=== PATIENT | female | born 1950 | race Caucasian/White ===

== ENCOUNTER 2017-06-10 14:23 | Inpatient (IN) | payer MEDICARE, BC ==
[~2017-06-10] VITALS: Ht 167.6 cm; Wt 70.3 kg
--- NOTE | 2017-06-10 14:35 | NUR ---
[facility] FOR MEDICAL CLEARANCE FOR GPS ADMISSION. 5150 HOLD MEDICAL RESEARCH SCIENTIST. PATIENT IS A/OX 2, LETHARGIC. BREATHING EVEN AND UNLABORED. NO SOB. VITALS STABLE. SAFETY AND COMFORT MEASURES IN PLACE. AWAITING MD ORDERS.
[2017-06-10 14:49] LABS: BASOPHILS # (AUTO) 0.1 /CMM (0.0-0.2); BASOPHILS % (AUTO) 0.7 % (0.0-2.0); EOSINOPHILS # (AUTO) 0.2 /CMM (0.0-0.7); EOSINOPHILS % (AUTO) 2.6 % (0.0-6.0); HEMATOCRIT 34 % (33-45); HEMOGLOBIN 11.8 g/dL (11.5-14.8); LYMPHOCYTES # (AUTO) 1.9 /CMM (0.8-4.8); LYMPHOCYTES % (AUTO) 26.4 % (20.0-44.0); MEAN CORPUSCULAR HEMOGLOBIN 30 PG (26.0-33.0); MEAN CORPUSCULAR HGB CONC 34 g/dl (31.0-36.0); MEAN CORPUSCULAR VOLUME 87 fL (82-100); MONOCYTES # (AUTO) 0.8 /CMM (0.1-1.30); MONOCYTES % (AUTO) 11.5 % (2.0-12.0); NEUTROPHILS # (AUTO) 4.4 /CMM (1.8-8.9); NEUTROPHILS % (AUTO) 58.8 % (43.0-81.0); PLATELET COUNT (AUTO) 308 /CMM (150-450); RDW COEFFICIENT OF VARIATION 14.1 (11.5-15.0); RED BLOOD CELL COUNT(AUTO) 3.95 MIL/uL (4.0-5.2); WHITE BLOOD COUNT (AUTO) 7.4 K/uL (4.3-11.0)
--- NOTE | 2017-06-10 15:01 | NUR ---
CALLED NURSING SUP. FOR GPS BED
[2017-06-10 15:05] LABS: ALANINE AMINOTRANSFERASE 24 U/L (12-78); ALBUMIN 3.3 g/dL (3.4-5.0); ALCOHOL, BLOOD < 3 mg/dL (0-0); ALKALINE PHOSPHATASE 90 U/L (46-116); ASPARTATE AMINOTRANSFERASE 18 U/L (15-37); BILIRUBIN,TOTAL 0.2 mg/dL (0.2-1.0); CALCIUM, SERUM 9.9 mg/dL (8.5-10.1); CARBON DIOXIDE 25 mmol/L (21-32); CHLORIDE 106 mmol/L (98-107); CREATININE 0.7 mg/dL (0.6-1.3); POTASSIUM 3.6 mmol/L (3.5-5.1); SODIUM SERUM 140 mmol/L (136-145); TOTAL PROTEIN, SERUM 7.5 g/dL (6.4-8.2); UREA NITROGEN, BLOOD 25 mg/dL (7-18)
[2017-06-10 15:06] LABS: GLUCOSE 38 mg/dL (74-106)
--- NOTE | 2017-06-10 15:06 | NUR ---
URINE OBTAINED VIA STRAIGHT CATH AND SENT TO LAB PER MD ORDERS.
[2017-06-10] MEDS ORDERED: DEXTROSE 50%-WATER 50 ML DISP.SYRIN ONE (15:07)
--- NOTE | 2017-06-10 15:15 | NUR ---
CRITICAL LAB, BS 38. NOTIFIED, ORDERED D50. D50 ADMINISTERED VIA NEW IV ON LAC, 20 G. WILL REASSESS
[2017-06-10] MEDS ORDERED: CLOP75TA15 PO (15:20)
[2017-06-10] MEDS ORDERED: LAMO150T PO (15:20)
[2017-06-10] MEDS ORDERED: FOLI1TAB16 PO (15:20)
[2017-06-10] MEDS ORDERED: QUET25TA PO (15:20)
[2017-06-10] MEDS ORDERED: LAMO25TA PO (15:20)
[2017-06-10] MEDS ORDERED: PREG75CA PO (15:20)
[2017-06-10] MEDS ORDERED: LORA1TAB PO (15:20)
[2017-06-10] MEDS ORDERED: BACL10TA PO (15:20)
[2017-06-10] MEDS ORDERED: FAMO20TA8 PO (15:20)
[2017-06-10] MEDS ORDERED: INSU100V7 SQ (15:20)
[2017-06-10] MEDS ORDERED: AMLO5TAB2 PO (15:20)
[2017-06-10] MEDS ORDERED: PENT400T2 PO (15:20)
[2017-06-10] MEDS ORDERED: LOSA50TA21 PO (15:20)
[2017-06-10] MEDS ORDERED: ATOR40TA PO (15:20)
[2017-06-10] MEDS ORDERED: INSU100V11 SQ (15:20)
[2017-06-10] MEDS ORDERED: BENZ0.5T3 PO (15:20)
[2017-06-10] MEDS ORDERED: LEVO150T8 PO (15:20)
[2017-06-10] MEDS ORDERED: SERT100T PO (15:20)
[2017-06-10] MEDS ORDERED: RISP0.253 PO (15:20)
[2017-06-10] MEDS ORDERED: BLOO-668 IN (15:20)
[2017-06-10] MEDS ORDERED: IV D5/ 0.9% NACL 1,000 ML IV ONE (15:30)
[2017-06-10] MEDS ORDERED: DEXTROSE 50%-WATER 50 ML DISP.SYRIN IVP ONE (15:30)
--- NOTE | 2017-06-10 15:31 | NUR ---
REPEAT BLOOD SUGAR 173
--- NOTE | 2017-06-10 15:34 | NUR ---
PATIENT'S PMD: DR. SONG - [phone] PSYCH MD: DR. ASCENCIO - [phone]
[2017-06-10 15:39] LABS: APPEARANCE,URINE Clear (CLEAR); BILIRUBIN,URINE Negative (NEGATIVE); BLOOD, URINE Negative Ery/uL (NEGATIVE); COLOR,URINE Yellow (YELLOW); KETONES,URINE Negative (NEGATIVE); LEUKOCYTE ESTERASE ,URINE Negative (NEGATIVE); NITRITE, URINE Negative (NEGATIVE); PROTEIN,URINE Negative (NEGATIVE); UGLUCOSE 250 MG/DL mg/dL (NEGATIVE); UROBILINOGEN,URINE 0.2 EU/dL (0.2)
[2017-06-10] MEDS ORDERED: HALOPERIDOL LACTATE INJ 5 MG/ML VIAL IM ONE (16:00)
--- NOTE | 2017-06-10 16:00 | NUR ---
GPS 213-A
[2017-06-10] MEDS ORDERED: HALOPERIDOL LACTATE INJ 5 MG/ML VIAL ONE (16:03)
--- NOTE | 2017-06-10 16:09 | NUR ---
CALLED NURSING SUP. FOR MS BED
[2017-06-10] MEDS ORDERED: ACETAMINOPHEN 325 MG TABLET PO PRN ×2 (16:30→17:00)
[2017-06-10] MEDS ORDERED: LORAZEPAM INJ 2 MG/ML VIAL IV PRN ×2 (16:30→17:00)
[2017-06-10] MEDS ORDERED: IV D5/ 0.9% NACL 1,000 ML IV PRN ×2 (16:30→17:00)
[2017-06-10] MEDS ORDERED: MAGNESIUM HYDROXIDE 30 ML UDC PO PRN ×2 (16:30→17:00)
[2017-06-10] MEDS ORDERED: ZOLPIDEM TARTRATE 5 MG TABLET PO PRN ×2 (16:30→17:00)
[2017-06-10] MEDS ORDERED: ONDANSETRON HCL/PF 4 MG/2 ML VIAL IVP PRN ×2 (16:30→17:00)
[2017-06-10] MEDS ORDERED: MAG HYDROX/AL HYDROX/SIMETH 30 ML UDC PO PRN ×2 (16:30→17:00)
--- NOTE | 2017-06-10 16:50 | NUR ---
REPORT GIVEN TO RNTELMA FOR MIRANDA UPON ADMISSION. [facility]ER.
[2017-06-10 17:00] VITALS: BP 145/73
--- NOTE | 2017-06-10 17:00 | NUR ---
MEAT BLENDER NOTE: RECEIVED REPORT FROM BERNARDO VALLE FROM ER. PATIENT WAS AWAKE, ALERT WITH INTERMITTENT CONFUSION. ABLE TO FOLLOW SIMPLE COMMANDS, BUT KEPT REPEATING THAT SHE WANTED TO SPEAK WITH HER . COMPLETE BODY ASSESSMENT DONE. GUARDED AT TIMES. NOT ON ANY FORM OF DISTRESS. CURRENTLY ON 1:1 SITTER FOR SAFETY. BED ALARM AND LOCKED AT ALL TIMES. CALL LIGHT WITHIN REACH. CALLED THE AND PT WAS ABLE TO CALM DOWN AND LESS GUARDED AFTER SPEAKING WITH .
--- NOTE | 2017-06-10 19:00 | NUR ---
RN NOTES: RECEIVED AWAKE ON BED, A/OX1,LOOKS LETHARGIC AND SLEEPY,ON 1;1 SITTER, ON CLOSE WATCH,IV CANNULA ON LAC G#18,IVF OF D5NS ONGOING AT 100CC/HR,FALL,SAFETY AND ASPIRATION PRECAUTION OBSERVED, CALL LIGHT WITHIN EASY REACH, BED LOW AND LOCKED, KEPT ON CLOSE WATCH AND MONITORED FOR SIGN OF HYPER AND HYPOGLYCEMIA.
--- NOTE | 2017-06-10 19:28 | NUR ---
RN NOTE: ENDORSED TO BERNARDO YANG FOR CONTINUITY OF CARE. PATIENT ASLEEP IN BED, NOT ON ANY FORM OF DISTRESS. NO S/S OF PAIN/ DISCOMFORT. REMAINED ON MED-SURG. FOR OBSERVATION OF BLOOD SUGAR AND CLEARANCE FOR GPS ADMISSION AFTER MEDICAL CLEARANCE. PATIENT ATE 100% OF HER DINNER.
[2017-06-10 20:00] VITALS: BP 150/80
[2017-06-10] MEDS ORDERED: ATORVASTATIN 40 MG TABLET PO SCH (22:00)
[2017-06-10] MEDS ORDERED: BENZTROPINE MESYLATE (1 MG) 1 MG TABLET PO SCH (22:00)
[2017-06-10] MEDS ORDERED: BACLOFEN (10 MG) 10 MG TABLET PO SCH (22:00)
--- NOTE | 2017-06-11 04:38 | NUR ---
RN NOTES: IVF FINISHED, NEW BAG STARTED.
[2017-06-11] MEDS ORDERED: PANTOPRAZOLE 40 MG TABLET.DR PO SCH ×2 (07:30)
[2017-06-11] MEDS ORDERED: LEVOTHYROXINE SODIUM 75 MCG TABLET PO SCH (07:30)
--- NOTE | 2017-06-11 07:30 | NUR ---
RN NOTES: ABLE TO SLEEP AT SHORT INTERVALS, CALLS AND NEEDS ATTENDED, KEPT ON CLOSE WATCH ON 1;1 SITTER, HIGH RISK FOR FALL,SAFETY PRECAUTION OBSERVE,CALLS AND NEEDS ATTENDED, ENDORSED FOR CONTINUITY OF CARE.
[2017-06-11] MEDS: risperiDONE 0.25 MG TABLET PO SCH ×2 (08:35→12:35)
[2017-06-11] MEDS: LORAZEPAM 1 MG TABLET PO PRN ×2 (08:36→15:55)
[2017-06-11] MEDS ORDERED: PENTOXIFYLLINE 400 MG TABLET.SA PO SCH (09:00)
[2017-06-11] MEDS ORDERED: FOLIC ACID 1 MG TABLET PO SCH (09:00)
[2017-06-11] MEDS ORDERED: LOSARTAN POTASSIUM 50 MG TABLET PO SCH (09:00)
[2017-06-11] MEDS ORDERED: QUETIAPINE FUMARATE 25 MG TABLET PO SCH ×2 (09:00→13:00)
[2017-06-11] MEDS ORDERED: AMLODIPINE BESYLATE 5 MG TABLET PO SCH (09:00)
[2017-06-11] MEDS ORDERED: SERTRALINE HCL 50 MG TABLET PO SCH (09:00)
[2017-06-11] MEDS ORDERED: CLOPIDOGREL BISULFATE 75 MG TABLET PO SCH (09:00)
[2017-06-11] MEDS ORDERED: LamoTRIgine 100 MG TABLET PO SCH (09:00)
[2017-06-11] MEDS ORDERED: PREGABALIN 25 MG CAPSULE PO SCH (09:00)
[2017-06-11] MEDS: BLOOD SUGAR DIAGNOSTIC 1 EACH STRIP IN SCH ×2 (09:00→13:00)
[2017-06-11] MEDS ORDERED: FAMOTIDINE (20 MG) 20 MG TABLET PO SCH (09:00)
[2017-06-11] MEDS: INSULIN REGULAR, HUMAN 100 UNIT/ML 3 ML VIAL SQ PRN ×2 (09:40→13:10)
[2017-06-11] MEDS ORDERED: DEXTROSE 50%-WATER 50 ML DISP.SYRIN IV PRN (10:00)
[2017-06-11] MEDS ORDERED: *INSULIN REGULAR(HUMULIN R)HUM 100 UNIT/ML VIAL SQ PRN (10:00)
[2017-06-11] MEDS ORDERED: BLOOD SUGAR DIAGNOSTIC 1 EACH STRIP VI SCH (12:00)
[2017-06-11 16:11] VITALS: BP 112/54
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
[2017-06-11] MEDS ORDERED: INSU100V3 SQ (16:57)
[2017-06-11] MEDS ORDERED: ONDA4VIA30 IVP (16:57)
[2017-06-11] MEDS ORDERED: LORA2VIA6 IV (16:57)
[2017-06-11] MEDS ORDERED: ZOLP5TAB2 PO (16:57)
[2017-06-11] MEDS ORDERED: ACET-868 PO (16:57)
[2017-06-11] MEDS ORDERED: MAG30ORA PO (16:57)
[2017-06-11] MEDS ORDERED: PANT40TA2 PO (16:57)
[2017-06-11] MEDS ORDERED: MAGN400O6 PO (16:57)
[2017-06-11] MEDS ORDERED: DEXT50DI8 IV (16:57)
[2017-06-11] MEDS ORDERED: LamoTRIgine 25 MG TABLET PO SCH (18:00)
[2017-06-11] MEDS ORDERED: INSULIN GLARGINE, 100 UNIT/ML CARTRIDGE SQ SCH (22:00)
== END 2017-06-11 16:16 | DRG 639 ==
LOC: ER 14:26 → MEDSG1 16:59
PROVIDERS: ADMIT Nurse Practitioner Acute Care; ATTEND Nurse Practitioner Acute Care
DX: E10.649 Type 1 diabetes mellitus with hypoglycemia without coma (principal); I11.0 Hypertensive heart disease with heart failure; I50.9 Heart failure, unspecified; E10.51 Type 1 diabetes mellitus with diabetic peripheral angiopathy without gangrene; E78.5 Hyperlipidemia, unspecified; G40.909 Epilepsy, unspecified, not intractable, without status epilepticus; I25.10 Atherosclerotic heart disease of native coronary artery without angina pectoris; K21.9 Gastro-esophageal reflux disease without esophagitis; Z79.4 Long term (current) use of insulin; F32.9 Major depressive disorder, single episode, unspecified; E03.9 Hypothyroidism, unspecified; F29 Unspecified psychosis not due to a substance or known physiological condition
CPT/HCPCS: 36415; 80048-TC; 80076-TC; 80305; 81000-TC; 82947-TC; 82962-TC; 85025-TC; 87081-TC; A4606; A6253; A6402; G0480; J1630; J1815; J3490; J7042; Z7610

== ENCOUNTER 2017-06-11 16:23 | Inpatient (IN) | payer MEDICARE, OTHER ==
[~2017-06-11] VITALS: Ht 167.6 cm; Wt 70.8 kg
[~2017-06-11 16:23] MED LIST: AMLO5TAB2 PO; ATOR40TA PO; BACL10TA PO; BENZ0.5T3 PO; BLOO-668 IN; CLOP75TA15 PO; FAMO20TA8 PO; FOLI1TAB16 PO; INSU100V11 SQ; INSU100V7 SQ; LAMO150T PO; LAMO25TA PO; LEVO150T8 PO; LORA1TAB PO; LOSA50TA21 PO; PENT400T2 PO; PREG75CA PO; QUET25TA PO; RISP0.253 PO; SERT100T PO
[2017-06-11] MEDS ORDERED: INSU100V3 SQ (16:57)
[2017-06-11] MEDS ORDERED: LORA2VIA6 IV (16:57)
[2017-06-11] MEDS ORDERED: ACET-868 PO (16:57)
[2017-06-11] MEDS ORDERED: ZOLP5TAB2 PO (16:57)
[2017-06-11] MEDS ORDERED: PANT40TA2 PO (16:57)
[2017-06-11] MEDS ORDERED: DEXT50DI8 IV (16:57)
[2017-06-11] MEDS ORDERED: MAGN400O6 PO (16:57)
[2017-06-11] MEDS ORDERED: MAG30ORA PO (16:57)
[2017-06-11] MEDS ORDERED: ONDA4VIA30 IVP (16:57)
[2017-06-11] MEDS ORDERED: MAG HYDROX/AL HYDROX/SIMETH 30 ML UDC PO PRN ×2 (17:00→20:30)
[2017-06-11] MEDS ORDERED: MAGNESIUM HYDROXIDE 30 ML UDC PO PRN ×2 (17:00→20:30)
[2017-06-11] MEDS ORDERED: ACETAMINOPHEN 325 MG TABLET PO PRN ×2 (17:00→20:30)
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
--- NOTE | 2017-06-11 17:15 | NUR ---
GPS/RN PT REFUSED VS CHECKED. SCREAMED : " GET THE F... OUT OF HERE"
--- NOTE | 2017-06-11 17:51 | NUR ---
GPS/RN NO RESPONSE FROM DR VALDOVINOS YET WILL ENDORSE TO TEMPLATE CUTTER TO FOLLOW UP
[2017-06-11] MEDS ORDERED: INSULIN REGULAR, HUMAN 100 UNIT/ML 3 ML VIAL SQ PRN ×2 (18:00→20:30)
[2017-06-11] MEDS ORDERED: DEXTROSE 50%-WATER 50 ML DISP.SYRIN IV PRN ×2 (18:00→20:30)
[2017-06-11] MEDS ORDERED: *INSULIN REGULAR(HUMULIN R)HUM 100 UNIT/ML VIAL SQ PRN (18:00)
[2017-06-11] MEDS ORDERED: BLOOD SUGAR DIAGNOSTIC 1 EACH STRIP VI SCH (18:00)
--- NOTE | 2017-06-11 18:10 | NUR ---
GPS/RN ACCUCHECK WITH BS206 INSULIN 6UNITS GIVEN PER ORDER
--- NOTE | 2017-06-11 19:15 | NUR ---
GPS/RN ENDORSED TO TJ CHANG TO FOLLOW UP WITH [facility] MD TO RECONCILE MEDS
[2017-06-11 20:00] VITALS: BP 131/55
--- NOTE | 2017-06-11 20:00 | NUR ---
PATIENT CALM AND COOPERATIVE, RESPONDS WELL WHEN ENGAGED. ASKED PATIENT IF SHE WILL ALLOW PICTURE TO BE TAKEN WITH SKIN ASSESSMENT.
[2017-06-11] MEDS ORDERED: ONDANSETRON HCL/PF 4 MG/2 ML VIAL IVP PRN (20:30)
[2017-06-11] MEDS ORDERED: FOLIC ACID 1 MG TABLET PO SCH (20:30)
[2017-06-11] MEDS ORDERED: LEVOTHYROXINE SODIUM 150 MCG TABLET PO SCH (20:30)
[2017-06-11] MEDS ORDERED: FAMOTIDINE (20 MG) 20 MG TABLET PO SCH (20:30)
[2017-06-11] MEDS ORDERED: LOSARTAN POTASSIUM 50 MG TABLET PO SCH (20:30)
[2017-06-11] MEDS ORDERED: LamoTRIgine 25 MG TABLET PO SCH (20:30)
[2017-06-11] MEDS ORDERED: CLOPIDOGREL BISULFATE 75 MG TABLET PO SCH (20:30)
[2017-06-11] MEDS ORDERED: PENTOXIFYLLINE 400 MG TABLET.SA PO SCH (20:30)
[2017-06-11] MEDS ORDERED: PANTOPRAZOLE 40 MG TABLET.DR PO SCH (20:30)
[2017-06-11] MEDS ORDERED: AMLODIPINE BESYLATE 5 MG TABLET PO SCH (20:30)
[2017-06-11] MEDS ORDERED: LEVOTHYROXINE SODIUM 50 MCG TABLET ONE (20:40)
--- NOTE | 2017-06-11 20:50 | NUR ---
FOLATE 1 MG TAB, LAMOTRIGINE 75 MG (3)TABS, FAMOTIDINE 20 MG TAB, CLOPIDOGREL 75 MG TAB PANTOPRAZOLE 40 MG TAB, PENTOXIFYLLINE 400 MG TAB. ALL MEDS GIVEN @ AROUND 2051. 06/10/17
--- NOTE | 2017-06-11 21:00 | NUR ---
PATIENT ASLEEP AT THIS TIME.
--- NOTE | 2017-06-11 21:04 | NUR ---
SYNTHROID 150 MCG DUE AT 2029 NOT ADMINISTERED, ORDER IS TO BE GIVEN AC BREAKFAST, STARTS ACE AM @ 0730. SYNTHROID 50 MCG GIVEN TONIGHT ORDERED X1 DOSE.
--- NOTE | 2017-06-11 21:09 | NUR ---
PATIENT TOOK HER MEDICATIONS FOR 2030, MED COMPLIANT.
[2017-06-11] MEDS ORDERED: LamoTRIgine 25 MG TABLET PO ONE (21:30)
[2017-06-11] MEDS ORDERED: PANTOPRAZOLE 40 MG TABLET.DR PO ONE (21:30)
[2017-06-11] MEDS ORDERED: AMLODIPINE BESYLATE 5 MG TABLET PO ONE (21:30)
[2017-06-11] MEDS ORDERED: FOLIC ACID 1 MG TABLET PO ONE (21:30)
[2017-06-11] MEDS ORDERED: CLOPIDOGREL BISULFATE 75 MG TABLET PO ONE (21:30)
[2017-06-11] MEDS ORDERED: PENTOXIFYLLINE 400 MG TABLET.SA PO ONE (21:30)
[2017-06-11] MEDS ORDERED: LEVOTHYROXINE SODIUM 150 MCG TABLET PO ONE (21:30)
[2017-06-11] MEDS ORDERED: LOSARTAN POTASSIUM 50 MG TABLET PO ONE (21:30)
[2017-06-11] MEDS ORDERED: FAMOTIDINE (20 MG) 20 MG TABLET PO ONE (21:30)
[2017-06-11] MEDS: BLOOD SUGAR DIAGNOSTIC 1 EACH STRIP IN SCH (21:43)
--- NOTE | 2017-06-11 21:47 | NUR ---
DR. LUGO CAME IN. SEEN AND EXAMINED PATIENT.
[2017-06-11] MEDS ORDERED: INSULIN GLARGINE, 100 UNIT/ML CARTRIDGE SQ SCH (22:00)
--- NOTE | 2017-06-11 22:50 | NUR ---
PATIENT'S MOOD SUDDENLY CHANGED, AGITATED AND UNCOOPERATIVE. REFUSED PHOTO AND SKIN ASSESSMENT, STATED," I DON'T WANT YOU TO TAKE A PICTURE, GET OUT OF HERE."
[2017-06-11] MEDS: BACLOFEN (10 MG) 10 MG TABLET PO SCH (22:54)
[2017-06-11] MEDS: ATORVASTATIN 40 MG TABLET PO SCH (22:54)
--- NOTE | 2017-06-11 23:36 | NUR ---
LIORESAL 20 MG PO GIVEN @ 2253 AND LIPITOR 40 MG TAB
--- NOTE | 2017-06-12 06:10 | NUR ---
Lantus 28 units not administered. medication not available at this time.
[2017-06-12] MEDS: clonazePAM 0.5 MG TABLET PO PRN ×2 (07:04→07:15)
--- NOTE | 2017-06-12 07:11 | NUR ---
Accucheck 430 mg/dl, reported to BERNARDO DAWN, will follow up.
[2017-06-12] MEDS: BLOOD SUGAR DIAGNOSTIC 1 EACH STRIP IN SCH (07:16)
[2017-06-12 07:25] LABS: BASOPHILS % (AUTO) 0.8 % (0.0-2.0); EOSINOPHILS # (AUTO) 0.2 /CMM (0.0-0.7); EOSINOPHILS % (AUTO) 2.8 % (0.0-6.0); HEMATOCRIT 34 % (33-45); HEMOGLOBIN 11.7 g/dL (11.5-14.8); LYMPHOCYTES # (AUTO) 1.2 /CMM (0.8-4.8); LYMPHOCYTES % (AUTO) 21.9 % (20.0-44.0); MEAN CORPUSCULAR HEMOGLOBIN 30 PG (26.0-33.0); MEAN CORPUSCULAR HGB CONC 34 g/dl (31.0-36.0); MEAN CORPUSCULAR VOLUME 88 fL (82-100); MONOCYTES # (AUTO) 0.5 /CMM (0.1-1.30); MONOCYTES % (AUTO) 8.4 % (2.0-12.0); NEUTROPHILS # (AUTO) 3.7 /CMM (1.8-8.9); NEUTROPHILS % (AUTO) 66.1 % (43.0-81.0); PLATELET COUNT (AUTO) 270 /CMM (150-450); RDW COEFFICIENT OF VARIATION 15.4 (11.5-15.0); RED BLOOD CELL COUNT(AUTO) 3.84 MIL/uL (4.0-5.2); WHITE BLOOD COUNT (AUTO) 5.5 K/uL (4.3-11.0)
[2017-06-12] MEDS: INSULIN REGULAR, HUMAN 100 UNIT/ML 3 ML VIAL SQ PRN ×4 (07:30→22:00)
[2017-06-12] MEDS ORDERED: LEVOTHYROXINE SODIUM 150 MCG TABLET PO SCH (07:30)
[2017-06-12] MEDS ORDERED: DEXTROSE 50%-WATER 50 ML DISP.SYRIN IV PRN (07:30)
--- NOTE | 2017-06-12 07:30 | NUR ---
[id number]: CALLED [facility] TO NOTIFY DR. VALDOVINOS ABOUT BLOOD SUGAR IS 430 MG/DL AND WAITING FOR RETURN PHONE CALL.
[2017-06-12] MEDS: BLOOD SUGAR DIAGNOSTIC 1 EACH STRIP VI SCH ×4 (07:34→22:07)
[2017-06-12 07:42] LABS: CHOLESTEROL 266 mg/dL (<200); HDL CHOLESTEROL 105 mg/dL (40-60); LDL 148 mg/dL (0-99); TRIGLYCERIDES 52 mg/dL (30-150)
[2017-06-12 07:44] LABS: ALBUMIN 3.3 g/dL (3.4-5.0); BILIRUBIN,TOTAL 0.5 mg/dL (0.2-1.0); CALCIUM, SERUM 9.5 mg/dL (8.5-10.1); MAGNESIUM 1.9 mg/dL (1.8-2.4); PHOSPHORUS 2.9 mg/dL (2.5-4.9); POTASSIUM 4.4 mmol/L (3.5-5.1); TOTAL PROTEIN, SERUM 7.5 g/dL (6.4-8.2)
[2017-06-12] MEDS: PANTOPRAZOLE 40 MG TABLET.DR PO SCH (07:58)
[2017-06-12] MEDS: LEVOTHYROXINE SODIUM 75 MCG TABLET PO SCH (07:58)
[2017-06-12 08:00] VITALS: BP 144/66
[2017-06-12] MEDS: PREGABALIN 25 MG CAPSULE PO SCH ×2 (08:02→16:12)
[2017-06-12] MEDS: FOLIC ACID 1 MG TABLET PO SCH (08:03)
[2017-06-12] MEDS: PENTOXIFYLLINE 400 MG TABLET.SA PO SCH ×2 (08:03→16:12)
[2017-06-12] MEDS: CLOPIDOGREL BISULFATE 75 MG TABLET PO SCH (08:03)
[2017-06-12] MEDS: LOSARTAN POTASSIUM 50 MG TABLET PO SCH (08:04)
[2017-06-12] MEDS: FAMOTIDINE (20 MG) 20 MG TABLET PO SCH ×2 (08:04→16:12)
[2017-06-12] MEDS: AMLODIPINE BESYLATE 5 MG TABLET PO SCH (08:05)
[2017-06-12] MEDS ORDERED: LamoTRIgine 100 MG TABLET PO SCH (09:00)
--- NOTE | 2017-06-12 09:05 | NUR ---
[id number]: DR. VALDOVINOS CALLED BACK AND INFORMED DR. VALDOVINOS THAT PT'S BLOOD SUGAR IS 430 AND GAVE 15 UNITS OF REGULAR INSULIN AND RECHECKED BLOOD SUGAR IS 398 MG/DL. NO NEW ORDERS GIVEN AT THIS TIME
[2017-06-12] MEDS: risperiDONE 1 MG TABLET PO SCH ×2 (10:57→16:12)
[2017-06-12] MEDS: SERTRALINE HCL 50 MG TABLET PO SCH (10:57)
[2017-06-12] MEDS: BENZTROPINE MESYLATE (1 MG) 1 MG TABLET PO SCH ×2 (10:57→16:12)
--- NOTE | 2017-06-12 12:15 | NUR ---
[id number]: BLOOD SUGAR IS 248 MG/DL AND GAVE 6 UNITS OF REGULAR INSULIN AND GAVE 28 UNITS OF LANTUS.
[2017-06-12] MEDS: INSULIN GLARGINE, 100 UNIT/ML CARTRIDGE SQ SCH (12:16)
--- NOTE | 2017-06-12 15:00 | NUR ---
[id number]: PT REFUSED WOUND TREATMENT EVEN AFTER OFFER 3X BY STAFF. PT GETS ANXIOUS, RESTLESS, IRRITABLE, NON-COMPLIANT WITH STAFF.
[2017-06-12 16:00] VITALS: BP 119/51
--- NOTE | 2017-06-12 17:00 | NUR ---
[id number]: PT REFUSED MRSA TO BE DONE AND SKIN ASSESSMENT.
[2017-06-12] MEDS ORDERED: LamoTRIgine 25 MG TABLET PO SCH (18:00)
--- NOTE | 2017-06-12 18:04 | NUR ---
FQG-[id number]: BLOOD SUGAR IS 160 MG/DL AND GAVE 2 UNITS OF REGULAR INSULIN
[2017-06-12 20:21] VITALS: BP 119/59
[2017-06-12] MEDS: BACLOFEN (10 MG) 10 MG TABLET PO SCH (21:09)
[2017-06-12] MEDS: ATORVASTATIN 40 MG TABLET PO SCH (21:09)
[2017-06-12] MEDS: LamoTRIgine 25 MG TABLET PO SCH (21:09)
[2017-06-12 23:00] VITALS: BP 116/66
[2017-06-13 08:00] VITALS: BP 155/78
[2017-06-13] MEDS: INSULIN GLARGINE, 100 UNIT/ML CARTRIDGE SQ SCH (08:17)
--- NOTE | 2017-06-13 08:17 | NUR ---
AKZ-XZ-VHUTP: BLOOD SUGAR IS 395 MG/DL AND GAVE 15 UNITS OF REGULAR INSULIN.
--- NOTE | 2017-06-13 08:17 | NUR ---
KJP-[id number]-[id number]: BLOOD SUGAR IS 395 MG/DL AND GAVE LANTUS 28 UNITS.
[2017-06-13] MEDS: INSULIN REGULAR, HUMAN 100 UNIT/ML 3 ML VIAL SQ PRN ×3 (08:19→17:05)
[2017-06-13] MEDS: BLOOD SUGAR DIAGNOSTIC 1 EACH STRIP VI SCH ×4 (08:19→21:43)
[2017-06-13] MEDS: risperiDONE 1 MG TABLET PO SCH ×2 (08:27→16:10)
[2017-06-13] MEDS: PREGABALIN 25 MG CAPSULE PO SCH ×2 (08:27→16:10)
[2017-06-13] MEDS: FAMOTIDINE (20 MG) 20 MG TABLET PO SCH ×2 (08:28→16:10)
[2017-06-13] MEDS: LamoTRIgine 100 MG TABLET PO SCH (08:28)
[2017-06-13] MEDS: BENZTROPINE MESYLATE (1 MG) 1 MG TABLET PO SCH ×2 (08:28→16:10)
[2017-06-13] MEDS: CLOPIDOGREL BISULFATE 75 MG TABLET PO SCH (08:28)
[2017-06-13] MEDS: PENTOXIFYLLINE 400 MG TABLET.SA PO SCH ×2 (08:28→16:10)
[2017-06-13] MEDS: PANTOPRAZOLE 40 MG TABLET.DR PO SCH (08:28)
[2017-06-13] MEDS: SERTRALINE HCL 50 MG TABLET PO SCH (08:28)
[2017-06-13] MEDS: LEVOTHYROXINE SODIUM 75 MCG TABLET PO SCH (08:28)
[2017-06-13] MEDS: LOSARTAN POTASSIUM 50 MG TABLET PO SCH (08:32)
[2017-06-13] MEDS: FOLIC ACID 1 MG TABLET PO SCH (08:33)
[2017-06-13] MEDS: AMLODIPINE BESYLATE 5 MG TABLET PO SCH (08:33)
[2017-06-13] MEDS: *INSULIN REGULAR(HUMULIN R)HUM 100 UNIT/ML VIAL SQ PRN ×2 (12:15→21:51)
--- NOTE | 2017-06-13 12:30 | NUR ---
VGW-VA-[id number]: BLOOD SUGAR IS 328 MG /DL AND GAVE 8 UNITS OF REGULAR INSULIN
--- NOTE | 2017-06-13 13:32 | NUR ---
NVA-WJ-[id number]: PT REFUSED LAB AT THIS TIME, EVEN AFTER EXPLAINED TO PT THE IMPORTANCE OF BEING COMPLIANT WITH TREATMENT. ENERGY ECONOMIST WILL BE COMING AGAIN AFTER DINNER
--- NOTE | 2017-06-13 15:23 | NUR ---
Initial Discharge Note: Patient resides at [address] [place] [address] with her ex-/ DPOA Ricardo. Patient wishes to return upon discharge. SW called and spoke with patient's ex-/DPOA Ricardo [phone]. Ricardo stated that patient is able to return home when she is ready for discharge. Ricardo stated that patient has two caregivers in the daytime and that he cares for patient at night. SW to follow up with MD and facilitate safe and proper discharge.
[2017-06-13 16:00] VITALS: BP 146/65
[2017-06-13 16:08] LABS: APPEARANCE,URINE SL CLOUDY (CLEAR); BILIRUBIN,URINE NEGATIVE (NEGATIVE); BLOOD, URINE NEGATIVE Ery/uL (NEGATIVE); COLOR,URINE YELLOW (YELLOW); KETONES,URINE 1+ (NEGATIVE); LEUKOCYTE ESTERASE ,URINE NEGATIVE (NEGATIVE); NITRITE, URINE NEGATIVE (NEGATIVE); PROTEIN,URINE NEGATIVE (NEGATIVE); UGLUCOSE 3+ mg/dL (NEGATIVE); UROBILINOGEN,URINE 0.2 EU/dL (0.2)
[2017-06-13 16:29] LABS: BACTERIA,URINE None seen /HPF (None Seen); RBC,URINE 0-2 /HPF (0-2); SQUAMOUS EPITHELIAL CELL,UR Rare /HPF (None Seen); WBC,URINE 0-2 /HPF (0-3)
--- NOTE | 2017-06-13 17:05 | NUR ---
SWZ-[id number]: BLOOD SUGAR IS 198 MG/DL AND GAVE 3 UNITS OF REGULAR INSULIN
--- NOTE | 2017-06-13 17:26 | NUR ---
GPS/RN NOTE DR VALDOVINOS MADE AWARE OF URINALYSIS RESULT WITH NO NEW ORDER AT THIS TIME.
[2017-06-13 20:21] VITALS: BP 129/51
[2017-06-13] MEDS ORDERED: HYDROGEL DRESSING 90 GM TUBE TP PRN (21:00)
[2017-06-13] MEDS ORDERED: ZINC OXIDE 30 GM TUBE TP PRN (21:00)
[2017-06-13] MEDS ORDERED: ZINC OXIDE 30 GM TUBE TP SCH (21:00)
[2017-06-13] MEDS ORDERED: HYDROGEL DRESSING 90 GM TUBE TP SCH (21:00)
[2017-06-13] MEDS: LamoTRIgine 25 MG TABLET PO SCH (21:40)
[2017-06-13] MEDS: BACLOFEN (10 MG) 10 MG TABLET PO SCH (21:41)
[2017-06-13] MEDS: ATORVASTATIN 40 MG TABLET PO SCH (21:41)
[2017-06-14] MEDS: PANTOPRAZOLE 40 MG TABLET.DR PO SCH (07:30)
[2017-06-14] MEDS: LEVOTHYROXINE SODIUM 75 MCG TABLET PO SCH (07:30)
--- NOTE | 2017-06-14 07:51 | NUR ---
[id number]: BLOOD SUGAR IS 441 MG/DL. CALLED [facility] TO SPEAK WITH LETA STONE. PENDING RETURN PHONE CALL.
[2017-06-14] MEDS: BLOOD SUGAR DIAGNOSTIC 1 EACH STRIP VI SCH ×4 (07:53→22:27)
[2017-06-14] MEDS: INSULIN REGULAR, HUMAN 100 UNIT/ML 3 ML VIAL SQ PRN ×3 (08:21→18:13)
[2017-06-14] MEDS: INSULIN GLARGINE, 100 UNIT/ML CARTRIDGE SQ SCH (08:21)
--- NOTE | 2017-06-14 08:21 | NUR ---
[id number]-CHHWI: GAVE LANTUS 28 UNITS OF LANTUS INSULIN.
--- NOTE | 2017-06-14 08:21 | NUR ---
SAS-[id number]: GAVE 15 UNITS OF REGULAR INSULIN
--- NOTE | 2017-06-14 08:25 | NUR ---
[id number]: NOTIFIED CARE PROGRAM DIRECTOR BERTHA ABOUT PT'S BLOOD SUGAR IS 441 MG/DL AND GAVE 15 UNITS OF REGULAR INSULIN AND LANTUS 28 UNITS. NO NEW ORDERS GIVEN AT THIS TIME
[2017-06-14] MEDS: LOSARTAN POTASSIUM 50 MG TABLET PO SCH (08:37)
[2017-06-14] MEDS: LamoTRIgine 100 MG TABLET PO SCH (08:37)
[2017-06-14] MEDS: FOLIC ACID 1 MG TABLET PO SCH (08:37)
[2017-06-14] MEDS: BENZTROPINE MESYLATE (1 MG) 1 MG TABLET PO SCH ×2 (08:37→16:39)
[2017-06-14] MEDS: PREGABALIN 25 MG CAPSULE PO SCH ×2 (08:38→16:37)
[2017-06-14] MEDS: CLOPIDOGREL BISULFATE 75 MG TABLET PO SCH (08:38)
[2017-06-14] MEDS: ZINC SULFATE 220 MG CAPSULE PO SCH (08:38)
[2017-06-14] MEDS: HYDROGEL DRESSING 90 GM TUBE TP SCH (08:38)
[2017-06-14] MEDS: risperiDONE 1 MG TABLET PO SCH ×2 (08:38→16:38)
[2017-06-14] MEDS: PENTOXIFYLLINE 400 MG TABLET.SA PO SCH ×2 (08:38→16:38)
[2017-06-14] MEDS: SERTRALINE HCL 50 MG TABLET PO SCH (08:38)
[2017-06-14] MEDS: FAMOTIDINE (20 MG) 20 MG TABLET PO SCH ×2 (08:38→16:37)
[2017-06-14] MEDS: ASCORBIC ACID 500 MG TABLET PO SCH (08:38)
[2017-06-14] MEDS: AMLODIPINE BESYLATE 5 MG TABLET PO SCH (08:38)
[2017-06-14] MEDS: HYDROCORTISONE 1% CREAM 28.35 GM TUBE TP SCH ×2 (08:39→16:38)
[2017-06-14] MEDS: CLOTRIMAZOLE 1% 15 GM TUBE TP SCH ×2 (08:39→16:38)
--- NOTE | 2017-06-14 08:43 | NUR ---
[id number]: PT REFUSED MORNING MEDICATIONS. EVEN AFTER OFFERING 3X. EXPLAINED THE RISK AND BENEFITS OF MEDICATIONS.
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
[2017-06-14] MEDS ORDERED: LORAZEPAM INJ 2 MG/ML VIAL IM STA ×2 (10:21→15:44)
[2017-06-14] MEDS ORDERED: OLANZAPINE 10 MG VIAL IM STA (10:21)
--- NOTE | 2017-06-14 11:13 | NUR ---
WOUND CARE CONSULT JOURNEY LINEMAN RECEIVED CONSULT FOR LEFT LEG WOUND. PATIENT CURRENTLY BEING FOLLOWED BY DR CARTER ROJAS. BILATERAL FOOT AND LEFT LEG ULCER TREATMENT ORDERS CLARIFIED WITH DPM AT THIS TIME. ALL DISCUSSED WITH NURSING STAFF. PATIENT WITH CURRENT MARY AT 20. WOUND CARE WILL DEFER CONSULT TO DPM AT THIS TIME WITH CLARIFICATION OF ORDERS DONE.
--- NOTE | 2017-06-14 12:37 | NUR ---
[id number]: BLOOD SUGAR IS 236 MG/DL AND GAVE 6 UNITS OF REGULAR INSULIN.
[2017-06-14] MEDS ORDERED: diphenhydrAMINE HCL 50 MG/ML VIAL IM STA (15:44)
[2017-06-14] MEDS ORDERED: HALOPERIDOL LACTATE INJ 5 MG/ML VIAL IM ONE (15:44)
--- NOTE | 2017-06-14 16:02 | NUR ---
RN-CO: PATIENT IS AWAKE, YELLING AND SCREAMING AGAIN. NON REDIRECTABLE, TRYING TO JUMP FROM HER BED( UNSTEADY GAIT). SCREAMING PROFANITIES. VERY DISRUPTIVE TO THE UNIT. ANGRY TO OTHER PATIENTS. REFUSING PO ANTI ANXIETY. NOTIFIED DR LUBIN AND ORDERED ATIVAN 1 MG PO,HALDOL 5 MG PO, BENADRYL 25 MG IM STAT. ONE STAFF WAS WITH HER FOR SAFETY.
[2017-06-14 16:26] VITALS: BP 120/58
[2017-06-14 20:14] VITALS: BP 134/65
[2017-06-14] MEDS: BACLOFEN (10 MG) 10 MG TABLET PO SCH (22:00)
[2017-06-14] MEDS: LamoTRIgine 25 MG TABLET PO SCH (22:00)
[2017-06-14] MEDS: ATORVASTATIN 40 MG TABLET PO SCH (22:00)
--- NOTE | 2017-06-14 22:00 | NUR ---
RN NOTES PATIENT HAS BS 40. PATIENT EASILY AROUSABLE, NO OTHER S/S OF HYPOGYLCEMIA NOTED. PATIENT HAS NO IV ACCESS AND WAS GIVEN 2 CUPS OF OJ WITH SUGAR ADDED. WILL RECHECK BS AND CONTINUE TO MONITOR.
--- NOTE | 2017-06-14 23:05 | NUR ---
RN NOTES UPON RECHECKING, PATIENT HAS BS OF 48. PATIENT STILL ALERT AND EASILY AROUSABLE. NO OTHER S/S OF HYPOGLYCEMIA NOTED. STARTED IV ACCESS ON RAC, ADMINISTERED D5W 50ML ORDERED. PATIENT TOLERATED WELL. RECHECKED BS NOW 247. MADE AWARE. WILL CONTINUE TO MONITOR.
[2017-06-15] MEDS: HYDROGEL DRESSING 90 GM TUBE TP SCH (09:00)
[2017-06-15] MEDS: HYDROCORTISONE 1% CREAM 28.35 GM TUBE TP SCH ×2 (09:00→17:38)
[2017-06-15] MEDS: BLOOD SUGAR DIAGNOSTIC 1 EACH STRIP VI SCH ×4 (09:00→21:43)
[2017-06-15] MEDS: INSULIN REGULAR, HUMAN 100 UNIT/ML 3 ML VIAL SQ PRN ×3 (09:56→17:10)
[2017-06-15] MEDS: BENZTROPINE MESYLATE (1 MG) 1 MG TABLET PO SCH ×2 (09:59→17:33)
[2017-06-15] MEDS: PREGABALIN 25 MG CAPSULE PO SCH ×2 (09:59→17:33)
[2017-06-15] MEDS: ASCORBIC ACID 500 MG TABLET PO SCH (10:00)
[2017-06-15] MEDS: ZINC SULFATE 220 MG CAPSULE PO SCH (10:00)
[2017-06-15] MEDS: PANTOPRAZOLE 40 MG TABLET.DR PO SCH (10:00)
[2017-06-15] MEDS: PENTOXIFYLLINE 400 MG TABLET.SA PO SCH ×2 (10:01→17:33)
[2017-06-15] MEDS: risperiDONE 1 MG TABLET PO SCH ×2 (10:01→17:38)
[2017-06-15] MEDS: FAMOTIDINE (20 MG) 20 MG TABLET PO SCH ×2 (10:02→17:33)
[2017-06-15] MEDS: AMLODIPINE BESYLATE 5 MG TABLET PO SCH (10:02)
[2017-06-15] MEDS: LOSARTAN POTASSIUM 50 MG TABLET PO SCH (10:03)
[2017-06-15] MEDS: CLOPIDOGREL BISULFATE 75 MG TABLET PO SCH (10:04)
[2017-06-15] MEDS: LEVOTHYROXINE SODIUM 75 MCG TABLET PO SCH (10:04)
[2017-06-15] MEDS: LamoTRIgine 100 MG TABLET PO SCH (10:05)
[2017-06-15] MEDS: FOLIC ACID 1 MG TABLET PO SCH (10:05)
[2017-06-15] MEDS: CLOTRIMAZOLE 1% 15 GM TUBE TP SCH ×2 (10:07→17:38)
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
[2017-06-15 16:17] VITALS: BP 132/63
[2017-06-15 20:33] VITALS: BP 114/77
[2017-06-15] MEDS: BACLOFEN (10 MG) 10 MG TABLET PO SCH (21:12)
[2017-06-15] MEDS: ATORVASTATIN 40 MG TABLET PO SCH (21:12)
[2017-06-15] MEDS: LamoTRIgine 25 MG TABLET PO SCH (21:12)
[2017-06-15] MEDS: *INSULIN REGULAR(HUMULIN R)HUM 100 UNIT/ML VIAL SQ PRN (21:51)
[2017-06-15] MEDS: TEMAZEPAM 7.5 MG CAPSULE PO PRN (22:09)
[2017-06-16] MEDS: clonazePAM 0.5 MG TABLET PO PRN (01:57)
[2017-06-16] MEDS: INSULIN REGULAR, HUMAN 100 UNIT/ML 3 ML VIAL SQ PRN ×3 (07:52→17:27)
[2017-06-16 08:00] VITALS: BP 153/82
--- NOTE | 2017-06-16 08:00 | NUR ---
GPS/RN BS 447 ADMINISTERED 15 UNITS REGULAR INSULIN PER SLIDING SCALE, NO DISTRESS NOTED, VITALS STABLE, WILL CONTINUE TO MONITOR AND RE-CHECK BS.
[2017-06-16] MEDS: BENZTROPINE MESYLATE (1 MG) 1 MG TABLET PO SCH ×2 (08:17→16:58)
[2017-06-16] MEDS: PREGABALIN 25 MG CAPSULE PO SCH ×2 (08:17→16:58)
[2017-06-16] MEDS: FAMOTIDINE (20 MG) 20 MG TABLET PO SCH ×2 (08:17→16:58)
[2017-06-16] MEDS: FOLIC ACID 1 MG TABLET PO SCH (08:17)
[2017-06-16] MEDS: LamoTRIgine 100 MG TABLET PO SCH (08:17)
[2017-06-16] MEDS: AMLODIPINE BESYLATE 5 MG TABLET PO SCH (08:17)
[2017-06-16] MEDS: ZINC SULFATE 220 MG CAPSULE PO SCH (08:18)
[2017-06-16] MEDS: LOSARTAN POTASSIUM 50 MG TABLET PO SCH (08:18)
[2017-06-16] MEDS: ASCORBIC ACID 500 MG TABLET PO SCH (08:18)
[2017-06-16] MEDS: PANTOPRAZOLE 40 MG TABLET.DR PO SCH (08:18)
[2017-06-16] MEDS: LEVOTHYROXINE SODIUM 75 MCG TABLET PO SCH (08:18)
[2017-06-16] MEDS: risperiDONE 1 MG TABLET PO SCH ×2 (08:18→16:58)
[2017-06-16] MEDS: PENTOXIFYLLINE 400 MG TABLET.SA PO SCH ×2 (08:18→16:58)
[2017-06-16] MEDS: BLOOD SUGAR DIAGNOSTIC 1 EACH STRIP VI SCH ×4 (08:19→21:54)
[2017-06-16] MEDS: CLOTRIMAZOLE 1% 15 GM TUBE TP SCH ×2 (08:19→17:21)
[2017-06-16] MEDS: HYDROCORTISONE 1% CREAM 28.35 GM TUBE TP SCH ×2 (08:19→17:21)
[2017-06-16] MEDS: HYDROGEL DRESSING 90 GM TUBE TP SCH (09:00)
--- NOTE | 2017-06-16 09:20 | NUR ---
GPS/RN BS 497, DR LUCAS NOTIFIED, NEW ORDER OF LANTUS 20 UNITS DAILY, ADMINISTERED ORDERED, WILL CONTINUE TO MONITOR.
[2017-06-16] MEDS: CLOPIDOGREL BISULFATE 75 MG TABLET PO SCH (09:28)
[2017-06-16] MEDS: INSULIN GLARGINE, 100 UNIT/ML CARTRIDGE SQ SCH (09:40)
--- NOTE | 2017-06-16 12:23 | NUR ---
GPS/RN BS 397, DR LUCAS NOTIFIED AND ADMINISTERED 12 UNITS REGULAR INSULIN PER SLIDING SCALE,NO NEW ORDERS AT THIS TIME, WILL CONTINUE TO MONITOR.
[2017-06-16 16:00] VITALS: BP 143/66
--- NOTE | 2017-06-16 18:13 | NUR ---
GPS/RN BS 228, 6 UNITS REGULAR INSULIN ADMINISTERED, WILL CONTINUE TO MONITOR.
[2017-06-16 20:00] VITALS: BP_SYST 125; BP_SYST 143; BP_DIAS 64; BP_DIAS 84
[2017-06-16] MEDS: *INSULIN REGULAR(HUMULIN R)HUM 100 UNIT/ML VIAL SQ PRN (21:48)
[2017-06-16] MEDS: BACLOFEN (10 MG) 10 MG TABLET PO SCH (21:51)
[2017-06-16] MEDS: TEMAZEPAM 7.5 MG CAPSULE PO PRN (21:51)
[2017-06-16] MEDS: ATORVASTATIN 40 MG TABLET PO SCH (21:51)
[2017-06-16] MEDS: LamoTRIgine 25 MG TABLET PO SCH (21:51)
[2017-06-17 08:00] VITALS: BP 132/88
[2017-06-17] MEDS: BLOOD SUGAR DIAGNOSTIC 1 EACH STRIP VI SCH (08:17)
[2017-06-17] MEDS: PREGABALIN 25 MG CAPSULE PO SCH ×2 (09:09→17:59)
[2017-06-17] MEDS: ZINC SULFATE 220 MG CAPSULE PO SCH (09:10)
[2017-06-17] MEDS: CLOPIDOGREL BISULFATE 75 MG TABLET PO SCH (09:11)
[2017-06-17] MEDS: LEVOTHYROXINE SODIUM 75 MCG TABLET PO SCH (09:12)
[2017-06-17] MEDS: ASCORBIC ACID 500 MG TABLET PO SCH (09:13)
[2017-06-17] MEDS: PANTOPRAZOLE 40 MG TABLET.DR PO SCH (09:13)
[2017-06-17] MEDS: PENTOXIFYLLINE 400 MG TABLET.SA PO SCH ×2 (09:13→17:59)
[2017-06-17] MEDS: FOLIC ACID 1 MG TABLET PO SCH (09:14)
[2017-06-17] MEDS: FAMOTIDINE (20 MG) 20 MG TABLET PO SCH ×2 (09:14→18:03)
[2017-06-17] MEDS: AMLODIPINE BESYLATE 5 MG TABLET PO SCH (09:15)
[2017-06-17] MEDS: LOSARTAN POTASSIUM 50 MG TABLET PO SCH (09:16)
[2017-06-17] MEDS: BENZTROPINE MESYLATE (1 MG) 1 MG TABLET PO SCH ×2 (09:16→18:00)
[2017-06-17] MEDS: LamoTRIgine 100 MG TABLET PO SCH (09:26)
[2017-06-17] MEDS: HYDROGEL DRESSING 90 GM TUBE TP SCH (09:27)
[2017-06-17] MEDS: CLOTRIMAZOLE 1% 15 GM TUBE TP SCH ×2 (09:27→18:04)
[2017-06-17] MEDS: HYDROCORTISONE 1% CREAM 28.35 GM TUBE TP SCH ×2 (09:27→18:04)
[2017-06-17] MEDS: INSULIN GLARGINE, 100 UNIT/ML CARTRIDGE SQ SCH (09:29)
[2017-06-17] MEDS: INSULIN REGULAR, HUMAN 100 UNIT/ML 3 ML VIAL SQ PRN ×3 (09:32→18:07)
--- NOTE | 2017-06-17 11:51 | NUR ---
Family Update: LUPE called and spoke with patient's ex-/DPOA Ricardo [phone], updating him on patient. Ricardo again confirmed that patient is able to return home and that she has a lot of support around her [24 hour care].
[2017-06-17] MEDS ORDERED: DEXTROSE 50%-WATER 50 ML DISP.SYRIN IV PRN (12:00)
[2017-06-17] MEDS: BLOOD SUGAR DIAGNOSTIC 1 EACH STRIP IN SCH ×3 (12:04→21:19)
[2017-06-17] MEDS ORDERED: HYDROCODONE/APAP 5/325MG 1 EACH TABLET PO PRN (14:30)
--- NOTE | 2017-06-17 15:35 | NUR ---
RN NOTES ADMINISTERED NARCO 5/325 MG PO PRN FOR GENERALIZED PAIN 11/15, PER PATIENT REQUEST, V/S TAKEN BP-135/62, P-89, ENCOURAGED TO INCREASE FLUID INTAKE. CONTINUED MONITORING
--- NOTE | 2017-06-17 15:54 | NUR ---
RN NOTES MEDICATION WERE ADMINISTERED FOR PAIN EFFECTIVE, DRESSING CHANGED ON LEFT LOWER LEG, PATIENT TOLERATED WELL, CONTINUED MONITORING.
[2017-06-17 16:28] VITALS: BP 118/57
[2017-06-17] MEDS: clonazePAM 0.5 MG TABLET PO PRN (18:00)
[2017-06-17] MEDS: risperiDONE 1 MG TABLET PO SCH (18:01)
--- NOTE | 2017-06-17 19:50 | NUR ---
GPS RN NOTE: PATIENT UP IN CHAIR, NO ACUTE DISTRESS NOTED. EASILY AGITATED. NO S/S OF HYPER/HYPOGLYCEMIA NOTED. WILL CONTINUE TO MONITOR.
[2017-06-17 20:00] VITALS: BP_SYST 102; BP_SYST 144; BP_DIAS 59; BP_DIAS 68
[2017-06-17] MEDS: BACLOFEN (10 MG) 10 MG TABLET PO SCH (21:18)
[2017-06-17] MEDS: ATORVASTATIN 40 MG TABLET PO SCH (21:18)
[2017-06-17] MEDS: TEMAZEPAM 7.5 MG CAPSULE PO PRN (21:18)
[2017-06-17] MEDS: LamoTRIgine 25 MG TABLET PO SCH (21:30)
--- NOTE | 2017-06-17 21:30 | NUR ---
GPS RN NOTE: PATIENT BLOOD SUGAR LEVEL 218MG/DL, 4 UNITS OF INSULIN GIVEN PER SLIDING SCALE. NO S/S OF HYPERGLYCEMIA NOTED. RESTORIL 7.5MG ORAL FOR SLEEP GIVEN PER MD ORDER. WILL CONTINUE TO MONITOR.
[2017-06-17] MEDS: *INSULIN REGULAR(HUMULIN R)HUM 100 UNIT/ML VIAL SQ PRN (21:31)
[2017-06-18 08:00] VITALS: BP 120/86
[2017-06-18] MEDS: INSULIN REGULAR, HUMAN 100 UNIT/ML 3 ML VIAL SQ PRN ×4 (08:12→21:58)
[2017-06-18] MEDS: INSULIN GLARGINE, 100 UNIT/ML CARTRIDGE SQ SCH (08:13)
[2017-06-18] MEDS: BLOOD SUGAR DIAGNOSTIC 1 EACH STRIP IN SCH ×4 (08:23→22:00)
[2017-06-18] MEDS: clonazePAM 0.5 MG TABLET PO PRN (08:33)
[2017-06-18] MEDS: risperiDONE 1 MG TABLET PO SCH ×3 (08:33→17:14)
[2017-06-18] MEDS: CLOPIDOGREL BISULFATE 75 MG TABLET PO SCH (08:34)
[2017-06-18] MEDS: LOSARTAN POTASSIUM 50 MG TABLET PO SCH (08:34)
[2017-06-18] MEDS: LamoTRIgine 100 MG TABLET PO SCH (08:34)
[2017-06-18] MEDS: BENZTROPINE MESYLATE (1 MG) 1 MG TABLET PO SCH ×2 (08:34→17:15)
[2017-06-18] MEDS: PENTOXIFYLLINE 400 MG TABLET.SA PO SCH ×2 (08:35→17:15)
[2017-06-18] MEDS: ASCORBIC ACID 500 MG TABLET PO SCH (08:35)
[2017-06-18] MEDS: PANTOPRAZOLE 40 MG TABLET.DR PO SCH (08:35)
[2017-06-18] MEDS: FAMOTIDINE (20 MG) 20 MG TABLET PO SCH ×2 (08:35→17:15)
[2017-06-18] MEDS: ZINC SULFATE 220 MG CAPSULE PO SCH (08:35)
[2017-06-18] MEDS: PREGABALIN 25 MG CAPSULE PO SCH ×2 (08:35→17:15)
[2017-06-18] MEDS: LEVOTHYROXINE SODIUM 75 MCG TABLET PO SCH (08:35)
[2017-06-18] MEDS: HYDROGEL DRESSING 90 GM TUBE TP SCH (08:36)
[2017-06-18] MEDS: HYDROCORTISONE 1% CREAM 28.35 GM TUBE TP SCH ×2 (08:36→17:59)
[2017-06-18] MEDS: CLOTRIMAZOLE 1% 15 GM TUBE TP SCH ×2 (08:36→17:59)
[2017-06-18] MEDS: AMLODIPINE BESYLATE 5 MG TABLET PO SCH (08:38)
--- NOTE | 2017-06-18 09:00 | NUR ---
GPS/RN BS 320, ADMINISTERED 16 UNITS REGULAR INSULIN ADMINISTERED, WILL CONTINUE TO MONITOR.
[2017-06-18] MEDS: FOLIC ACID 1 MG TABLET PO SCH (09:01)
--- NOTE | 2017-06-18 09:13 | NUR ---
GPS/RN PATIENT IS SCREAMING, CURSING, AGITATED, ANXIOUS, ATTEMPTING TO SCRATCH STAFF, ADMINISTERED KLONOPIN 0.5 MG , WILL CONTINUE TO MONITOR.
--- NOTE | 2017-06-18 11:00 | NUR ---
GPS/DIGESTER RENDERED ORDERED
--- NOTE | 2017-06-18 12:00 | NUR ---
GPS/RN BS 168,4 UNITS REGULAR INSULIN ADMINISTERED, WILL CONTINUE TO MONITOR.
[2017-06-18 16:00] VITALS: BP 128/70
--- NOTE | 2017-06-18 17:00 | NUR ---
GPS/RN PATIENT'S DPOA GAVE VERBAL CONSENT TO DRAW LABS AFTER FINGER STICK. SPOKE WITH DR LUCAS, NEW ORDER FOR LABS, HIV, HEP B, HEP C AND RPR. ORDERS IN SYSTEM AWAITING LAB.
--- NOTE | 2017-06-18 17:30 | NUR ---
GPS/RN BS 197, 4 UNITS REGULAR INSULIN ADMINISTERED, WILL CONTINUE TO MONITOR.
[2017-06-18 20:00] VITALS: BP 141/74
[2017-06-18] MEDS: LamoTRIgine 25 MG TABLET PO SCH (21:04)
[2017-06-18] MEDS: BACLOFEN (10 MG) 10 MG TABLET PO SCH (21:04)
[2017-06-18] MEDS: ATORVASTATIN 40 MG TABLET PO SCH (21:05)
[2017-06-18] MEDS: TEMAZEPAM 7.5 MG CAPSULE PO PRN (21:53)
[2017-06-18] MEDS: *INSULIN REGULAR(HUMULIN R)HUM 100 UNIT/ML VIAL SQ PRN (22:21)
--- NOTE | 2017-06-18 22:21 | NUR ---
GPS RN NOTES: PATIENT BS-358MG/DL WITH COVERAGE REGULAR INSULIN OF 10UNITS.
[2017-06-19] MEDS: BLOOD SUGAR DIAGNOSTIC 1 EACH STRIP IN SCH ×4 (07:57→21:52)
[2017-06-19] MEDS: CLOPIDOGREL BISULFATE 75 MG TABLET PO SCH (08:14)
[2017-06-19] MEDS: risperiDONE 1 MG TABLET PO SCH ×3 (08:14→16:28)
[2017-06-19] MEDS: FAMOTIDINE (20 MG) 20 MG TABLET PO SCH ×2 (08:15→16:28)
[2017-06-19] MEDS: LEVOTHYROXINE SODIUM 75 MCG TABLET PO SCH (08:15)
[2017-06-19] MEDS: clonazePAM 0.5 MG TABLET PO PRN (08:15)
[2017-06-19] MEDS: PREGABALIN 25 MG CAPSULE PO SCH ×2 (08:15→16:28)
[2017-06-19] MEDS: BENZTROPINE MESYLATE (1 MG) 1 MG TABLET PO SCH ×2 (08:15→16:29)
--- NOTE | 2017-06-19 08:15 | NUR ---
NURSING NOTE PT WAS GIVEN CLONAZEPAM 0.5 MG PO FOR SEVERE AGITATION, VS STABLE, WILL CONTINUE TO MONITOR FOR SAFETY
[2017-06-19] MEDS: LamoTRIgine 100 MG TABLET PO SCH (08:16)
[2017-06-19] MEDS: FOLIC ACID 1 MG TABLET PO SCH (08:16)
[2017-06-19] MEDS: ZINC SULFATE 220 MG CAPSULE PO SCH (08:16)
[2017-06-19] MEDS: PANTOPRAZOLE 40 MG TABLET.DR PO SCH (08:16)
[2017-06-19] MEDS: LOSARTAN POTASSIUM 50 MG TABLET PO SCH (08:16)
[2017-06-19] MEDS: PENTOXIFYLLINE 400 MG TABLET.SA PO SCH ×2 (08:16→16:28)
[2017-06-19] MEDS: ASCORBIC ACID 500 MG TABLET PO SCH (08:16)
[2017-06-19] MEDS: AMLODIPINE BESYLATE 5 MG TABLET PO SCH (08:17)
[2017-06-19 08:31] VITALS: BP 147/68
[2017-06-19] MEDS: INSULIN GLARGINE, 100 UNIT/ML CARTRIDGE SQ SCH (08:33)
[2017-06-19] MEDS: INSULIN REGULAR, HUMAN 100 UNIT/ML 3 ML VIAL SQ PRN ×2 (08:36→13:11)
[2017-06-19] MEDS: HYDROCORTISONE 1% CREAM 28.35 GM TUBE TP SCH ×2 (10:26→16:29)
[2017-06-19] MEDS: CLOTRIMAZOLE 1% 15 GM TUBE TP SCH ×2 (10:26→16:29)
[2017-06-19] MEDS: HYDROGEL DRESSING 90 GM TUBE TP SCH (10:27)
[2017-06-19] MEDS: METFORMIN 500 MG TABLET PO SCH (16:29)
[2017-06-19 19:59] VITALS: BP 103/51
[2017-06-19] MEDS: ATORVASTATIN 40 MG TABLET PO SCH (21:00)
[2017-06-19] MEDS: LamoTRIgine 25 MG TABLET PO SCH (21:00)
[2017-06-19] MEDS: BACLOFEN (10 MG) 10 MG TABLET PO SCH (21:00)
[2017-06-19] MEDS: TEMAZEPAM 7.5 MG CAPSULE PO PRN (21:26)
[2017-06-19] MEDS: *INSULIN REGULAR(HUMULIN R)HUM 100 UNIT/ML VIAL SQ PRN (22:00)
[2017-06-20] MEDS: clonazePAM 0.5 MG TABLET PO PRN (04:27)
[2017-06-20] MEDS: LEVOTHYROXINE SODIUM 75 MCG TABLET PO SCH (07:30)
[2017-06-20] MEDS: PANTOPRAZOLE 40 MG TABLET.DR PO SCH (07:30)
[2017-06-20] MEDS: BLOOD SUGAR DIAGNOSTIC 1 EACH STRIP IN SCH ×4 (07:30→21:01)
[2017-06-20] MEDS: INSULIN REGULAR, HUMAN 100 UNIT/ML 3 ML VIAL SQ PRN ×3 (07:57→21:14)
[2017-06-20 08:00] VITALS: BP 147/71
[2017-06-20] MEDS: METFORMIN 500 MG TABLET PO SCH ×2 (09:02→17:40)
[2017-06-20] MEDS: FAMOTIDINE (20 MG) 20 MG TABLET PO SCH ×2 (09:02→17:40)
[2017-06-20] MEDS: FOLIC ACID 1 MG TABLET PO SCH (09:02)
[2017-06-20] MEDS: AMLODIPINE BESYLATE 5 MG TABLET PO SCH (09:03)
[2017-06-20] MEDS: LamoTRIgine 100 MG TABLET PO SCH (09:03)
[2017-06-20] MEDS: LOSARTAN POTASSIUM 50 MG TABLET PO SCH (09:04)
[2017-06-20] MEDS: PREGABALIN 25 MG CAPSULE PO SCH ×2 (09:06→17:40)
[2017-06-20] MEDS: BENZTROPINE MESYLATE (1 MG) 1 MG TABLET PO SCH ×2 (09:07→17:40)
[2017-06-20] MEDS: ASCORBIC ACID 500 MG TABLET PO SCH (09:11)
[2017-06-20] MEDS: CLOPIDOGREL BISULFATE 75 MG TABLET PO SCH (09:11)
[2017-06-20] MEDS: risperiDONE 1 MG TABLET PO SCH ×3 (09:11→17:40)
[2017-06-20] MEDS: ZINC SULFATE 220 MG CAPSULE PO SCH (09:11)
[2017-06-20] MEDS: HYDROGEL DRESSING 90 GM TUBE TP SCH (09:12)
[2017-06-20] MEDS: PENTOXIFYLLINE 400 MG TABLET.SA PO SCH ×2 (09:12→17:40)
[2017-06-20] MEDS: HYDROCORTISONE 1% CREAM 28.35 GM TUBE TP SCH ×2 (09:12→17:41)
[2017-06-20] MEDS: CLOTRIMAZOLE 1% 15 GM TUBE TP SCH ×2 (09:13→17:42)
[2017-06-20] MEDS: INSULIN GLARGINE, 100 UNIT/ML CARTRIDGE SQ SCH (09:21)
[2017-06-20] MEDS ORDERED: METFORMIN 500 MG TABLET PO SCH (10:00)
[2017-06-20 13:01] LABS: CREATININE 1.3 mg/dL (0.6-1.3); POTASSIUM 3.6 mmol/L (3.5-5.1)
[2017-06-20 16:00] VITALS: BP 134/55
[2017-06-20 19:57] VITALS: BP 126/69
[2017-06-20] MEDS: ATORVASTATIN 40 MG TABLET PO SCH (21:01)
[2017-06-20] MEDS: BACLOFEN (10 MG) 10 MG TABLET PO SCH (21:01)
[2017-06-20] MEDS: LamoTRIgine 25 MG TABLET PO SCH (21:01)
[2017-06-21] MEDS: TEMAZEPAM 7.5 MG CAPSULE PO PRN ×2 (01:55→23:17)
[2017-06-21] MEDS: BLOOD SUGAR DIAGNOSTIC 1 EACH STRIP IN SCH ×5 (07:30→21:14)
[2017-06-21 08:00] VITALS: BP 143/67
[2017-06-21] MEDS: INSULIN REGULAR, HUMAN 100 UNIT/ML 3 ML VIAL SQ PRN ×3 (08:00→21:35)
[2017-06-21] MEDS: HYDROCORTISONE 1% CREAM 28.35 GM TUBE TP SCH ×2 (09:00→17:50)
[2017-06-21] MEDS: CLOTRIMAZOLE 1% 15 GM TUBE TP SCH ×2 (09:00→17:50)
[2017-06-21] MEDS: HYDROGEL DRESSING 90 GM TUBE TP SCH (09:00)
[2017-06-21] MEDS: INSULIN GLARGINE, 100 UNIT/ML CARTRIDGE SQ SCH (09:00)
[2017-06-21] MEDS: ZINC SULFATE 220 MG CAPSULE PO SCH (11:26)
[2017-06-21] MEDS: PENTOXIFYLLINE 400 MG TABLET.SA PO SCH ×2 (11:26→17:00)
[2017-06-21] MEDS: FAMOTIDINE (20 MG) 20 MG TABLET PO SCH ×2 (11:27→17:00)
[2017-06-21] MEDS: LamoTRIgine 100 MG TABLET PO SCH (11:27)
[2017-06-21] MEDS: BENZTROPINE MESYLATE (1 MG) 1 MG TABLET PO SCH ×2 (11:27→17:00)
[2017-06-21] MEDS: METFORMIN 500 MG TABLET PO SCH ×2 (11:28→17:00)
[2017-06-21] MEDS: PREGABALIN 25 MG CAPSULE PO SCH ×2 (11:28→17:00)
[2017-06-21] MEDS: PANTOPRAZOLE 40 MG TABLET.DR PO SCH (11:28)
[2017-06-21] MEDS: ASCORBIC ACID 500 MG TABLET PO SCH (11:28)
[2017-06-21] MEDS: FOLIC ACID 1 MG TABLET PO SCH (11:28)
[2017-06-21] MEDS: CLOPIDOGREL BISULFATE 75 MG TABLET PO SCH (11:29)
[2017-06-21] MEDS: risperiDONE 1 MG TABLET PO SCH ×3 (11:29→17:00)
[2017-06-21] MEDS: LEVOTHYROXINE SODIUM 75 MCG TABLET PO SCH (11:29)
[2017-06-21] MEDS: LOSARTAN POTASSIUM 50 MG TABLET PO SCH (11:30)
[2017-06-21] MEDS: AMLODIPINE BESYLATE 5 MG TABLET PO SCH (11:30)
[2017-06-21] MEDS ORDERED: DEXTROSE 50%-WATER 50 ML DISP.SYRIN IV PRN (14:00)
[2017-06-21] MEDS ORDERED: INSULIN GLARGINE, 100 UNIT/ML CARTRIDGE SQ ONE (14:00)
--- NOTE | 2017-06-21 14:25 | NUR ---
GPS COVERING AND LINING SUPERVISOR NOTE, PATIENT CHANGE OF CONDITION: GIVEN 30 UNITS OF LANTUS AM PER MD ORDER AM ACCU-CHECK 447MG/DL GIVEN 20 UNITS OF HUMILIN PER AGGRESSIVE SLIDING SCALE. NOON ACCU-CHECK 504MG/DL GIVEN 20 UNITS OF HUMILIN PER AGGRESSIVE SLIDING SCALE. RE-CHECKED GLUCOSE 30 MIN, IT WAS 432. RE-CHECKED GLUCOSE AT 1300 HRS, GLUCOSE 311. VS 126/61 HR 81 RR17 T 98.0 O2 SAT 100%. NOTIFIED MD EDWARDS AND AWARE OF PATIENT CONDITION. NEW ORDERS ESTABLISHED. PATIENT ON CARDIAC/DIABETIC DIET. WILL CONTINUE TO MONITOR. GLUCOSE 161 MG/DL 1400HRS. CHARGE NURSE AWARE.
[2017-06-21] MEDS ORDERED: INSULIN REGULAR, HUMAN 100 UNIT/ML 3 ML VIAL SQ ONE (14:30)
[2017-06-21 15:21] LABS: CALCIUM, SERUM 9.8 mg/dL (8.5-10.1); POTASSIUM 3.3 mmol/L (3.5-5.1)
--- NOTE | 2017-06-21 15:57 | NUR ---
GPS MEDICAL I D SALES NOTE, DID NOT GIVE LANTUS OR REGULAR HUMILIN DUE TO PATIENT SLEEPING AND NO CONSENT TO ADMINISTRATION. PATIENT BLOOD GLUCOSE DROPPING FROM 504 TO CURRENTLY 1600 ACCU CHECK 87MG/DL. WILL GIVE ORANGE JUICE TO PREVENT HYPOGLYCEMIC REACTION. WILL CONTINUE TO MONITOR. CHARGE NURSE AWARE.
[2017-06-21 16:00] VITALS: BP 112/56
--- NOTE | 2017-06-21 19:48 | NUR ---
GPS COMMUNITY SUPPORT WORKER NOTE, PATIENT STABLE AOX1, SIDE RAILS UP X4 SITTER AT BED SITE, NO S/S OF DISTRESS OR INFECTION. PATIENT STABLE GLUCOSE 1800 AT 110MG/DL. WOUND CARE ENDORSED TO CERTIFIED REGISTERED NURSE PRACTITIONER.
[2017-06-21 20:34] VITALS: BP 139/67
--- NOTE | 2017-06-21 21:00 | NUR ---
GPS RN NOTES: WOUND TREATMENT DONE ON LEFT LATERAL CALF ULCER, PATIENT TOLERATED WELL.
[2017-06-21] MEDS: ATORVASTATIN 40 MG TABLET PO SCH (21:14)
[2017-06-21] MEDS: BACLOFEN (10 MG) 10 MG TABLET PO SCH (21:14)
[2017-06-21] MEDS: LamoTRIgine 25 MG TABLET PO SCH (21:14)
[2017-06-22] MEDS: BLOOD SUGAR DIAGNOSTIC 1 EACH STRIP IN SCH ×6 (01:32→20:52)
[2017-06-22] MEDS: INSULIN REGULAR, HUMAN 100 UNIT/ML 3 ML VIAL SQ PRN ×6 (01:34→20:56)
[2017-06-22 06:59] LABS: CALCIUM, SERUM 9.7 mg/dL (8.5-10.1); CREATININE 1.3 mg/dL (0.6-1.3); MAGNESIUM 1.9 mg/dL (1.8-2.4); PHOSPHORUS 3.4 mg/dL (2.5-4.9); POTASSIUM 3.1 mmol/L (3.5-5.1)
[2017-06-22 07:04] LABS: THYROID STIMULATING HORMONE 13.275 uIU/mL (0.358-3.74)
--- NOTE | 2017-06-22 07:15 | NUR ---
GPS RN NOTES: REPORTED LAB RESULT TO LEAD PYTHON DEVELOPER ABEL POTASSIUM 3.1 WITH NEW ORDER OF POTASSIUM CHLORIDE 40MEQ PO X ONE, NOTED AND CARRIED, WILL ENDORSE TO THE MORNING NURSE TO PULL OUT AND GIVE THE MEDICATION TO PATIENT.
[2017-06-22] MEDS ORDERED: POTASSIUM CHLORIDE 20 MEQ TAB.PRT.SR PO ONE ×2 (07:30→12:30)
[2017-06-22] MEDS: PANTOPRAZOLE 40 MG TABLET.DR PO SCH (07:49)
[2017-06-22] MEDS: LEVOTHYROXINE SODIUM 75 MCG TABLET PO SCH (07:49)
[2017-06-22 08:00] VITALS: BP 102/79
[2017-06-22] MEDS: LOSARTAN POTASSIUM 50 MG TABLET PO SCH (09:00)
[2017-06-22] MEDS: AMLODIPINE BESYLATE 5 MG TABLET PO SCH (09:00)
[2017-06-22] MEDS: risperiDONE 1 MG TABLET PO SCH ×3 (09:11→16:55)
[2017-06-22] MEDS: ASCORBIC ACID 500 MG TABLET PO SCH (09:11)
[2017-06-22] MEDS: PENTOXIFYLLINE 400 MG TABLET.SA PO SCH ×2 (09:11→16:55)
[2017-06-22] MEDS: LamoTRIgine 100 MG TABLET PO SCH (09:12)
[2017-06-22] MEDS: PREGABALIN 25 MG CAPSULE PO SCH ×2 (09:12→16:55)
[2017-06-22] MEDS: CLOPIDOGREL BISULFATE 75 MG TABLET PO SCH (09:12)
[2017-06-22] MEDS: BENZTROPINE MESYLATE (1 MG) 1 MG TABLET PO SCH ×2 (09:13→16:55)
[2017-06-22] MEDS: FAMOTIDINE (20 MG) 20 MG TABLET PO SCH ×2 (09:13→16:55)
[2017-06-22] MEDS: FOLIC ACID 1 MG TABLET PO SCH (09:13)
[2017-06-22] MEDS: METFORMIN 500 MG TABLET PO SCH ×2 (09:14→16:55)
[2017-06-22] MEDS: ZINC SULFATE 220 MG CAPSULE PO SCH (09:14)
[2017-06-22] MEDS: HYDROGEL DRESSING 90 GM TUBE TP SCH (09:14)
[2017-06-22] MEDS: HYDROCORTISONE 1% CREAM 28.35 GM TUBE TP SCH ×2 (09:14→16:56)
[2017-06-22] MEDS: CLOTRIMAZOLE 1% 15 GM TUBE TP SCH ×2 (09:15→16:56)
[2017-06-22] MEDS: INSULIN GLARGINE, 100 UNIT/ML CARTRIDGE SQ SCH ×2 (09:52→21:46)
[2017-06-22] MEDS: POTASSIUM CHLORIDE 20 MEQ TAB.PRT.SR PO ONE ×2 (11:00→11:56)
[2017-06-22 16:09] VITALS: BP 129/65
[2017-06-22 20:25] VITALS: BP 131/59
[2017-06-22] MEDS: ATORVASTATIN 40 MG TABLET PO SCH (21:32)
[2017-06-22] MEDS: LamoTRIgine 25 MG TABLET PO SCH (21:32)
[2017-06-22] MEDS: BACLOFEN (10 MG) 10 MG TABLET PO SCH (21:33)
[2017-06-22] MEDS: TEMAZEPAM 7.5 MG CAPSULE PO PRN (21:48)
[2017-06-23] MEDS: BLOOD SUGAR DIAGNOSTIC 1 EACH STRIP IN SCH ×6 (01:19→21:00)
[2017-06-23] MEDS: clonazePAM 0.5 MG TABLET PO PRN (04:52)
--- NOTE | 2017-06-23 04:52 | NUR ---
GPS RN NOTES: PATIENT IS VERY ANXIOUS, RESTLESS. V/S ARE STABLE. KLONOPIN 0.5MG PO GIVEN PRN ORDER. WILL CONTINUE TO MONITOR [id number] FOR SAFETY AND BEHAVIOR.
[2017-06-23] MEDS: INSULIN REGULAR, HUMAN 100 UNIT/ML 3 ML VIAL SQ PRN ×5 (05:18→22:43)
[2017-06-23 08:00] VITALS: BP 119/53
[2017-06-23] MEDS: LEVOTHYROXINE SODIUM 75 MCG TABLET PO SCH (08:32)
[2017-06-23] MEDS: ZINC SULFATE 220 MG CAPSULE PO SCH (08:33)
[2017-06-23] MEDS: ASCORBIC ACID 500 MG TABLET PO SCH (08:33)
[2017-06-23] MEDS: BENZTROPINE MESYLATE (1 MG) 1 MG TABLET PO SCH ×2 (08:33→16:58)
[2017-06-23] MEDS: FAMOTIDINE (20 MG) 20 MG TABLET PO SCH ×2 (08:33→16:59)
[2017-06-23] MEDS: PANTOPRAZOLE 40 MG TABLET.DR PO SCH (08:33)
[2017-06-23] MEDS: CLOPIDOGREL BISULFATE 75 MG TABLET PO SCH (08:33)
[2017-06-23] MEDS: risperiDONE 1 MG TABLET PO SCH ×3 (08:33→16:58)
[2017-06-23] MEDS: LamoTRIgine 100 MG TABLET PO SCH (08:34)
[2017-06-23] MEDS: PENTOXIFYLLINE 400 MG TABLET.SA PO SCH ×2 (08:34→16:58)
[2017-06-23] MEDS: PREGABALIN 25 MG CAPSULE PO SCH ×2 (08:34→16:58)
[2017-06-23] MEDS: METFORMIN 500 MG TABLET PO SCH ×2 (08:34→16:58)
[2017-06-23] MEDS: LOSARTAN POTASSIUM 50 MG TABLET PO SCH (08:35)
[2017-06-23] MEDS: AMLODIPINE BESYLATE 5 MG TABLET PO SCH (08:35)
[2017-06-23] MEDS: FOLIC ACID 1 MG TABLET PO SCH (08:39)
[2017-06-23] MEDS: HYDROGEL DRESSING 90 GM TUBE TP SCH (09:27)
[2017-06-23] MEDS: INSULIN GLARGINE, 100 UNIT/ML CARTRIDGE SQ SCH ×2 (09:30→22:26)
--- NOTE | 2017-06-23 09:30 | NUR ---
GPS/RN-NOTES WOUND TREATMENT DONE ORDERED.
[2017-06-23] MEDS: CLOTRIMAZOLE 1% 15 GM TUBE TP SCH ×2 (09:32→17:00)
[2017-06-23] MEDS: HYDROCORTISONE 1% CREAM 28.35 GM TUBE TP SCH ×2 (09:32→17:00)
--- NOTE | 2017-06-23 09:35 | NUR ---
GPS/RN-NOTES PATIENT BLOOD SUGAR WAS 261MG/DL, 4 UNITS OF R INSULIN GIVEN PRN ORDER. Addendum: 06/23/17 at 1335 by JOSE DELGADO RN CORRECTION ON MY EARLIER NOTES. PATIENT BLOOD SUGAR WAS AT 0931 WAS 251MG/DL 12 UNITS R INSULIN GIVEN NOT 4 UNITS. CHARGE NURSE AND THE WITNESS NURSE AWARE OF THE EXACT INSULIN ADMINISTERED.
--- NOTE | 2017-06-23 12:40 | NUR ---
GPS/RN-NOTES PATIENT BLOOD SUGAR WAS 244 MG/DL, 8 UNITS OF R INSULIN GIVEN PRN ORDERED.
--- NOTE | 2017-06-23 15:06 | NUR ---
Discharge Planning: SW called patient's ex-/DPOA Ricardo [phone] and informed him that the disability paperwork was filled out by Dr. Craig and that Ricardo can pick them up during visiting hours. SW also informed Ricardo that patient is ready for discharge and Ricardo stated that he will be able to pick her up on Tuesday morning. Dr. Craig agreed.
[2017-06-23 16:00] VITALS: BP 144/70
--- NOTE | 2017-06-23 17:44 | NUR ---
GPS/RN-NOTES PATIENT BLOOD SUGAR WAS 150 MG/DL, 2 UNITS OF R INSULIN GIVEN PRN ORDERED.
[2017-06-23 20:00] VITALS: BP 136/57
[2017-06-23] MEDS: LamoTRIgine 25 MG TABLET PO SCH (22:11)
[2017-06-23] MEDS: BACLOFEN (10 MG) 10 MG TABLET PO SCH (22:12)
[2017-06-23] MEDS: ATORVASTATIN 40 MG TABLET PO SCH (22:12)
[2017-06-23] MEDS: TEMAZEPAM 7.5 MG CAPSULE PO PRN (22:15)
--- NOTE | 2017-06-23 22:15 | NUR ---
RESTORIL 7.5 MG CAP 1 PO GIVEN FOR SLEEP.
--- NOTE | 2017-06-23 22:15 | NUR ---
Klonopin 0.5 mg tab 1 po given, patient awake, still not able to go to sleep.
[2017-06-24] MEDS: clonazePAM 0.5 MG TABLET PO PRN (00:04)
[2017-06-24] MEDS: BLOOD SUGAR DIAGNOSTIC 1 EACH STRIP IN SCH ×6 (01:30→22:07)
--- NOTE | 2017-06-24 01:33 | NUR ---
ACCUCHECK 167 MG/DL.
[2017-06-24] MEDS: INSULIN REGULAR, HUMAN 100 UNIT/ML 3 ML VIAL SQ PRN ×6 (01:40→22:13)
--- NOTE | 2017-06-24 07:14 | NUR ---
Accucheck now 247, 8 units regular insulin sc administered.
[2017-06-24] MEDS: LEVOTHYROXINE SODIUM 75 MCG TABLET PO SCH (08:10)
[2017-06-24] MEDS: PREGABALIN 25 MG CAPSULE PO SCH ×2 (08:11→16:30)
[2017-06-24] MEDS: PANTOPRAZOLE 40 MG TABLET.DR PO SCH (08:11)
[2017-06-24] MEDS: BENZTROPINE MESYLATE (1 MG) 1 MG TABLET PO SCH ×2 (08:11→16:31)
[2017-06-24] MEDS: ASCORBIC ACID 500 MG TABLET PO SCH (08:11)
[2017-06-24] MEDS: METFORMIN 500 MG TABLET PO SCH ×2 (08:11→16:30)
[2017-06-24] MEDS: LamoTRIgine 100 MG TABLET PO SCH (08:12)
[2017-06-24] MEDS: AMLODIPINE BESYLATE 5 MG TABLET PO SCH (08:12)
[2017-06-24] MEDS: FAMOTIDINE (20 MG) 20 MG TABLET PO SCH ×2 (08:12→16:30)
[2017-06-24] MEDS: risperiDONE 1 MG TABLET PO SCH ×3 (08:12→16:31)
[2017-06-24] MEDS: ZINC SULFATE 220 MG CAPSULE PO SCH (08:12)
[2017-06-24] MEDS: CLOPIDOGREL BISULFATE 75 MG TABLET PO SCH (08:12)
[2017-06-24] MEDS: PENTOXIFYLLINE 400 MG TABLET.SA PO SCH ×2 (08:12→16:30)
[2017-06-24] MEDS: FOLIC ACID 1 MG TABLET PO SCH (08:12)
[2017-06-24] MEDS: LOSARTAN POTASSIUM 50 MG TABLET PO SCH (08:13)
[2017-06-24] MEDS: HYDROGEL DRESSING 90 GM TUBE TP SCH (08:29)
[2017-06-24] MEDS: CLOTRIMAZOLE 1% 15 GM TUBE TP SCH ×2 (08:29→16:32)
[2017-06-24] MEDS: HYDROCORTISONE 1% CREAM 28.35 GM TUBE TP SCH ×2 (08:29→16:32)
[2017-06-24 08:37] VITALS: BP 144/66
[2017-06-24] MEDS: INSULIN GLARGINE, 100 UNIT/ML CARTRIDGE SQ SCH ×2 (09:04→22:09)
--- NOTE | 2017-06-24 09:13 | NUR ---
GPS/RN-NOTES PATIENT BLOOD SUGAR WAS 264 MG/DL, 12 UNITS OF R INSULIN GIVEN PRN ORDER.
--- NOTE | 2017-06-24 09:45 | NUR ---
GPS/RN-NOTES WOUND TREATMENT DONE ON BOTH LOWER EXTREMITIES ORDERED.
--- NOTE | 2017-06-24 12:42 | NUR ---
Discharge Note: Patient will be discharged home on 06/25/17 [address] [place] [address]. Patient will be picked up by her ex-/DPBINA Silva [phone]. Patient has caregivers at home to care for her during the day and her ex- cares for her in the evenings/ nights. LUPE left a note for RN to obtain home health order for patient. Once LUPE receives the order, LUPE will fax the order to [facility] fax #[phone] / [phone]. Patient will follow up with her psychiatrist, Dr. Stone [address] [address], [place] / [phone] on July 04 at 2pm. Patient was referred to see an manufacturing team leader at [facility] to [address], [place]
--- NOTE | 2017-06-24 13:10 | NUR ---
GPS/RN-NOTES PATIENT BLOOD SUGAR WAS 268 MG/DL, 12 UNITS OF R INSULIN GIVEN PRN ORDER.
[2017-06-24 16:17] VITALS: BP 131/58
--- NOTE | 2017-06-24 18:10 | NUR ---
GPS/RN-NOTES PATIENT BLOOD SUGAR WAS 133 MG/DL, 2 UNITS OF R INSULIN GIVEN PRN ORDER.
[2017-06-24 20:00] VITALS: BP 135/52
[2017-06-24] MEDS: ATORVASTATIN 40 MG TABLET PO SCH (21:30)
[2017-06-24] MEDS: BACLOFEN (10 MG) 10 MG TABLET PO SCH (21:30)
[2017-06-24] MEDS: LamoTRIgine 25 MG TABLET PO SCH (21:31)
[2017-06-24] MEDS: TEMAZEPAM 7.5 MG CAPSULE PO PRN (21:31)
[2017-06-25] MEDS: BLOOD SUGAR DIAGNOSTIC 1 EACH STRIP IN SCH ×3 (01:00→09:10)
[2017-06-25] MEDS: INSULIN REGULAR, HUMAN 100 UNIT/ML 3 ML VIAL SQ PRN ×2 (05:53→09:13)
--- NOTE | 2017-06-25 07:56 | NUR ---
DR. LUBIN GAVE AN ORDER TO D/C HOLD AND D/C HOME AND TO FOLLOW UP WITH PSYCH AND MEDICAL DOCTORS.
[2017-06-25 08:00] VITALS: BP 117/62
[2017-06-25] MEDS: LamoTRIgine 100 MG TABLET PO SCH (09:02)
[2017-06-25] MEDS: METFORMIN 500 MG TABLET PO SCH (09:02)
[2017-06-25] MEDS: PANTOPRAZOLE 40 MG TABLET.DR PO SCH (09:02)
[2017-06-25] MEDS: PENTOXIFYLLINE 400 MG TABLET.SA PO SCH (09:02)
[2017-06-25] MEDS: FAMOTIDINE (20 MG) 20 MG TABLET PO SCH (09:02)
[2017-06-25] MEDS: LEVOTHYROXINE SODIUM 75 MCG TABLET PO SCH (09:02)
[2017-06-25] MEDS: ASCORBIC ACID 500 MG TABLET PO SCH (09:02)
[2017-06-25] MEDS: PREGABALIN 25 MG CAPSULE PO SCH (09:02)
[2017-06-25] MEDS: CLOPIDOGREL BISULFATE 75 MG TABLET PO SCH (09:02)
[2017-06-25] MEDS: ZINC SULFATE 220 MG CAPSULE PO SCH (09:02)
[2017-06-25] MEDS: FOLIC ACID 1 MG TABLET PO SCH (09:03)
[2017-06-25] MEDS: risperiDONE 1 MG TABLET PO SCH (09:03)
[2017-06-25] MEDS: BENZTROPINE MESYLATE (1 MG) 1 MG TABLET PO SCH (09:03)
[2017-06-25] MEDS: HYDROGEL DRESSING 90 GM TUBE TP SCH (09:04)
[2017-06-25] MEDS: CLOTRIMAZOLE 1% 15 GM TUBE TP SCH (09:05)
[2017-06-25] MEDS: INSULIN GLARGINE, 100 UNIT/ML CARTRIDGE SQ SCH (09:09)
[2017-06-25] MEDS: HYDROCORTISONE 1% CREAM 28.35 GM TUBE TP SCH (09:10)
[2017-06-25 09:19] VITALS: BP 117/62
[2017-06-25] MEDS: AMLODIPINE BESYLATE 5 MG TABLET PO SCH (09:19)
[2017-06-25] MEDS: LOSARTAN POTASSIUM 50 MG TABLET PO SCH (09:19)
[2017-06-25] MEDS ORDERED: Insulin Glargine,Hum SQ ×2 (10:42)
[2017-06-25] MEDS ORDERED: BENZ1TAB7 PO (10:42)
[2017-06-25] MEDS ORDERED: RISP1TAB7 PO ×2 (10:42)
[2017-06-25] MEDS ORDERED: INSU100V28 SQ (10:42)
[2017-06-25] MEDS ORDERED: LAMO25TA5 PO (10:42)
--- NOTE | 2017-06-25 11:45 | NUR ---
GPS/RN D/C ORDERS RECEIVED. NO SI OR HI AT THE TIME OF D/C PT REFUSED PICTURES TAKEN ON D/C AND TO SIGN DISCHARGE PAPERWORK. EXIT CARE INSTRUCTIONS AND PSYCH PRESCRIPTIONS PROVIDED TO, KASIA HUBBARD. MEDICAL PRESCRIPTIONS TRANSMITTED ELECTRONICALLY TO THE PHARMACY OF CHOICE( ADDRESS PROVIDED BU KASIA) BY DR WOLF. ORDERS FOR HOME HEALTH RECEIVED FROM DR WOLF AND LEFT AT ELIZA'S OFFICE FOR HER TO FOLLOW UP ON TUESDAY REQUESTED. BELONGINGS RETURENED AND ID BAND REMOVED.PT LEFT HOME WITH KASIA HUBBARD AND FEMALE CAREGIVER VIA PRIVATE CAR.
--- NOTE | 2017-06-27 09:10 | NUR ---
LUPE faxed home health order to [facility] fax #[phone] / [phone].
== END 2017-06-25 11:45 | disposition home health service (06) | DRG 885 ==
LOC: GPS 16:23
PROVIDERS: ADMIT Psychiatry & Neurology Psychiatry; ATTEND Internal Medicine
DX: F25.9 Schizoaffective disorder, unspecified (principal); E11.65 Type 2 diabetes mellitus with hyperglycemia; E11.51 Type 2 diabetes mellitus with diabetic peripheral angiopathy without gangrene; E11.622 Type 2 diabetes mellitus with other skin ulcer; B35.1 Tinea unguium; G31.84 Mild cognitive impairment of uncertain or unknown etiology; L97.229 Non-pressure chronic ulcer of left calf with unspecified severity; E03.9 Hypothyroidism, unspecified; G40.909 Epilepsy, unspecified, not intractable, without status epilepticus; E78.5 Hyperlipidemia, unspecified; I25.10 Atherosclerotic heart disease of native coronary artery without angina pectoris; Z79.4 Long term (current) use of insulin; Z79.899 Other long term (current) drug therapy; K21.9 Gastro-esophageal reflux disease without esophagitis; Z79.02 Long term (current) use of antithrombotics/antiplatelets; I87.2 Venous insufficiency (chronic) (peripheral); L60.3 Nail dystrophy; L30.9 Dermatitis, unspecified; L90.9 Atrophic disorder of skin, unspecified; Z91.11 Patient's noncompliance with dietary regimen; Z86.73 Personal history of transient ischemic attack (TIA), and cerebral infarction without residual deficits; F32.9 Major depressive disorder, single episode, unspecified
CPT/HCPCS: 36415; 70450-TC; 80048-TC; 80053-TC; 80061-TC; 81000-TC; 82962-TC; 83735-TC; 84100-TC; 84443-TC; 85025-TC; 86592; 86705; 86803; 87081-TC; A6248; A6402; A6403; J1200; J1630; J1815; J2060; J3490; Z7610

== ENCOUNTER 2018-04-17 12:42 | Inpatient (IN) | payer MEDICARE, BC ==
[~2018-04-17] VITALS: Ht 172.7 cm; Wt 62.6 kg
[~2018-04-17 12:42] MED LIST changes: +ACET-868 PO; -AMLO5TAB2 PO; +AMLO5TAB7 PO; -BENZ0.5T3 PO; +BENZ0.5T43 PO; +EZET10TA27 PO; -INSU100V11 SQ; +INSU100V3 SQ; +LAMO100T2 PO; -LAMO25TA PO; -LORA1TAB PO; -LOSA50TA21 PO; +LOSA50TA39 PO; +PENT400T12 PO; -PENT400T2 PO; -PREG75CA PO; -QUET25TA PO; -SERT100T PO; +VANC1PLA11 IV
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
[2018-04-17 13:03] LABS: BASOPHILS # (AUTO) 0.1 /CMM (0.0-0.2); BASOPHILS % (AUTO) 1.1 % (0.0-2.0); EOSINOPHILS % (AUTO) 0.8 % (0.0-6.0); HEMATOCRIT 38 % (33-45); HEMOGLOBIN 12.1 g/dL (11.5-14.8); LYMPHOCYTES # (AUTO) 1.1 /CMM (0.8-4.8); LYMPHOCYTES % (AUTO) 13.1 % (20.0-44.0); MEAN CORPUSCULAR HGB CONC 32 g/dl (31.0-36.0); MEAN CORPUSCULAR VOLUME 93 fL (82-100); MONOCYTES # (AUTO) 0.5 /CMM (0.1-1.30); MONOCYTES % (AUTO) 6.4 % (2.0-12.0); NEUTROPHILS # (AUTO) 6.4 /CMM (1.8-8.9); NEUTROPHILS % (AUTO) 78.6 % (43.0-81.0); PLATELET COUNT (AUTO) 358 /CMM (150-450); RED BLOOD CELL COUNT(AUTO) 4.05 MIL/uL (4.0-5.2); WHITE BLOOD COUNT (AUTO) 8.1 K/uL (4.3-11.0)
--- NOTE | 2018-04-17 13:21 | NUR ---
URINE COLLECTED AND SENT TO THE LAB.
[2018-04-17 13:26] LABS: ALANINE AMINOTRANSFERASE 21 U/L (12-78); ALBUMIN 3.1 g/dL (3.4-5.0); ALKALINE PHOSPHATASE 109 U/L (46-116); ASPARTATE AMINOTRANSFERASE 21 U/L (15-37); BILIRUBIN,DIRECT 0.1 mg/dL (0.0-0.2); BILIRUBIN,TOTAL 0.3 mg/dL (0.2-1.0); CALCIUM, SERUM 8.8 mg/dL (8.5-10.1); CARBON DIOXIDE 27 mmol/L (21-32); CREATININE 0.9 mg/dL (0.6-1.3); TOTAL PROTEIN, SERUM 6.7 g/dL (6.4-8.2); UREA NITROGEN, BLOOD 21 mg/dL (7-18)
[2018-04-17 13:36] LABS: APPEARANCE,URINE Cloudy (CLEAR); BILIRUBIN,URINE Negative (NEGATIVE); BLOOD, URINE Small Ery/uL (NEGATIVE); COLOR,URINE Yellow (YELLOW); KETONES,URINE Negative (NEGATIVE); LEUKOCYTE ESTERASE ,URINE Small (NEGATIVE); NITRITE, URINE Positive (NEGATIVE); PH,URINE 5.5 (5.0-8.0); PROTEIN,URINE Negative (NEGATIVE); UGLUCOSE >=1000 mg/dL (NEGATIVE); UROBILINOGEN,URINE 0.2 EU/dL (0.2)
[2018-04-17 13:37] LABS: GLUCOSE 533 mg/dL (74-106)
[2018-04-17 13:39] LABS: CHLORIDE 98 mmol/L (98-107); POTASSIUM 4.1 mmol/L (3.5-5.1); SODIUM SERUM 133 mmol/L (136-145)
[2018-04-17 13:45] LABS: BACTERIA,URINE Moderate /HPF (None Seen); SQUAMOUS EPITHELIAL CELL,UR Few /HPF (None Seen); WBC,URINE 50-80 /HPF (0-3)
[2018-04-17] MEDS ORDERED: OLANZAPINE 10 MG VIAL IM ONE ×2 (14:00)
[2018-04-17] MEDS ORDERED: CEFTRIAXONE 1GM BAG (ER ONLY) 1 GM/50 ML PIGGYBACK IV ONE (14:00)
[2018-04-17] MEDS ORDERED: CEFTRIAXONE 1GM BAG (ER ONLY) 50 ML IV ONE (14:00)
--- NOTE | 2018-04-17 14:00 | NUR ---
RETIREMENT SPECIALIST RECEIVED PT. FROM A [facility] SLEEPING. BREATHING IS UNLABORED, AND EVEN ON ROOM AIR. PT. HAD 2 L OF IV FLUIDS RUNNING BY GRAVITY. VITALS WNL. RECEIVED REPORT FROM ER NURSE VIA PHONE. ALL NEEDS MET AT THIS TIME. WILL CONTINUE TO MONITOR AND ASSESS PT.
--- NOTE | 2018-04-17 14:00 | NUR ---
GOT BED 307 MS
[2018-04-17] MEDS ORDERED: INSULIN REGULAR, HUMAN 100 UNIT/ML 10 ML VIAL ONE (14:13)
[2018-04-17] MEDS ORDERED: INSULIN REGULAR, HUMAN 100 UNIT/ML 10 ML VIAL SQ ONE (14:30)
[2018-04-17] MEDS ORDERED: IV NS 0.9% 1,000 ML BAG IV ONE (14:30)
--- NOTE | 2018-04-17 14:44 | NUR ---
REPORT GIVEN TO JACOB CHANG
--- NOTE | 2018-04-17 14:54 | NUR ---
BLOOD GLUCOSE RECHECKED AT 368MG/DL.
[2018-04-17] MEDS ORDERED: ACETAMINOPHEN 325 MG TABLET PO PRN ×2 (15:00→15:30)
--- NOTE | 2018-04-17 15:18 | NUR ---
WHEELED PATIENT VIA GURNEY ACCOMPANIED BY EMT IN NO APPARENT DISTRESS NOR CHEST PAIN OR DISCOMFORT GOING TO ROOM 307-1 MS.
[2018-04-17] MEDS ORDERED: *INSULIN REGULAR(HUMULIN R)HUM 100 UNIT/ML VIAL SQ PRN (15:30)
[2018-04-17] MEDS ORDERED: Z GUARD REMEDY 2 OZ OINT TP PRN (15:30)
[2018-04-17] MEDS ORDERED: ZOLPIDEM TARTRATE 5 MG TABLET PO PRN (15:30)
[2018-04-17] MEDS ORDERED: MAG HYDROX/AL HYDROX/SIMETH 30 ML UDC PO PRN (15:30)
[2018-04-17] MEDS ORDERED: MAGNESIUM HYDROXIDE 30 ML UDC PO PRN (15:30)
[2018-04-17] MEDS ORDERED: DEXTROSE 50%-WATER 50 ML DISP.SYRIN IV PRN (15:30)
[2018-04-17] MEDS ORDERED: ONDANSETRON HCL/PF 4 MG/2 ML VIAL IVP PRN (15:30)
[2018-04-17] MEDS ORDERED: HYDROCODONE/APAP 5/325MG 1 EACH TABLET PO PRN (15:30)
[2018-04-17 16:00] VITALS: BP 138/78
[2018-04-17] MEDS: ENOXAPARIN SODIUM 40 MG/0.4 ML DISP.SYRIN SQ SCH (16:11)
[2018-04-17] MEDS: LamoTRIgine 100 MG TABLET PO SCH ×3 (16:56→21:25)
[2018-04-17] MEDS: BLOOD SUGAR DIAGNOSTIC 1 EACH STRIP VI SCH ×2 (17:34→21:28)
[2018-04-17] MEDS: PENTOXIFYLLINE 400 MG TABLET.SA PO SCH (17:35)
[2018-04-17] MEDS: FAMOTIDINE (20 MG) 20 MG TABLET PO SCH (17:35)
[2018-04-17] MEDS: IV NS 0.9% 1,000 ML IV SCH (18:52)
--- NOTE | 2018-04-17 19:40 | NUR ---
RN CLOSING NOTES PT. IS IN BED SLEEPING, PT. IS A&OX2. BREATHING IS UNLABORED ON ROOM AIR. NO S/S OF ACUTE DISTRESS. IV FLUIDS RUNNING AT 100 ML/HR. BED IS IN LOWEST, AND LOCKED POSITION. 2 SIDE RAILS UP. INSTRUCTED PT. TO USE CALL LIGHT FOR ASSISTANCE. WILL ENDORSE REPORT TO NURSE.
--- NOTE | 2018-04-17 19:40 | NUR ---
MS RN NOTE: PATIENT RESTING IN BED, NO ACUTE DISTRESS NOTED. BREATHING EVEN AND UNLABORED, NO SOB NOTED. IV TO LEFT HAND IN PLACE, INFUSING NS AT 100 ML/HR. BED LOCKED AND IN LOWEST POSITION, CALL LIGHT IN REACH. WILL CONTINUE TO MONITOR.
[2018-04-17 20:02] VITALS: BP 144/68
[2018-04-17] MEDS: risperiDONE 0.25 MG TABLET PO SCH ×2 (21:00→21:09)
[2018-04-17] MEDS: BENZTROPINE MESYLATE (1 MG) 1 MG TABLET PO SCH ×2 (21:10→21:24)
[2018-04-17] MEDS: INSULIN GLARGINE, 100 UNIT/ML CARTRIDGE SQ SCH (21:25)
--- NOTE | 2018-04-17 21:29 | NUR ---
MS RN NOTE: PATIENT AGITATED AND REFUSED TO TAKE MEDICATIONS. MEDICATIONS PREPARED AND SCANNED, BUT PATIENT REFUSED TO TAKE MEDICATIONS. TRIED TO EXPLAIN RISK AND BENEFITS OF MEDICATIONS, BUT PATIENT GOT AGITATED AND STARTED TO YELL. PATIENT ALSO REFUSED BLOOD SUGAR CHECK AND NO INSULIN GIVEN SINCE UNSURE WHAT PATIENT BLOOD SUGAR LEVEL. NO S/S OF HYPER/HYPOGLYCEMIA NOTED. WILL CONTINUE TO MONITOR.
--- NOTE | 2018-04-17 23:15 | NUR ---
MS RN NOTE: PATIENT AGGRESSIVE, SCREAMING, AND TRYING TO PULL OUT IV. SPOKE TO ANIMAL SCIENCE PROFESSOR MD, LORRI, MANAGER DRIVE AND GOT ORDERS FOR BILATERAL SOFT WRIST RESTRAINTS AND HE WILL ORDER HALDOL 5MG IM ONCE. ALSO RECEIVED ORDER FOR SITTER WHEN SITTER IS AVAILABLE FOR PATIENT SAFETY. ORDERS NOTED AND CARRIED OUT. HALDOL 5MG IM GIVEN PER MD ORDER. WILL CONTINUE TO MONITOR.
[2018-04-17] MEDS ORDERED: HALOPERIDOL LACTATE INJ 5 MG/ML VIAL IM ONE (23:30)
[2018-04-18] MEDS: IV NS 0.9% 1,000 ML IV SCH ×3 (01:58→21:27)
[2018-04-18 06:05] LABS: BASOPHILS # (AUTO) 0.1 /CMM (0.0-0.2); EOSINOPHILS % (AUTO) 2.5 % (0.0-6.0); HEMATOCRIT 36 % (33-45); HEMOGLOBIN 11.6 g/dL (11.5-14.8); LYMPHOCYTES % (AUTO) 16.6 % (20.0-44.0); MEAN CORPUSCULAR HGB CONC 33 g/dl (31.0-36.0); MEAN CORPUSCULAR VOLUME 90 fL (82-100); MONOCYTES # (AUTO) 0.6 /CMM (0.1-1.30); MONOCYTES % (AUTO) 10.5 % (2.0-12.0); NEUTROPHILS # (AUTO) 4.2 /CMM (1.8-8.9); NEUTROPHILS % (AUTO) 69.4 % (43.0-81.0); PLATELET COUNT (AUTO) 336 /CMM (150-450); RED BLOOD CELL COUNT(AUTO) 3.94 MIL/uL (4.0-5.2); WHITE BLOOD COUNT (AUTO) 6.1 K/uL (4.3-11.0)
--- NOTE | 2018-04-18 06:15 | NUR ---
MS RN NOTE: PATIENT RESTING IN BED, NO ACUTE DISTRESS NOTED. BREATHING EVEN AND UNLABORED, NO SOB NOTED. IV TO LEFT HAND IN PLACE, INFUSING NS AT 100 ML/HR. BLOOD SUGAR LEVEL 176 MG/DL, TO RECEIVE 3 UNITS OF INSULIN. NO S/S OF HYPER/HYPOGLYCEMIA NOTED. BILATERAL SOFT WRIST RESTRAINTS IN PLACE, WITH GOOD CIRCULATION NOTED. BED LOCKED AND IN LOWEST POSITION, CALL LIGHT IN REACH. WILL ENDORSE TO DAY NURSE TO CONTINUE WITH PLAN OF CARE.
[2018-04-18 06:16] VITALS: BP 149/76
[2018-04-18 06:24] LABS: CALCIUM, SERUM 8.5 mg/dL (8.5-10.1); CREATININE 0.7 mg/dL (0.6-1.3); MAGNESIUM 1.7 mg/dL (1.8-2.4); PHOSPHORUS 2.7 mg/dL (2.5-4.9); POTASSIUM 3.2 mmol/L (3.5-5.1)
[2018-04-18] MEDS: BLOOD SUGAR DIAGNOSTIC 1 EACH STRIP VI SCH ×4 (06:36→21:45)
[2018-04-18] MEDS: INSULIN REGULAR, HUMAN 100 UNIT/ML 3 ML VIAL SQ PRN ×3 (06:36→18:08)
--- NOTE | 2018-04-18 07:30 | NUR ---
MS RN RECEIVED ON BED, AWAKE,NOT IN ANY FORM OF DISTRESS,RESPIRATIONS EVEN AND UNLABORED,NO SOB NOTED, LUNGS ARE DIMINISHED,ABDOMEN SOFT,POSITIVE BOWEL SOUNDS,DENIES PAIN AT THIS TIME, W/ SITTER FOR SAFETY AND COMFORT,WILL MONITOR PATIENT.
--- NOTE | 2018-04-18 07:30 | NUR ---
MS RN NOTE: RECEIVED CALL FRO ID TO DO WOUND CULTURE AND MRSA NARES SWAB. SWAB COLLECTED AND IN SPECIMEN FRIDGE FOR PARKING RAMP ATTENDANT. WILL ENDORSE TO DAY NURSE.
[2018-04-18 08:00] VITALS: BP 144/76
[2018-04-18] MEDS ORDERED: Magnesium 1GM/D5W 100ML PREMIX 100 ML IV SCH ×2 (08:00→10:00)
--- NOTE | 2018-04-18 08:30 | NUR ---
MS CHANG BREAKFAST SERVED,DUE MEDS GIVEN,TOLERATED WELL.
[2018-04-18] MEDS: PENTOXIFYLLINE 400 MG TABLET.SA PO SCH ×2 (08:52→18:02)
[2018-04-18] MEDS: LEVOTHYROXINE SODIUM 75 MCG TABLET PO SCH (08:52)
[2018-04-18] MEDS: FAMOTIDINE (20 MG) 20 MG TABLET PO SCH ×2 (08:55→18:02)
[2018-04-18] MEDS: LamoTRIgine 100 MG TABLET PO SCH ×2 (08:55→21:28)
[2018-04-18] MEDS: CLOPIDOGREL BISULFATE 75 MG TABLET PO SCH (08:55)
[2018-04-18] MEDS: FOLIC ACID 1 MG TABLET PO SCH (08:55)
[2018-04-18] MEDS: ATORVASTATIN 40 MG TABLET PO SCH (08:55)
[2018-04-18] MEDS: risperiDONE 0.25 MG TABLET PO SCH ×2 (08:56→21:28)
[2018-04-18] MEDS: EZETIMIBE 10 MG TABLET PO SCH (08:57)
[2018-04-18] MEDS: AMLODIPINE BESYLATE 5 MG TABLET PO SCH (08:57)
[2018-04-18] MEDS ORDERED: LOSARTAN POTASSIUM 50 MG TABLET PO SCH (09:00)
--- NOTE | 2018-04-18 09:00 | NUR ---
MS RN WAS SEEN BY , NO DISTRESS NOTED.
[2018-04-18] MEDS: POTASSIUM CL. PREMIX PERIPHER. 50 ML IV SCH ×2 (09:52→11:10)
[2018-04-18] MEDS ORDERED: POTASSIUM CHLORIDE 20 MEQ TAB.PRT.SR PO SCH ×2 (10:00→17:00)
[2018-04-18 16:00] VITALS: BP 138/72
--- NOTE | 2018-04-18 17:50 | NUR ---
MS CHANG BS - 173 - 3 UNITS SQ GIVEN.
[2018-04-18] MEDS: NYSTATIN CREAM 15 GM TUBE TP SCH (18:03)
--- NOTE | 2018-04-18 18:16 | NUR ---
MS RN EX ON BEDSIDE, ALL NEEDS ATTENDED.
--- NOTE | 2018-04-18 19:40 | NUR ---
RN OPENING NOTES RECEIVED REPORT FROM DAYSHIFT RN JENNIFER. FOUND Pt AWAKE, RESTING IN BED. SITTER AT BEDSIDE. JEANA SOFT RESTRAINTS NO LONGER ON Pt. Pt IS A/OX1-2, VERY CONFUSED AND FORGETFUL. Pt IS EASILY AGITATED AND YELLS AND SCREAMS AT STAFF, AND CURSES AT STAFF MEMBERS. IV ACCESS ON RHAND #20G, IVF NS @100ML/HR. SAFETY MEASURES IN PLACE. BED LOW, LOCKED, HOB ELEVATED, & SIDE RAILS UP. WILL CONTINUE TO MONITOR Pt's CONDITION AND SAFETY THROUGHOUT THE NIGHT.
[2018-04-18 20:00] VITALS: BP 157/75
[2018-04-18] MEDS: BENZTROPINE MESYLATE (1 MG) 1 MG TABLET PO SCH (21:36)
[2018-04-18] MEDS: ENOXAPARIN SODIUM 40 MG/0.4 ML DISP.SYRIN SQ SCH (21:37)
[2018-04-18] MEDS: INSULIN GLARGINE, 100 UNIT/ML CARTRIDGE SQ SCH (21:59)
[2018-04-19] MEDS: NYSTATIN CREAM 15 GM TUBE TP SCH ×2 (04:00→17:26)
[2018-04-19 06:08] LABS: BASOPHILS # (AUTO) 0.1 /CMM (0.0-0.2); BASOPHILS % (AUTO) 1.1 % (0.0-2.0); EOSINOPHILS % (AUTO) 3.9 % (0.0-6.0); HEMATOCRIT 35 % (33-45); HEMOGLOBIN 11.5 g/dL (11.5-14.8); LYMPHOCYTES # (AUTO) 1.4 /CMM (0.8-4.8); LYMPHOCYTES % (AUTO) 23.7 % (20.0-44.0); MEAN CORPUSCULAR HGB CONC 33 g/dl (31.0-36.0); MEAN CORPUSCULAR VOLUME 90 fL (82-100); MONOCYTES # (AUTO) 0.7 /CMM (0.1-1.30); MONOCYTES % (AUTO) 11.4 % (2.0-12.0); NEUTROPHILS # (AUTO) 3.6 /CMM (1.8-8.9); NEUTROPHILS % (AUTO) 59.9 % (43.0-81.0); PLATELET COUNT (AUTO) 315 /CMM (150-450); RED BLOOD CELL COUNT(AUTO) 3.92 MIL/uL (4.0-5.2)
[2018-04-19 06:14] LABS: CALCIUM, SERUM 7.6 mg/dL (8.5-10.1); CREATININE 0.7 mg/dL (0.6-1.3); MAGNESIUM 1.9 mg/dL (1.8-2.4); PHOSPHORUS 2.8 mg/dL (2.5-4.9); POTASSIUM 4.1 mmol/L (3.5-5.1)
--- NOTE | 2018-04-19 06:45 | NUR ---
RN NOTES AC ACCUCHECK BG 269. ADMINISTERED 9UN OF INSULIN PER SLIDING SCALE.
[2018-04-19] MEDS: BLOOD SUGAR DIAGNOSTIC 1 EACH STRIP VI SCH ×4 (06:51→21:26)
[2018-04-19] MEDS: INSULIN REGULAR, HUMAN 100 UNIT/ML 3 ML VIAL SQ PRN ×3 (06:58→17:46)
--- NOTE | 2018-04-19 07:10 | NUR ---
RN CLOSING NOTES NO SIGNIFICANT CHANGES IN Pt's CONDITION. Pt REMAINS STABLE PER BASELINE. NO S/S OF ACUTE DISTRESS OR SOB NOTED DURING THE NIGHT. ALL NEEDS MET AND ATTENDED TO. SAFETY MEASURES IN PLACE. SITTER AT BEDSIDE. WILL ENDORSE TO DAYSHIFT RN FOR Pt's MIRANDA.
--- NOTE | 2018-04-19 07:35 | NUR ---
ms rn received on bed,awake,alert,oriented x1,not in any form of distress,respirations even and unlabored,no sob noted, lungs are diminished,abdomen soft,positive bowel sounds,denies pain at this time, w/ sitter at bedside,all needs attended.
[2018-04-19 08:00] VITALS: BP 156/74
--- NOTE | 2018-04-19 09:00 | NUR ---
MS CHANG BREAKFAST SERVED,DUE MEDS GIVEN,TOLERATED WELL.
[2018-04-19] MEDS: ATORVASTATIN 40 MG TABLET PO SCH (09:54)
[2018-04-19] MEDS: risperiDONE 0.25 MG TABLET PO SCH ×2 (09:54→21:10)
[2018-04-19] MEDS: LamoTRIgine 100 MG TABLET PO SCH ×2 (09:54→21:10)
[2018-04-19] MEDS: EZETIMIBE 10 MG TABLET PO SCH (09:54)
[2018-04-19] MEDS: FAMOTIDINE (20 MG) 20 MG TABLET PO SCH ×2 (09:54→17:26)
[2018-04-19] MEDS: CLOPIDOGREL BISULFATE 75 MG TABLET PO SCH (09:55)
[2018-04-19] MEDS: LEVOTHYROXINE SODIUM 75 MCG TABLET PO SCH (09:55)
[2018-04-19] MEDS: PENTOXIFYLLINE 400 MG TABLET.SA PO SCH ×2 (09:55→17:26)
[2018-04-19] MEDS: FOLIC ACID 1 MG TABLET PO SCH (09:56)
[2018-04-19] MEDS: VALSARTAN 80 MG TABLET PO SCH (09:57)
[2018-04-19] MEDS: IV NS 0.9% 1,000 ML IV SCH (09:57)
[2018-04-19] MEDS: AMLODIPINE BESYLATE 5 MG TABLET PO SCH (09:57)
--- NOTE | 2018-04-19 19:34 | NUR ---
RN MS OPENING NOTES RECEIVED PT IN BED, AWAKE, ALERT ORIENTEDX2, BREATHING EVEN AND UNLABORED ON ROOM AIR. SITTER AT BED SIDE. IV ACCESS ON THE RIGHT HANG 20G HEP LOCK, PATENT AND FLUSHING. NO COMPLAINT OF PAIN OR DISCOMFORT AT THE TIME. BED IN LOCKED POSITION, CALL LIGHT WITHIN REACH AT ALL TIMES, WILL CONTINUE TO MONITOR
[2018-04-19] MEDS: BENZTROPINE MESYLATE (1 MG) 1 MG TABLET PO SCH (21:10)
[2018-04-19] MEDS: ENOXAPARIN SODIUM 40 MG/0.4 ML DISP.SYRIN SQ SCH (21:12)
[2018-04-19] MEDS: INSULIN GLARGINE, 100 UNIT/ML CARTRIDGE SQ SCH (21:20)
--- NOTE | 2018-04-19 21:27 | NUR ---
pt bs 214, accepted lantus, but refused humulin, risks and benefits explained, pt not eating, only drinking water, will continue to monitor
[2018-04-20] MEDS: NYSTATIN CREAM 15 GM TUBE TP SCH (04:29)
--- NOTE | 2018-04-20 06:14 | NUR ---
RN MS CLOSING NOTES PT REMAINS IN BED, AWAKE, ALERT OREINTEDX2, CONFUSED TO PLACE AND TIME. BREATHING EVEN AND UNLABORED ON RA, NO COUGH NO CONGESTION. NO COMPLAINT OF PAIN OR DISCOMFORT AT THIS TIME. IV ACCESS ON THE R HAND #20G SL PATENT AND FLUSHING. SITTER AT BEDSIDE FOR SAFETY. DRESSING ON LLE WOUND CHANGED, CLEAN AND DRY. BG- 87, NO COVERAGE. BED IN LOWEST LOCKED POSITION, CALL LIGHT WITHIN REACH AT ALL TIMES.
[2018-04-20] MEDS: BLOOD SUGAR DIAGNOSTIC 1 EACH STRIP VI SCH ×2 (06:16→12:19)
--- NOTE | 2018-04-20 07:05 | NUR ---
MS RN INITIAL NOTES Report received at bedside. Patient received in bed, sitting by the edge of the bed, on the phone. No facial grimacing or moaning noted. Not in any type of distress. Denies any pain at the moment. No SOB/unlabored breathing noted. Admitted for hyperglycemia. Possible discharge today. Will continue to monitor and assess patient
--- NOTE | 2018-04-20 07:05 | NUR ---
MS CHANG INITIAL NOTES Report received at bedside. Patient received in bed, sleeping comfortably, easily aroused. No facial grimacing or moaning noted. Not in any type of distress. No SOB/unlabored breathing noted. IV noted with IV running @75ml/hr. Admitted for failure to thrive,UTI, and prerenal azotemia. safety measures in place. [facility] mattress on. Will continue to monitor and assess patient Addendum: 04/20/18 at 0801 by NAOMIE BORDEN RN INCORRECT PATIENT
--- NOTE | 2018-04-20 07:53 | NUR ---
MS CHANG NOTES Received a call from Oswald (Pharmacist) to request order syed MAX MD (nares) aware Addendum: 04/20/18 at 0805 by NAOMIE BORDEN RN Ordered. Contact isolation implemented
[2018-04-20] MEDS: CLOPIDOGREL BISULFATE 75 MG TABLET PO SCH (08:20)
[2018-04-20] MEDS: risperiDONE 0.25 MG TABLET PO SCH (08:20)
[2018-04-20] MEDS: ATORVASTATIN 40 MG TABLET PO SCH (08:20)
[2018-04-20] MEDS: VALSARTAN 80 MG TABLET PO SCH (08:21)
[2018-04-20] MEDS: LamoTRIgine 100 MG TABLET PO SCH (08:21)
[2018-04-20] MEDS: PENTOXIFYLLINE 400 MG TABLET.SA PO SCH (08:21)
[2018-04-20] MEDS: EZETIMIBE 10 MG TABLET PO SCH (08:21)
[2018-04-20 08:22] VITALS: BP 151/80
[2018-04-20] MEDS: AMLODIPINE BESYLATE 5 MG TABLET PO SCH (08:22)
[2018-04-20] MEDS: LEVOTHYROXINE SODIUM 75 MCG TABLET PO SCH (08:22)
[2018-04-20] MEDS: FOLIC ACID 1 MG TABLET PO SCH (08:22)
[2018-04-20] MEDS: FAMOTIDINE (20 MG) 20 MG TABLET PO SCH (08:22)
[2018-04-20] MEDS ORDERED: RISP0.253 PO (08:45)
[2018-04-20] MEDS ORDERED: LEVO500T75 PO (08:46)
[2018-04-20] MEDS ORDERED: MUPIROCIN OINT 2% 22 GM TUBE SCH (09:00)
--- NOTE | 2018-04-20 10:16 | NUR ---
MS CHANG NOTES Awaiting for bactroban delivery from pharmacy Addendum: 04/20/18 at 1159 by NAOMIE BORDEN RN Continue to wait for delivery. followed up with pharmacy Addendum: 04/20/18 at 1351 by NAOMIE BORDEN RN Received oint and given.
--- NOTE | 2018-04-20 11:46 | NUR ---
MS CURRENCY EXCHANGE SPECIALIST NOTES [facility] Per special education secretary, Documentation Supervisor (Karey) was paged and will call back. Name and [facility] phone number provided.
--- NOTE | 2018-04-20 11:57 | NUR ---
MS UNDER CUTTER NOTES Report given to BERNARDO Eden (Supervisor Laboratory Animal Facility) of [facility] [phone]
[2018-04-20] MEDS: INSULIN REGULAR, HUMAN 100 UNIT/ML 3 ML VIAL SQ PRN (12:21)
--- NOTE | 2018-04-20 13:30 | NUR ---
MS RN NOTES CERTIFIED NOVELL ENGINEER reported that patient vomitted. EMT took BP right away and BP was elevated. Will let patient rest and retake BP. Hogshead Filler (Karey) from [facility] made aware Addendum: 04/20/18 at 1408 by NAOMIE BORDEN RN Patient rested. BP 138/58 P77 RR18. Mateo orr.
[2018-04-20] MEDS ORDERED: ONDANSETRON 4 MG TAB.RAPDIS PO ONE (14:00)
--- NOTE | 2018-04-20 14:08 | NUR ---
MS ASSISTED LIVING ASSISTANT NOTES Patient was cleared for discharge by MD. discharge instructions provided to patient and [facility] supervisor mill; both verbalized understanding. Discharge papers signed and provided to EMT. Skin body assessment done; photos taken and placed in chart. IV access removed; cath tip intact with no bleeding noted. Belongings with patient; belongings form signed. 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 Kept Karey updated of patient's status. Patient being transported by [facility] via stretcher @1407. Kept patient clean and dry. All wound dressings changed. Not in any type of distress. No SOB noted. Denies any pain. 138/58 77 18 97.8 98% RA
== END 2018-04-20 14:00 | DRG 637 ==
LOC: ER 12:44 → MED 14:18
PROVIDERS: ADMIT Internal Medicine; ATTEND Internal Medicine
DX: E11.00 Type 2 diabetes mellitus with hyperosmolarity without nonketotic hyperglycemic-hyperosmolar coma (NKHHC) (principal); I21.A1 Myocardial infarction type 2; G92 Toxic encephalopathy; N39.0 Urinary tract infection, site not specified; F31.64 Bipolar disorder, current episode mixed, severe, with psychotic features; E11.51 Type 2 diabetes mellitus with diabetic peripheral angiopathy without gangrene; I25.10 Atherosclerotic heart disease of native coronary artery without angina pectoris; F41.9 Anxiety disorder, unspecified; F29 Unspecified psychosis not due to a substance or known physiological condition; E03.9 Hypothyroidism, unspecified; E78.5 Hyperlipidemia, unspecified; E83.42 Hypomagnesemia; F03.90 Unspecified dementia, unspecified severity, without behavioral disturbance, psychotic disturbance, mood disturbance, and anxiety; B96.20 Unspecified Escherichia coli [E. coli] as the cause of diseases classified elsewhere; Z16.12 Extended spectrum beta lactamase (ESBL) resistance; Z86.73 Personal history of transient ischemic attack (TIA), and cerebral infarction without residual deficits; E87.6 Hypokalemia; L30.4 Erythema intertrigo; S81.802A Unspecified open wound, left lower leg, initial encounter; X58.XXXA Exposure to other specified factors, initial encounter; Y93.9 Activity, unspecified; Y92.129 Unspecified place in nursing home as the place of occurrence of the external cause; Z79.4 Long term (current) use of insulin; R93.1 Abnormal findings on diagnostic imaging of heart and coronary circulation; I10 Essential (primary) hypertension; M19.90 Unspecified osteoarthritis, unspecified site
CPT/HCPCS: 36415; 71045-TC; 80048-TC; 80061-TC; 80076-TC; 81000-TC; 82962-TC; 83605-TC; 83735-TC; 84100-TC; 84443-TC; 84484-TC; 85025-TC; 85730-TC; 87040-TC; 87070-TC; 87081-TC; 87086-TC; 87186-TC; 93307-TC; 97110-TC; 97116-TC; 97530-TC; A4606; A6253; G0378; J0696; J1630; J1650; J1815; J2405; J3475; J3480; J3490; J7030; Q0162; Z7610

== ENCOUNTER 2018-04-29 08:00 | Emergency (ER) | payer MEDICARE, BC ==
[~2018-04-29] VITALS: Ht 165.1 cm; Wt 64.0 kg
[~2018-04-29 08:00] MED LIST changes: +LEVO500T75 PO
--- NOTE | 2018-04-29 08:10 | NUR ---
[place] Professional unit 290, WITH C/O LOWER BACK PAIN, UNWITNESSED FALL, "[facility] PER EMT. BS 176 , AOx2, TO ER BED 9, HOOKED TO MONITOR, AT BEDSIDE.
[2018-04-29 08:36] LABS: BASOPHILS # (AUTO) 0.1 /CMM (0.0-0.2); BASOPHILS % (AUTO) 0.8 % (0.0-2.0); HEMATOCRIT 31 % (33-45); HEMOGLOBIN 10.2 g/dL (11.5-14.8); LYMPHOCYTES # (AUTO) 1.2 /CMM (0.8-4.8); LYMPHOCYTES % (AUTO) 14.1 % (20.0-44.0); MEAN CORPUSCULAR HGB CONC 33 g/dl (31.0-36.0); MEAN CORPUSCULAR VOLUME 90 fL (82-100); MONOCYTES # (AUTO) 0.9 /CMM (0.1-1.30); MONOCYTES % (AUTO) 10.3 % (2.0-12.0); NEUTROPHILS % (AUTO) 72.8 % (43.0-81.0); PLATELET COUNT (AUTO) 359 /CMM (150-450); WHITE BLOOD COUNT (AUTO) 8.3 K/uL (4.3-11.0)
--- NOTE | 2018-04-29 08:46 | NUR ---
ONGOING CHEST XRAY
[2018-04-29 08:47] LABS: CALCIUM, SERUM 9.2 mg/dL (8.5-10.1); CARBON DIOXIDE 28 mmol/L (21-32); CHLORIDE 104 mmol/L (98-107); CREATININE 0.7 mg/dL (0.6-1.3); GLUCOSE 53 mg/dL (74-106); POTASSIUM 3.5 mmol/L (3.5-5.1); SODIUM SERUM 140 mmol/L (136-145); UREA NITROGEN, BLOOD 19 mg/dL (7-18)
[2018-04-29 08:59] LABS: ALANINE AMINOTRANSFERASE 55 U/L (12-78); ALBUMIN 2.7 g/dL (3.4-5.0); ALKALINE PHOSPHATASE 82 U/L (46-116); ASPARTATE AMINOTRANSFERASE 94 U/L (15-37); B-TYPE NATRIURETIC PEPTIDE 103 PG/ML (0-125); BILIRUBIN,DIRECT 0.1 mg/dL (0.0-0.2); BILIRUBIN,TOTAL 0.2 mg/dL (0.2-1.0); TOTAL PROTEIN, SERUM 6.4 g/dL (6.4-8.2)
[2018-04-29] MEDS ORDERED: MORPHINE SULFATE INJ 4 MG/ML DISP.SYRIN ONE (09:02)
--- NOTE | 2018-04-29 09:02 | NUR ---
VERBAL ORDER FROM DR DUGAN OF MORPHINE SULFATE 4MG IV
[2018-04-29] MEDS ORDERED: ONDANSETRON HCL/PF 4 MG/2 ML VIAL ONE (09:08)
--- NOTE | 2018-04-29 09:11 | NUR ---
OUT FOR CT OF LUMBAR SPINE AND PELVIS
[2018-04-29] MEDS ORDERED: MAGN400O6 GT (09:29)
[2018-04-29] MEDS ORDERED: ACET-868 PO (09:29)
[2018-04-29] MEDS ORDERED: AMIN30LI27 PO (09:29)
[2018-04-29] MEDS ORDERED: EZET10TA14 PO (09:29)
[2018-04-29] MEDS ORDERED: FERR325T23 PO (09:29)
[2018-04-29] MEDS ORDERED: ASCO500T9 PO (09:29)
[2018-04-29] MEDS ORDERED: ZOLP5TAB2 PO (09:29)
[2018-04-29] MEDS ORDERED: BISA10SU8 RC (09:29)
[2018-04-29] MEDS ORDERED: ZINC220C8 PO (09:29)
[2018-04-29] MEDS ORDERED: DOCU-141 PO (09:29)
[2018-04-29] MEDS ORDERED: ACET-2605 PO (09:29)
[2018-04-29] MEDS ORDERED: CHOL100044 PO (09:29)
[2018-04-29] MEDS ORDERED: NA P133E RC (09:29)
[2018-04-29] MEDS ORDERED: LORA-259 PO (09:29)
[2018-04-29] MEDS ORDERED: MULT-447 PO (09:29)
[2018-04-29] MEDS ORDERED: ONDANSETRON HCL/PF - ER 4 MG/2 ML VIAL IV ONE ×2 (09:30)
[2018-04-29] MEDS ORDERED: MORPHINE SULFATE INJ 2 MG/ML DISP.SYRIN IM ONE (09:30)
--- NOTE | 2018-04-29 10:23 | NUR ---
ONGOING L KNEE XRAY
--- NOTE | 2018-04-29 10:42 | NUR ---
OUT FOR CT OF HEAD AND CERVICAL SPINE
--- NOTE | 2018-04-29 11:38 | NUR ---
ETA [id number] TRIP#[id number]
--- NOTE | 2018-04-29 12:21 | NUR ---
PICKED UP BY [facility] UNIT [facility] GOING [facility]. REPORT GIVEN TO BRANDT CHANG
[2018-04-29 12:24] VITALS: BP 148/70
== END 2018-04-29 12:25 ==
LOC: ER 08:02
DX: S30.0XXA Contusion of lower back and pelvis, initial encounter (principal); F03.90 Unspecified dementia, unspecified severity, without behavioral disturbance, psychotic disturbance, mood disturbance, and anxiety; I20.9 Angina pectoris, unspecified; I10 Essential (primary) hypertension; K21.9 Gastro-esophageal reflux disease without esophagitis; E11.9 Type 2 diabetes mellitus without complications; F41.9 Anxiety disorder, unspecified; M19.90 Unspecified osteoarthritis, unspecified site; E03.9 Hypothyroidism, unspecified; Z87.440 Personal history of urinary (tract) infections; Z98.890 Other specified postprocedural states; Z88.8 Allergy status to other drugs, medicaments and biological substances; Z79.4 Long term (current) use of insulin; Z79.899 Other long term (current) drug therapy; W18.39XA Other fall on same level, initial encounter; Y93.89 Activity, other specified; Y92.89 Other specified places as the place of occurrence of the external cause; Y99.8 Other external cause status
CPT/HCPCS: 36415; 70450; 71045; 72125; 72131; 72192; 73560; 80048; 80076; 83880; 84484; 85025; 85730; 93005; 96374; 96375; 99284; A4606; J2270; J2405; Z7610

== ENCOUNTER 2018-05-25 20:32 | Inpatient (IN) | payer MEDICARE, BC ==
[~2018-05-25] VITALS: Ht 165.1 cm; Wt 59.0 kg
[~2018-05-25 20:32] MED LIST changes: +ACET-2605 PO; +AMIN30LI27 PO; -AMLO5TAB7 PO; +AMLO5TAB9 PO; +ASCO500T9 PO; +BISA10SU8 RC; +CHOL100044 PO; +DOCU-141 PO; +EZET10TA14 PO; -EZET10TA27 PO; +FERR325T23 PO; -LEVO500T75 PO; +LORA-259 PO; -LOSA50TA39 PO; +MAGN400O6 GT; +MULT-447 PO; +NA P133E RC; -VANC1PLA11 IV; +ZINC220C8 PO; +ZOLP5TAB2 PO
--- NOTE | 2018-05-25 20:45 | NUR ---
PT BIB RA. COMP OF "BEING ALTERED MORE THAN NORMAL" PT ALERT. NON RESPONSIVE TO VERBAL STIMULI. ONLY TO PAIN. NO STROKE SYMPTOMS NOTED. ASSESSMENT COMPLETED BY MD AND NURSE. NO SOB NOTED. MD AWARE
--- NOTE | 2018-05-25 20:55 | NUR ---
PT TAKEN TO RADIOLOGY.
[2018-05-25] MEDS ORDERED: IV NS 0.9% 1,000 ML BAG IV ONE (21:00)
[2018-05-25 21:03] LABS: BASOPHILS # (AUTO) 0.1 /CMM (0.0-0.2); BASOPHILS % (AUTO) 0.5 % (0.0-2.0); EOSINOPHILS % (AUTO) 0.2 % (0.0-6.0); HEMATOCRIT 35 % (33-45); HEMOGLOBIN 11.2 g/dL (11.5-14.8); LYMPHOCYTES # (AUTO) 1.2 /CMM (0.8-4.8); LYMPHOCYTES % (AUTO) 11.8 % (20.0-44.0); MEAN CORPUSCULAR HGB CONC 32 g/dl (31.0-36.0); MEAN CORPUSCULAR VOLUME 87 fL (82-100); MONOCYTES % (AUTO) 9.5 % (2.0-12.0); NEUTROPHILS # (AUTO) 7.9 /CMM (1.8-8.9); PLATELET COUNT (AUTO) 566 /CMM (150-450); RED BLOOD CELL COUNT(AUTO) 4.04 MIL/uL (4.0-5.2); WHITE BLOOD COUNT (AUTO) 10.1 K/uL (4.3-11.0)
[2018-05-25] MEDS ORDERED: CEFEPIME 1 GM in IV NS 0.9% 50 ML IV STA (21:04)
[2018-05-25 21:08] LABS: APPEARANCE,URINE Cloudy (CLEAR); BILIRUBIN,URINE Negative (NEGATIVE); BLOOD, URINE Moderate Ery/uL (NEGATIVE); COLOR,URINE Yellow (YELLOW); KETONES,URINE Trace (NEGATIVE); LEUKOCYTE ESTERASE ,URINE Small (NEGATIVE); NITRITE, URINE Negative (NEGATIVE); PROTEIN,URINE 100 mg/dl (NEGATIVE); UGLUCOSE >=1000 mg/dL (NEGATIVE); UROBILINOGEN,URINE 0.2 EU/dL (0.2)
[2018-05-25 21:13] LABS: CARBON DIOXIDE 24 mmol/L (21-32); CHLORIDE 118 mmol/L (98-107); CREATININE 1.4 mg/dL (0.6-1.3); GLUCOSE 212 mg/dL (74-106); POTASSIUM 3.5 mmol/L (3.5-5.1); SODIUM SERUM 154 mmol/L (136-145); UREA NITROGEN, BLOOD 44 mg/dL (7-18)
[2018-05-25] MEDS ORDERED: CEFEPIME 1 GM VIAL ONE (21:17)
[2018-05-25 21:18] LABS: ALANINE AMINOTRANSFERASE 40 U/L (12-78); ALBUMIN 2.6 g/dL (3.4-5.0); ALKALINE PHOSPHATASE 108 U/L (46-116); ASPARTATE AMINOTRANSFERASE 58 U/L (15-37); BILIRUBIN,TOTAL 0.2 mg/dL (0.2-1.0); TOTAL PROTEIN, SERUM 7.2 g/dL (6.4-8.2)
[2018-05-25 21:35] LABS: BACTERIA,URINE Moderate /HPF (None Seen); SQUAMOUS EPITHELIAL CELL,UR Few /HPF (None Seen); YEAST,URINE Many /HPF (None Seen)
[2018-05-25] MEDS ORDERED: VANCOMYCIN 1 GM in IV D5W 250 ML IV STA (22:15)
[2018-05-25] MEDS ORDERED: VANCOMYCIN 1 GM VIAL ONE (22:20)
--- NOTE | 2018-05-25 23:06 | NUR ---
NO BED AT THIS TIME
--- NOTE | 2018-05-25 23:21 | NUR ---
REPORT GIVEN TO JERROD CHANG.
[2018-05-25 23:58] VITALS: BP 149/61
[2018-05-26] VITALS: BP 138/60
[2018-05-26] MEDS ORDERED: ONDANSETRON HCL/PF 4 MG/2 ML VIAL IVP PRN
[2018-05-26] MEDS ORDERED: MAGNESIUM HYDROXIDE 30 ML UDC PO PRN
[2018-05-26] MEDS ORDERED: HYDROCODONE/APAP 5/325MG 1 EACH TABLET PO PRN
[2018-05-26] MEDS ORDERED: ACETAMINOPHEN 325 MG TABLET PO PRN
[2018-05-26] MEDS ORDERED: MAG HYDROX/AL HYDROX/SIMETH 30 ML UDC PO PRN
[2018-05-26] MEDS ORDERED: IV NS 0.9% 1,000 ML IV PRN (01:00)
[2018-05-26] MEDS ORDERED: DEXTROSE 50%-WATER 50 ML DISP.SYRIN IV PRN (01:30)
[2018-05-26] MEDS ORDERED: MEROPENEM 500 MG VIAL IV ONE (01:42)
[2018-05-26] MEDS ORDERED: BISACODYL SUPP (10 MG) 10 MG/SUPP.RECT SUPP.RECT RC PRN (02:00)
[2018-05-26] MEDS ORDERED: ZOLPIDEM TARTRATE 5 MG TABLET PO PRN (02:00)
[2018-05-26] MEDS: LORAZEPAM 1 MG TABLET PO PRN (03:20)
[2018-05-26 04:00] VITALS: BP 158/59
[2018-05-26] MEDS ORDERED: MEROPENEM 500 MG in IV NS 0.9% 50 ML IV SCH (05:00)
[2018-05-26] MEDS ORDERED: CEFTRIAXONE 1 G in IV D5W 50 ML IV SCH (06:00)
[2018-05-26 06:53] LABS: BASOPHILS % (AUTO) 0.3 % (0.0-2.0); EOSINOPHILS % (AUTO) 0.2 % (0.0-6.0); HEMATOCRIT 33 % (33-45); HEMOGLOBIN 10.3 g/dL (11.5-14.8); LYMPHOCYTES # (AUTO) 0.9 /CMM (0.8-4.8); LYMPHOCYTES % (AUTO) 6.6 % (20.0-44.0); MEAN CORPUSCULAR HGB CONC 31 g/dl (31.0-36.0); MEAN CORPUSCULAR VOLUME 88 fL (82-100); MONOCYTES % (AUTO) 7.5 % (2.0-12.0); NEUTROPHILS # (AUTO) 11.6 /CMM (1.8-8.9); NEUTROPHILS % (AUTO) 85.4 % (43.0-81.0); PLATELET COUNT (AUTO) 484 /CMM (150-450); RED BLOOD CELL COUNT(AUTO) 3.78 MIL/uL (4.0-5.2); WHITE BLOOD COUNT (AUTO) 13.7 K/uL (4.3-11.0)
[2018-05-26 07:19] LABS: CALCIUM, SERUM 9.1 mg/dL (8.5-10.1); MAGNESIUM 2.3 mg/dL (1.8-2.4); PHOSPHORUS 2.9 mg/dL (2.5-4.9); POTASSIUM 3.6 mmol/L (3.5-5.1)
[2018-05-26 07:30] LABS: THYROID STIMULATING HORMONE 10.437 uIU/mL (0.358-3.74)
[2018-05-26] MEDS ORDERED: LEVOTHYROXINE SODIUM 150 MCG TABLET PO SCH (07:30)
[2018-05-26] MEDS ORDERED: LEVOTHYROXINE SODIUM 75 MCG TABLET PO SCH (07:45)
[2018-05-26 08:00] VITALS: BP 156/67
[2018-05-26] MEDS: BLOOD SUGAR DIAGNOSTIC 1 EACH STRIP IN SCH ×4 (08:00→21:58)
[2018-05-26] MEDS: INSULIN REGULAR, HUMAN 100 UNIT/ML 3 ML VIAL SQ PRN ×4 (08:49→22:58)
[2018-05-26] MEDS: EZETIMIBE 10 MG TABLET PO SCH (09:46)
[2018-05-26] MEDS: DOCUSATE SODIUM 100 MG CAPSULE PO SCH (09:46)
[2018-05-26] MEDS: AMLODIPINE BESYLATE 5 MG TABLET PO SCH (09:47)
[2018-05-26] MEDS: FOLIC ACID 1 MG TABLET PO SCH (09:47)
[2018-05-26] MEDS: LamoTRIgine 100 MG TABLET PO SCH ×2 (09:49→21:58)
[2018-05-26] MEDS: CLOPIDOGREL BISULFATE 75 MG TABLET PO SCH (09:49)
[2018-05-26] MEDS: MULTIVIT W/MINERALS 1 TAB TABLET PO SCH (09:50)
[2018-05-26] MEDS: FAMOTIDINE (20 MG) 20 MG TABLET PO SCH (09:50)
[2018-05-26] MEDS: PENTOXIFYLLINE 400 MG TABLET.SA PO SCH ×2 (09:50→16:36)
[2018-05-26] MEDS: ASCORBIC ACID 500 MG TABLET PO SCH (09:51)
[2018-05-26] MEDS: risperiDONE 1 MG TABLET PO SCH ×2 (09:51→21:58)
[2018-05-26] MEDS: BACLOFEN (10 MG) 10 MG TABLET PO SCH ×4 (09:51→21:52)
[2018-05-26] MEDS ORDERED: LIDOCAINE 2%-EPI 1:100,000 30 ML VIAL TP ONE (10:00)
[2018-05-26] MEDS ORDERED: SILVER NITRATE APPLICATOR 1 EA BOX TP ONE (10:00)
[2018-05-26] MEDS: LEVOTHYROXINE SODIUM 75 MCG TABLET PO SCH (10:16)
[2018-05-26] MEDS: MEROPENEM 500 MG in IV NS 0.9% 100 ML IV SCH ×2 (10:42→21:52)
[2018-05-26 12:00] VITALS: BP 167/72
[2018-05-26] MEDS: DAKINS QUARTER STRENGTH (0.125%) 480 ML BOTTLE TOP SCH (12:00)
[2018-05-26 16:00] VITALS: BP 137/61
[2018-05-26] MEDS: ZINC SULFATE 220 MG CAPSULE PO SCH (16:37)
[2018-05-26] MEDS: FERROUS SULFATE (325 MG) 325 MG/TAB TABLET PO SCH (16:39)
[2018-05-26] MEDS: CHOLECALCIFEROL 1,000 UNIT TABLET (VIT D3) PO SCH (16:39)
[2018-05-26] MEDS: IV D5W 1,000 ML IV PRN (16:49)
[2018-05-26] MEDS: PROSOURCE / PROSTAT (PYXIS) 30 ML UDC PO SCH (18:36)
[2018-05-26 20:00] VITALS: BP 160/64
--- NOTE | 2018-05-26 20:00 | NUR ---
RN INITIAL NOTES RECEIVED PT IN BED. A&OX1, CONFUSED. TELEMONITOR ST HR 104, IV IN #20 L AC S/L AND #20 IN R FA WITH D5W @ 100. ALL SAFETY PRECAUTION TAKEN. BED IN LOW LOCKED POSITION CALL LIGHT IN REACH. PT S/P WOUND DEBRIDEMENT.WILL CONT TO MONITOR.
[2018-05-26] MEDS: ATORVASTATIN 40 MG TABLET PO SCH (21:52)
[2018-05-26] MEDS: BENZTROPINE MESYLATE (1 MG) 1 MG TABLET PO SCH (21:53)
[2018-05-26] MEDS ORDERED: INSULIN GLARGINE, 100 UNIT/ML CARTRIDGE SQ SCH (22:00)
--- NOTE | 2018-05-26 22:23 | NUR ---
RN NOTES notified Mehdi Alexandra NP of blood culture result. Orders carried out. After hour pharmacy notified of vancomycin pharmacy to dose order
[2018-05-26] MEDS ORDERED: VANCOMYCIN 1 GM VIAL ONE (23:16)
[2018-05-26] MEDS ORDERED: VANCOMYCIN 1 GM in IV NS 0.9% 250 ML IV ONE (23:30)
[2018-05-27] VITALS (9 sets, daily range): BP systolic 135–144; BP diastolic 59–71
[2018-05-27 06:34] LABS: BASOPHILS # (AUTO) 0.1 /CMM (0.0-0.2); BASOPHILS % (AUTO) 0.5 % (0.0-2.0); EOSINOPHILS % (AUTO) 0.4 % (0.0-6.0); HEMATOCRIT 30 % (33-45); HEMOGLOBIN 9.5 g/dL (11.5-14.8); LYMPHOCYTES # (AUTO) 1.4 /CMM (0.8-4.8); MEAN CORPUSCULAR HGB CONC 32 g/dl (31.0-36.0); MEAN CORPUSCULAR VOLUME 87 fL (82-100); MONOCYTES # (AUTO) 0.6 /CMM (0.1-1.30); MONOCYTES % (AUTO) 5.3 % (2.0-12.0); NEUTROPHILS # (AUTO) 9.2 /CMM (1.8-8.9); NEUTROPHILS % (AUTO) 81.8 % (43.0-81.0); PLATELET COUNT (AUTO) 458 /CMM (150-450); RED BLOOD CELL COUNT(AUTO) 3.43 MIL/uL (4.0-5.2); WHITE BLOOD COUNT (AUTO) 11.3 K/uL (4.3-11.0)
--- NOTE | 2018-05-27 07:39 | NUR ---
RN NOTES NO CHANGE IN PTS CONDITION OVER NIGHT. WILL ENDORSE TO AM RN.
--- NOTE | 2018-05-27 07:41 | NUR ---
RN NOTES PATIENT IN BED IN STABLE CONDITION. A/O X 1 WITH EPISODES OF CONFUSION. NO SIGNS OF ACUTE DISTRESS. NO COMPLAIN OF PAIN OR DISCOMFORT. ALL NEEDS ATTENDED TO. CALL LIGHT WITHIN REACH. WILL CONTINUE TO MONITOR TO ENSURE SAFETY.
[2018-05-27 07:54] LABS: CALCIUM, SERUM 9.2 mg/dL (8.5-10.1); CREATININE 0.9 mg/dL (0.6-1.3); POTASSIUM 3.4 mmol/L (3.5-5.1)
--- NOTE | 2018-05-27 07:59 | NUR ---
RN NOTES RECEIVED CALL FROM NOA FROM LAB AND HE RELAYED CRITICAL HIGH SODIUM OF 160. IRENE COLBY TO NOTIFY
[2018-05-27] MEDS ORDERED: FEE PK DOSING 1 MIN EA MC ONE (08:14)
[2018-05-27] MEDS: LEVOTHYROXINE SODIUM 75 MCG TABLET PO SCH (08:18)
[2018-05-27] MEDS: LamoTRIgine 100 MG TABLET PO SCH ×2 (08:19→21:14)
[2018-05-27] MEDS: MULTIVIT W/MINERALS 1 TAB TABLET PO SCH (08:19)
[2018-05-27] MEDS: risperiDONE 1 MG TABLET PO SCH ×2 (08:19→21:13)
[2018-05-27] MEDS: CLOPIDOGREL BISULFATE 75 MG TABLET PO SCH (08:19)
[2018-05-27] MEDS: AMLODIPINE BESYLATE 5 MG TABLET PO SCH (08:19)
[2018-05-27] MEDS: DOCUSATE SODIUM 100 MG CAPSULE PO SCH (08:19)
[2018-05-27] MEDS: PENTOXIFYLLINE 400 MG TABLET.SA PO SCH ×2 (08:20→16:24)
[2018-05-27] MEDS: BACLOFEN (10 MG) 10 MG TABLET PO SCH ×4 (08:20→21:21)
[2018-05-27] MEDS: FAMOTIDINE (20 MG) 20 MG TABLET PO SCH (08:20)
[2018-05-27] MEDS: EZETIMIBE 10 MG TABLET PO SCH (08:20)
[2018-05-27] MEDS: FOLIC ACID 1 MG TABLET PO SCH (08:20)
[2018-05-27] MEDS: ASCORBIC ACID 500 MG TABLET PO SCH (08:20)
--- NOTE | 2018-05-27 08:30 | NUR ---
RN NOTES DR ZEPEDA NOTIFIED REGARDING CRITICAL HIGH SODIUM OF [address] ZEPEDA HE WILL ASSESS THE PATIENT, REVIEW THE CHART AND PUT IN ORDER NEEDED. PATIENT IN BED ALERT X 1. NO SIGNS OF ACUTE DISTRESS. NO COMPLAIN OF PAIN OR DISCOMFORT. WILL CONTINUE TO MONITOR TO ENSURE SAFETY.
[2018-05-27] MEDS: BLOOD SUGAR DIAGNOSTIC 1 EACH STRIP IN SCH ×2 (08:31→11:54)
[2018-05-27] MEDS: DAKINS QUARTER STRENGTH (0.125%) 480 ML BOTTLE TOP SCH (08:33)
[2018-05-27] MEDS: MEROPENEM 500 MG in IV NS 0.9% 100 ML IV SCH (08:34)
[2018-05-27] MEDS: INSULIN REGULAR, HUMAN 100 UNIT/ML 3 ML VIAL SQ PRN ×5 (09:00→21:55)
[2018-05-27] MEDS ORDERED: POTASSIUM CHLORIDE 20 MEQ TAB.PRT.SR PO SCH (11:00)
[2018-05-27] MEDS: VANCOMYCIN 0.75 GM in IV D5W 250 ML IV SCH ×2 (11:49→22:03)
[2018-05-27] MEDS ORDERED: MEROPENEM 500 MG in IV NS 0.9% 50 ML IV SCH (12:15)
[2018-05-27] MEDS ORDERED: DEXTROSE 50%-WATER 50 ML DISP.SYRIN IV PRN (14:00)
[2018-05-27] MEDS: BLOOD SUGAR DIAGNOSTIC 1 EACH STRIP VI SCH ×3 (14:59→21:56)
[2018-05-27] MEDS: ZINC SULFATE 220 MG CAPSULE PO SCH (16:24)
[2018-05-27] MEDS: PROSOURCE / PROSTAT (PYXIS) 30 ML UDC PO SCH (16:24)
[2018-05-27] MEDS: CHOLECALCIFEROL 1,000 UNIT TABLET (VIT D3) PO SCH (16:24)
[2018-05-27] MEDS: FERROUS SULFATE (325 MG) 325 MG/TAB TABLET PO SCH (16:24)
--- NOTE | 2018-05-27 18:29 | NUR ---
RN CLOSING NOTES PATIENT IN BED IN STABLE CONDITION. A/O X 1 WITH EPISODES OF CONFUSION. NO SIGNS OF ACUTE DISTRESS. NO COMPLAIN OF PAIN OR DISCOMFORT. ON OXYGEN 2LPM VIA NC TOLERATING WELL. ON TELE MONITOR NOTED WITH SINUS RHYTHM IN 90'S. ALL NEEDS ATTENDED TO. CALL LIGHT WITHIN REACH. WILL ENDORSE TO NEXT SHIFT FOR CONTINUITY OF CARE.
--- NOTE | 2018-05-27 20:00 | NUR ---
RN INITIAL NOTES RECEIVED PT IN BED. A&OX1, CONFUSED. TELEMONITOR ST HR 104, IV IN #20 L AC WITH D5W @ 100 . ALL SAFETY PRECAUTION TAKEN. BED IN LOW LOCKED POSITION CALL LIGHT IN REACH. WILL CONT TO MONITOR.
[2018-05-27] MEDS: ATORVASTATIN 40 MG TABLET PO SCH (21:13)
[2018-05-27] MEDS: MEROPENEM 500 MG in IV NS 0.9% 50 ML IV SCH (21:13)
[2018-05-27] MEDS: BENZTROPINE MESYLATE (1 MG) 1 MG TABLET PO SCH (21:14)
[2018-05-27] MEDS: INSULIN GLARGINE, 100 UNIT/ML CARTRIDGE SQ SCH (21:42)
[2018-05-28] VITALS: BP 119/61
[2018-05-28 04:00] VITALS: BP 140/70
[2018-05-28] MEDS: IV D5W 1,000 ML IV PRN ×2 (04:26→16:27)
[2018-05-28 07:25] LABS: BASOPHILS # (AUTO) 0.1 /CMM (0.0-0.2); BASOPHILS % (AUTO) 0.4 % (0.0-2.0); EOSINOPHILS % (AUTO) 1.2 % (0.0-6.0); HEMATOCRIT 31 % (33-45); HEMOGLOBIN 9.6 g/dL (11.5-14.8); LYMPHOCYTES # (AUTO) 1.8 /CMM (0.8-4.8); MEAN CORPUSCULAR HGB CONC 32 g/dl (31.0-36.0); MEAN CORPUSCULAR VOLUME 88 fL (82-100); MONOCYTES # (AUTO) 0.7 /CMM (0.1-1.30); MONOCYTES % (AUTO) 5.4 % (2.0-12.0); PLATELET COUNT (AUTO) 401 /CMM (150-450); RED BLOOD CELL COUNT(AUTO) 3.48 MIL/uL (4.0-5.2); WHITE BLOOD COUNT (AUTO) 12.7 K/uL (4.3-11.0)
[2018-05-28] MEDS: BLOOD SUGAR DIAGNOSTIC 1 EACH STRIP VI SCH ×4 (07:30→21:56)
[2018-05-28 07:35] LABS: BILIRUBIN,TOTAL 0.2 mg/dL (0.2-1.0); CREATININE 0.8 mg/dL (0.6-1.3); MAGNESIUM 2.2 mg/dL (1.8-2.4); PHOSPHORUS 2.6 mg/dL (2.5-4.9); POTASSIUM 3.9 mmol/L (3.5-5.1)
--- NOTE | 2018-05-28 07:45 | NUR ---
RN OPENING NOTE: RECEIVED PATIENT IN BED, AWAKE WITH PERIODS OF CONFUSION. PATIENT WAS VERY UPSET AND VERBALLY ABUSIVE AT THIS TIME. SHE REFUSED TO HAVE HER BLOOD SUGAR CHECK AND TO HAVE HER VITAL SIGN CHECKED. ON O2 2L/MIN VIA NC AND BREATHING EVEN AND UNLABORED. PATIENT WAS OFFERED 3X FOR THE BLOOD SUGAR CHECK AND DISCUSSED WITH HER THE IMPORTANCE OF IT, BUT SHE STRONGLY REFUSED AT THIS TIME. DR. ZEPEDA WAS MADE AWARE. ASSIGNED DUCT LAYER WAS INFORMED THAT THE NURSE WILL CHECK WITH THE PATIENT AGAIN AND WILL TRY TO CHECK THE VITAL SIGN. ON CONTACT ISOLATION FOR ESBL URINE AND POSSIBLE C. DIFF. COLACE IN AM MEDICATION WILL BE HELD. (L) FA IV SITE NOTED INTACT AND PATENT INFUSING D5W @150ML/HR. PEOPLES CATHETER IN PLACED WITH YELLOW URINE DRAINING TO GRAVITY. BED ALARMED AND LOCKED AT ALL TIMES. CALL LIGHT WITHIN REACH. NEEDS ANTICIPATED. PATIENT DENIED PAIN AT THIS TIME.
[2018-05-28 08:00] VITALS: BP 124/53
--- NOTE | 2018-05-28 08:00 | NUR ---
RN NOTE: PATIENT WAS ASKED AGAIN FOR VITAL SIGN CHECK AND THIS TIME SHE WAS CALM AND COOPERATIVE. SHE AGREED TO HAVE HER VITAL SIGN CHECK, BUT REFUSED BLOOD SUGAR CHECK.
[2018-05-28] MEDS: LEVOTHYROXINE SODIUM 75 MCG TABLET PO SCH (08:32)
[2018-05-28] MEDS: MEROPENEM 500 MG in IV NS 0.9% 50 ML IV SCH ×2 (08:34→21:55)
[2018-05-28] MEDS: FOLIC ACID 1 MG TABLET PO SCH (08:45)
[2018-05-28] MEDS: BACLOFEN (10 MG) 10 MG TABLET PO SCH ×4 (08:46→21:55)
[2018-05-28] MEDS: risperiDONE 1 MG TABLET PO SCH ×2 (08:46→21:56)
[2018-05-28] MEDS: CLOPIDOGREL BISULFATE 75 MG TABLET PO SCH (08:46)
[2018-05-28] MEDS: MULTIVIT W/MINERALS 1 TAB TABLET PO SCH (08:46)
[2018-05-28] MEDS: FAMOTIDINE (20 MG) 20 MG TABLET PO SCH (08:46)
[2018-05-28] MEDS: LamoTRIgine 100 MG TABLET PO SCH ×2 (08:46→21:55)
[2018-05-28] MEDS: PENTOXIFYLLINE 400 MG TABLET.SA PO SCH ×2 (08:47→17:24)
[2018-05-28] MEDS: ASCORBIC ACID 500 MG TABLET PO SCH (08:47)
[2018-05-28] MEDS: EZETIMIBE 10 MG TABLET PO SCH (08:47)
[2018-05-28] MEDS: DOCUSATE SODIUM 100 MG CAPSULE PO SCH (09:00)
[2018-05-28] MEDS: AMLODIPINE BESYLATE 5 MG TABLET PO SCH (09:45)
[2018-05-28] MEDS: DAKINS QUARTER STRENGTH (0.125%) 480 ML BOTTLE TOP SCH (09:47)
[2018-05-28] MEDS: VANCOMYCIN 0.75 GM in IV D5W 250 ML IV SCH ×2 (11:11→22:10)
[2018-05-28] MEDS: CLOTRIMAZOLE 1% 15 GM TUBE TP SCH ×2 (11:26→21:58)
[2018-05-28] MEDS: NYSTATIN CREAM 15 GM TUBE TP SCH ×2 (11:26→21:57)
[2018-05-28 12:00] VITALS: BP 126/55
[2018-05-28] MEDS: INSULIN REGULAR, HUMAN 100 UNIT/ML 3 ML VIAL SQ PRN ×2 (12:03→17:26)
[2018-05-28 16:00] VITALS: BP 123/51
[2018-05-28] MEDS: ZINC SULFATE 220 MG CAPSULE PO SCH (17:24)
[2018-05-28] MEDS: CHOLECALCIFEROL 1,000 UNIT TABLET (VIT D3) PO SCH (17:24)
[2018-05-28] MEDS: FERROUS SULFATE (325 MG) 325 MG/TAB TABLET PO SCH (17:24)
[2018-05-28] MEDS: PROSOURCE / PROSTAT (PYXIS) 30 ML UDC PO SCH (18:02)
--- NOTE | 2018-05-28 19:52 | NUR ---
RN CLOSING NOTE: PATIENT ON STABLE CONDITION. ASSIGNED SENIOR NET ENGINEER ASSISTED THE PATIENT FOR HER DINNER AND ATE 75%. PEOPLES CATHETER WAS EMPTIED. BEDSIDE REPORT GIVEN TO PM SHIFT NURSE FOR CONTINUITY OF CARE.
[2018-05-28 20:00] VITALS: BP 133/56
--- NOTE | 2018-05-28 20:00 | NUR ---
RN INITIAL NOTES RECEIVED PT IN BED. A&OX1, CONFUSED. TELEMONITOR SR HR 79, IV IN #20 L AC WITH D5W @ 150. ALL SAFETY PRECAUTION TAKEN. BED IN LOW LOCKED POSITION CALL LIGHT IN REACH. WILL CONT TO MONITOR.
[2018-05-28] MEDS: INSULIN GLARGINE, 100 UNIT/ML CARTRIDGE SQ SCH (21:53)
[2018-05-28] MEDS: *INSULIN REGULAR(HUMULIN R)HUM 100 UNIT/ML VIAL SQ PRN (21:54)
[2018-05-28] MEDS: BENZTROPINE MESYLATE (1 MG) 1 MG TABLET PO SCH (21:55)
[2018-05-28] MEDS: ATORVASTATIN 40 MG TABLET PO SCH (21:55)
[2018-05-28] MEDS: Z GUARD REMEDY 2 OZ OINT TP PRN (21:55)
[2018-05-29] VITALS: BP 130/55
[2018-05-29] MEDS: IV D5W 1,000 ML IV PRN ×2 (01:01→15:56)
[2018-05-29 04:00] VITALS: BP 97/42
--- NOTE | 2018-05-29 06:18 | NUR ---
RN CLOSING NOTE: PATIENT ON STABLE CONDITION. WILL ENDORSE TO AM SHIFT NURSE FOR CONTINUITY OF CARE.
[2018-05-29 06:39] LABS: BASOPHILS % (AUTO) 0.4 % (0.0-2.0); EOSINOPHILS % (AUTO) 1.7 % (0.0-6.0); HEMATOCRIT 32 % (33-45); HEMOGLOBIN 10.2 g/dL (11.5-14.8); LYMPHOCYTES # (AUTO) 1.7 /CMM (0.8-4.8); LYMPHOCYTES % (AUTO) 14.4 % (20.0-44.0); MEAN CORPUSCULAR HGB CONC 32 g/dl (31.0-36.0); MEAN CORPUSCULAR VOLUME 87 fL (82-100); MONOCYTES # (AUTO) 0.6 /CMM (0.1-1.30); MONOCYTES % (AUTO) 5.6 % (2.0-12.0); NEUTROPHILS % (AUTO) 77.9 % (43.0-81.0); PLATELET COUNT (AUTO) 333 /CMM (150-450); RED BLOOD CELL COUNT(AUTO) 3.67 MIL/uL (4.0-5.2); WHITE BLOOD COUNT (AUTO) 11.6 K/uL (4.3-11.0)
[2018-05-29 07:02] LABS: CALCIUM, SERUM 8.8 mg/dL (8.5-10.1); CREATININE 0.6 mg/dL (0.6-1.3); POTASSIUM 3.6 mmol/L (3.5-5.1)
--- NOTE | 2018-05-29 07:45 | NUR ---
RN OPENING NOTE: RECEIVED PATIENT IN BED, ASLEEP BUT EASILY AROUSABLE WITH TACTILE STIMULI, BUT NOTED WITH INTERMITTENT CONFUSION AND VERBALLY ABUSIVE. PATIENT'S (L) AC IV SITE WAS NOTED LEAKING AND WILL CHANGE THE IV SITE. ON O2 2L/MIN VIA NC AND BREATHING EVEN AND UNLABORED SATURATING 100%. DENIED ANY PAIN. ON CONTACT ISOLATION FOR ESBL URINE AND POSSIBLE C. DIFF. COLACE IN AM MEDICATION WILL BE HELD. PEOPLES CATHETER IN PLACED WITH YELLOW URINE DRAINING TO GRAVITY. BED ALARMED AND LOCKED AT ALL TIMES. CALL LIGHT WITHIN REACH. NEEDS ANTICIPATED.
--- NOTE | 2018-05-29 07:46 | NUR ---
RN NOTE: PATIENT ON INTERNAL AUDIT MANAGER SR HR 65.
[2018-05-29] MEDS: LEVOTHYROXINE SODIUM 75 MCG TABLET PO SCH (07:53)
[2018-05-29] MEDS: BLOOD SUGAR DIAGNOSTIC 1 EACH STRIP VI SCH ×4 (07:54→21:40)
--- NOTE | 2018-05-29 07:57 | NUR ---
WOUND CARE CONSULT WOUND CARE RECEIVED CONSULT FOR WOUNDS. WOUND CARE WILL DEFER CONSULT AND ALL TREATMENT PLANS TO PLASTIC SURGICAL TEAM WHO ARE CURRENTLY FOLLOWING THIS PATIENT. PATIENT WITH MARY AT 11, ALL PRESSURE ULCER PREVENTION MEASURES ARE NOTED TO BE IN PLACE AT THIS TIME. WILL SEE PRN.
[2018-05-29 08:00] VITALS: BP 129/50
[2018-05-29] MEDS: FAMOTIDINE (20 MG) 20 MG TABLET PO SCH (08:48)
[2018-05-29] MEDS: CLOPIDOGREL BISULFATE 75 MG TABLET PO SCH (08:48)
[2018-05-29] MEDS: EZETIMIBE 10 MG TABLET PO SCH (08:48)
[2018-05-29] MEDS: MEROPENEM 500 MG in IV NS 0.9% 50 ML IV SCH ×2 (08:48→21:38)
[2018-05-29] MEDS: PENTOXIFYLLINE 400 MG TABLET.SA PO SCH ×2 (08:49→16:53)
[2018-05-29] MEDS: risperiDONE 1 MG TABLET PO SCH ×2 (08:49→21:39)
[2018-05-29] MEDS: FOLIC ACID 1 MG TABLET PO SCH (08:49)
[2018-05-29] MEDS: LamoTRIgine 100 MG TABLET PO SCH ×2 (08:49→21:39)
[2018-05-29] MEDS: BACLOFEN (10 MG) 10 MG TABLET PO SCH ×4 (08:49→21:39)
[2018-05-29] MEDS: MULTIVIT W/MINERALS 1 TAB TABLET PO SCH (08:49)
[2018-05-29] MEDS: AMLODIPINE BESYLATE 5 MG TABLET PO SCH (08:50)
[2018-05-29] MEDS: ASCORBIC ACID 500 MG TABLET PO SCH (08:50)
[2018-05-29] MEDS: DOCUSATE SODIUM 100 MG CAPSULE PO SCH (08:51)
[2018-05-29] MEDS: CLOTRIMAZOLE 1% 15 GM TUBE TP SCH ×2 (08:55→21:41)
[2018-05-29] MEDS: DAKINS QUARTER STRENGTH (0.125%) 480 ML BOTTLE TOP SCH (08:55)
[2018-05-29] MEDS: NYSTATIN CREAM 15 GM TUBE TP SCH ×2 (08:55→21:41)
[2018-05-29] MEDS: Z GUARD REMEDY 2 OZ OINT TP PRN (08:57)
[2018-05-29] MEDS: VANCOMYCIN 0.75 GM in IV D5W 250 ML IV SCH (10:53)
[2018-05-29 12:00] VITALS: BP 130/47
[2018-05-29] MEDS: INSULIN REGULAR, HUMAN 100 UNIT/ML 3 ML VIAL SQ PRN ×2 (13:25→17:16)
--- NOTE | 2018-05-29 15:50 | NUR ---
RN NOTE: BROUGHT TO LAB THE (L) LEG WOUND BIOPSY SPECIMEN TO LAB WITH THE CYTOLOGY AND PATHOLOGY FORM. HANDED THE SPECIMEN AND FORM TO BOOT TURNER.
[2018-05-29 16:00] VITALS: BP 97/50
[2018-05-29] MEDS ORDERED: KEY,NONCONTROL,TO KEEP IN PYXI 1 EA MC ONE (16:43)
[2018-05-29] MEDS: FERROUS SULFATE (325 MG) 325 MG/TAB TABLET PO SCH (16:53)
[2018-05-29] MEDS: ZINC SULFATE 220 MG CAPSULE PO SCH (16:53)
[2018-05-29] MEDS: CHOLECALCIFEROL 1,000 UNIT TABLET (VIT D3) PO SCH (16:53)
[2018-05-29] MEDS: PROSOURCE / PROSTAT (PYXIS) 30 ML UDC PO SCH (16:54)
--- NOTE | 2018-05-29 17:00 | NUR ---
RN NOTE: COLLECTED THE PATIENT'S URINE AND WAS SENT TO LAB FOR ANALYSIS PER MD ORDER. DATED, INITIALED AND LABELED ACCORDINGLY AND WAS PLACED ON THE SPECIMEN REFRIGERATOR.
[2018-05-29 18:54] LABS: URINE SODIUM, RANDOM 7 mmol/l (40-220)
--- NOTE | 2018-05-29 19:44 | NUR ---
RN CLOSING NOTE: PATIENT ON STABLE CONDITION. ASSIGNED AUTOMOTIVE SERVICES MANAGER ASSISTED THE PATIENT FOR HER DINNER AND ATE 75%. PEOPLES CATHETER WAS EMPTIED. BEDSIDE REPORT GIVEN TO PM SHIFT NURSE FOR CONTINUITY OF CARE. (R) UA MIDLINE NOTED PATENT AND INTACT INFUSING D5W @150ML/HR.
[2018-05-29 20:00] VITALS: BP 140/56
--- NOTE | 2018-05-29 20:05 | NUR ---
SENIOR EDITOR OPENING NOTES RECEIVED REPORT FROM TELMA CHANG. PATIENT A/A/O X1-2 W/ SOME CONFUSION BUT ABLE TO MAKE NEEDS KNOWN & STATE PAIN. BREATHING EVEN & UNLABORED, TOLERATING ROOM AIR. ON TELE W/ SINUS RHYTHM, HR 78. NO RESPIRATORY OR CARDIAC DISTRESS NOTED. RIGHT UPPER ARM MIDLINE & RIGHT AC IV INTACT & PATENT W/ DRESSING CDI & IVF D5W INFUSING WELL @ 150 ML/HR. PEOPLES CATH DRAINING YELLOW URINE. DENIES ANY PAIN OR DISCOMFORT @ THIS TIME. SAFETY MEASURES IN PLACE W/ SIDE RAILS UP & BED ALARM ON. INSTRUCTED TO USE CALL LIGHT FOR ASSISTANCE. WILL CONTINUE TO MONITOR.
[2018-05-29 21:05] LABS: OSMOLALITY,URINE 492 mOS/kg (340-1090)
[2018-05-29] MEDS: ATORVASTATIN 40 MG TABLET PO SCH (21:39)
[2018-05-29] MEDS: BENZTROPINE MESYLATE (1 MG) 1 MG TABLET PO SCH (21:40)
[2018-05-29] MEDS: INSULIN GLARGINE, 100 UNIT/ML CARTRIDGE SQ SCH (21:43)
[2018-05-29] MEDS: *INSULIN REGULAR(HUMULIN R)HUM 100 UNIT/ML VIAL SQ PRN (21:44)
[2018-05-30] VITALS: BP 103/58
[2018-05-30] MEDS: VANCOMYCIN 0.75 GM in IV D5W 250 ML IV SCH ×3 (00:06→23:06)
[2018-05-30] MEDS: IV D5W 1,000 ML IV PRN (00:42)
[2018-05-30 04:00] VITALS: BP 140/60
[2018-05-30 06:41] LABS: BASOPHILS % (AUTO) 0.4 % (0.0-2.0); EOSINOPHILS % (AUTO) 1.1 % (0.0-6.0); HEMATOCRIT 28 % (33-45); LYMPHOCYTES % (AUTO) 9.5 % (20.0-44.0); MEAN CORPUSCULAR HGB CONC 32 g/dl (31.0-36.0); MEAN CORPUSCULAR VOLUME 85 fL (82-100); MONOCYTES # (AUTO) 0.5 /CMM (0.1-1.30); MONOCYTES % (AUTO) 4.9 % (2.0-12.0); NEUTROPHILS # (AUTO) 8.5 /CMM (1.8-8.9); NEUTROPHILS % (AUTO) 84.1 % (43.0-81.0); PLATELET COUNT (AUTO) 327 /CMM (150-450); RED BLOOD CELL COUNT(AUTO) 3.29 MIL/uL (4.0-5.2); WHITE BLOOD COUNT (AUTO) 10.2 K/uL (4.3-11.0)
[2018-05-30 06:46] LABS: CALCIUM, SERUM 8.3 mg/dL (8.5-10.1); CREATININE 0.7 mg/dL (0.6-1.3); POTASSIUM 3.5 mmol/L (3.5-5.1)
--- NOTE | 2018-05-30 07:26 | NUR ---
RN OPENING NOTES RECEIVED PATIENT IN BED ASLEEP BUT EASILY AROUSABLE. A/O X1-2, WITH SOME CONFUSION BUT ABLE TO MAKE NEEDS KNOWN. BREATHING EVEN & UNLABORED, TOLERATING ROOM AIR. ON TELEMONITOR, SINUS RHYTHM, HR 77 . NO RESPIRATORY OR CARDIAC DISTRESS NOTED. IV ACCESS INTACT & PATENT, IVF D5W INFUSING WELL @ 150 ML/HR. PEOPLES CATH IN PLACE, DRAINING YELLOW URINE. DENIES ANY PAIN OR DISCOMFORT @ THIS TIME. SAFETY MEASURES IN PLACE W/ SIDE RAILS UP & BED ALARM ON. BED IN LOW/LOCKED POSITION, CALL LIGHT IN REACH. WILL CONTINUE TO MONITOR ACCORDINGLY
[2018-05-30] MEDS: LEVOTHYROXINE SODIUM 75 MCG TABLET PO SCH (07:30)
[2018-05-30 08:00] VITALS: BP 143/63
[2018-05-30] MEDS ORDERED: DEXTROSE 50%-WATER 50 ML DISP.SYRIN IV PRN (08:30)
[2018-05-30] MEDS: DAKINS QUARTER STRENGTH (0.125%) 480 ML BOTTLE TOP SCH (08:43)
[2018-05-30] MEDS: NYSTATIN CREAM 15 GM TUBE TP SCH ×2 (08:44→21:53)
[2018-05-30] MEDS: CLOTRIMAZOLE 1% 15 GM TUBE TP SCH ×2 (08:44→21:53)
[2018-05-30] MEDS: BLOOD SUGAR DIAGNOSTIC 1 EACH STRIP IN SCH ×4 (08:46→21:53)
[2018-05-30] MEDS: PENTOXIFYLLINE 400 MG TABLET.SA PO SCH ×2 (09:00→16:55)
[2018-05-30] MEDS: risperiDONE 1 MG TABLET PO SCH ×2 (09:00→21:42)
[2018-05-30] MEDS: ASCORBIC ACID 500 MG TABLET PO SCH (09:00)
[2018-05-30] MEDS: LamoTRIgine 100 MG TABLET PO SCH ×2 (09:00→21:41)
[2018-05-30] MEDS: BACLOFEN (10 MG) 10 MG TABLET PO SCH ×4 (09:00→21:42)
[2018-05-30] MEDS: MULTIVIT W/MINERALS 1 TAB TABLET PO SCH (09:00)
[2018-05-30] MEDS: DOCUSATE SODIUM 100 MG CAPSULE PO SCH (09:00)
[2018-05-30] MEDS: EZETIMIBE 10 MG TABLET PO SCH (09:00)
[2018-05-30] MEDS: AMLODIPINE BESYLATE 5 MG TABLET PO SCH (09:00)
[2018-05-30] MEDS: CLOPIDOGREL BISULFATE 75 MG TABLET PO SCH (09:00)
[2018-05-30] MEDS: FAMOTIDINE (20 MG) 20 MG TABLET PO SCH (09:00)
[2018-05-30] MEDS: FOLIC ACID 1 MG TABLET PO SCH (09:00)
[2018-05-30] MEDS: MEROPENEM 500 MG in IV NS 0.9% 50 ML IV SCH ×2 (09:15→21:40)
--- NOTE | 2018-05-30 09:17 | NUR ---
RN NOTES REFUSED AM PO MEDICATIONS AND INSULIN COVERAGE(KV=[id number]), AND REFUSED TO EAT BREAKFAST. PATIENT WAS VERBALLY ABUSIVE AND FOUL-MOUTHED. STATING "I DONT WANT ANY OF THOSE! GET THE F#$CK OUT OF HERE!". ALSO WAS SWINGING HER ARMS TO AVOID THE MEDICATIONS AND BREAKFAST. EXPLAIN RISK BUT STILL REFUSED AND CONTINUED ON YELLING "GET THE F#@CK OUT OF HERE!". WILL NOTIFY .
--- NOTE | 2018-05-30 11:20 | NUR ---
CHARGE NOTES TRANSFER TO MED SURG PER DR. CROWELL
[2018-05-30] MEDS: INSULIN REGULAR, HUMAN 100 UNIT/ML 3 ML VIAL SQ PRN ×2 (12:17→21:48)
--- NOTE | 2018-05-30 15:28 | NUR ---
wound care rendered. patient cooperative at this time
[2018-05-30 16:00] VITALS: BP 154/76
[2018-05-30] MEDS: CHOLECALCIFEROL 1,000 UNIT TABLET (VIT D3) PO SCH (16:54)
[2018-05-30] MEDS: LACTOBACILLUS RHAMNOSUS GG 1 EACH CAP.SPRINK PO SCH (16:55)
[2018-05-30] MEDS: ZINC SULFATE 220 MG CAPSULE PO SCH (16:55)
[2018-05-30] MEDS: FERROUS SULFATE (325 MG) 325 MG/TAB TABLET PO SCH (16:55)
[2018-05-30] MEDS: PROSOURCE / PROSTAT (PYXIS) 30 ML UDC PO SCH (17:59)
--- NOTE | 2018-05-30 19:00 | NUR ---
TURNED AND REPOSITIONED PATIENT EVERY 2 HRS NEEDED.
--- NOTE | 2018-05-30 19:15 | NUR ---
PATIENT IN STABLE CONDITION. ALL NEEDS ATTENDED AND PROVIDED. ALL DUE MEDICATIONS GIVEN ORDERED. KEPT PATIENT SAFE AND COMFORTABLE. BED IN LOW/LOCKED POSITION, SIDERAILS UP, CALL LIGHT IN REACH. ENDORSED TO NIGHT RN FOR MIRANDA.
--- NOTE | 2018-05-30 19:40 | NUR ---
RN OPENING NOTES RECEIVED PATIENT IN BED AWAKE A/O TO SELF, WITH INTERMITTENT CONFUSION, SOCORRO TO VERBALIZED NEEDS KNOWN, DENIES PAIN OR DISCOMFORT AT THIS TIME, AT RA BREATHING EVEN AND UNLABORED, NO SOB/ACUTE DISTRESS NOTED AT THIS TIME, HUSSEIN MIDLINE ACCESS INTACT & PATENT S/, F/C IN PLACE PATENT AND INTACT, DRAINING YELLOW URIN, SAFETY MEASURES IN PLACE W/ SIDE RAILS UP BED IN LOW/LOCKED POSITION, CALL LIGHT W/I REACH, WILL CONTINUE TO MONITOR CLOSELY.
[2018-05-30 20:00] VITALS: BP 143/67
[2018-05-30] MEDS: ATORVASTATIN 40 MG TABLET PO SCH (21:43)
[2018-05-30] MEDS: BENZTROPINE MESYLATE (1 MG) 1 MG TABLET PO SCH (21:43)
[2018-05-30 21:46] VITALS: BP 143/67
[2018-05-30] MEDS: INSULIN GLARGINE, 100 UNIT/ML CARTRIDGE SQ SCH (21:49)
[2018-05-31 04:00] VITALS: BP 110/68
[2018-05-31 05:25] VITALS: BP 90/59
--- NOTE | 2018-05-31 07:00 | NUR ---
RN CLOSING NOTES, PATIENT IN BED AWAKE A/O TO SELF, WITH INTERMITTENT CONFUSION, ABLE TO VERBALIZED NEEDS YELLING THAT WANT LUNCH AT THI TIME, SNACK PROVIDED, DENIES PAIN OR DISCOMFORT AT THIS TIME, AT RA BREATHING EVEN AND UNLABORED, NO SOB/ACUTE DISTRESS NOTED AT THIS TIME, HUSSEIN MIDLINE ACCESS INTACT & PATENT S/, F/C IN PLACE PATENT AND INTACT, DRAINING YELLOW URINE, SAFETY MEASURES IN PLACE W/ SIDE RAILS UP BED IN LOW/LOCKED POSITION, CALL LIGHT W/I REACH, WILL ENDORSE CONTINUITY OF CARE TO ONCOMING NURSE.
[2018-05-31 07:04] LABS: BASOPHILS % (AUTO) 0.4 % (0.0-2.0); EOSINOPHILS % (AUTO) 1.6 % (0.0-6.0); HEMATOCRIT 26 % (33-45); HEMOGLOBIN 8.5 g/dL (11.5-14.8); LYMPHOCYTES % (AUTO) 11.2 % (20.0-44.0); MEAN CORPUSCULAR HGB CONC 33 g/dl (31.0-36.0); MEAN CORPUSCULAR VOLUME 86 fL (82-100); MONOCYTES # (AUTO) 0.6 /CMM (0.1-1.30); MONOCYTES % (AUTO) 6.9 % (2.0-12.0); NEUTROPHILS # (AUTO) 7.4 /CMM (1.8-8.9); NEUTROPHILS % (AUTO) 79.9 % (43.0-81.0); PLATELET COUNT (AUTO) 341 /CMM (150-450); RED BLOOD CELL COUNT(AUTO) 3.03 MIL/uL (4.0-5.2); WHITE BLOOD COUNT (AUTO) 9.2 K/uL (4.3-11.0)
[2018-05-31 07:29] LABS: CALCIUM, SERUM 8.5 mg/dL (8.5-10.1); CREATININE 0.8 mg/dL (0.6-1.3); POTASSIUM 3.6 mmol/L (3.5-5.1)
[2018-05-31] MEDS: BLOOD SUGAR DIAGNOSTIC 1 EACH STRIP IN SCH ×4 (07:35→21:31)
[2018-05-31] MEDS: INSULIN REGULAR, HUMAN 100 UNIT/ML 3 ML VIAL SQ PRN ×4 (07:39→21:33)
[2018-05-31] MEDS: LEVOTHYROXINE SODIUM 75 MCG TABLET PO SCH (07:53)
[2018-05-31 08:00] VITALS: BP 142/72
[2018-05-31] MEDS: MULTIVIT W/MINERALS 1 TAB TABLET PO SCH (08:29)
[2018-05-31] MEDS: LACTOBACILLUS RHAMNOSUS GG 1 EACH CAP.SPRINK PO SCH ×2 (08:29→16:31)
[2018-05-31] MEDS: PENTOXIFYLLINE 400 MG TABLET.SA PO SCH ×2 (08:30→16:31)
[2018-05-31] MEDS: CLOPIDOGREL BISULFATE 75 MG TABLET PO SCH (08:30)
[2018-05-31] MEDS: ASCORBIC ACID 500 MG TABLET PO SCH (08:30)
[2018-05-31] MEDS: FOLIC ACID 1 MG TABLET PO SCH (08:30)
[2018-05-31] MEDS: DOCUSATE SODIUM 100 MG CAPSULE PO SCH (08:30)
[2018-05-31] MEDS: AMLODIPINE BESYLATE 5 MG TABLET PO SCH (08:30)
[2018-05-31] MEDS: FAMOTIDINE (20 MG) 20 MG TABLET PO SCH (08:30)
[2018-05-31] MEDS: EZETIMIBE 10 MG TABLET PO SCH (08:30)
[2018-05-31] MEDS: LamoTRIgine 100 MG TABLET PO SCH ×2 (08:31→21:07)
[2018-05-31] MEDS: BACLOFEN (10 MG) 10 MG TABLET PO SCH ×4 (08:31→21:08)
[2018-05-31] MEDS: MEROPENEM 500 MG in IV NS 0.9% 50 ML IV SCH ×2 (08:31→21:12)
[2018-05-31] MEDS: risperiDONE 1 MG TABLET PO SCH ×2 (08:31→21:07)
[2018-05-31] MEDS: DAKINS QUARTER STRENGTH (0.125%) 480 ML BOTTLE TOP SCH (08:39)
[2018-05-31] MEDS: NYSTATIN CREAM 15 GM TUBE TP SCH ×2 (08:46→21:37)
[2018-05-31] MEDS: CLOTRIMAZOLE 1% 15 GM TUBE TP SCH ×2 (08:47→21:37)
[2018-05-31] MEDS: VANCOMYCIN 0.75 GM in IV D5W 250 ML IV SCH ×2 (11:04→23:41)
[2018-05-31] MEDS ORDERED: SILVER NITRATE APPLICATOR 1 EA BOX TP ONE (13:30)
[2018-05-31] MEDS ORDERED: LIDOCAINE 2%-EPI 1:100,000 30 ML VIAL TP ONE (13:30)
[2018-05-31 16:00] VITALS: BP 130/49
[2018-05-31] MEDS: LORAZEPAM 1 MG TABLET PO PRN (16:31)
[2018-05-31] MEDS: FERROUS SULFATE (325 MG) 325 MG/TAB TABLET PO SCH (16:31)
[2018-05-31] MEDS: ZINC SULFATE 220 MG CAPSULE PO SCH (16:31)
[2018-05-31] MEDS: CHOLECALCIFEROL 1,000 UNIT TABLET (VIT D3) PO SCH (17:25)
[2018-05-31] MEDS: PROSOURCE / PROSTAT (PYXIS) 30 ML UDC PO SCH (17:28)
--- NOTE | 2018-05-31 19:30 | NUR ---
MS RN NOTE: RECEIVED PT ON BED ALERT TO HERSELF AND WITH EPISODES OF CONFUSION. NO ACUTE DISTRESS NOTED. DENIES PAIN AND DISCOMFORT AT THIS TIME. BREATHING EVEN AND UNLABORED WITH NORMAL RESPIRATIONS. RIGHT UPPER ARM MIDLINE INTACT AND PATENT, FLUSHING WELL. PEOPLES CATH INTACT WITH CLEAR YELLOW URINE DRAINING. KEPT CLEAN, DRY AND COMFORTABLE. SAFETY AND FALL PRECAUTIONS OBSERVED AND MAINTAINED. WILL CONTINUE TO MONITOR PT.
[2018-05-31 20:00] VITALS: BP_SYST 135; BP_SYST 149; BP_DIAS 76; BP_DIAS 84
[2018-05-31] MEDS: BENZTROPINE MESYLATE (1 MG) 1 MG TABLET PO SCH (21:06)
[2018-05-31] MEDS: ATORVASTATIN 40 MG TABLET PO SCH (21:07)
[2018-05-31] MEDS: INSULIN GLARGINE, 100 UNIT/ML CARTRIDGE SQ SCH (21:34)
[2018-06-01 04:00] VITALS: BP 144/57
[2018-06-01 06:33] LABS: BASOPHILS # (AUTO) 0.1 /CMM (0.0-0.2); BASOPHILS % (AUTO) 0.7 % (0.0-2.0); EOSINOPHILS % (AUTO) 1.5 % (0.0-6.0); HEMATOCRIT 28 % (33-45); HEMOGLOBIN 8.9 g/dL (11.5-14.8); LYMPHOCYTES # (AUTO) 1.2 /CMM (0.8-4.8); LYMPHOCYTES % (AUTO) 14.8 % (20.0-44.0); MEAN CORPUSCULAR HGB CONC 32 g/dl (31.0-36.0); MEAN CORPUSCULAR VOLUME 86 fL (82-100); MONOCYTES # (AUTO) 0.8 /CMM (0.1-1.30); MONOCYTES % (AUTO) 9.2 % (2.0-12.0); NEUTROPHILS # (AUTO) 6.2 /CMM (1.8-8.9); NEUTROPHILS % (AUTO) 73.8 % (43.0-81.0); PLATELET COUNT (AUTO) 383 /CMM (150-450); RED BLOOD CELL COUNT(AUTO) 3.27 MIL/uL (4.0-5.2); WHITE BLOOD COUNT (AUTO) 8.4 K/uL (4.3-11.0)
[2018-06-01 06:41] LABS: CALCIUM, SERUM 8.6 mg/dL (8.5-10.1); CREATININE 0.6 mg/dL (0.6-1.3); POTASSIUM 3.8 mmol/L (3.5-5.1)
--- NOTE | 2018-06-01 07:05 | NUR ---
MS RN NOTE: NO CHANGES NOTED THROUGHOUT THE SHIFT. NO APPARENT DISTRESS NOTED. DENIES PAIN AND DISCOMFORT AT THIS TIME. ON NASAL CANNULA, 2LPM NO SOB NOTED. RIGHT UPPER ARM MIDLINE INTACT AND PATENT, FLUSHING WELL. PEOPLES CATH INTACT, DRAINED 1450CC OF URINE OUTPUT. KEPT CLEAN, DRY AND COMFORTABLE. SAFETY AND FALL PRECAUTIONS OBSERVED AND MAINTAINED. WILL ENDORSE TO DAY SHIFT RN FOR CONTINUITY OF CARE.
--- NOTE | 2018-06-01 07:10 | NUR ---
MS RN OPENING NOTES RECEIVED PT LYING ON BED.ALERT/ORIENTED X1 WITH CONFUSED.ON 2L O2 VIA NC CONTINUOUSLY.NO SOB AND ACUTE DISTRESS NOTED.IV LINE IS ON RIGHT AC G22 AND HUSSEIN MIDLINE IS PRESENT,SITE IS CLEAN,DRY AND INTACT.NO INFILTRATION NOTED. SAFETY IS MAINTAINED AT ALL TIMES.BED IS IN LOW POSITION AND LOCKED.CALL LIGHT IS WITHIN REACH.WILL CONTINUE TO MONITOR THE PT CLOSELY.
[2018-06-01] MEDS: BLOOD SUGAR DIAGNOSTIC 1 EACH STRIP IN SCH ×4 (07:30→21:49)
[2018-06-01 08:00] VITALS: BP 125/61
[2018-06-01] MEDS: LEVOTHYROXINE SODIUM 75 MCG TABLET PO SCH (09:16)
[2018-06-01] MEDS: EZETIMIBE 10 MG TABLET PO SCH (09:17)
[2018-06-01] MEDS: BACLOFEN (10 MG) 10 MG TABLET PO SCH ×4 (09:17→21:47)
[2018-06-01] MEDS: FOLIC ACID 1 MG TABLET PO SCH (09:17)
[2018-06-01] MEDS: DOCUSATE SODIUM 100 MG CAPSULE PO SCH (09:17)
[2018-06-01] MEDS: CLOPIDOGREL BISULFATE 75 MG TABLET PO SCH (09:17)
[2018-06-01] MEDS: AMLODIPINE BESYLATE 5 MG TABLET PO SCH (09:17)
[2018-06-01] MEDS: LACTOBACILLUS RHAMNOSUS GG 1 EACH CAP.SPRINK PO SCH ×2 (09:18→16:45)
[2018-06-01] MEDS: LamoTRIgine 100 MG TABLET PO SCH ×2 (09:19→21:34)
[2018-06-01] MEDS: FAMOTIDINE (20 MG) 20 MG TABLET PO SCH (09:19)
[2018-06-01] MEDS: MULTIVIT W/MINERALS 1 TAB TABLET PO SCH (09:19)
[2018-06-01] MEDS: ASCORBIC ACID 500 MG TABLET PO SCH (09:19)
[2018-06-01] MEDS: risperiDONE 1 MG TABLET PO SCH ×2 (09:21→21:29)
[2018-06-01] MEDS: MEROPENEM 500 MG in IV NS 0.9% 50 ML IV SCH ×2 (09:21→21:49)
[2018-06-01] MEDS: PENTOXIFYLLINE 400 MG TABLET.SA PO SCH ×2 (09:21→16:41)
[2018-06-01] MEDS: INSULIN REGULAR, HUMAN 100 UNIT/ML 3 ML VIAL SQ PRN ×4 (09:28→21:36)
[2018-06-01] MEDS: DAKINS QUARTER STRENGTH (0.125%) 480 ML BOTTLE TOP SCH (09:39)
[2018-06-01] MEDS: NYSTATIN CREAM 15 GM TUBE TP SCH ×2 (09:39→21:48)
[2018-06-01] MEDS: CLOTRIMAZOLE 1% 15 GM TUBE TP SCH ×2 (09:39→21:48)
--- NOTE | 2018-06-01 11:00 | NUR ---
MS RN NOTES WOUND DEBRIDEMENT HAS DONE BY .WOUND TREATMENT IS DONE AND PT IS LYING ON BED.
[2018-06-01] MEDS: VANCOMYCIN 0.75 GM in IV D5W 250 ML IV SCH (11:23)
[2018-06-01 16:00] VITALS: BP 122/67
[2018-06-01] MEDS: FERROUS SULFATE (325 MG) 325 MG/TAB TABLET PO SCH (16:40)
[2018-06-01] MEDS: ZINC SULFATE 220 MG CAPSULE PO SCH (16:41)
[2018-06-01] MEDS: PROSOURCE / PROSTAT (PYXIS) 30 ML UDC PO SCH (16:41)
[2018-06-01] MEDS: CHOLECALCIFEROL 1,000 UNIT TABLET (VIT D3) PO SCH (16:41)
--- NOTE | 2018-06-01 18:46 | NUR ---
MS RN CLOSING NOTES PT IS LYING ON BED WITH CONFUSION.ON 2L O2 VIA NC,TOLERATING WELL.NO SOB AND ACUTE DISTRESS NOTED.PT IS CLEAN AND DRY.ENDORSED TO SHEET HEATER RN FOR MIRANDA.
[2018-06-01 20:00] VITALS: BP 97/52
--- NOTE | 2018-06-01 20:00 | NUR ---
RN INITIAL NOTES RECEIVED PT LYING ON BED. ALERT/ORIENTED X1 WITH CONFUSED.ON 2L O2 VIA NC CONTINUOUSLY.NO SOB AND ACUTE DISTRESS NOTED.IV LINE IS ON RIGHT AC G22 AND HUSSEIN MIDLINE IS PRESENT,SITE IS CLEAN,DRY AND INTACT.NO INFILTRATION NOTED. SAFETY IS MAINTAINED AT ALL TIMES.BED IS IN LOW POSITION AND LOCKED.CALL LIGHT IS WITHIN REACH.WILL CONTINUE TO MONITOR THE PT CLOSELY.
[2018-06-01] MEDS: ATORVASTATIN 40 MG TABLET PO SCH (21:30)
[2018-06-01] MEDS: BENZTROPINE MESYLATE (1 MG) 1 MG TABLET PO SCH (21:30)
[2018-06-01] MEDS: INSULIN GLARGINE, 100 UNIT/ML CARTRIDGE SQ SCH (21:35)
[2018-06-02 04:00] VITALS: BP 102/57
[2018-06-02 06:28] LABS: BASOPHILS # (AUTO) 0.1 /CMM (0.0-0.2); BASOPHILS % (AUTO) 0.7 % (0.0-2.0); EOSINOPHILS % (AUTO) 1.2 % (0.0-6.0); HEMATOCRIT 29 % (33-45); HEMOGLOBIN 9.6 g/dL (11.5-14.8); LYMPHOCYTES # (AUTO) 1.4 /CMM (0.8-4.8); MEAN CORPUSCULAR HGB CONC 33 g/dl (31.0-36.0); MEAN CORPUSCULAR VOLUME 85 fL (82-100); MONOCYTES # (AUTO) 0.8 /CMM (0.1-1.30); MONOCYTES % (AUTO) 8.8 % (2.0-12.0); NEUTROPHILS # (AUTO) 6.8 /CMM (1.8-8.9); NEUTROPHILS % (AUTO) 74.3 % (43.0-81.0); PLATELET COUNT (AUTO) 439 /CMM (150-450); RED BLOOD CELL COUNT(AUTO) 3.42 MIL/uL (4.0-5.2); WHITE BLOOD COUNT (AUTO) 9.1 K/uL (4.3-11.0)
--- NOTE | 2018-06-02 07:04 | NUR ---
RN CLOSING NOTES PT IS LYING ON BED WITH CONFUSION.ON 2L O2 VIA NC,TOLERATING WELL.NO SOB AND ACUTE DISTRESS NOTED.PT IS CLEAN AND DRY.ENDORSED TO AM SHIFT RN FOR MIRANDA.
[2018-06-02] MEDS: BLOOD SUGAR DIAGNOSTIC 1 EACH STRIP IN SCH ×3 (07:30→16:58)
[2018-06-02 08:00] VITALS: BP 121/50
[2018-06-02 08:26] LABS: CALCIUM, SERUM 8.9 mg/dL (8.5-10.1); CREATININE 0.6 mg/dL (0.6-1.3); POTASSIUM 4.4 mmol/L (3.5-5.1)
[2018-06-02] MEDS: ASCORBIC ACID 500 MG TABLET PO SCH (09:00)
[2018-06-02] MEDS: DAKINS QUARTER STRENGTH (0.125%) 480 ML BOTTLE TOP SCH (09:00)
[2018-06-02] MEDS: CLOTRIMAZOLE 1% 15 GM TUBE TP SCH (09:00)
[2018-06-02] MEDS: MEROPENEM 500 MG in IV NS 0.9% 50 ML IV SCH (09:00)
[2018-06-02] MEDS: NYSTATIN CREAM 15 GM TUBE TP SCH (09:00)
[2018-06-02] MEDS: DOCUSATE SODIUM 100 MG CAPSULE PO SCH (10:15)
[2018-06-02] MEDS: FOLIC ACID 1 MG TABLET PO SCH (10:15)
[2018-06-02] MEDS: CLOPIDOGREL BISULFATE 75 MG TABLET PO SCH (10:16)
[2018-06-02] MEDS: EZETIMIBE 10 MG TABLET PO SCH (10:16)
[2018-06-02] MEDS: BACLOFEN (10 MG) 10 MG TABLET PO SCH ×3 (10:18→16:38)
[2018-06-02] MEDS: LACTOBACILLUS RHAMNOSUS GG 1 EACH CAP.SPRINK PO SCH ×2 (10:18→16:37)
[2018-06-02] MEDS: MULTIVIT W/MINERALS 1 TAB TABLET PO SCH (10:18)
[2018-06-02] MEDS: LamoTRIgine 100 MG TABLET PO SCH (10:19)
[2018-06-02] MEDS: FAMOTIDINE (20 MG) 20 MG TABLET PO SCH (10:20)
[2018-06-02] MEDS: risperiDONE 1 MG TABLET PO SCH (10:20)
[2018-06-02] MEDS: AMLODIPINE BESYLATE 5 MG TABLET PO SCH (10:21)
[2018-06-02] MEDS: PENTOXIFYLLINE 400 MG TABLET.SA PO SCH ×2 (10:21→16:37)
[2018-06-02] MEDS: LEVOTHYROXINE SODIUM 75 MCG TABLET PO SCH (12:49)
[2018-06-02] MEDS: INSULIN REGULAR, HUMAN 100 UNIT/ML 3 ML VIAL SQ PRN (12:50)
--- NOTE | 2018-06-02 14:00 | NUR ---
RN NOTE 1240: Received patient A/Ox3 at this time, with ex at bedside helping on feeding her. Took BS, insulin given per SS. On contact iso prec for ESBL wound, maintained and observed. \ 1330: S/E by Zainab GILLETTE, said he will order DC back to [place], will prepare patient for DC. 1400: No any significant changes noted at this time. Will continue to monitor.
[2018-06-02] MEDS ORDERED: MERO500V3 IV (14:30)
--- NOTE | 2018-06-02 15:16 | NUR ---
RN NOTE Called Ricardo Abdi and made aware re[facility] Spoke with Karey CHANG for MIRANDA. ETA for ambulance PU 1730 per CN. Skin checked taken pictures attached to chart.
[2018-06-02 16:00] VITALS: BP 131/47
[2018-06-02] MEDS: PROSOURCE / PROSTAT (PYXIS) 30 ML UDC PO SCH (16:37)
[2018-06-02] MEDS: ZINC SULFATE 220 MG CAPSULE PO SCH (16:38)
[2018-06-02] MEDS: FERROUS SULFATE (325 MG) 325 MG/TAB TABLET PO SCH (16:38)
[2018-06-02] MEDS: CHOLECALCIFEROL 1,000 UNIT TABLET (VIT D3) PO SCH (16:38)
--- NOTE | 2018-06-02 18:48 | NUR ---
RN NOTE [facility] with 2 personnels came, report given. All questions and concerns were answered. Gave discharge instructions and medication lists.
[2018-07-22] MEDS ORDERED: CEFE1PIG3 IV (08:33)
== END 2018-06-02 18:55 | DRG 853 ==
LOC: ER 20:34 → TELE1 23:24 → MEDSG1 05-30 11:05
PROVIDERS: ADMIT Nurse Practitioner Acute Care; ATTEND Nurse Practitioner Acute Care
PROC: 0KBN0ZZ Excision of Right Hip Muscle, Open Approach (ICD-10-PCS; principal; 2018-05-26)
PROC: 0HBLXZX Excision of Left Lower Leg Skin, External Approach, Diagnostic (ICD-10-PCS; 2018-05-29)
PROC: 05H533Z Insertion of Infusion Device into Right Subclavian Vein, Percutaneous Approach (ICD-10-PCS; 2018-05-29)
PROC: 0KBN0ZZ Excision of Right Hip Muscle, Open Approach (ICD-10-PCS; 2018-06-01)
DX: A41.9 Sepsis, unspecified organism (principal); L89.214 Pressure ulcer of right hip, stage 4; L89.223 Pressure ulcer of left hip, stage 3; N17.0 Acute kidney failure with tubular necrosis; G92 Toxic encephalopathy; N39.0 Urinary tract infection, site not specified; E87.0 Hyperosmolality and hypernatremia; E44.0 Moderate protein-calorie malnutrition; E87.2 Acidosis; E03.9 Hypothyroidism, unspecified; E78.5 Hyperlipidemia, unspecified; M19.90 Unspecified osteoarthritis, unspecified site; K21.9 Gastro-esophageal reflux disease without esophagitis; F03.90 Unspecified dementia, unspecified severity, without behavioral disturbance, psychotic disturbance, mood disturbance, and anxiety; I25.10 Atherosclerotic heart disease of native coronary artery without angina pectoris; R65.20 Severe sepsis without septic shock; E11.51 Type 2 diabetes mellitus with diabetic peripheral angiopathy without gangrene; E86.0 Dehydration; E83.52 Hypercalcemia; L30.4 Erythema intertrigo; I10 Essential (primary) hypertension; E86.1 Hypovolemia; Z87.440 Personal history of urinary (tract) infections; Z87.891 Personal history of nicotine dependence; D47.3 Essential (hemorrhagic) thrombocythemia; R74.0 Nonspecific elevation of levels of transaminase and lactic acid dehydrogenase [LDH]; E88.09 Other disorders of plasma-protein metabolism, not elsewhere classified; Z68.21 Body mass index [BMI] 21.0-21.9, adult; F09 Unspecified mental disorder due to known physiological condition; S81.802A Unspecified open wound, left lower leg, initial encounter; X58.XXXA Exposure to other specified factors, initial encounter; Y93.9 Activity, unspecified; Y92.129 Unspecified place in nursing home as the place of occurrence of the external cause; B96.4 Proteus (mirabilis) (morganii) as the cause of diseases classified elsewhere; B96.20 Unspecified Escherichia coli [E. coli] as the cause of diseases classified elsewhere; Z16.12 Extended spectrum beta lactamase (ESBL) resistance; J98.4 Other disorders of lung; B95.1 Streptococcus, group B, as the cause of diseases classified elsewhere; C44.729 Squamous cell carcinoma of skin of left lower limb, including hip; Z79.4 Long term (current) use of insulin
CPT/HCPCS: 36415; 70450-TC; 71045-TC; 80048-TC; 80053-TC; 80061-TC; 80076-TC; 80202-TC; 81000-TC; 82962-TC; 83605-TC; 83735-TC; 83935-TC; 84100-TC; 84300-TC; 84443-TC; 84484-TC; 85025-TC; 85730-TC; 87040-TC; 87070-TC; 87081-TC; 87086-TC; 87186-TC; 88305-TC; 88312-TC; 93307-TC; A4216; A6253; A6402; A6403; G0378; J0692; J0696; J1815; J2185; J3370; J3490; J7030; J7040; J7050; J7060; J7070

== ENCOUNTER 2018-06-05 00:38 | Inpatient (IN) | payer MEDICARE, BC ==
[~2018-06-05] VITALS: Ht 165.1 cm; Wt 58.1 kg
[2018-06-05] VITALS (80 sets, daily range): BP systolic 90–160; BP diastolic 24–98
[~2018-06-05 00:38] MED LIST changes: +MERO500V3 IV
--- NOTE | 2018-06-05 00:42 | NUR ---
PT SUCCESSFULLY INTUBATED BY DR. NAPIER. ET TUBE SIZE 7.5 AT 23CM LIPS
--- NOTE | 2018-06-05 00:48 | NUR ---
BIBRA86 FROM [facility] FOR [facility]MS, LOW BP, LOW O2 SAT IN THE 80'S, HIGH BLOOD SUGAR. PT ARRIVED TO ED BY EMS WITH BVM MASK. PT GCS 7-8. PT HOT AND DRY TO TOUCH. PEOPLES CATH NOTED FRONT MAKER. MD NAPIER BEDSIDE UPPON ARRIVAL OF PT. RT VINCE AND AFNTASMA BEDSIDE. PT PLACED ON CORE FINISHER AND POX.
[2018-06-05] MEDS ORDERED: INSULIN ASPART/LISPRO 100 UNIT/ML CARTRIDGE SQ STA (00:49)
[2018-06-05] MEDS ORDERED: MIDAZOLAM HCL 2 MG/2ML VIAL ONE ×2 (00:50→03:12)
[2018-06-05] MEDS ORDERED: IV NS 0.9% 1,000 ML BAG IV ONE (01:00)
--- NOTE | 2018-06-05 01:11 | NUR ---
pt intubated by er physician with ett 7.5@23cm. mist in the tube with positive color change on co2 detector. pt placed on vent on charted settings. secured via anchor fast. ambu bag at bedside alarms set and audible. disconnect alarms checked, vent plugged into red outlet. Addendum: 06/05/18 at 0113 by VINCE RESTREPO RT Amended: Links added.
[2018-06-05] MEDS ORDERED: INSULIN LISPRO/ASPART 100 UNIT/ML CARTRIDGE SQ ONE (01:13)
--- NOTE | 2018-06-05 01:15 | NUR ---
PT TO CT
[2018-06-05 01:17] LABS: BASOPHILS # (AUTO) 0.1 /CMM (0.0-0.2); BASOPHILS % (AUTO) 0.4 % (0.0-2.0); EOSINOPHILS % (AUTO) 0.1 % (0.0-6.0); HEMATOCRIT 30 % (33-45); HEMOGLOBIN 8.3 g/dL (11.5-14.8); LYMPHOCYTES # (AUTO) 0.7 /CMM (0.8-4.8); LYMPHOCYTES % (AUTO) 4.6 % (20.0-44.0); MEAN CORPUSCULAR HGB CONC 28 g/dl (31.0-36.0); MEAN CORPUSCULAR VOLUME 99 fL (82-100); MONOCYTES # (AUTO) 0.6 /CMM (0.1-1.30); MONOCYTES % (AUTO) 4.3 % (2.0-12.0); NEUTROPHILS # (AUTO) 13.3 /CMM (1.8-8.9); NEUTROPHILS % (AUTO) 90.6 % (43.0-81.0); PLATELET COUNT (AUTO) 608 /CMM (150-450); RED BLOOD CELL COUNT(AUTO) 3.01 MIL/uL (4.0-5.2); WHITE BLOOD COUNT (AUTO) 14.7 K/uL (4.3-11.0)
--- NOTE | 2018-06-05 01:29 | NUR ---
PT BACK FROM CT
[2018-06-05] MEDS ORDERED: MIDAZOLAM HCL 100 MG in IV NS 0.9% 80 ML IV PRN (01:30)
[2018-06-05] MEDS ORDERED: FENTANYL CITRAT IV 2,500 MCG in IV NS 0.9% 200 ML IV PRN (01:30)
[2018-06-05 01:31] LABS: ALANINE AMINOTRANSFERASE 33 U/L (12-78); ALBUMIN 2.3 g/dL (3.4-5.0); ALKALINE PHOSPHATASE 113 U/L (46-116); ASPARTATE AMINOTRANSFERASE 13 U/L (15-37); BILIRUBIN,DIRECT 0.1 mg/dL (0.0-0.2); BILIRUBIN,TOTAL 0.4 mg/dL (0.2-1.0); CALCIUM, SERUM 9.5 mg/dL (8.5-10.1); CHLORIDE 111 mmol/L (98-107); CREATININE 2.4 mg/dL (0.6-1.3); LIPASE 209 U/L (73-393); SODIUM SERUM 149 mmol/L (136-145); TOTAL PROTEIN, SERUM 6.1 g/dL (6.4-8.2); UREA NITROGEN, BLOOD 49 mg/dL (7-18)
--- NOTE | 2018-06-05 01:33 | NUR ---
FIO2 INCREASED DUE TO PHYSICIAN ORDER. DECREASED SPO2 Addendum: 06/05/18 at 0303 by VINCE RESTREPO RT Amended: Links added.
[2018-06-05 01:34] LABS: POTASSIUM 6.2 mmol/L (3.5-5.1)
[2018-06-05 01:36] LABS: CARBON DIOXIDE 7 mmol/L (21-32); GLUCOSE 734 mg/dL (74-106)
[2018-06-05] MEDS ORDERED: SODIUM BICARBONATE SYR 50 MEQ/50 ML DISP.SYRIN ONE ×3 (01:42→05:13)
[2018-06-05 01:49] LABS: ABG BASE EXCESS -25.3 mmol/L; ABG OXYGEN SATURATION 98.5 % (92.0-98.5); ABG PCO2 24.1 mmHg (35.0-45.0); ABG PH 6.948 (7.350-7.450); ABG PO2 217.6 mmHg (75.0-100.0); AaDO2 255.6 mmHg; COHb 0.2 % (0.5-1.5); MetHb 0.6 % (0.0-1.5); O2Hb 97.7 % (94.0-97.0); PEEP,BG 0 cm H2O; SITE, ABG Right Radial; VENT MODE, BG AC 16 400 70% +0; VT, ABG 400 mL
--- NOTE | 2018-06-05 01:50 | NUR ---
VERBAL ORDER RECEIVED FROM MD NAPIER TO GIVE PT VERSED 2MG IVP ONCE
[2018-06-05] MEDS ORDERED: INSULIN REGULAR, HUMAN 100 UNIT/ML 10 ML VIAL ONE (01:52)
[2018-06-05] MEDS ORDERED: ALBUTEROL FS 2.5 MG/3 ML VIAL.NEB NEB STA (01:54)
--- NOTE | 2018-06-05 01:59 | NUR ---
REPORT GIVEN TO PORCELAIN ENAMEL REPAIRERBERNARDO PHILIP FOR MIRANDA
[2018-06-05] MEDS ORDERED: SODIUM BICARBONATE SYR 50 MEQ/50 ML DISP.SYRIN IV ONE (02:00)
[2018-06-05] MEDS ORDERED: Calcium Gluconate 0.465 MEQ/ML VIAL IV ONE ×2 (02:00→02:01)
[2018-06-05] MEDS: INSULIN REGULAR, HUMAN 100 UNIT in IV NS 0.9% 99 ML IV PRN ×6 (02:05→14:37)
[2018-06-05] MEDS ORDERED: ALBUTEROL FS 2.5 MG/3 ML VIAL.NEB ONE (02:10)
[2018-06-05 02:13] LABS: MAGNESIUM 2.8 mg/dL (1.8-2.4)
[2018-06-05] MEDS ORDERED: MIDAZOLAM HCL 2 MG/2ML VIAL IV ONE (02:30)
--- NOTE | 2018-06-05 03:00 | NUR ---
MANAGER CARDIAC CATH NOTE PT RECEIVED VIA GURNEY AND SAFELY TRANSFERRED TO ROOM 253. INTUBATED WITH ETT 7.5 & 23CM @ THE LIP. ON MECH VENT WITH SETTINGS WELL TOLERATED. ON ASPIRATION PRECAUTIONS AND HOB ELEVATED. BREATHING UNLABORED. BILATERAL SOFT WRIST RESTRAINTS IN PLACE WITH NO DISCOLORATION NOTED. IV HUSSEIN MIDLINE AND L AC #18 CLEAN, DRY AND PATENT. RECEIVED ON INSULIN DRIP OF 10 UNITS. PEOPLES CATHETER IN PLACE AND DRAINING BY GRAVITY. AWAITING ORDERS FROM VICE PRESIDENT OF OPERATIONS. WILL MONITOR.
[2018-06-05] MEDS ORDERED: Z GUARD REMEDY 2 OZ OINT TP PRN (03:30)
[2018-06-05] MEDS ORDERED: ONDANSETRON HCL/PF 4 MG/2 ML VIAL IVP PRN (03:30)
[2018-06-05] MEDS ORDERED: INSULIN REGULAR, HUMAN 100 UNIT in IV NS 0.9% 99 ML IV PRN ×2 (03:30)
[2018-06-05] MEDS ORDERED: IV NS 0.9% 1,000 ML IV PRN (03:30)
[2018-06-05] MEDS ORDERED: VANCOMYCIN 1 GM VIAL ONE (03:37)
[2018-06-05 03:54] LABS: BASOPHILS % (AUTO) 0.2 % (0.0-2.0); HEMATOCRIT 29 % (33-45); HEMOGLOBIN 8.3 g/dL (11.5-14.8); LYMPHOCYTES # (AUTO) 0.9 /CMM (0.8-4.8); LYMPHOCYTES % (AUTO) 5.4 % (20.0-44.0); MEAN CORPUSCULAR HGB CONC 28 g/dl (31.0-36.0); MEAN CORPUSCULAR VOLUME 95 fL (82-100); MONOCYTES # (AUTO) 0.8 /CMM (0.1-1.30); MONOCYTES % (AUTO) 4.5 % (2.0-12.0); NEUTROPHILS # (AUTO) 15.3 /CMM (1.8-8.9); NEUTROPHILS % (AUTO) 89.9 % (43.0-81.0); PLATELET COUNT (AUTO) 587 /CMM (150-450)
[2018-06-05] MEDS ORDERED: VANCOMYCIN 1 GM in IV NS 0.9% 250 ML IV SCH (04:00)
--- NOTE | 2018-06-05 04:00 | NUR ---
FRENCH EDGE OPERATOR NOTE PER ORDER OG TUBE INSERTED WITH POSITIVE PLACEMENT, AUSCULTATED AND CLAMPED.
[2018-06-05 04:19] LABS: CALCIUM, SERUM 9.4 mg/dL (8.5-10.1); CREATININE 2.3 mg/dL (0.6-1.3); MAGNESIUM 2.8 mg/dL (1.8-2.4); PHOSPHORUS 5.5 mg/dL (2.5-4.9)
[2018-06-05 04:28] LABS: ABG BASE EXCESS -17.4 mmol/L; ABG OXYGEN SATURATION 98.9 % (92.0-98.5); ABG PCO2 17.4 mmHg (35.0-45.0); ABG PH 7.264 (7.350-7.450); ABG PO2 453.4 mmHg (75.0-100.0); AaDO2 242.2 mmHg; COHb 0.3 % (0.5-1.5); MetHb 0.9 % (0.0-1.5); O2Hb 97.7 % (94.0-97.0); SITE, ABG A-Line
[2018-06-05 04:42] LABS: APPEARANCE,URINE CLOUDY (CLEAR); BILIRUBIN,URINE NEGATIVE (NEGATIVE); BLOOD, URINE 3+ Ery/uL (NEGATIVE); COLOR,URINE YELLOW (YELLOW); KETONES,URINE 3+ (NEGATIVE); LEUKOCYTE ESTERASE ,URINE TRACE (NEGATIVE); NITRITE, URINE NEGATIVE (NEGATIVE); PH,URINE 5.5 (5.0-8.0); PROTEIN,URINE 1+ mg/dl (NEGATIVE); UGLUCOSE 3+ mg/dL (NEGATIVE); UROBILINOGEN,URINE 0.2 EU/dL (0.2)
[2018-06-05] MEDS: BLOOD SUGAR DIAGNOSTIC 1 EACH STRIP IN SCH ×14 (04:48→17:24)
[2018-06-05 04:52] LABS: BACTERIA,URINE Few /HPF (None Seen); SQUAMOUS EPITHELIAL CELL,UR Few /HPF (None Seen); YEAST,URINE Many /HPF (None Seen)
[2018-06-05] MEDS ORDERED: Sodium Bicarbonate 150 MEQ in IV 10% DEXTROSE 1,000 ML IV PRN (05:00)
--- NOTE | 2018-06-05 05:00 | NUR ---
PATTERNMAKER METAL BENCH NOTE TEE FOUNDATION DIRECTOR AT BEDSIDE INSERTING A-LINE.
[2018-06-05] MEDS ORDERED: PIPERACILLIN /TAZOBACTAM 3.375 G VIAL IV ONE (05:13)
[2018-06-05] MEDS ORDERED: MICAFUNGIN SODIUM 100 MG in IV NS 0.9% 100 ML IV SCH (05:30)
--- NOTE | 2018-06-05 05:33 | NUR ---
FIO2 TITRATED. BERNARDO PHILIP NOTIFIED.
[2018-06-05] MEDS ORDERED: Sodium Bicarbonate 150 MEQ in IV NS 0.9% 1,000 ML IV PRN (05:42)
[2018-06-05] MEDS ORDERED: MICAFUNGIN SODIUM 100 MG VIAL IV ONE (05:50)
[2018-06-05] MEDS ORDERED: PIPERACILLIN /TAZOBACTAM 3.375 G in IV D5W 50 ML IV SCH (06:00)
--- NOTE | 2018-06-05 07:30 | NUR ---
RECEIVED PATIENT INTUBATED WITH 7.09/28 LIP LINE WITH VENT SETTINGS PER ORDER. IV SITE C/D/I/P WITH BLOOD RETURN. PATIENT OBTUNDED OPENS EYES TO PAINFUL STIMULI AND MOVES ALL EXTREMITIES WITHOUT UNEQUAL DEFICITS. OGT IN PLACE + ASCULTATION. PEOPLES CATH (S/P CHANGE IN ER) DRAINING TO GRAVITY. PATIENT ON INSULIN GTT; SEE SPREADSHEET. SAFETY, SKIN, ASPIRATION PRECAUTIONS IN PLACE. PLACED PATIENT ON ISOLATION S/T RECENT ESBL INFECTION. WILL MONITOR
--- NOTE | 2018-06-05 07:40 | NUR ---
SECOND BALLER NOTE NO DISTRESS NOTED. ALL NEEDS ATTENDED TO PROMPTLY. SUCTIONED NEEDED. MECH VENT SETTINGS WELL TOLERATED. REPOSITIONED Q2H. KEPT CLEAN AND DRY. IV FLUIDS INFUSING. OG TUBE IN PLACE WITH POSITIVE PLACEMENT AND CLAMPED. WILL ENDORSE TO NEXT SHIFT FOR CONTINUITY OF CARE.
[2018-06-05] MEDS ORDERED: HYDR-4384 PO (07:45)
[2018-06-05] MEDS ORDERED: MERO500V IV (07:45)
[2018-06-05 08:13] LABS: ABG BASE EXCESS -3.1 mmol/L; ABG OXYGEN SATURATION 98.3 % (92.0-98.5); ABG PCO2 28.6 mmHg (35.0-45.0); ABG PH 7.464 (7.350-7.450); ABG PO2 161.4 mmHg (75.0-100.0); AaDO2 90.9 mmHg; COHb 0.3 % (0.5-1.5); MetHb 1.2 % (0.0-1.5); O2Hb 96.8 % (94.0-97.0); SITE, ABG A-Line
[2018-06-05 08:33] LABS: CALCIUM, SERUM 9.2 mg/dL (8.5-10.1); CREATININE 1.8 mg/dL (0.6-1.3); POTASSIUM 3.2 mmol/L (3.5-5.1)
[2018-06-05] MEDS: HEPARIN SODIUM, PORCINE 5000 UNITS/1 ML VIAL SQ SCH ×2 (09:01→20:36)
--- NOTE | 2018-06-05 09:45 | NUR ---
NO SHARRI AT BEDSIDE. PER RAILWAY SIGNALLING ENGINEER ORDERS FOLLOWS: 10AM REPEAT LACTIC AND BMP. OK TO DC BICARB GTT OK FOR PICC LINE REMOVE MIDLINE AND SEND FOR CATH TIP CX. OK TO OBTAIN UPDATED BLOOD CULTURES X1 MIDLINE X1 PERIPHERAL AND OK TO GIVE TYLENOL S/P BLOOD CULTURE DRAW OK TO CONTINUE VANCO PER PHARMACY; PHARMACY NOTIFIED.
[2018-06-05] MEDS ORDERED: FEE PK DOSING 1 MIN EA MC ONE (09:48)
--- NOTE | 2018-06-05 10:00 | NUR ---
TELMA AT BEDSIDE FOR WOUND F/U. NOTED WITH SACRAL OPENING; DTI IN EVOLUTION. RIGHT HIP WITH NECROTIC TISSUE. DRESSING COMPLETED PER FURNITURE FINISHER APPRENTICE ORDER. PENDING WOUND CARE ORDERS. [facility] DELIVERED. DIETARY EVAL AT BEDSIDE. PER FURNITURE FINISHER APPRENTICE SHARRI CROWELL AWARE OF CONSULT. CALLED PATIENT KASIA HUBBARD AND UPDATED PATIENT; HE WILL BE IN TO SEE PATIENT.
[2018-06-05] MEDS: POTASSIUM CL. PREMIX PERIPHER. 50 ML IV SCH ×3 (10:26→13:20)
[2018-06-05] MEDS: IV NS 0.9% 250 ML IV PRN (10:28)
[2018-06-05] MEDS: ACETAMINOPHEN 325 MG TABLET PO PRN ×2 (10:28→20:35)
--- NOTE | 2018-06-05 11:13 | NUR ---
MIDLINE REMOVED. CATH TIP INTACT. TIP SENT FOR CULTURE. DR CROWELL AT BEDSIDE FOR EVAL. STEVIE PEDROZA AT BEDSIDE AND CONSENTED FOR PICC LINE PLACEMENT
--- NOTE | 2018-06-05 11:35 | NUR ---
DR HIGGINS AT BEDSIDE. UPDATED ON PATIENT CONDITION LABS VS. PER MD GIVE 200ML FREE WATER FLUSHES Q6H AND START PATIENT ON 0.45NS AT 120/HOUR.
[2018-06-05] MEDS: IV 1/2NS 1000 ML 1,000 ML IV PRN ×2 (11:44→20:30)
[2018-06-05] MEDS: CARVEDILOL 3.125 MG TABLET NG SCH ×2 (11:46→20:35)
[2018-06-05 11:48] LABS: CALCIUM, SERUM 9.3 mg/dL (8.5-10.1); CREATININE 1.6 mg/dL (0.6-1.3); POTASSIUM 3.2 mmol/L (3.5-5.1)
[2018-06-05 11:57] LABS: MAGNESIUM 2.4 mg/dL (1.8-2.4); PHOSPHORUS 2.2 mg/dL (2.5-4.9)
[2018-06-05] MEDS ORDERED: DAKINS QUARTER STRENGTH (0.125%) 480 ML BOTTLE TOP SCH (12:00)
[2018-06-05] MEDS ORDERED: LIDOCAINE 2%-EPI 1:100,000 30 ML VIAL TP ONE (12:00)
[2018-06-05] MEDS ORDERED: SILVER NITRATE APPLICATOR 1 EA BOX TP ONE (12:00)
[2018-06-05 12:27] LABS: THYROID STIMULATING HORMONE 8.422 uIU/mL (0.358-3.74)
[2018-06-05] MEDS: MEROPENEM 500 MG in IV NS 0.9% 50 ML IV SCH ×2 (13:26→20:35)
--- NOTE | 2018-06-05 14:27 | NUR ---
PATIENT BLOOD SUGAR 117. PER PROTOCOL IVF CHANGED TO D5W 1/2NS WITH 20MEQ KCL AT 175/HOUR
--- NOTE | 2018-06-05 14:28 | NUR ---
RIGHT HIP DEBRIDEMENT COMLETED AT BEDSIDE. COMPLETED PRESSURE DRESSING S/T BLEEDING. PER MD PLEASE DO NOT CHANGE DRESSING UNLESS SOILED/ LEAKING. DRESSING C/D/I
[2018-06-05] MEDS ORDERED: Potassium Chloride 20 MEQ in IV D5/0.45 NACL 1,000 ML IV PRN (14:30)
--- NOTE | 2018-06-05 14:30 | NUR ---
PATIENT MORE ALERT AND AWAKE. PER DPOA PATIENT HAS ONSET OF DEMENTIA WITH BIPOLAR AND SCHIZOPHRENIA AND BECOMES AGITATED QUITE EASILY AND DOES NOT ALWAYS FOLLOW COMMANDS
--- NOTE | 2018-06-05 15:00 | NUR ---
PER PROTOCOL STOPPING INSULIN GTT BLOOD SUGAR 82. WILL RECHECK 1600.
[2018-06-05 15:13] LABS: CALCIUM, SERUM 9.4 mg/dL (8.5-10.1); CREATININE 1.2 mg/dL (0.6-1.3); POTASSIUM 3.9 mmol/L (3.5-5.1)
--- NOTE | 2018-06-05 15:46 | NUR ---
CALLED PHARMACY TO F/U ON IVF ORDER
[2018-06-05] MEDS ORDERED: K PHOS NEUTRAL 250 MG TABLET PO ONE (16:00)
--- NOTE | 2018-06-05 16:01 | NUR ---
PER PROTOCOL STOPPING INSULIN GTT. BLOOD SUGAR 84. PER PROTOCOL WILL START PATIENT ON AGGRESSIVE SLIDING SCALE ACHS
--- NOTE | 2018-06-05 16:12 | NUR ---
NOTIFIED DR HIGGINS OF PATIENT CURRENT ANION GAP 12 AND UPDATED BMP AND SUGARS. MD NOTIFIED INSULIN GTT STOPPED AND PATIENT WILL RESUME ACHS AGGRESSIVE. MD AWARE AND AGREEABLE AND NO NEW ORDERS. PATIENT IS AWAKE OPENING EYES INDEPENDENTLY AND VERY RESTLESS. NOTIFIED SHARRI PATIENT AWAKE AND AGITATED. OK TO RESUME RISPERDAL 1MG PO /OGT q12H ECHO
[2018-06-05] MEDS ORDERED: *INSULIN REGULAR(HUMULIN R)HUM 100 UNIT/ML VIAL SQ PRN (16:30)
[2018-06-05] MEDS ORDERED: DEXTROSE 50%-WATER 50 ML DISP.SYRIN IV PRN (16:30)
[2018-06-05] MEDS ORDERED: INSULIN REGULAR, HUMAN 100 UNIT/ML 3 ML VIAL SQ PRN (16:30)
--- NOTE | 2018-06-05 16:38 | NUR ---
PATIENT ALERT AND AWAKE. SHE IS AT TIMES NODDING YES AND NO TO QUESTIONS ASKED OF HER AND MOVING FEET WHEN ASKED INTERMITTENTLY
[2018-06-05] MEDS ORDERED: BLOOD SUGAR DIAGNOSTIC 1 EACH STRIP IN SCH (17:30)
--- NOTE | 2018-06-05 19:00 | NUR ---
RN NOTE RECEIVED PT IN NO ACUTE DISTRESS IN BED. PT OPENS EYES SPONTANEOUSLY AND FOLLOWS SIMPLE COMMANDS AT TIMES. PT IS ON MECHANICAL VENT VIA ETT 7.09/28 WITH VENT SETTING @ AC 16, TV400, FIO2 40%, PEEP 0. PT TOLERATING VENT SETTING WELL. PT HAS OGTUBE THAT IS CLEAN DRY INTACT AND PATENT WITH FREE WATER FLUSH. PT HAS PEOPLES CATH THAT IS CLEAN DRY INTACT AND PATENT WITH CLEAR YELLOW URINE DRAINING. PT HAS R RADIAL ARTERIAL LINE THAT IS CLEAN DRY AND INTACT. PT HAS HUSSEIN PICC TLC THAT IS CLEAN DRY INTACT AND PATENT WITH 1/2 NS @ 120ML/HR. PT HAS LFA 18G THAT IS CLEAN DRY INTACT AND PATENT WITH SALINE FLUSH. PT HAS RAC 20G THAT IS CLEAN DRY INTACT AND PATENT WITH SALINE FLUSH. BED IN LOW LOCK POSITION WITH RIALS UP X 2. CALL LIGHT WITHIN REACH AND ALL SAFETY MEASURES ENSURED AND CARRIED OUT. WILL CONTINUE TO MONITOR PT.
--- NOTE | 2018-06-05 19:22 | NUR ---
ALL DUE MEDS GIVEN AND ALL NEEDS MET. SAFETY, SKIN, ASPIRATION PRECAUTIONS IN PLACE AND MONITORED THROUGHOUT SHIFT. IV SITES C/D/I/P AND IVF PER MD ORDER. AFEBRILE AT THIS TIME. SKIN CARE PER MD ORDER. PRESSURE DRESSING STILL INTACT ON RIGHT HIP. PEOPLES TO GRAVITY. TOLERATING VENT SETTINGS NO NOTED SOB, DIFFICULTY BREATHIN. PATIENT EYES OPENING INDEPENDENTLY. AT TIMES WILL FOLLOW COMMANDS WITH MULTIPLE ATTEMPTS. DIFFICULTY CALMING WITH REDIRECTION THUS RESTRAINTS STILL NECESSARY PATIENT CONTINUES TO PULL AT IV LINES AND ETT. CARE ENDORSED TO BERNARDO SOARES FOR MIRANDA.
[2018-06-05] MEDS: risperiDONE 1 MG TABLET PO SCH (20:35)
[2018-06-05] MEDS: DAKINS QUARTER STRENGTH (0.125%) 480 ML BOTTLE TOP SCH (20:36)
--- NOTE | 2018-06-05 21:34 | NUR ---
RECEIVED PT INTUBATED 7.5 ETT SECURED AT 23CM AT THE LIP. PT IS TOLERATING VENT SETTINGS. SX'D FOR MOD AMT OF THICK WHITE SECRETIONS. VENT ALARMS SET AND AUDIBLE. AMBU BAG AT BEDSIDE. ETT SECURE, CUFF DEVELOPING MACHINE TENDER. VENT PLUGGED INTO RED OUTLET. WILL CONTINUE TO MONITOR. Addendum: 06/05/18 at 2136 by FANTASMA BRISCOE RT Amended: Links added.
[2018-06-06] VITALS (39 sets, daily range): BP systolic 117–177; BP diastolic 21–87
[2018-06-06] MEDS: BLOOD SUGAR DIAGNOSTIC 1 EACH STRIP IN SCH ×5 (00:41→23:45)
[2018-06-06] MEDS: INSULIN REGULAR, HUMAN 100 UNIT/ML 3 ML VIAL SQ PRN ×4 (01:10→23:45)
[2018-06-06] MEDS ORDERED: LORAZEPAM INJ 2 MG/ML VIAL IV ONE (03:00)
[2018-06-06] MEDS: VANCOMYCIN 0.75 GM in IV D5W 250 ML IV SCH (04:36)
[2018-06-06] MEDS: IV 1/2NS 1000 ML 1,000 ML IV PRN (04:39)
[2018-06-06 04:53] LABS: BASOPHILS % (AUTO) 0.3 % (0.0-2.0); EOSINOPHILS % (AUTO) 0.1 % (0.0-6.0); HEMATOCRIT 25 % (33-45); HEMOGLOBIN 7.8 g/dL (11.5-14.8); LYMPHOCYTES # (AUTO) 1.2 /CMM (0.8-4.8); LYMPHOCYTES % (AUTO) 10.3 % (20.0-44.0); MEAN CORPUSCULAR HGB CONC 32 g/dl (31.0-36.0); MEAN CORPUSCULAR VOLUME 85 fL (82-100); MONOCYTES # (AUTO) 0.9 /CMM (0.1-1.30); MONOCYTES % (AUTO) 7.5 % (2.0-12.0); NEUTROPHILS # (AUTO) 9.5 /CMM (1.8-8.9); NEUTROPHILS % (AUTO) 81.8 % (43.0-81.0); PLATELET COUNT (AUTO) 536 /CMM (150-450); WHITE BLOOD COUNT (AUTO) 11.7 K/uL (4.3-11.0)
[2018-06-06] MEDS: MEROPENEM 500 MG in IV NS 0.9% 50 ML IV SCH ×3 (05:00→20:42)
[2018-06-06 05:07] LABS: ALBUMIN 2.1 g/dL (3.4-5.0); BILIRUBIN,TOTAL 0.2 mg/dL (0.2-1.0); CREATININE 0.9 mg/dL (0.6-1.3); MAGNESIUM 2.3 mg/dL (1.8-2.4); PHOSPHORUS 1.9 mg/dL (2.5-4.9); POTASSIUM 3.1 mmol/L (3.5-5.1); TOTAL PROTEIN, SERUM 5.5 g/dL (6.4-8.2)
--- NOTE | 2018-06-06 07:06 | NUR ---
WOUND CARE CONSULT WOUND CARE RECEIVED CONSULT FOR MULTIPLE WOUNDS. WOUND CARE WILL DEFER CONSULT AND ALL TREATMENT PLANS TO PLASTIC SURGICAL TEAM WHO ARE CURRENTLY FOLLOWING THIS PATIENT. PATIENT WITH MARY AT 13, ALL PRESSURE ULCER PREVENTION MEASURES ARE NOTED TO BE IN PLACE AT THIS TIME. WILL SEE PRN.
[2018-06-06] MEDS ORDERED: DC PROPOFOL WHEN EXTUBATED XX PRN (08:00)
[2018-06-06] MEDS: CARVEDILOL 3.125 MG TABLET NG SCH ×2 (08:27→20:43)
[2018-06-06] MEDS: risperiDONE 1 MG TABLET PO SCH ×2 (08:27→20:43)
[2018-06-06] MEDS: DAKINS QUARTER STRENGTH (0.125%) 480 ML BOTTLE TOP SCH ×2 (08:27→21:05)
[2018-06-06] MEDS: HEPARIN SODIUM, PORCINE 5000 UNITS/1 ML VIAL SQ SCH ×2 (08:30→20:44)
[2018-06-06] MEDS ORDERED: POTASSIUM CHLORIDE 20 MEQ TAB.PRT.SR PO SCH (09:30)
[2018-06-06] MEDS: IV D5W 1,000 ML IV PRN (09:57)
[2018-06-06] MEDS ORDERED: POTASSIUM CHLORIDE 20 MEQ POWDER PACKET GT ONE (10:00)
[2018-06-06 10:20] LABS: ABG BASE EXCESS 2.8 mmol/L; ABG OXYGEN SATURATION 98.6 % (92.0-98.5); ABG PCO2 30.6 mmHg (35.0-45.0); ABG PH 7.536 (7.350-7.450); ABG PO2 177.9 mmHg (75.0-100.0); AaDO2 72.1 mmHg; COHb 0.3 % (0.5-1.5); MetHb 0.9 % (0.0-1.5); O2Hb 97.4 % (94.0-97.0); SITE, ABG A-Line; VENT MODE, BG SIMV 4 400 PS15 40% +5
[2018-06-06] MEDS ORDERED: K PHOS NEUTRAL 250 MG TABLET PO ONE (10:30)
--- NOTE | 2018-06-06 10:30 | NUR ---
pt extubated per md order. zero ditress noted. strong cough. b/s clear
--- NOTE | 2018-06-06 10:42 | NUR ---
RN NOTE 0715: Received patient resting, able to be aroused easily. With ETT to vent, tolerated settings at this time. With OGT clamped, noted with gurgling sound on the gastric region during auscultation. Noted with temp 99.3. With HUSSEIN PICC intact. Right radial A-line, reading well, zeroed and balanced, with good wave form. With Lucero cath intact, noted with kae colored urine drained to BSD. With Right hip wound dressing CDI. No S/S hypo/hyperglycemia noted at this time. Contact isolation prec for ESBL in right hip wound, maintained and observed. 0820: S/E by Dr. Burns, no new order at this time. 0915: S/E by Dr. Crandall, reviewed labs. With order to DC ongoing IVF and change to D5W @ 70. 1020: SANTOSH taylor MD in the unit aware, S/E by Dr. Gates again and ordered extubation. 1030: Extubated per Dr. Gates, patient tolerated well, placed on 3 LPM of O2 via NC.
--- NOTE | 2018-06-06 11:24 | NUR ---
RN NOTE S/E by Dr. Avery, with order to may DC Sylvia and for swallow eval, nursing swallow eval done, able to tolerate ice chips and drink water. Will continue to monitor.
--- NOTE | 2018-06-06 16:24 | NUR ---
RN NOTE 1300: DCd right radial A-line, noted with bleeding, changed dressing. Applied more pressure. 1600: With 1BM noted, changed linens and given bed bath. Right hip wound dressing changed, gathered wound culture and sent to lab. Left ankle wound dressing changed. Patient noted with confusion. Positioned for comfort.
[2018-06-06] MEDS: LACTOBACILLUS RHAMNOSUS GG 1 EACH CAP.SPRINK PO SCH (16:50)
--- NOTE | 2018-06-06 19:30 | NUR ---
ICU/RN RECEIVED PT AWAKE ORIENTED TO NAME,OTHERWISE CONFUSED AND FORGETFUL AND SCREAMING THE NAME HEATHER.PT RE-ORIENTED TO TIME PLACE AND SURROUNDINGS,ALSO INFORMED PT.THAT NO ONE IN HER ROOM NAMED HEATHER.
[2018-06-07] VITALS (15 sets, daily range): BP systolic 101–150; BP diastolic 51–75
--- NOTE | 2018-06-07 01:30 | NUR ---
ICU/RN CONDITION UNCHANGED.SLEEPING AFTER BED BATH GIVEN.RESPIRATIONS REGULAR AND EVEN.
[2018-06-07] MEDS: IV D5W 1,000 ML IV PRN (01:49)
[2018-06-07] MEDS: IV NS 0.9% 250 ML IV PRN (01:50)
[2018-06-07 03:39] LABS: CALCIUM, SERUM 8.4 mg/dL (8.5-10.1); CREATININE 0.5 mg/dL (0.6-1.3); POTASSIUM 2.9 mmol/L (3.5-5.1)
[2018-06-07] MEDS: MEROPENEM 500 MG in IV NS 0.9% 50 ML IV SCH (04:49)
[2018-06-07] MEDS: VANCOMYCIN 0.75 GM in IV D5W 250 ML IV SCH (05:16)
--- NOTE | 2018-06-07 06:00 | NUR ---
ICU/RN MOST OF THE TIME SCREAMING FOR 'HEATHER'S NAME REPETITIVELY,ASKED SEVERAL TIMES WHO THAT PERSON IS AND STATES "I DON'T KNOW.'CALL PLACED TO DR FREDRICK NUÑEZ REGARDING POTASSIUM OF 2.9.
[2018-06-07] MEDS: INSULIN REGULAR, HUMAN 100 UNIT/ML 3 ML VIAL SQ PRN ×3 (06:36→17:46)
[2018-06-07] MEDS: BLOOD SUGAR DIAGNOSTIC 1 EACH STRIP IN SCH ×3 (06:37→17:43)
[2018-06-07] MEDS ORDERED: POTASSIUM CL. PREMIX PERIPHER. 50 ML IV SCH (07:00)
[2018-06-07] MEDS: POTASSIUM CHLORIDE 20 MEQ TAB.PRT.SR PO SCH ×4 (07:40→10:51)
[2018-06-07] MEDS: risperiDONE 1 MG TABLET PO SCH ×2 (08:10→21:47)
[2018-06-07] MEDS: ACETAMINOPHEN 325 MG TABLET PO PRN (08:10)
[2018-06-07] MEDS: LACTOBACILLUS RHAMNOSUS GG 1 EACH CAP.SPRINK PO SCH ×2 (08:10→17:30)
[2018-06-07] MEDS: CARVEDILOL 3.125 MG TABLET NG SCH ×2 (08:10→21:00)
[2018-06-07] MEDS: HEPARIN SODIUM, PORCINE 5000 UNITS/1 ML VIAL SQ SCH ×2 (08:11→21:00)
[2018-06-07] MEDS: DAKINS QUARTER STRENGTH (0.125%) 480 ML BOTTLE TOP SCH ×2 (09:00→21:51)
[2018-06-07] MEDS: HYDROCODONE/APAP 5/325MG 1 EACH TABLET PO PRN (10:19)
--- NOTE | 2018-06-07 10:34 | NUR ---
RULING MACHINE FEEDER RECEIVING NOTES RECEIVED PT FROM ICU TO ROOM 102 BY CHARGE NURSE.PT IS AWAKE AND CONFUSED.ON TELE HR IS 68 WITH SR.ON 3L O2 VIA NC CONTINUOUSLY.NO SOB AND ACUTE DISTRESS NOTED.PEOPLES CATHETER IS IN PLACE WITH CLEAR YELLOW URINE.IV LINE IS ON HUSSEIN PICC LINE,RIGHT AC G20,LEFT FA G18 IS PRESENT,SITE IS CLEAN,DRY AND INTACT.NO INFILTRATION NOTED.SKIN ASSESSMENT IS DONE.VITAL SIGNS CHECKED AND RECORDED.NO COMPLICATIONS NOTED.
[2018-06-07] MEDS ORDERED: K PHOS NEUTRAL 250 MG TABLET PO ONE (12:30)
[2018-06-07] MEDS: MEROPENEM 500 MG in IV NS 0.9% 100 ML IV SCH (13:44)
[2018-06-07] MEDS ORDERED: VANCOMYCIN 0.75 GM in IV D5W 250 ML IV SCH (16:00)
[2018-06-07] MEDS ORDERED: MEROPENEM 500 MG in IV NS 0.9% 50 ML IV SCH (17:00)
[2018-06-07] MEDS: Potassium Chloride 40 MEQ in IV D5W 1,000 ML IV PRN (18:07)
--- NOTE | 2018-06-07 18:51 | NUR ---
SUPERVISOR LIQUID YEAST CLOSING NOTES PT IS LYING O BED.ALERT/ORIENTED X1 WITH CONFUSION.WOUND TREATMENT HAS DONE.IV FLUID IS RUNNING.IV SITE IS INTACT AND NO INFILTRATION NOTED.RESPIRATION IS EVEN AND NON LABORED ON 3 L O2 VIA NC,SATURATING WELL. NO SOB AND ACUTE DISTRESS NOTED.ENDORSED TO NEW ACCOUNTS REPRESENTATIVE RN FOR MIRANDA.
--- NOTE | 2018-06-07 20:00 | NUR ---
RN/TELE NOTES: RECEIVED PT. IN BED ALERT AND ORIENTED X 3. ABLE TO MAKE NEEDS KNOWN. DENIES ANY C/O PAIN OR DISCOMFORT AT THIS TIME. W/ O2 @ 3LPM VIA N/C SAT 97%. ON TELE MONITOR W/ NSR. W/ PICC LINE ON HUSSEIN DRESSING INTACT AND CLEAN. W/ IVF. PT. IS NPO FOR PROCEDURE. HEPARIN HELD. ON CONTACT ISOLATION FOR ESBL FOR WOUND. WILL CONTINUE TO MONITOR.
[2018-06-08] VITALS: BP 117/63
[2018-06-08] MEDS: BLOOD SUGAR DIAGNOSTIC 1 EACH STRIP IN SCH ×5 (00:42→23:32)
[2018-06-08] MEDS: INSULIN REGULAR, HUMAN 100 UNIT/ML 3 ML VIAL SQ PRN ×4 (00:46→23:31)
[2018-06-08] MEDS: MEROPENEM 500 MG in IV NS 0.9% 100 ML IV SCH ×2 (00:47→13:11)
[2018-06-08 04:00] VITALS: BP 125/64
[2018-06-08 06:31] LABS: BASOPHILS % (AUTO) 0.4 % (0.0-2.0); EOSINOPHILS % (AUTO) 0.6 % (0.0-6.0); HEMATOCRIT 25 % (33-45); HEMOGLOBIN 8.1 g/dL (11.5-14.8); LYMPHOCYTES # (AUTO) 1.5 /CMM (0.8-4.8); LYMPHOCYTES % (AUTO) 24.4 % (20.0-44.0); MEAN CORPUSCULAR HGB CONC 33 g/dl (31.0-36.0); MEAN CORPUSCULAR VOLUME 85 fL (82-100); MONOCYTES # (AUTO) 0.5 /CMM (0.1-1.30); MONOCYTES % (AUTO) 7.8 % (2.0-12.0); NEUTROPHILS % (AUTO) 66.8 % (43.0-81.0); PLATELET COUNT (AUTO) 396 /CMM (150-450); RED BLOOD CELL COUNT(AUTO) 2.95 MIL/uL (4.0-5.2)
[2018-06-08 06:46] LABS: ALBUMIN 2.1 g/dL (3.4-5.0); BILIRUBIN,TOTAL 0.4 mg/dL (0.2-1.0); CALCIUM, SERUM 8.9 mg/dL (8.5-10.1); CREATININE 0.5 mg/dL (0.6-1.3); PHOSPHORUS 1.9 mg/dL (2.5-4.9); POTASSIUM 4.2 mmol/L (3.5-5.1); TOTAL PROTEIN, SERUM 5.7 g/dL (6.4-8.2)
[2018-06-08] MEDS: Potassium Chloride 40 MEQ in IV D5W 1,000 ML IV PRN (07:15)
--- NOTE | 2018-06-08 07:38 | NUR ---
RN/TELE NOTES: REPORT GIVEN TO NEXT SHIFT NURSE FOR MIRANDA.
--- NOTE | 2018-06-08 07:42 | NUR ---
THERMOSCREW OPERATOR OPENING NOTES RECEIVED PT FROM NIGHTSHIFT RN IN STABLE CONDITION. PT IS A/O X1-2 AND CONFUSED. NO SOB OR ACUTE SIGNS OF DISTRESS NOTED. BREATHING IS EVEN AND UNLABORED. PTY ON 3 L VIA NC AND SATING WELL. SHE DENIES ANY PAIN AT THIS TIME. RIGHT UPPER ARM MIDLINE NOTED TO BE PATENT AND INTACT.L NO REDNESS OR SIGNS OF INFILTRATION NOTED. PT TOLERATING IV INFUSION WELL. PT CURRENTLY SINUS RHYTHM ON THE TELE MONITOR WITH AN OCCASIONAL PVC. PEOPLES CATHETER NOTED TO BE INTACT AND DRAINING. 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 NPO STATUS MAINTAINED. CONSENTS OBTAINED BY NIGHTSHIFT RN. BED IN LOW LOCKED POSITION. SIDE RIAL SUP X3, CALL LIGHT WITHIN REACH, BED ALARM ON, CONTACT ISOLATION PRECAUTION MAINTAINED. WILL CONTINUE TO MONITOR
[2018-06-08 08:00] VITALS: BP 133/71
[2018-06-08] MEDS: DAKINS QUARTER STRENGTH (0.125%) 480 ML BOTTLE TOP SCH ×2 (08:36→21:06)
[2018-06-08] MEDS: CARVEDILOL 3.125 MG TABLET NG SCH ×2 (08:41→21:00)
[2018-06-08] MEDS: risperiDONE 1 MG TABLET PO SCH ×2 (08:41→21:00)
[2018-06-08] MEDS: LACTOBACILLUS RHAMNOSUS GG 1 EACH CAP.SPRINK PO SCH ×2 (08:41→17:18)
[2018-06-08] MEDS: HEPARIN SODIUM, PORCINE 5000 UNITS/1 ML VIAL SQ SCH ×2 (08:42→21:00)
--- NOTE | 2018-06-08 09:46 | NUR ---
YARN WORKER NOTES: PHOSPHORUS REPLACEMENT DR ZEPEDA PAGED ION REGARDS TO PT'S PHOSPHOROUS REPLACEMENT SHE IS SCHEDULED FOR OR DEBRIDEMENT AND POSSIBLE SKIN GRAFT. PER MD, "REPLACE WITH 15M MOL OF SODIUM PHOS". ORDER PLACED. WILL INITIATE INFUSION AND ENDORSE TO OR STAFF TO COMPLETE
[2018-06-08] MEDS ORDERED: Sodium Phosphate 15 MMOL in IV D5W 250 ML IV ONE ×2 (10:00→10:30)
--- NOTE | 2018-06-08 10:11 | NUR ---
PLASTIC PANEL INSTALLER NOTES: PHOS REPLACEMENT PHARMACY CALLED AND STATED THAT THEY ARE OUT OF SODIUM PHOS. DR. ZEPEDA CALLED AND GAVE A TELEPHONE ORDER TO D/C SODIUM PHOS AND REPLACED PT'S ELECTROLYTE WITH I NEUTRA PHOS TABLET ONCE SHE IS BACK FROM OR. PHARMACIST FREDRICK MADE AWARE
[2018-06-08] MEDS ORDERED: NEUTRA PHOS 1 POWD.PACKET PO ONE (10:30)
--- NOTE | 2018-06-08 10:51 | NUR ---
PT TAKEN TO OR IN STABLE CONDITION
[2018-06-08] MEDS ORDERED: MIDAZOLAM HCL 2 MG/2ML VIAL ONE (10:58)
[2018-06-08] MEDS ORDERED: METOCLOPRAMIDE HCL 10 MG/2 ML VIAL ONE (10:59)
[2018-06-08] MEDS ORDERED: FAMOTIDINE/PF INJ 20 MG/2 ML VIAL IV ONE (10:59)
[2018-06-08] MEDS ORDERED: FENTANYL PF 100MCG/2ML AMPUL ONE (10:59)
[2018-06-08] MEDS ORDERED: BUPIVACAINE MPF 0.5% W/EPI INJ 30 ML VIAL ONE (11:02)
[2018-06-08] MEDS ORDERED: LIDOCAINE 1% INJ 50 ML MDV IJ ONE (11:02)
[2018-06-08 12:00] VITALS: BP 119/63
--- NOTE | 2018-06-08 12:45 | NUR ---
HUMAN SERVICE SPECIALIST NOTES: POST OP RECEIVED PT FROM RECOVERY NURSE IN STABLE CONDITION. PT S/P LEFT CHIN LESION REMOVAL AND SKIN GRAFT. DONOR SITE FROM PT';S LEFT THIGH. SURGICAL DRESSINGS NOTED TO BE CLEAN, DRY, AND INTACT. PT PRESENTS WITH WOUND VAC SET TO 125MM HG. NO DRAINAGE NOTED AT THIS TIME. VSS. ORDERS BY MD NOTED. PREVIOUS DIET RESUMED. BILATERAL LOWER EXTREMITIES ELEVATED ON PILLOWS. PT ABLE TO WIGGLE TOES WHEN PROMOTED. PT DENIES ANY PAIN AT THIS TIME. WILL CONTINUE TO MONITOR
[2018-06-08 16:00] VITALS: BP 122/66
[2018-06-08] MEDS ORDERED: K PHOS NEUTRAL 250 MG TABLET PO ONE (17:00)
--- NOTE | 2018-06-08 18:54 | NUR ---
QUICK TECHNICIAN CLOSING NOTES PT REMAINS STABLE. ALL NEEDS MET DURING SHIFT AND ORDERS CARRIED OUT ACCORDINGLY ALL DUE MEDS GIVEN. WOUND AND PRN CARE RENDERED. WOUND DRESSINGS REMAIN C/D/I. NO OUTPUT FROM WOUND VAC AT THIS TIME. PT REPOSITIONED AND TURNED PER HOSPITAL PROTOCOL. PICC LINE REMAINS PATENT AND INTACT. PEOPLES CATHETER REMAINS INTACT. PT HAD A TOTAL OF 1500 OUTPUT. SAFETY AND ISOLATION PRECAUTIONS REMAINS IN SPACE. WILL ENDORSE TO NIGHTSHIFT RN FOR MIRANDA
[2018-06-08 20:00] VITALS: BP 118/49
[2018-06-08] MEDS: HYDROCODONE/APAP 5/325MG 1 EACH TABLET PO PRN (23:22)
--- NOTE | 2018-06-08 23:50 | NUR ---
RN GAVE REPORT AND PATIENT TO BERNARDO SALCIDO
--- NOTE | 2018-06-08 23:55 | NUR ---
RN NOTES RECEIVED PT. FROM BERNARDO ANSARI, Alexander/OX2, CONFUSED ON WOUND VAC @ 125mm/HG, WITH RIGHT UPPER ARM PICC LINE, CALL LIGHT WITHIN REACH, [id number], CONTINUE TO MONITOR
[2018-06-09] VITALS (8 sets, daily range): BP systolic 119–148; BP diastolic 50–74
--- NOTE | 2018-06-09 | NUR ---
RN NOTES NOTICED PICC LINE IN PLACE BUT 2 PORT IS NOT WORKING, CHARGE NURSE MADE AWARE
[2018-06-09] MEDS: BLOOD SUGAR DIAGNOSTIC 1 EACH STRIP IN SCH ×4 (06:06→23:15)
[2018-06-09 06:36] LABS: CALCIUM, SERUM 8.8 mg/dL (8.5-10.1); CREATININE 0.5 mg/dL (0.6-1.3)
--- NOTE | 2018-06-09 06:40 | NUR ---
RN NOTES AWAKE, WOUND VAC IN PLACE, MORNING CARE RENDERED, CALL LIGHT WITHIN PAM, [id number], PT. NEEDS ATTENDED
--- NOTE | 2018-06-09 07:00 | NUR ---
CANDLE MOLDER HAND NOTES RECEIVED PT. IN BED ALERT AND ORIENTED X1. ABLE TO MAKE NEEDS KNOWN. DENIES ANY C/O PAIN OR DISCOMFORT AT THIS TIME. W/ O2 @ 3LPM VIA N/C SAT 97%. ON TELE MONITOR W/ NSR 91. W/ PICC LINE ON HUSSEIN DRESSING INTACT AND CLEAN. W/ IVF. ON CONTACT ISOLATION FOR WOUND. LEFT LOWER EXTREMITY ON WOUND VAC. SEROSANGUINEOUS FLUID DRAINING. BED IN LOCKED/LOWEST POSITION. CALL LIGHT IN REACH. WILL CONTINUE TO MONITOR.
[2018-06-09] MEDS: CARVEDILOL 3.125 MG TABLET NG SCH ×2 (08:02→20:08)
[2018-06-09] MEDS: LACTOBACILLUS RHAMNOSUS GG 1 EACH CAP.SPRINK PO SCH ×2 (08:02→18:00)
[2018-06-09] MEDS: risperiDONE 1 MG TABLET PO SCH ×2 (08:03→20:08)
[2018-06-09] MEDS: HEPARIN SODIUM, PORCINE 5000 UNITS/1 ML VIAL SQ SCH ×2 (08:03→20:09)
[2018-06-09] MEDS: DAKINS QUARTER STRENGTH (0.125%) 480 ML BOTTLE TOP SCH ×2 (08:28→20:12)
[2018-06-09] MEDS: INSULIN REGULAR, HUMAN 100 UNIT/ML 3 ML VIAL SQ PRN ×3 (12:15→23:19)
--- NOTE | 2018-06-09 19:07 | NUR ---
MS RN NOTES PT ENDORSED TO PM SHIFT FOR MIRANDA. PT IN BED, RESTING ON 3L NC. NO S/SX OF RESP DISTRESS. WOUND VAC FUNCTIONING WITH 45ML OUTPUT. ALL NEEDS ATTENDED TO.
[2018-06-10 04:00] VITALS: BP 140/52
[2018-06-10] MEDS: BLOOD SUGAR DIAGNOSTIC 1 EACH STRIP IN SCH ×4 (05:14→23:59)
--- NOTE | 2018-06-10 07:00 | NUR ---
LOCKSTITCH WAISTLINE JOINER NOTES RECEIVED PT. IN BED ALERT AND ORIENTED X1. ABLE TO MAKE NEEDS KNOWN. DENIES ANY C/O PAIN OR DISCOMFORT AT THIS TIME. W/ O2 @ 3LPM VIA N/C SAT 97%. PICC LINE ON HUSSEIN DRESSING INTACT AND CLEAN. W/ IVF. ON CONTACT ISOLATION FOR WOUND. LEFT LOWER EXTREMITY ON WOUND VAC. SEROSANGUINEOUS FLUID DRAINING. BED IN LOCKED/LOWEST POSITION. CALL LIGHT IN REACH. WILL CONTINUE TO MONITOR.
[2018-06-10 07:15] LABS: CALCIUM, SERUM 9.2 mg/dL (8.5-10.1); CREATININE 0.6 mg/dL (0.6-1.3)
[2018-06-10 07:16] LABS: BASOPHILS % (AUTO) 0.4 % (0.0-2.0); EOSINOPHILS % (AUTO) 0.9 % (0.0-6.0); HEMATOCRIT 28 % (33-45); LYMPHOCYTES # (AUTO) 1.2 /CMM (0.8-4.8); LYMPHOCYTES % (AUTO) 19.5 % (20.0-44.0); MEAN CORPUSCULAR HGB CONC 33 g/dl (31.0-36.0); MEAN CORPUSCULAR VOLUME 85 fL (82-100); MONOCYTES # (AUTO) 0.5 /CMM (0.1-1.30); MONOCYTES % (AUTO) 8.7 % (2.0-12.0); NEUTROPHILS # (AUTO) 4.3 /CMM (1.8-8.9); NEUTROPHILS % (AUTO) 70.5 % (43.0-81.0); PLATELET COUNT (AUTO) 360 /CMM (150-450); RED BLOOD CELL COUNT(AUTO) 3.23 MIL/uL (4.0-5.2)
[2018-06-10 08:00] VITALS: BP 146/53
[2018-06-10] MEDS: risperiDONE 1 MG TABLET PO SCH ×2 (09:11→20:48)
[2018-06-10] MEDS: CARVEDILOL 3.125 MG TABLET NG SCH ×2 (09:11→20:48)
[2018-06-10] MEDS: HEPARIN SODIUM, PORCINE 5000 UNITS/1 ML VIAL SQ SCH ×2 (09:12→20:49)
[2018-06-10] MEDS: LACTOBACILLUS RHAMNOSUS GG 1 EACH CAP.SPRINK PO SCH ×2 (09:12→18:28)
[2018-06-10] MEDS: DAKINS QUARTER STRENGTH (0.125%) 480 ML BOTTLE TOP SCH ×2 (09:19→21:02)
[2018-06-10 12:00] VITALS: BP 121/47
--- NOTE | 2018-06-10 12:00 | NUR ---
MS RN NOTES ACCUCHECK 498MG/DL. AFTER REPEAT TEST. DR ZEPEDA NOTIFIED. WILL COVER PER MD ORDER. RANDOM BLOOD GLUCOSE ORDERED.
--- NOTE | 2018-06-10 13:12 | NUR ---
MS RN NOTES RANDOM BLOOD GLUCOSE DONE. NOA REPORTED BS 580MG/DL.
[2018-06-10] MEDS: INSULIN REGULAR, HUMAN 100 UNIT/ML 3 ML VIAL SQ PRN ×2 (13:17→18:30)
[2018-06-10 16:00] VITALS: BP 130/55
--- NOTE | 2018-06-10 16:30 | NUR ---
MS RN NOTES DR ZEPEDA NOTIFIED REGARDING REVIEW OF HOME MEDS.
--- NOTE | 2018-06-10 18:48 | NUR ---
MS RN NOTES ENDORSED PT TO PM SHIFT FOR MIRANDA. PT RESTING IN BED, BLOOD SUGAR STABILIZED. NO S/SX OF DISTRESS NOTED. ALL NEEDS ATTENDED TO.
--- NOTE | 2018-06-10 19:15 | NUR ---
MS/RN INITIAL NOTES RECEIVED PT IN BED, ALERTX1, CONFUSED. ON ROOM AIR, NO SOB NOTED. HUSSEIN PICC INTACT AND PATENT. F/C INTACT AND IN PLACED. LEFT LOWER EXTREMITY WOUND DRESSING INTACT CONNECTED TO WOUND VAC WITH MINIMAL AMOUNT OF REDDISH BROWN DRAINAGE. NO SIGNS AND SYMPTOMS OF HYPO/HYPERGLYCEMIA NOTED. SAFETY MEASURES IN PLACED. BED IN LOW AND LOCKED POSITION. CALL LIGHT WITHIN EASY REACH. WILL CONT TO MONITOR
[2018-06-10 20:00] VITALS: BP 147/51
[2018-06-10] MEDS: HYDROCODONE/APAP 5/325MG 1 EACH TABLET PO PRN (22:31)
[2018-06-11 04:00] VITALS: BP 139/57
[2018-06-11] MEDS: BLOOD SUGAR DIAGNOSTIC 1 EACH STRIP IN SCH ×3 (05:58→17:31)
[2018-06-11 06:06] LABS: BASOPHILS % (AUTO) 0.3 % (0.0-2.0); EOSINOPHILS % (AUTO) 0.9 % (0.0-6.0); HEMATOCRIT 25 % (33-45); HEMOGLOBIN 7.9 g/dL (11.5-14.8); LYMPHOCYTES # (AUTO) 1.2 /CMM (0.8-4.8); LYMPHOCYTES % (AUTO) 16.2 % (20.0-44.0); MEAN CORPUSCULAR HGB CONC 32 g/dl (31.0-36.0); MEAN CORPUSCULAR VOLUME 86 fL (82-100); MONOCYTES # (AUTO) 0.7 /CMM (0.1-1.30); MONOCYTES % (AUTO) 8.7 % (2.0-12.0); NEUTROPHILS # (AUTO) 5.6 /CMM (1.8-8.9); NEUTROPHILS % (AUTO) 73.9 % (43.0-81.0); PLATELET COUNT (AUTO) 321 /CMM (150-450); RED BLOOD CELL COUNT(AUTO) 2.85 MIL/uL (4.0-5.2); WHITE BLOOD COUNT (AUTO) 7.6 K/uL (4.3-11.0)
[2018-06-11 06:23] LABS: CALCIUM, SERUM 8.7 mg/dL (8.5-10.1); CREATININE 0.6 mg/dL (0.6-1.3); POTASSIUM 3.4 mmol/L (3.5-5.1)
--- NOTE | 2018-06-11 06:42 | NUR ---
RN NOTES PT IN BED, RESTING COMFORTABLY. NO SOB NOTED. HUSSEIN PICC REMAINED INTACT AND PATENT. F/C INTACT AND REMAINED IN PLACED. LEFT LOWER EXTREMITY WOUND DRESSING INTACT CONNECTED TO WOUND VAC. NO SIGNS AND SYMPTOMS OF HYPO/HYPERGLYCEMIA NOTED. SAFETY MEASURES AND ASPIRATION ONSERVED AT ALL TIMES. ENDORSED TO AM SHIFT RN FOR MIRANDA
--- NOTE | 2018-06-11 07:26 | NUR ---
RN NOTES RECEIVED PATIENT IN BED WITH BREATHING NORMAL, EVEN AND UNLABORED.ON ROOM AIR. NO SOB NOTED. NO ACUTE DISTRESS NOTED. AFEBRILE. HUSSEIN PICC LINE IS PATENT AND INTACT TKO. KEPT CLEAN, DRY AND COMFORTABLE. ALL NEEDS ATTENDED. SAFETY MEASURE OBSERVED. CALL LIGHT WITH IN REACH. WILL CONT TO MONITOR.
[2018-06-11 08:00] VITALS: BP 139/45
[2018-06-11] MEDS: CARVEDILOL 3.125 MG TABLET NG SCH ×2 (08:56→22:11)
[2018-06-11] MEDS: LACTOBACILLUS RHAMNOSUS GG 1 EACH CAP.SPRINK PO SCH ×2 (08:56→17:29)
[2018-06-11] MEDS: risperiDONE 1 MG TABLET PO SCH ×2 (08:56→22:11)
[2018-06-11] MEDS: DAKINS QUARTER STRENGTH (0.125%) 480 ML BOTTLE TOP SCH ×2 (08:57→21:00)
[2018-06-11] MEDS ORDERED: POTASSIUM CHLORIDE 20 MEQ POWDER PACKET PO SCH (10:00)
[2018-06-11] MEDS: HEPARIN SODIUM, PORCINE 5000 UNITS/1 ML VIAL SQ SCH ×2 (11:22→22:13)
--- NOTE | 2018-06-11 12:21 | NUR ---
RN NOTES RELAYED ACCU CHECK RESULTS HIGHX2 TO DR ZEPEDA AND ORDERED STAT GLUCOSE CHECK FROM LAB. ALEKSANDER EUCEDA FORESTRY TECHNICAL OFFICER AT BEDSIDE. PATIENT IS ALERT, AWAKE, WITH NO DISTRESS AT THIS TIME. WILL CONT TO MONITOR.
--- NOTE | 2018-06-11 12:30 | NUR ---
RN NOTES NOTIFIED DR ZEPEDA THAT BS PER LAB RESULTS IS 642. RECEIVED ORDER TO GIVE INSULIN PER SLIDING SCALE. WILL CONT TO MONITOR.
[2018-06-11] MEDS: INSULIN REGULAR, HUMAN 100 UNIT/ML 3 ML VIAL SQ PRN ×3 (12:59→17:37)
[2018-06-11 16:00] VITALS: BP 143/56
--- NOTE | 2018-06-11 18:46 | NUR ---
RN NOTES PATIENT ENDORSED TO NEXT SHIFT IN STABLE CONDITION WITH BREATHING NORMAL, EVEN AND UNLABORED. NO SOB NOTED. NO ACUTE DISTRESS NOTED. ALL NEED ATTENDED. SAFETY MEASURE OBSERVED. CALL LIGHT WITH IN REACH. WILL CONT TO MONITOR.
[2018-06-11 20:00] VITALS: BP 126/58
[2018-06-11] MEDS ORDERED: INSULIN GLARGINE, 100 UNIT/ML CARTRIDGE SQ SCH (22:00)
[2018-06-12] MEDS: BLOOD SUGAR DIAGNOSTIC 1 EACH STRIP IN SCH ×4 (01:06→17:39)
[2018-06-12] MEDS: INSULIN REGULAR, HUMAN 100 UNIT/ML 3 ML VIAL SQ PRN ×2 (01:09→13:07)
[2018-06-12 04:00] VITALS: BP 134/65
[2018-06-12] MEDS: DEXTROSE 50%-WATER 50 ML DISP.SYRIN IV PRN (05:40)
--- NOTE | 2018-06-12 06:18 | NUR ---
PT REMAINS IN NO ACUTE DISTRESS IN BED. PT DID NOT HAVE ANY SIGNIFICANT CHANGE IN CONDITION DURING SHIFT. ALL NEEDS MET, ALL ORDERS CARRIED OUT. WILL ENDORSE CARE TO AM RN FOR CONTINUITY OF CARE.
[2018-06-12 07:13] LABS: BASOPHILS % (AUTO) 0.3 % (0.0-2.0); HEMATOCRIT 24 % (33-45); HEMOGLOBIN 7.6 g/dL (11.5-14.8); LYMPHOCYTES # (AUTO) 1.1 /CMM (0.8-4.8); LYMPHOCYTES % (AUTO) 20.3 % (20.0-44.0); MEAN CORPUSCULAR HGB CONC 32 g/dl (31.0-36.0); MEAN CORPUSCULAR VOLUME 86 fL (82-100); MONOCYTES # (AUTO) 0.9 /CMM (0.1-1.30); MONOCYTES % (AUTO) 16.6 % (2.0-12.0); NEUTROPHILS # (AUTO) 3.2 /CMM (1.8-8.9); NEUTROPHILS % (AUTO) 60.8 % (43.0-81.0); PLATELET COUNT (AUTO) 288 /CMM (150-450); RED BLOOD CELL COUNT(AUTO) 2.79 MIL/uL (4.0-5.2); WHITE BLOOD COUNT (AUTO) 5.2 K/uL (4.3-11.0)
[2018-06-12 07:16] LABS: CALCIUM, SERUM 8.5 mg/dL (8.5-10.1); CREATININE 0.6 mg/dL (0.6-1.3)
[2018-06-12 07:42] LABS: POTASSIUM 2.7 mmol/L (3.5-5.1)
[2018-06-12 08:00] VITALS: BP 154/56
[2018-06-12] MEDS: CARVEDILOL 3.125 MG TABLET NG SCH ×2 (09:18→21:23)
[2018-06-12] MEDS: risperiDONE 1 MG TABLET PO SCH (09:18)
[2018-06-12] MEDS: LACTOBACILLUS RHAMNOSUS GG 1 EACH CAP.SPRINK PO SCH ×2 (09:18→18:03)
[2018-06-12 09:51] LABS: LYMPHOCYTES % (MANUAL) 12 % (16-48); MONOCYTES % (MANUAL) 10 % (0-11.0); NEUTROPHILS % (MANUAL) 78 (42-76)
[2018-06-12] MEDS: HYDROCODONE/APAP 5/325MG 1 EACH TABLET PO PRN (10:33)
[2018-06-12] MEDS: DAKINS QUARTER STRENGTH (0.125%) 480 ML BOTTLE TOP SCH ×3 (11:24→21:15)
[2018-06-12] MEDS ORDERED: POTASSIUM CL. PREMIX PERIPHER. 50 ML IV SCH (11:30)
[2018-06-12] MEDS: POTASSIUM CL. PREMIX PERIPHER. 50 ML IV SCH ×3 (12:51→15:23)
--- NOTE | 2018-06-12 13:20 | NUR ---
Nurse Notes: Dr Chino Avery was notified to complete the medication reconsiliation, pharmacy stated there is no VTE coverage, patient was on plavix. Dr Avery called back and will complete it.
--- NOTE | 2018-06-12 13:30 | NUR ---
Nurses Note: Blood pressure still in the 80s systolic, [place] was discontinued. will stagger blood pressure medications in the morning, the next shift will be aware BP is low, with Blood pressure was in the 140s this morning. Jaci Hernandez NP is aware, happened yesterday. tylenol 650 mg will be given for pain. Addendum: 06/12/18 at 1953 by AISHA COATES RN Charted on the wrong patient, discard above note.
[2018-06-12 16:00] VITALS: BP 135/58
[2018-06-12] MEDS: IV NS 0.9% 250 ML IV PRN (16:54)
--- NOTE | 2018-06-12 18:00 | NUR ---
Nurse Notes: potassium bolus 30 meQ infusing over 1 hours each. thru picc-line after potassium level was redone. right hip dankin's solution done later after Dr German Polanco verify the right hip for the Dankin's solution, left leg to wound VAC, no output.
[2018-06-12] MEDS ORDERED: LORAZEPAM 1 MG TABLET PO PRN (18:30)
[2018-06-12] MEDS ORDERED: HYDROCODONE/APAP 5/325MG 1 EACH TABLET PO PRN (18:30)
[2018-06-12] MEDS ORDERED: BISACODYL SUPP (10 MG) 10 MG/SUPP.RECT SUPP.RECT RC PRN (18:30)
[2018-06-12] MEDS ORDERED: MAGNESIUM HYDROXIDE 30 ML UDC GT PRN (18:30)
[2018-06-12] MEDS ORDERED: ZOLPIDEM TARTRATE 5 MG TABLET PO PRN (18:30)
[2018-06-12] MEDS ORDERED: INSULIN REGULAR, HUMAN 100 UNIT/ML 3 ML VIAL SQ PRN (18:30)
[2018-06-12] MEDS ORDERED: NA PHOS,M-B/NA PHOS,DI-BA 1 EA ENEMA RC PRN (18:30)
[2018-06-12] MEDS ORDERED: ACETAMINOPHEN 325 MG TABLET PO PRN (18:30)
--- NOTE | 2018-06-12 19:45 | NUR ---
Nurses Notes: Medication reconciliation was completed by Dr Avery, around 20 medications was ordered. medication was acknowledged.
[2018-06-12 20:00] VITALS: BP 109/49
--- NOTE | 2018-06-12 20:00 | NUR ---
PUBLIC HEALTH ANALYST OPENING NOTES RECEIVED REPORT FROM JOSELIN CHANG. PATIENT A/A/O X1 TO NAME, ABLE TO MAKE SOME NEEDS KNOWN. BREATHING EVEN & UNLABORED, TOLERATING ROOM AIR. NO RESPIRATORY DISTRESS NOTED. RADIAL PULSES PRESENT. RIGHT UPPER ARM PICC LINE INTACT & PATENT W/ DRESSING CDI, TKO. PEOPLES CATH DRAINING YELLOW URINE. DENIES ANY PAIN OR DISCOMFORT @ THIS TIME. SAFETY MEASURES IN PLACE W/ SIDE RAILS UP & BED ALARM ON. WILL CONTINUE TO MONITOR.
[2018-06-12] MEDS ORDERED: LamoTRIgine 25 MG TABLET PO SCH (21:00)
[2018-06-12] MEDS: ATORVASTATIN 40 MG TABLET PO SCH (21:12)
[2018-06-12] MEDS: BACLOFEN (10 MG) 10 MG TABLET PO SCH (21:12)
[2018-06-12] MEDS: risperiDONE 0.25 MG TABLET PO SCH (21:12)
[2018-06-12] MEDS: BENZTROPINE MESYLATE (1 MG) 1 MG TABLET PO SCH (21:13)
[2018-06-12] MEDS ORDERED: BLOOD SUGAR DIAGNOSTIC 1 EACH STRIP IN SCH (22:00)
[2018-06-12] MEDS ORDERED: INSULIN GLARGINE, 100 UNIT/ML CARTRIDGE SQ SCH (22:00)
[2018-06-13] MEDS: BLOOD SUGAR DIAGNOSTIC 1 EACH STRIP IN SCH ×4 (00:23→17:26)
[2018-06-13] MEDS: INSULIN REGULAR, HUMAN 100 UNIT/ML 3 ML VIAL SQ PRN ×4 (00:23→17:23)
[2018-06-13 04:00] VITALS: BP 128/64
--- NOTE | 2018-06-13 05:30 | NUR ---
RN NOTES CHECKED PATIENT'S BLOOD SUGAR, BS = 16. PATIENT STILL AWAKE & ALERT. IV D50 GIVEN & TWO ORANGE JUICE. WILL RECHECK.
[2018-06-13] MEDS: DEXTROSE 50%-WATER 50 ML DISP.SYRIN IV PRN (05:49)
--- NOTE | 2018-06-13 06:20 | NUR ---
RN NOTES RECHECKED PATIENT'S BLOOD SUGAR. BS = 112. PATIENT STILL AWAKE & ALERT.
[2018-06-13 06:33] LABS: BASOPHILS % (AUTO) 0.3 % (0.0-2.0); EOSINOPHILS % (AUTO) 1.2 % (0.0-6.0); HEMATOCRIT 25 % (33-45); HEMOGLOBIN 8.2 g/dL (11.5-14.8); LYMPHOCYTES # (AUTO) 1.4 /CMM (0.8-4.8); LYMPHOCYTES % (AUTO) 23.6 % (20.0-44.0); MEAN CORPUSCULAR HGB CONC 33 g/dl (31.0-36.0); MEAN CORPUSCULAR VOLUME 85 fL (82-100); MONOCYTES # (AUTO) 0.9 /CMM (0.1-1.30); MONOCYTES % (AUTO) 15.2 % (2.0-12.0); NEUTROPHILS # (AUTO) 3.4 /CMM (1.8-8.9); NEUTROPHILS % (AUTO) 59.7 % (43.0-81.0); PLATELET COUNT (AUTO) 326 /CMM (150-450); RED BLOOD CELL COUNT(AUTO) 2.96 MIL/uL (4.0-5.2); WHITE BLOOD COUNT (AUTO) 5.8 K/uL (4.3-11.0)
[2018-06-13 06:53] LABS: CALCIUM, SERUM 8.7 mg/dL (8.5-10.1); CREATININE 0.5 mg/dL (0.6-1.3)
[2018-06-13 08:00] VITALS: BP 145/51
--- NOTE | 2018-06-13 08:00 | NUR ---
MS RN NOTE PATINT IN BED , ALL NEEDS ATTENDED ,ON RA NO SOB NOTED ,ABLE TO FEED PATIENT ,ATE 100% , WITH PEOPLES CATH TO GRAVITY WITH YELLOW COLOR URINE , RT UPPER ARM PICC LINE IN PLACE, NO S\S INFECTION NOTED , BED IN LOWEST AND LOCKED POSITION ,WITH WOUND CAV ON LT LOWER LEG NO DRAINAGE NOTED AT THIS TIME , CALL LIGHT WITHIN REACH , PLAN OF CARE DISCUSSED WITH PATIENT, SEEN BY DR COX
[2018-06-13] MEDS: FOLIC ACID 1 MG TABLET PO SCH (09:15)
[2018-06-13] MEDS: DOCUSATE SODIUM 100 MG CAPSULE PO SCH (09:16)
[2018-06-13] MEDS: EZETIMIBE 10 MG TABLET PO SCH (09:17)
[2018-06-13] MEDS: CLOPIDOGREL BISULFATE 75 MG TABLET PO SCH (09:17)
[2018-06-13] MEDS: FAMOTIDINE (20 MG) 20 MG TABLET PO SCH ×2 (09:18→16:30)
[2018-06-13] MEDS: LACTOBACILLUS RHAMNOSUS GG 1 EACH CAP.SPRINK PO SCH ×2 (09:18→16:30)
[2018-06-13] MEDS: MULTIVIT W/MINERALS 1 TAB TABLET PO SCH (09:19)
[2018-06-13] MEDS: risperiDONE 0.25 MG TABLET PO SCH ×2 (09:20→21:47)
[2018-06-13] MEDS: AMLODIPINE BESYLATE 5 MG TABLET PO SCH (09:22)
[2018-06-13] MEDS: PENTOXIFYLLINE 400 MG TABLET.SA PO SCH ×2 (09:23→16:30)
[2018-06-13] MEDS: DAKINS QUARTER STRENGTH (0.125%) 480 ML BOTTLE TOP SCH ×2 (09:24→21:48)
[2018-06-13] MEDS: CARVEDILOL 3.125 MG TABLET NG SCH ×2 (09:28→21:48)
[2018-06-13] MEDS: LamoTRIgine 100 MG TABLET PO SCH ×2 (09:29→21:47)
[2018-06-13] MEDS: BACLOFEN (10 MG) 10 MG TABLET PO SCH ×4 (09:29→21:47)
[2018-06-13] MEDS: LEVOTHYROXINE SODIUM 75 MCG TABLET PO SCH (09:33)
--- NOTE | 2018-06-13 11:00 | NUR ---
MS RN NOTE KEEP CLEAN DRY, WOUND CARE DONE ORDERED , NOT IN ACUTE DISTRESS, FEEL BETTER AFTER TYLENOL WAD GIVEN AT 0920
[2018-06-13] MEDS: POTASSIUM CHLORIDE 20 MEQ TAB.PRT.SR PO SCH ×3 (11:22→13:27)
--- NOTE | 2018-06-13 12:30 | NUR ---
MS RN NOTE \ FED BY STUFF ,ATE 100% OF LUNCH , WILL MONITOR CLOSELY
[2018-06-13 16:00] VITALS: BP 150/42
--- NOTE | 2018-06-13 16:46 | NUR ---
MS RNNOTE SEEN BY DR CHAHAL NOTIFIED THAT EARLIER BLOOD SUGAR WAS 16 ORDERED D\C LANTUS WILL F\U
[2018-06-13] MEDS ORDERED: CHOLECALCIFEROL 1,000 UNIT TABLET (VIT D3) PO SCH (17:00)
[2018-06-13] MEDS ORDERED: ZINC SULFATE 220 MG CAPSULE PO SCH (17:00)
[2018-06-13] MEDS ORDERED: PROSOURCE / PROSTAT (PYXIS) 30 ML UDC PO SCH (17:00)
[2018-06-13] MEDS ORDERED: FERROUS SULFATE (325 MG) 325 MG/TAB TABLET PO SCH (17:00)
[2018-06-13] MEDS ORDERED: ASCORBIC ACID 500 MG TABLET PO SCH (17:00)
[2018-06-13 20:00] VITALS: BP 138/53
--- NOTE | 2018-06-13 20:30 | NUR ---
RN OPENING NOTES RECEIVED REPORT FROM VARUN CHANG. PATIENT A/A/O X1 TO NAME, ABLE TO MAKE SOME NEEDS KNOWN. BREATHING EVEN & UNLABORED, TOLERATING ROOM AIR. NO RESPIRATORY DISTRESS NOTED. RADIAL PULSES PRESENT. RIGHT UPPER ARM PICC LINE INTACT & PATENT W/ DRESSING CDI, TKO. PEOPLES CATH DRAINING YELLOW URINE. DENIES ANY PAIN OR DISCOMFORT @ THIS TIME. TURNED & REPOSITIONED FOR COMFORT. SAFETY MEASURES IN PLACE W/ SIDE RAILS UP & BED ALARM ON. WILL CONTINUE TO MONITOR. Addendum: 06/13/18 at 2031 by CATHERINE GONZALEZ RN WOUND VAC IN PLACE ON LEFT LOWER LEG W/ MINIMAL SANGUINEOUS DRAINAGE NOTED.
[2018-06-13] MEDS: ATORVASTATIN 40 MG TABLET PO SCH (21:47)
[2018-06-13] MEDS: BENZTROPINE MESYLATE (1 MG) 1 MG TABLET PO SCH (21:47)
[2018-06-14] MEDS: BLOOD SUGAR DIAGNOSTIC 1 EACH STRIP IN SCH ×3 (00:24→12:15)
[2018-06-14] MEDS: INSULIN REGULAR, HUMAN 100 UNIT/ML 3 ML VIAL SQ PRN ×3 (00:26→12:17)
[2018-06-14 04:00] VITALS: BP 126/45
[2018-06-14 06:43] LABS: CALCIUM, SERUM 8.6 mg/dL (8.5-10.1); CREATININE 0.6 mg/dL (0.6-1.3); POTASSIUM 3.9 mmol/L (3.5-5.1)
[2018-06-14 08:00] VITALS: BP 133/61
[2018-06-14] MEDS: LEVOTHYROXINE SODIUM 75 MCG TABLET PO SCH (08:04)
[2018-06-14] MEDS: CLOPIDOGREL BISULFATE 75 MG TABLET PO SCH (08:05)
[2018-06-14] MEDS: EZETIMIBE 10 MG TABLET PO SCH (08:05)
[2018-06-14] MEDS: FOLIC ACID 1 MG TABLET PO SCH (08:05)
[2018-06-14] MEDS: PENTOXIFYLLINE 400 MG TABLET.SA PO SCH (08:05)
[2018-06-14] MEDS: MULTIVIT W/MINERALS 1 TAB TABLET PO SCH (08:05)
[2018-06-14] MEDS: DOCUSATE SODIUM 100 MG CAPSULE PO SCH (08:05)
[2018-06-14] MEDS: BACLOFEN (10 MG) 10 MG TABLET PO SCH ×2 (08:05→12:28)
[2018-06-14] MEDS: LamoTRIgine 100 MG TABLET PO SCH (08:05)
[2018-06-14] MEDS: LACTOBACILLUS RHAMNOSUS GG 1 EACH CAP.SPRINK PO SCH (08:05)
[2018-06-14] MEDS: AMLODIPINE BESYLATE 5 MG TABLET PO SCH (08:06)
[2018-06-14] MEDS: DAKINS QUARTER STRENGTH (0.125%) 480 ML BOTTLE TOP SCH (08:06)
[2018-06-14] MEDS: CARVEDILOL 3.125 MG TABLET NG SCH (08:06)
[2018-06-14] MEDS: FAMOTIDINE (20 MG) 20 MG TABLET PO SCH (08:08)
[2018-06-14] MEDS: risperiDONE 0.25 MG TABLET PO SCH (08:09)
[2018-06-14 16:00] VITALS: BP 125/56
--- NOTE | 2018-06-14 17:00 | NUR ---
RN NOTE PATIENT DISCHARGED TO [facility]. REPORT CALLED TO [facility]. LEFT VIA AMBULANCE. PICTURES TAKEN AND ID BAND REMOVED.
[2018-07-22] MEDS ORDERED: CEFE1PIG3 IV (08:33)
== END 2018-06-14 17:05 | DRG 853 ==
LOC: ER 00:39 → ICU 01:30 → TELE1 06-07 10:50 → MEDSG1 06-09 11:13
PROVIDERS: ADMIT Nurse Practitioner Acute Care; ATTEND Student in an Organized Health Care Education/Training Program
PROC: 5A1945Z Respiratory Ventilation, 24-96 Consecutive Hours (ICD-10-PCS; principal; 2018-06-05)
PROC: 0BH18EZ Insertion of Endotracheal Airway into Trachea, Via Natural or Artificial Opening Endoscopic (ICD-10-PCS; 2018-06-05)
PROC: 0KBN0ZZ Excision of Right Hip Muscle, Open Approach (ICD-10-PCS; 2018-06-05)
PROC: 03HB33Z Insertion of Infusion Device into Right Radial Artery, Percutaneous Approach (ICD-10-PCS; 2018-06-05)
PROC: 02HV33Z Insertion of Infusion Device into Superior Vena Cava, Percutaneous Approach (ICD-10-PCS; 2018-06-05)
PROC: B548ZZA Ultrasonography of Superior Vena Cava, Guidance (ICD-10-PCS; 2018-06-05)
PROC: 0HRLX74 Replacement of Left Lower Leg Skin with Autologous Tissue Substitute, Partial Thickness, External Approach (ICD-10-PCS; 2018-06-08)
PROC: 0HBJXZZ Excision of Left Upper Leg Skin, External Approach (ICD-10-PCS; 2018-06-08)
DX: A41.9 Sepsis, unspecified organism (principal); L89.214 Pressure ulcer of right hip, stage 4; E11.10 Type 2 diabetes mellitus with ketoacidosis without coma; G93.41 Metabolic encephalopathy; R53.2 Functional quadriplegia; J96.02 Acute respiratory failure with hypercapnia; N17.0 Acute kidney failure with tubular necrosis; I21.A1 Myocardial infarction type 2; D68.59 Other primary thrombophilia; E44.0 Moderate protein-calorie malnutrition; E87.0 Hyperosmolality and hypernatremia; B37.49 Other urogenital candidiasis; R65.20 Severe sepsis without septic shock; D64.9 Anemia, unspecified; E03.9 Hypothyroidism, unspecified; C44.729 Squamous cell carcinoma of skin of left lower limb, including hip; E78.5 Hyperlipidemia, unspecified; E83.42 Hypomagnesemia; E86.0 Dehydration; E87.5 Hyperkalemia; I25.10 Atherosclerotic heart disease of native coronary artery without angina pectoris; K21.9 Gastro-esophageal reflux disease without esophagitis; Z86.73 Personal history of transient ischemic attack (TIA), and cerebral infarction without residual deficits; Z87.440 Personal history of urinary (tract) infections; F31.9 Bipolar disorder, unspecified; F03.90 Unspecified dementia, unspecified severity, without behavioral disturbance, psychotic disturbance, mood disturbance, and anxiety; Z79.4 Long term (current) use of insulin; I12.9 Hypertensive chronic kidney disease with stage 1 through stage 4 chronic kidney disease, or unspecified chronic kidney disease; N18.9 Chronic kidney disease, unspecified; E88.09 Other disorders of plasma-protein metabolism, not elsewhere classified; Z68.21 Body mass index [BMI] 21.0-21.9, adult; L89.150 Pressure ulcer of sacral region, unstageable; L89.320 Pressure ulcer of left buttock, unstageable; L89.310 Pressure ulcer of right buttock, unstageable; L89.610 Pressure ulcer of right heel, unstageable; E11.51 Type 2 diabetes mellitus with diabetic peripheral angiopathy without gangrene; F41.9 Anxiety disorder, unspecified; Z86.14 Personal history of Methicillin resistant Staphylococcus aureus infection; E11.649 Type 2 diabetes mellitus with hypoglycemia without coma; E87.6 Hypokalemia
CPT/HCPCS: 31720; 36415; 36569; 36600; 70450-TC; 71045-TC; 80048-TC; 80053-TC; 80061-TC; 80076-TC; 80202-TC; 81000-TC; 82728-TC; 82803-TC; 82945-TC; 82947-TC; 82962-TC; 83540-TC; 83605-TC; 83690-TC; 83735-TC; 84100-TC; 84132-TC; 84439-TC; 84443-TC; 84484-TC; 85025-TC; 85730-TC; 86850-TC; 87040-TC; 87070-TC; 87081-TC; 87086-TC; 87186-TC; 88305-TC; 92526; 92611-TC; 94002-TC; 94003-TC; 94760-TC; 94799-TC; 99082-TC; A4216; A6209; A6253; A6402; A6403; A9563; C1751; G0378; J0610; J1644; J1815; J2060; J2185; J2248; J2250; J2405; J2543; J2704; J2765; J3010; J3370; J3480; J3490; J7030; J7040; J7050; J7060; J7070

== ENCOUNTER 2018-06-27 18:03 | Inpatient (IN) | payer MEDICARE, BC ==
[~2018-06-27] VITALS: Ht 167.6 cm; Wt 53.5 kg
[~2018-06-27 18:03] MED LIST changes: -ACET-2605 PO; +HYDR-4384 PO; -LAMO100T2 PO; +MERO500V IV; -MERO500V3 IV
--- NOTE | 2018-06-27 18:13 | NUR ---
PT [id number], AMS, FEBRILE, COUGH WITH CONGESTION, 02 81%, 96% ON NON REBREATHER MASK, PT IS AAOX0, IN NOTED RESPIRATORY DISTRESS, V/S STABLE, HOOKED TO MONITOR, KEPT RESTED AND COMFORTABLE. WILL CONTINUE TO MONITOR.
--- NOTE | 2018-06-27 18:17 | NUR ---
SEEN AND EXAMINED BY DR. HARYR.
--- NOTE | 2018-06-27 18:38 | NUR ---
LABS DRAWNED AND SENT TO LAB.
[2018-06-27 18:39] LABS: ABG BASE EXCESS 1.3 mmol/L; ABG OXYGEN SATURATION 92.8 % (92.0-98.5); ABG PCO2 35.8 mmHg (35.0-45.0); ABG PH 7.462 (7.350-7.450); ABG PO2 67.7 mmHg (75.0-100.0); AaDO2 147.5 mmHg; COHb 0.4 % (0.5-1.5); MetHb 0.2 % (0.0-1.5); O2Hb 92.2 % (94.0-97.0); SITE, ABG Right Radial; VENT MODE, BG NASAL CANNULA
[2018-06-27 18:44] LABS: BASOPHILS # (AUTO) 0.1 /CMM (0.0-0.2); BASOPHILS % (AUTO) 0.9 % (0.0-2.0); EOSINOPHILS % (AUTO) 0.3 % (0.0-6.0); HEMATOCRIT 28 % (33-45); HEMOGLOBIN 8.7 g/dL (11.5-14.8); LYMPHOCYTES # (AUTO) 1.5 /CMM (0.8-4.8); LYMPHOCYTES % (AUTO) 9.3 % (20.0-44.0); MEAN CORPUSCULAR HGB CONC 32 g/dl (31.0-36.0); MEAN CORPUSCULAR VOLUME 85 fL (82-100); MONOCYTES # (AUTO) 0.8 /CMM (0.1-1.30); MONOCYTES % (AUTO) 5.2 % (2.0-12.0); NEUTROPHILS # (AUTO) 13.1 /CMM (1.8-8.9); NEUTROPHILS % (AUTO) 84.3 % (43.0-81.0); PLATELET COUNT (AUTO) 537 /CMM (150-450); RED BLOOD CELL COUNT(AUTO) 3.22 MIL/uL (4.0-5.2); WHITE BLOOD COUNT (AUTO) 15.6 K/uL (4.3-11.0)
--- NOTE | 2018-06-27 18:44 | NUR ---
URINE SPECIMEN COLLECTED AND SENT TO LAB.
--- NOTE | 2018-06-27 18:45 | NUR ---
RADIOLOGY AT BEDSIDE FOR XRAY.
[2018-06-27 18:50] LABS: APPEARANCE,URINE Cloudy (CLEAR); BILIRUBIN,URINE Negative (NEGATIVE); BLOOD, URINE Moderate Ery/uL (NEGATIVE); COLOR,URINE Light yellow (YELLOW); KETONES,URINE Trace (NEGATIVE); LEUKOCYTE ESTERASE ,URINE Small (NEGATIVE); NITRITE, URINE Positive (NEGATIVE); PH,URINE 5.5 (5.0-8.0); PROTEIN,URINE 100 mg/dl (NEGATIVE); UGLUCOSE 500 MG/DL mg/dL (NEGATIVE); UROBILINOGEN,URINE 0.2 EU/dL (0.2)
[2018-06-27 18:52] LABS: CALCIUM, SERUM 10.3 mg/dL (8.5-10.1); CARBON DIOXIDE 28 mmol/L (21-32); CHLORIDE 111 mmol/L (98-107); CREATININE 0.9 mg/dL (0.6-1.3); GLUCOSE 157 mg/dL (74-106); POTASSIUM 4.1 mmol/L (3.5-5.1); SODIUM SERUM 146 mmol/L (136-145); UREA NITROGEN, BLOOD 32 mg/dL (7-18)
[2018-06-27 18:57] LABS: BACTERIA,URINE 2+ /HPF (None Seen); SQUAMOUS EPITHELIAL CELL,UR M /HPF (None Seen)
[2018-06-27 18:58] LABS: WBC,URINE 21-50 /HPF (0-3); YEAST,URINE Many /HPF (None Seen)
[2018-06-27 18:58] LABS: ALANINE AMINOTRANSFERASE 30 U/L (12-78); ALBUMIN 2.1 g/dL (3.4-5.0); ALKALINE PHOSPHATASE 119 U/L (46-116); ASPARTATE AMINOTRANSFERASE 17 U/L (15-37); BILIRUBIN,TOTAL 0.1 mg/dL (0.2-1.0); TOTAL PROTEIN, SERUM 6.7 g/dL (6.4-8.2)
[2018-06-27] MEDS ORDERED: VANCOMYCIN 1 GM in IV D5W 250 ML IV ONE (19:30)
[2018-06-27] MEDS ORDERED: IV NS 0.9% 1,000 ML BAG IV ONE (19:30)
[2018-06-27] MEDS ORDERED: MEROPENEM 1,000 MG in IV NS 0.9% 100 ML IV ONE (19:30)
[2018-06-27] MEDS ORDERED: ACETAMINOPHEN 650 MG/SUPP.RECT RC ONE ×2 (20:28→20:30)
[2018-06-27] MEDS ORDERED: DEXTROSE 50%-WATER 50 ML DISP.SYRIN IV PRN (20:30)
[2018-06-27] MEDS ORDERED: Z GUARD REMEDY 2 OZ OINT TP PRN (20:30)
[2018-06-27] MEDS ORDERED: INSULIN REGULAR, HUMAN 100 UNIT/ML 3 ML VIAL SQ PRN (20:30)
[2018-06-27] MEDS ORDERED: ONDANSETRON HCL/PF 4 MG/2 ML VIAL IVP PRN (20:30)
[2018-06-27] MEDS ORDERED: ENOXAPARIN SODIUM 30 MG/0.3 ML DISP.SYRIN SQ SCH (21:00)
[2018-06-27] MEDS ORDERED: MEROPENEM 1 G in IV NS 0.9% 100 ML IV SCH ×2 (21:00→23:00)
[2018-06-27] MEDS ORDERED: IV D5/ 0.9% NACL 1,000 ML IV PRN (22:00)
[2018-06-27 22:15] VITALS: BP 133/55
--- NOTE | 2018-06-27 23:00 | NUR ---
TELE/FLOORLEADER NOTES: RECEIVED PT. VIA MILES FROM ER. PT. IS ORIGINALLY FROM [place]. ON TELE MONITOR W/ST. W/ O2 @ 2LPM VIA N/C SAT 98%. PT. IS COMBATIVE AT TIMES TRYING TO HIT STAFF WHEN CHANGING HER POSITION. PT. REFUSED MIDNIGHT BLOOD SUGAR CHECK. " LEAVE ME ALONE LET ME REST." PT. HAS A HUSSEIN PICC LINE W/ TRIPLE LUMEN W/ D5W AT 75ML/HR. PT. IS NPO. MULTIPLE WOUNDS . CALL LIGHT W/REACH. WILL CONTINUE TO MONITOR.
[2018-06-27] MEDS ORDERED: MEROPENEM 1 G VIAL IV ONE (23:11)
[2018-06-28] VITALS: BP 132/54
[2018-06-28 04:00] VITALS: BP 137/52
[2018-06-28] MEDS: BLOOD SUGAR DIAGNOSTIC 1 EACH STRIP IN SCH ×2 (06:13)
[2018-06-28] MEDS: IV NS 0.9% 1,000 ML IV PRN (06:24)
[2018-06-28] MEDS ORDERED: IV NS 0.9% 1,000 ML BAG IV PRN (06:30)
[2018-06-28 06:46] LABS: BASOPHILS # (AUTO) 0.1 /CMM (0.0-0.2); BASOPHILS % (AUTO) 0.4 % (0.0-2.0); EOSINOPHILS % (AUTO) 0.2 % (0.0-6.0); HEMATOCRIT 25 % (33-45); HEMOGLOBIN 7.7 g/dL (11.5-14.8); MEAN CORPUSCULAR HGB CONC 31 g/dl (31.0-36.0); MEAN CORPUSCULAR VOLUME 87 fL (82-100); MONOCYTES # (AUTO) 0.6 /CMM (0.1-1.30); MONOCYTES % (AUTO) 3.6 % (2.0-12.0); NEUTROPHILS # (AUTO) 14.3 /CMM (1.8-8.9); NEUTROPHILS % (AUTO) 89.8 % (43.0-81.0); PLATELET COUNT (AUTO) 494 /CMM (150-450); RED BLOOD CELL COUNT(AUTO) 2.86 MIL/uL (4.0-5.2); WHITE BLOOD COUNT (AUTO) 15.9 K/uL (4.3-11.0)
[2018-06-28 06:50] LABS: CREATININE 0.7 mg/dL (0.6-1.3); MAGNESIUM 2.1 mg/dL (1.8-2.4); PHOSPHORUS 3.4 mg/dL (2.5-4.9); POTASSIUM 4.1 mmol/L (3.5-5.1)
[2018-06-28] MEDS ORDERED: FEE PK DOSING 1 MIN EA MC ONE (07:19)
--- NOTE | 2018-06-28 07:39 | NUR ---
RN/TELE NOTES: AM BS 408/412/410. PAGEManolo BLACKMON ANIMAL CONTROL OFFICER W/ ORDERS TO CHANGE HER IVF TO NS @ 75 ML/HR. CRITICAL GLUCOSE OF 431 BY LAB AT 06:50 BY JUDITH. PAGEManolo BLACKMON NP . ENDORSE TO AM SHIFT TO F/U UP.
[2018-06-28 08:00] VITALS: BP 138/54
[2018-06-28] MEDS ORDERED: DEXTROSE 50%-WATER 50 ML DISP.SYRIN IV PRN (09:00)
[2018-06-28] MEDS: PANTOPRAZOLE 40 MG VIAL IV SCH (09:41)
[2018-06-28] MEDS ORDERED: INSU100I26 SQ (10:01)
[2018-06-28] MEDS ORDERED: CRAN450C PO (10:01)
[2018-06-28] MEDS ORDERED: CARV3.12 PO (10:01)
[2018-06-28] MEDS ORDERED: CRAN3875 PO (10:01)
[2018-06-28] MEDS: MEROPENEM 1 G in IV NS 0.9% 100 ML IV SCH ×2 (10:10→23:19)
[2018-06-28] MEDS: VANCOMYCIN 500 MG in IV D5W 100 ML IV SCH ×2 (10:10→21:40)
[2018-06-28 12:00] VITALS: BP 141/60
[2018-06-28] MEDS: *INSULIN REGULAR(HUMULIN R)HUM 100 UNIT/ML VIAL SQ PRN ×4 (12:01→21:52)
[2018-06-28] MEDS: BLOOD SUGAR DIAGNOSTIC 1 EACH STRIP VI SCH ×3 (12:13→21:51)
[2018-06-28 16:00] VITALS: BP 148/65
[2018-06-28 20:00] VITALS: BP 130/57
--- NOTE | 2018-06-28 20:00 | NUR ---
AGENCY MANAGER OPENING NOTES RECEIVED REPORT FROM FINESSE Parker RN. PATIENT A/A/O X1 TO NAME W/ SOME CONFUSION NOTED BUT ABLE TO MAKE SOME NEEDS KNOWN & STATE PAIN. BREATHING EVEN & UNLABORED, TOLERATING ROOM AIR. ON TELE W/ SINUS RHYTHM, HR 88. RIGHT UPPER ARM PICC LINE INTACT & PATENT W/ DRESSING CDI & IVF NS @ 75 ML/HR. PEOPLES CATH DRAINING YELLOW URINE. DENIES ANY PAIN OR DISCOMFORT @ THIS TIME. SAFETY MEASURES IN PLACE W/ SIDE RAILS UP & BED ALARM. HOB ELEVATED FOR ASPIRATION PRECAUTIONS. WILL CONTINUE TO MONITOR.
[2018-06-28] MEDS: METRONIDAZOLE 250 MG TABLET PO SCH (20:28)
[2018-06-28] MEDS: ENOXAPARIN SODIUM 40 MG/0.4 ML DISP.SYRIN SQ SCH (20:28)
[2018-06-28] MEDS: FLUCONAZOLE IN NS,PREMIX 200 MG in PREMIX 1 EA IV SCH ×2 (20:28)
[2018-06-28] MEDS: INSULIN GLARGINE, 100 UNIT/ML CARTRIDGE SQ SCH (21:50)
[2018-06-28] MEDS ORDERED: INSULIN GLARGINE, 100 UNIT/ML CARTRIDGE SQ SCH (22:00)
[2018-06-29] VITALS: BP 140/59
[2018-06-29 04:00] VITALS: BP 148/69
[2018-06-29] MEDS: METRONIDAZOLE 250 MG TABLET PO SCH ×3 (05:00→21:08)
[2018-06-29] MEDS: IV NS 0.9% 1,000 ML IV PRN (05:30)
--- NOTE | 2018-06-29 07:05 | NUR ---
WOUND CARE CONSULT WOUND CARE RECEIVED CONSULT FOR WOUNDS. WOUND CARE WILL DEFER CONSULT AND ALL TREATMENT PLANS TO PLASTIC SURGICAL TEAM INCLUDING DPM THEY ARE CURRENTLY FOLLOWING THIS PATIENT. PATIENT WITH CURRENT MARY AT 12. ALL PRESSURE ULCER PREVENTION MEASURES ARE NOTED TO BE IN PLACE. WILL SEE PRN.
[2018-06-29 08:00] VITALS: BP 142/74
--- NOTE | 2018-06-29 08:00 | NUR ---
HAT STOCK LAMINATING MACHINE OPERATOR NOTE RECEIVED PATIENT IN BED ALERT , ORIENTED X2 WITH SOME CONFUSION, WITH PEOPLES CATH TO GRAVITY WITH YELLOW COLOR URINE, RT UPPER ARM PICC LINE, ON TELE MONITOR SER BED IN LOWEST AND LOCKED POSITION, CALLED TO SHIN RN SALES AND MARKETING EXECUTIVE NOTIFIED THAT BLOOD SUGAR 470 MG\DL WITH NEW ORDER ADDITION 20 UNITS INSULIN GIVE AFTER 10 UNITS PER SLIDING SCALE WILL F\U , ALSO C\O PAIN HEADACHE, TYLENOL PO GIVEN ORDERED Addendum: 06/29/18 at 0954 by VARUN DOMINGUEZ RN VANCO LEVEL 10 ADMONISHED VANCOMYCIN ORDERED
[2018-06-29 08:18] LABS: CALCIUM, SERUM 8.7 mg/dL (8.5-10.1); CREATININE 0.7 mg/dL (0.6-1.3); MAGNESIUM 1.7 mg/dL (1.8-2.4); PHOSPHORUS 2.6 mg/dL (2.5-4.9); POTASSIUM 3.6 mmol/L (3.5-5.1)
[2018-06-29] MEDS: DAKINS QUARTER STRENGTH (0.125%) 480 ML BOTTLE TOP SCH (08:31)
[2018-06-29] MEDS: ACETAMINOPHEN 325 MG TABLET PO PRN (08:32)
[2018-06-29] MEDS: VANCOMYCIN 500 MG in IV D5W 100 ML IV SCH ×2 (08:32→21:53)
[2018-06-29] MEDS: BLOOD SUGAR DIAGNOSTIC 1 EACH STRIP VI SCH ×4 (08:32→21:31)
[2018-06-29] MEDS: PANTOPRAZOLE 40 MG VIAL IV SCH (08:32)
[2018-06-29 08:33] LABS: BASOPHILS # (AUTO) 0.1 /CMM (0.0-0.2); BASOPHILS % (AUTO) 0.6 % (0.0-2.0); EOSINOPHILS % (AUTO) 0.6 % (0.0-6.0); HEMATOCRIT 26 % (33-45); HEMOGLOBIN 8.1 g/dL (11.5-14.8); LYMPHOCYTES # (AUTO) 1.2 /CMM (0.8-4.8); LYMPHOCYTES % (AUTO) 11.3 % (20.0-44.0); MEAN CORPUSCULAR HGB CONC 31 g/dl (31.0-36.0); MEAN CORPUSCULAR VOLUME 88 fL (82-100); MONOCYTES # (AUTO) 0.4 /CMM (0.1-1.30); MONOCYTES % (AUTO) 3.6 % (2.0-12.0); NEUTROPHILS # (AUTO) 9.3 /CMM (1.8-8.9); NEUTROPHILS % (AUTO) 83.9 % (43.0-81.0); PLATELET COUNT (AUTO) 481 /CMM (150-450); WHITE BLOOD COUNT (AUTO) 11.1 K/uL (4.3-11.0)
[2018-06-29] MEDS: *INSULIN REGULAR(HUMULIN R)HUM 100 UNIT/ML VIAL SQ PRN ×2 (08:33→21:34)
[2018-06-29] MEDS: INSULIN REGULAR, HUMAN 100 UNIT/ML 3 ML VIAL SQ PRN ×3 (08:58→17:26)
[2018-06-29] MEDS ORDERED: INSULIN REGULAR, HUMAN 100 UNIT/ML 3 ML VIAL SQ ONE (09:00)
[2018-06-29] MEDS: MEROPENEM 1 G in IV NS 0.9% 100 ML IV SCH ×2 (10:17→22:04)
[2018-06-29] MEDS: Magnesium 1GM/D5W 100ML PREMIX 100 ML IV SCH ×2 (11:12→12:24)
[2018-06-29 12:00] VITALS: BP 121/64
--- NOTE | 2018-06-29 12:30 | NUR ---
FIELD IDENTIFICATION SPECIALIST NOTE DR BARAKAT CALLED TO FAMILY TO GET CONSENT FOR DEBRIDEMENT,LEFT A MESSAGE
--- NOTE | 2018-06-29 14:12 | NUR ---
VETERINARY PHYSIOLOGIST NOTE SHIN CHANG MAIL ORDER CLERK AT BEDSIDE AWARE THAT BLOOD SUGAR GET BETTER SALTED IF LOW BLOOD SUGAR LIKE 79 STILL GIVE LANTUS ORDERED
--- NOTE | 2018-06-29 15:02 | NUR ---
RETINAL ANGIOGRAPHER NOTE TELEPHONE CONSENT FOR DEBRIDEMENT OBTAINED ORDERED SPOKE WITH STEVIE
[2018-06-29 16:00] VITALS: BP 151/69
--- NOTE | 2018-06-29 16:54 | NUR ---
CHIEF ENGINEERING DIVISION NOTE DR BARAKAT AT BEDSIDE RT HIP DEBRIDEMENT DONE ,KEEP CLEAN DRY
--- NOTE | 2018-06-29 18:42 | NUR ---
WEAVING MACHINE OPERATOR NOTE FED BY MEDICAL RECORDS AUDITOR , ALL NEEDS ATTENDED, CONT ON IVF ORDERED CALL LIGHT WITHIN REACH
--- NOTE | 2018-06-29 19:30 | NUR ---
TELE HEAD SUGAR REPROCESS OPERATOR INITIAL NOTES RECEIVED REPORT FROM AM NURSE VARUN WHILE CHECKING THE PATIENT AT THE SAME TIME. SHE'S AWAKE AND ALERT WITH IVF INFUSING AT THIS TIME ON HER RIGHT UPPER PICC LINE. DENIES ANY PAIN OR ANY DISCOMFORT. RE-ORIENTED WHERE SHE AT AND HOW TO USED THE CALL LIGHT SYSTEM AND PT UNDERSTOOD WELL. SKIN WARM AND DRY TO TOUCH. DRESSING ON HER LEFT HIP AND LOWER LEGS DRY AND INTACT. NO SIGNS OF ANY ACUTE DISTRESS OR ANY DISCOMFORT NOTED. KEPT HER WARM AND COMFORTABLE AT ALL TIMES,. WILL CONTINUE MONITORING. PLACE CALL LIGHT AT REACH BED ALARM SET FOR SAFETY.
[2018-06-29] MEDS: FLUCONAZOLE IN NS,PREMIX 200 MG in PREMIX 1 EA IV SCH ×2 (20:46)
[2018-06-29] MEDS: ENOXAPARIN SODIUM 40 MG/0.4 ML DISP.SYRIN SQ SCH (21:01)
--- NOTE | 2018-06-29 21:30 | NUR ---
TELE JAIL MANAGER NOTES' BLOOD SUGAR CHECKED DONE 323. 34 UNITS OF LANTUS GIVEN VILMA SQ ORDERED AND 8 UNITS OF REGULAR INSULIN. SNACKS ASLO SERVED. AND PT ON IVF NS AT 75ML/HR. NO SIGNS OF HYPER GLYCEMIA NOTED. WILL CONTINUE MONITORING.
[2018-06-29] MEDS: INSULIN GLARGINE, 100 UNIT/ML CARTRIDGE SQ SCH (21:31)
[2018-06-29 22:33] VITALS: BP 142/65
[2018-06-30 00:31] VITALS: BP 151/73
[2018-06-30 04:00] VITALS: BP 157/73
[2018-06-30] MEDS: ACETAMINOPHEN 325 MG TABLET PO PRN (04:08)
[2018-06-30] MEDS: METRONIDAZOLE 250 MG TABLET PO SCH ×3 (05:12→21:23)
[2018-06-30] MEDS: IV NS 0.9% 1,000 ML IV PRN ×2 (05:32→22:55)
--- NOTE | 2018-06-30 06:00 | NUR ---
TELE BAND STRAIGHTENER NOTES BLOOD SUGAR 113, NO INSULIN COVERAGES GIVEN , NO SIGNS OF HYPO GLYCEMIA NOTED. MORNING CARE DONE WELL WOUND TREATMENT. NO SIGNS OF HYPO GLYCEMIA NOTED WILL CONTINUE MONITORING.
[2018-06-30] MEDS: INSULIN REGULAR, HUMAN 100 UNIT/ML 3 ML VIAL SQ PRN ×2 (06:19→12:49)
[2018-06-30] MEDS: BLOOD SUGAR DIAGNOSTIC 1 EACH STRIP VI SCH ×4 (06:23→22:37)
[2018-06-30 06:44] LABS: BASOPHILS % (AUTO) 0.5 % (0.0-2.0); EOSINOPHILS % (AUTO) 1.3 % (0.0-6.0); HEMATOCRIT 24 % (33-45); HEMOGLOBIN 7.8 g/dL (11.5-14.8); LYMPHOCYTES # (AUTO) 1.3 /CMM (0.8-4.8); LYMPHOCYTES % (AUTO) 12.2 % (20.0-44.0); MEAN CORPUSCULAR HGB CONC 33 g/dl (31.0-36.0); MEAN CORPUSCULAR VOLUME 84 fL (82-100); MONOCYTES # (AUTO) 0.6 /CMM (0.1-1.30); MONOCYTES % (AUTO) 5.7 % (2.0-12.0); NEUTROPHILS # (AUTO) 8.4 /CMM (1.8-8.9); NEUTROPHILS % (AUTO) 80.3 % (43.0-81.0); PLATELET COUNT (AUTO) 491 /CMM (150-450); RED BLOOD CELL COUNT(AUTO) 2.86 MIL/uL (4.0-5.2); WHITE BLOOD COUNT (AUTO) 10.5 K/uL (4.3-11.0)
--- NOTE | 2018-06-30 06:45 | NUR ---
TELE WEIGHT LOSS CENTRE MANAGER CLOSING NOTES PT BACK TO SLEEP AFTER MORNING CARE DONE . STABLE VILMA THE NIGHT AND SLEPT WELL. NO SIGNS OF ANY ACUTE DISTRESS . ALL DUE MEDS GIVEN AND ALL NEEDS MET. TELE SR PER MONITOR, VITAL SIGNS WITHIN NORMAL LIMIT ON SEMI FOWLERS POSITION WITH SIDE RAILS X2 UP AND BED IN LOW AND LOCK IN POSITION. IVF NS AT 75ML/HR STILL INFUSING ON HER UPPER ARM PICC LINE. PEOPLES TO GRAVITY. KEPT HER WARM AND COMFORTABLE AT ALL TIMES. PLACE CALL LIGHT AT REACH. WILL ENDORSE TO AM NURSE FOR CONTINUITY OF CARE . PLACE CALL LIGHT AT REACH.
[2018-06-30 07:06] LABS: CALCIUM, SERUM 8.6 mg/dL (8.5-10.1); CREATININE 0.6 mg/dL (0.6-1.3); MAGNESIUM 1.8 mg/dL (1.8-2.4); PHOSPHORUS 2.2 mg/dL (2.5-4.9); POTASSIUM 3.1 mmol/L (3.5-5.1)
--- NOTE | 2018-06-30 07:10 | NUR ---
NIGHT AUDITOR OPENING NOTES RECEIVED REPORT FROM PM NURSE . PATIENT IS AXOX1 WITH PERIODS OF CONFUSION.AWAKE .ON TELE MONITOR SR HR 79. IVF INFUSING AT THIS TIME ON HER RIGHT UPPER PICC LINE. DENIES ANY SOB/DISCOMFORT AT THIS TIME. RE-ORIENTED WHERE SHE AT AND HOW TO USED THE CALL LIGHT SYSTEM AND PATIENT VERBALIZED UNDERSTANDING.BED ALARM ON. SKIN IS PALE AND WARM TO TOUCH. DRESSING ON HER LEFT HIP AND LOWER LEGS DRY AND INTACT.BED IS LOW AND IN LOCKED POSITION.CALL LIGHT IN REACH.SRX3.WILL CONTINUE TO MONITOR.
[2018-06-30 08:00] VITALS: BP 129/67
[2018-06-30] MEDS: VANCOMYCIN 500 MG in IV D5W 100 ML IV SCH ×2 (08:26→21:25)
[2018-06-30] MEDS: PANTOPRAZOLE 40 MG VIAL IV SCH (08:27)
[2018-06-30] MEDS: DAKINS QUARTER STRENGTH (0.125%) 480 ML BOTTLE TOP SCH (08:29)
[2018-06-30] MEDS: MEROPENEM 1 G in IV NS 0.9% 100 ML IV SCH ×2 (10:28→22:29)
[2018-06-30 12:00] VITALS: BP 148/80
[2018-06-30] MEDS: POTASSIUM CHLORIDE 20 MEQ POWDER PACKET PO SCH ×2 (12:48→14:09)
[2018-06-30] MEDS ORDERED: K PHOS NEUTRAL 250 MG TABLET PO ONE (13:30)
--- NOTE | 2018-06-30 14:00 | NUR ---
BINDERY OPERATOR NOTE SEEN BY LETA HANNA,UPDATED ABOUT PATIENT CONDITION.MADE AWARE ABOUT REQUEST FROM FAMILY TO CALL THEM FOR UPDATE .WILL CONTINUE TO MONITOR.
[2018-06-30 16:00] VITALS: BP 126/85
--- NOTE | 2018-06-30 18:55 | NUR ---
PHYSICIAN ANESTHESIOLOGIST CLOSING NOTE PATIENT IN STABLE CONDITION,HAD ONE EPISODE OF V TACH FOR 5 SEC.PATIENT DENIED CHEST PAIN.ENDORSED TO PM NURSE TO CONTINUE TO MONITOR.
[2018-06-30 20:00] VITALS: BP 154/75
--- NOTE | 2018-06-30 20:00 | NUR ---
PROCUREMENT TECHNICIAN NOTES RECEIVED PT ON BED. A/O X 1 CONFUSED. ON TELE MONITOR SR. ON FC DRAINING YELLOW URINE. ON NASAL CANNULA 2LPM NO RESPIRATORY DISTRESS NOTED. IV ACCESS HUSSEIN PICC WITH NS RUNNING @ 75CC/HR , PATENT AND INTACT LINE. HEAD OF BED ELEVATED. SIDE RAILS UP. CALL LIGHT WITHIN REACH. BED ALARM ON. WILL CONTINUE TO MONITOR PT CLOSELY.
[2018-06-30] MEDS: FLUCONAZOLE IN NS,PREMIX 200 MG in PREMIX 1 EA IV SCH ×2 (20:03)
[2018-06-30] MEDS: ENOXAPARIN SODIUM 40 MG/0.4 ML DISP.SYRIN SQ SCH (21:25)
--- NOTE | 2018-06-30 22:00 | NUR ---
BUYER NOTES PAGED GUIDE TRAVEL FOR RESTRAINTS ORDER. PT REMOVING LINES AND FC. WILL MONITOR PT CLOSELY.
[2018-06-30] MEDS: INSULIN GLARGINE, 100 UNIT/ML CARTRIDGE SQ SCH (22:37)
[2018-06-30] MEDS: *INSULIN REGULAR(HUMULIN R)HUM 100 UNIT/ML VIAL SQ PRN (22:38)
[2018-07-01] VITALS: BP 140/81
[2018-07-01] MEDS: LORAZEPAM INJ 2 MG/ML VIAL IV PRN (02:31)
[2018-07-01 04:00] VITALS: BP 150/83
[2018-07-01] MEDS: METRONIDAZOLE 250 MG TABLET PO SCH ×3 (04:30→21:33)
[2018-07-01 06:29] LABS: BASOPHILS % (AUTO) 0.3 % (0.0-2.0); EOSINOPHILS % (AUTO) 1.6 % (0.0-6.0); HEMATOCRIT 26 % (33-45); HEMOGLOBIN 8.5 g/dL (11.5-14.8); LYMPHOCYTES # (AUTO) 1.6 /CMM (0.8-4.8); LYMPHOCYTES % (AUTO) 18.1 % (20.0-44.0); MEAN CORPUSCULAR HGB CONC 33 g/dl (31.0-36.0); MEAN CORPUSCULAR VOLUME 83 fL (82-100); MONOCYTES # (AUTO) 0.7 /CMM (0.1-1.30); MONOCYTES % (AUTO) 7.4 % (2.0-12.0); NEUTROPHILS # (AUTO) 6.5 /CMM (1.8-8.9); NEUTROPHILS % (AUTO) 72.6 % (43.0-81.0); PLATELET COUNT (AUTO) 508 /CMM (150-450); RED BLOOD CELL COUNT(AUTO) 3.09 MIL/uL (4.0-5.2)
--- NOTE | 2018-07-01 06:38 | NUR ---
BATTERY WRECKER OPERATOR NOTES NO ACUTE CHANGES NOTED DURING THE SHIFT. PROVIDED COMFORT AND SAFETY. WILL ENDORSE TO THE AM NURSE FOR CONTINUITY OF CARE.
[2018-07-01 06:40] LABS: CALCIUM, SERUM 8.3 mg/dL (8.5-10.1); CREATININE 0.4 mg/dL (0.6-1.3); POTASSIUM 3.3 mmol/L (3.5-5.1)
--- NOTE | 2018-07-01 07:00 | NUR ---
TUMBLING INSTRUCTOR OPENING NOTES RECEIVED REPORT FROM PM NURSE . PATIENT IS AXOX1 WITH PERIODS OF CONFUSION.AWAKE .ON TELE MONITOR SR HR 82. IVF INFUSING AT THIS TIME ON HER RIGHT UPPER PICC LINE. DENIES ANY SOB/DISCOMFORT AT THIS TIME.BED ALARM ON. SKIN IS PALE AND WARM TO TOUCH. DRESSING ON HER LEFT HIP AND LOWER LEGS DRY AND INTACT.BED IS LOW AND IN LOCKED POSITION.CALL LIGHT IN REACH.WILL CONTINUE TO MONITOR.
[2018-07-01 08:00] VITALS: BP 170/76
[2018-07-01] MEDS: PANTOPRAZOLE 40 MG VIAL IV SCH (08:01)
[2018-07-01] MEDS: VANCOMYCIN 500 MG in IV D5W 100 ML IV SCH ×2 (08:02→22:41)
[2018-07-01] MEDS: DAKINS QUARTER STRENGTH (0.125%) 480 ML BOTTLE TOP SCH (08:04)
[2018-07-01] MEDS: BLOOD SUGAR DIAGNOSTIC 1 EACH STRIP VI SCH ×4 (08:21→21:40)
[2018-07-01] MEDS: MEROPENEM 1 G in IV NS 0.9% 100 ML IV SCH ×2 (09:57→22:41)
[2018-07-01] MEDS: POTASSIUM CL. PREMIX PERIPHER. 50 ML IV SCH ×2 (12:39→15:04)
[2018-07-01] MEDS: INSULIN REGULAR, HUMAN 100 UNIT/ML 3 ML VIAL SQ PRN ×2 (12:42→19:24)
[2018-07-01 16:00] VITALS: BP 170/76
[2018-07-01] MEDS ORDERED: ALTEPLASE CATHFLO 2 MG/VIAL XX STA (18:18)
--- NOTE | 2018-07-01 18:51 | NUR ---
MS RN CLOSING NOTES PT ENDORSED TO PM SHIFT FOR MIRANDA. PICC LINE NURSE AT BEDSIDE. PT NOT IN DISTRESS AT THIS TIME. UPDATED ON PT CARE TODAY. TX RENDERED ORDERED. ALL NEEDS ATTENDED TO. CALL LIGHT IN REACH. SAFETY PRECUATIONS AND ISOLATION PRECAUTIONS MAINTAINED.
[2018-07-01 20:00] VITALS: BP 150/80
--- NOTE | 2018-07-01 20:00 | NUR ---
OIL FIELD EQUIPMENT MECHANIC OPENING NOTES RECEIVED REPORT FROM AM RN . PATIENT IS AXOX2 WITH PERIODS OF CONFUSION.AWAKE .ON TELE MONITOR SR HR 70'S. IVF INFUSING AT THIS TIME ON HER RIGHT UPPER PICC LINE. DENIES ANY SOB/DISCOMFORT AT THIS TIME.BED ALARM ON. SKIN IS PALE AND WARM TO TOUCH. DRESSING ON HER LEFT HIP AND LOWER LEGS DRY AND INTACT.BED IS LOW AND IN LOCKED POSITION.CALL LIGHT IN REACH.WILL CONTINUE TO MONITOR.
[2018-07-01] MEDS: FLUCONAZOLE IN NS,PREMIX 200 MG in PREMIX 1 EA IV SCH ×2 (21:10)
[2018-07-01] MEDS: IV NS 0.9% 1,000 ML IV PRN (21:11)
[2018-07-01] MEDS: ENOXAPARIN SODIUM 40 MG/0.4 ML DISP.SYRIN SQ SCH (21:35)
[2018-07-01] MEDS: INSULIN GLARGINE, 100 UNIT/ML CARTRIDGE SQ SCH (21:40)
[2018-07-02 00:33] VITALS: BP 104/60
[2018-07-02 04:00] VITALS: BP 160/68
[2018-07-02] MEDS: METRONIDAZOLE 250 MG TABLET PO SCH ×3 (04:24→22:17)
[2018-07-02 04:40] VITALS: BP 145/68
--- NOTE | 2018-07-02 06:28 | NUR ---
APPRENTICE ARCHITECT CLOSING NOTES ENDORSED PATIENT ASLEEP, AXOX2 WITH PERIODS OF CONFUSION.AWAKE .ON TELE MONITOR SR HR 70'S. IVF INFUSING AT THIS TIME ON HER RIGHT UPPER PICC LINE. DENIES ANY SOB/DISCOMFORT AT THIS TIME.BED ALARM ON. SKIN IS PALE AND WARM TO TOUCH. DRESSING ON HER LEFT HIP AND LOWER LEGS DRY AND INTACT.BED IS LOW AND IN LOCKED POSITION.CALL LIGHT IN REACH.WILL CONTINUE TO MONITOR.
--- NOTE | 2018-07-02 07:30 | NUR ---
MS RN Opening Notes Patient awake, resting in bed. Alert and oriented x2, reorientation needed but able to make needs known. No complaints of pain at this time. No acute events this shift. Respirations even and unlabored on 2 L oxygen via nasal cannula, no acute distress noted. PICC line to the right upper arm intact, patent and infusing fluids as ordered. Updated patient on current plan of care and safety measures. Safety and fall precautions in place: bed in lowest and locked position, side rails up x2, bed alarm on, call light and personal possessions within reach. Multiple attempts of removal of lines this shift, trying to get out of bed. Frequent reorientation needed. Bilateral soft wrist restraints in place, rounding and interventions performed every 2 hours. Will continue to monitor and intervene as needed.
[2018-07-02 08:00] VITALS: BP 109/71
[2018-07-02] MEDS: BLOOD SUGAR DIAGNOSTIC 1 EACH STRIP VI SCH ×4 (08:07→22:31)
[2018-07-02] MEDS: INSULIN REGULAR, HUMAN 100 UNIT/ML 3 ML VIAL SQ PRN ×3 (08:19→17:54)
[2018-07-02] MEDS: DAKINS QUARTER STRENGTH (0.125%) 480 ML BOTTLE TOP SCH (08:32)
[2018-07-02 08:33] LABS: BASOPHILS % (AUTO) 0.5 % (0.0-2.0); EOSINOPHILS % (AUTO) 1.3 % (0.0-6.0); HEMATOCRIT 27 % (33-45); HEMOGLOBIN 8.6 g/dL (11.5-14.8); LYMPHOCYTES # (AUTO) 1.3 /CMM (0.8-4.8); LYMPHOCYTES % (AUTO) 18.1 % (20.0-44.0); MEAN CORPUSCULAR HGB CONC 32 g/dl (31.0-36.0); MEAN CORPUSCULAR VOLUME 83 fL (82-100); MONOCYTES # (AUTO) 0.5 /CMM (0.1-1.30); MONOCYTES % (AUTO) 7.4 % (2.0-12.0); NEUTROPHILS # (AUTO) 5.1 /CMM (1.8-8.9); NEUTROPHILS % (AUTO) 72.7 % (43.0-81.0); PLATELET COUNT (AUTO) 473 /CMM (150-450); RED BLOOD CELL COUNT(AUTO) 3.21 MIL/uL (4.0-5.2); WHITE BLOOD COUNT (AUTO) 7.1 K/uL (4.3-11.0)
[2018-07-02 08:45] LABS: CALCIUM, SERUM 8.4 mg/dL (8.5-10.1); CREATININE 0.5 mg/dL (0.6-1.3); MAGNESIUM 1.7 mg/dL (1.8-2.4); PHOSPHORUS 2.1 mg/dL (2.5-4.9); POTASSIUM 3.5 mmol/L (3.5-5.1)
[2018-07-02] MEDS: PANTOPRAZOLE 40 MG VIAL IV SCH (09:00)
[2018-07-02] MEDS: VANCOMYCIN 500 MG in IV D5W 100 ML IV SCH (10:12)
[2018-07-02] MEDS: MEROPENEM 1 G in IV NS 0.9% 100 ML IV SCH ×2 (10:14→22:17)
[2018-07-02] MEDS: LINEZOLID 600 MG TABLET PO SCH ×2 (13:44→22:17)
[2018-07-02] MEDS: LEVOFLOXACIN (500MG) 500 MG TABLET PO SCH (13:44)
--- NOTE | 2018-07-02 13:44 | NUR ---
Called pharmacy about missing PO Flagyl dose, mentioned they would send up as soon as possible. Will follow-up.
[2018-07-02 16:00] VITALS: BP 109/89
[2018-07-02] MEDS ORDERED: K PHOS NEUTRAL 250 MG TABLET PO ONE (16:00)
[2018-07-02] MEDS: IV NS 0.9% 1,000 ML IV PRN (18:45)
--- NOTE | 2018-07-02 19:00 | NUR ---
MS RN Closing Notes Patient awake, resting in bed. Alert and oriented x2, reorientation needed but able to make needs known. No complaints of pain at this time. No acute events this shift. Respirations even and unlabored on 2 L oxygen via nasal cannula, no acute distress noted. PICC line to the right upper arm intact, patent and infusing fluids as ordered. Wound care rendered as ordered this shift. Updated patient on current plan of care and safety measures. Safety and fall precautions in place: bed in lowest and locked position, side rails up x2, bed alarm on, call light and personal possessions within reach. Multiple attempts of removal of lines this shift, trying to get out of bed. Frequent reorientation needed. Bilateral soft wrist restraints in place, rounding and interventions performed every 2 hours. Will endorse to BERNARDO Beatty for continuity of care.
--- NOTE | 2018-07-02 19:15 | NUR ---
MS/RN NOTES RECEIVED PT. LYING IN BED. PT. IS AWAKE, ALERT AND ORIENTED X2. BREATHING EVEN AND UNLABORED ON 2LPM O2 VIA NC. NO SOB, RESPIRATORY DISTRESS OR COMPLAINTS OF PAIN NOTED AT THIS TIME. PT. WITH RIGHT UPPER ARM PICC PRESENT, PATENT AND INTACT ADMINISTERING TO PT. NS @ 50ML/HR. PT. WITH PEOPLES CATHETER PRESENT, PATENT AND INTACT DRAINING CLEAR YELLOW URINE. BED LOCKED AND IN LOWEST POSITION, SIDE RAILS UP X3, BED ALARM ON, CALL LIGHT WITHIN REACH. SAFETY, ISOLATION AND ASPIRATION PRECAUTIONS IMPLEMENTED AND IN PLACE. WILL CONTINUE TO MONITOR FOR CHANGES.
[2018-07-02] MEDS: ENOXAPARIN SODIUM 40 MG/0.4 ML DISP.SYRIN SQ SCH (22:18)
[2018-07-02] MEDS: *INSULIN REGULAR(HUMULIN R)HUM 100 UNIT/ML VIAL SQ PRN (22:33)
[2018-07-02] MEDS: INSULIN GLARGINE, 100 UNIT/ML CARTRIDGE SQ SCH (22:34)
[2018-07-03] MEDS: METRONIDAZOLE 250 MG TABLET PO SCH ×3 (05:58→21:16)
--- NOTE | 2018-07-03 06:30 | NUR ---
MS/RN NOTES PT. IS LYING IN BED RESTING. BREATHING EVEN AND UNLABORED ON 2LPM O2 VIA NC. NO SOB, RESPIRATORY DISTRESS OR COMPLAINTS OF PAIN NOTED AT THIS TIME. PT. WITH RIGHT UPPER ARM PICC PRESENT, PATENT AND INTACT ADMINISTERING TO PT. NS @ 50ML/HR. PT. WITH PEOPLES CATHETER PRESENT, PATENT AND INTACT DRAINING CLEAR YELLOW URINE. ALL PT. NEEDS MET. PT. OFFLOADED, TURNED AND REPOSITIONED Q2H AND NEEDED. BED LOCKED AND IN LOWEST POSITION, SIDE RAILS UP X3, BED ALARM ON, CALL LIGHT WITHIN REACH. SAFETY, ISOLATION AND ASPIRATION PRECAUTIONS IMPLEMENTED AND IN PLACE. WILL ENDORSE TO DAYSHIFT NURSE FOR CONTINUITY OF CARE.
[2018-07-03 06:33] LABS: BASOPHILS % (AUTO) 0.5 % (0.0-2.0); HEMATOCRIT 27 % (33-45); HEMOGLOBIN 8.6 g/dL (11.5-14.8); LYMPHOCYTES # (AUTO) 1.4 /CMM (0.8-4.8); LYMPHOCYTES % (AUTO) 21.7 % (20.0-44.0); MEAN CORPUSCULAR HGB CONC 32 g/dl (31.0-36.0); MEAN CORPUSCULAR VOLUME 82 fL (82-100); MONOCYTES # (AUTO) 0.6 /CMM (0.1-1.30); MONOCYTES % (AUTO) 9.8 % (2.0-12.0); NEUTROPHILS # (AUTO) 4.4 /CMM (1.8-8.9); PLATELET COUNT (AUTO) 490 /CMM (150-450); RED BLOOD CELL COUNT(AUTO) 3.27 MIL/uL (4.0-5.2); WHITE BLOOD COUNT (AUTO) 6.6 K/uL (4.3-11.0)
[2018-07-03 06:45] LABS: CALCIUM, SERUM 8.4 mg/dL (8.5-10.1); CREATININE 0.4 mg/dL (0.6-1.3); PHOSPHORUS 2.7 mg/dL (2.5-4.9); POTASSIUM 3.4 mmol/L (3.5-5.1)
[2018-07-03] MEDS: BLOOD SUGAR DIAGNOSTIC 1 EACH STRIP VI SCH ×4 (07:30→21:38)
--- NOTE | 2018-07-03 07:30 | NUR ---
MS RN OPENING NOTE RECEIVED PT SITTING UP IN BED. PT IS A/OX2, ABLE TO MAKE NEEDS BASIC KNOWN AND ANSWER YES AND NO QUESTIONS. NO ACUTE DISTRESS NOTED AT THIS TIME, BREATHING IS EVEN AND UNLABORED ON 2L NC. RIGHT UPPER ARM PICC LINE IS INFUSING NS @ 50ML/HR WITHOUT REDNESS OR SWELLING. PEOPLES CATHETER NOTED TO BE DRAINING YELLOW URINE. BILATERAL SOFT WRIST RESTRAINTS RELEASED TO ALLOW FOR ROM, NEUROVASCULAR STATUS INTACT. RESTRAINTS REPLACED AND WILL CONTINUE TO MONITOR PER PROTOCOL. ASPIRATION AND CONTACT PRECAUTIONS MAINTAINED. BED IS LOCKED AND IN LOWEST POSITION, SIDE RAILS UP X2, BED ALARM ON, CALL LIGHT AND POSSESSIONS WITHIN REACH.
[2018-07-03 08:00] VITALS: BP 138/76
[2018-07-03] MEDS: INSULIN REGULAR, HUMAN 100 UNIT/ML 3 ML VIAL SQ PRN ×3 (08:54→17:46)
[2018-07-03] MEDS: PANTOPRAZOLE 40 MG VIAL IV SCH (08:56)
[2018-07-03] MEDS: LINEZOLID 600 MG TABLET PO SCH ×2 (08:58→21:15)
[2018-07-03] MEDS: MEROPENEM 1 G in IV NS 0.9% 100 ML IV SCH ×2 (09:01→21:16)
[2018-07-03] MEDS: DAKINS QUARTER STRENGTH (0.125%) 480 ML BOTTLE TOP SCH (09:02)
[2018-07-03] MEDS ORDERED: POTASSIUM CHLORIDE 20 MEQ POWDER PACKET PO SCH (09:30)
[2018-07-03] MEDS: ACETAMINOPHEN 325 MG TABLET PO PRN (12:52)
[2018-07-03] MEDS: LEVOFLOXACIN (500MG) 500 MG TABLET PO SCH (12:52)
[2018-07-03] MEDS ORDERED: POTASSIUM CHLORIDE 20 MEQ POWDER PACKET PO ONE (13:00)
[2018-07-03] MEDS: LORAZEPAM INJ 2 MG/ML VIAL IV PRN (13:04)
[2018-07-03 16:00] VITALS: BP 146/72
--- NOTE | 2018-07-03 18:33 | NUR ---
MS RN CLOSING NOTE PT SITTING UP IN BED. PT IS A/OX1-2, ABLE TO MAKE NEEDS BASIC KNOWN AND ANSWER YES AND NO QUESTIONS. NO ACUTE DISTRESS NOTED AT THIS TIME, BREATHING IS EVEN AND UNLABORED ON 2L NC. RIGHT UPPER ARM PICC LINE IS INFUSING NS @ 50ML/HR WITHOUT REDNESS OR SWELLING. PEOPLES CATHETER NOTED TO BE DRAINING YELLOW URINE. BILATERAL SOFT WRIST RESTRAINTS RELEASED TO ALLOW FOR ROM AND ADLS PER PROTOCOL, NEUROVASCULAR STATUS INTACT. ADLS PROVIDED AND PT TURNED AND REPOSITIONED Q2H FOR THE DURATION OF THE SHIFT. WOUND CARE PROVIDED ORDERED. ASPIRATION AND CONTACT PRECAUTIONS MAINTAINED. BED IS LOCKED AND IN LOWEST POSITION, SIDE RAILS UP X2, BED ALARM ON, CALL LIGHT AND POSSESSIONS WITHIN REACH. WILL ENDORSE TO GEOLOGY TECHNICIAN NURSE FOR CONTINUITY OF CARE.
--- NOTE | 2018-07-03 19:30 | NUR ---
MS RN NOTE: RECEIVED PT ON BED ALERT TO HERSELF WITH EPISODES OF CONFUSION. NO APPARENT DISTRESS NOTED. NO COMPLAINTS OF PAIN OR DISCOMFORT AT THIS TIME. NO SOB NOTED. PEOPLES CATH INTACT AND PATENT, DRAINING CLOUDY URINE. RIGHT UPPER ARM PICC LINE INTACT AND PATENT, IVF INFUSING WELL. KEPT CLEAN, DRY AND COMFORTABLE. SAFETY AND FALL PRECAUTIONS OBSERVED AND MAINTAINED. WILL CONTINUE TO MONITOR PT.
[2018-07-03 20:00] VITALS: BP_SYST 135; BP_SYST 161; BP_DIAS 65; BP_DIAS 73
[2018-07-03] MEDS: IV NS 0.9% 1,000 ML IV PRN (20:49)
[2018-07-03] MEDS: ENOXAPARIN SODIUM 40 MG/0.4 ML DISP.SYRIN SQ SCH (21:16)
[2018-07-03] MEDS: INSULIN GLARGINE, 100 UNIT/ML CARTRIDGE SQ SCH (21:38)
--- NOTE | 2018-07-03 21:39 | NUR ---
MS RN NOTE: INSULIN LANTUS HELD, BLOOD SUGAR 76MG/DL. WILL CONTINUE TO MONITOR PT.
[2018-07-04 04:00] VITALS: BP 147/68
[2018-07-04] MEDS: METRONIDAZOLE 250 MG TABLET PO SCH ×3 (05:00→22:31)
--- NOTE | 2018-07-04 06:37 | NUR ---
MS RN NOTE: NO CHANGES NOTED THROUGHOUT THE SHIFT. NO APPARENT DISTRESS NOTED. NO COMPLAINTS OF PAIN OR DISCOMFORT AT THIS TIME. NO SOB NOTED. ATTEMPTED TO TAKE OFF RESTRAINTS BUT PT STILL TRIES TO PULL OUT PICC LINE AND PEOPLES. KEPT CLEAN, DRY AND COMFORTABLE. SAFETY AND FALL PRECAUTIONS OBSERVED AND MAINTAINED. WILL ENDORSE TO DAY SHIFT RN FOR CONTINUITY OF CARE.
[2018-07-04 06:40] LABS: CALCIUM, SERUM 8.4 mg/dL (8.5-10.1); CREATININE 0.5 mg/dL (0.6-1.3); POTASSIUM 3.3 mmol/L (3.5-5.1)
--- NOTE | 2018-07-04 07:20 | NUR ---
RN OPENING NOTE RECEIVED PATIENT IN BED AWAKE AND VERY CONFUSED, A&Ox2. HAS A PEOPLES CATHETER ON GRAVITY WITH CLEAR AND YELLOW URINE. HAS A RIGHT HIP WOUND AND SACRUM AND BILATERAL BUTTOCKS DTI. HAS A RIGHT UPPER ARM PICC LINE WITH NS RUNNING AT 50ML/HR. WILL KEEP REORIENTING PATIENT, BED LOCKED AND ON LOW POSITION. CALL LIGHT WITHIN REACH. WILL CONT TO MONITOR
[2018-07-04] MEDS: BLOOD SUGAR DIAGNOSTIC 1 EACH STRIP VI SCH ×4 (07:52→22:32)
[2018-07-04 08:00] VITALS: BP 161/78
[2018-07-04] MEDS: *INSULIN REGULAR(HUMULIN R)HUM 100 UNIT/ML VIAL SQ PRN ×3 (08:08→22:46)
[2018-07-04] MEDS: PANTOPRAZOLE 40 MG VIAL IV SCH (08:55)
[2018-07-04] MEDS: LINEZOLID 600 MG TABLET PO SCH ×2 (08:55→22:32)
[2018-07-04] MEDS: DAKINS QUARTER STRENGTH (0.125%) 480 ML BOTTLE TOP SCH (09:01)
[2018-07-04] MEDS ORDERED: POTASSIUM CHLORIDE 20 MEQ POWDER PACKET PO SCH (10:00)
[2018-07-04] MEDS: MEROPENEM 1 G in IV NS 0.9% 100 ML IV SCH ×2 (10:51→22:31)
[2018-07-04] MEDS: ACETAMINOPHEN 325 MG TABLET PO PRN (11:45)
[2018-07-04] MEDS: LORAZEPAM INJ 2 MG/ML VIAL IV PRN (11:45)
[2018-07-04] MEDS: LEVOFLOXACIN (500MG) 500 MG TABLET PO SCH (12:48)
[2018-07-04 16:00] VITALS: BP 133/66
--- NOTE | 2018-07-04 19:57 | NUR ---
RN CLOSING NOTE GAVE BEDSIDE REPORT WITH NOC SHIFT RN. PATIENT IN BED AWAKE AND VERY CONFUSED. SHE IS ON BILATERAL SOFT RESTRAINTS. ON IV FLUIDS NS RUNNING AT 50 ML/HR. ON HER RIGHT UPPER ARM PICC LINE. PATIENT ATE AT LEAST 80% OF ALL HER MEALS TODAY. VERY AGITATED AT 1200 AND WAS GIVEN ATIVAN PRN. ALSO ASKED FOR TYLENOL FOR HER PAIN ON HER LEGS. PATIENT PULLED OUT HER PEOPLES CATHETER, EVEN WITH THE RESTRAINTS ON. WILL ENDORSE TO NOC SHIFT
[2018-07-04 20:00] VITALS: BP 147/69
--- NOTE | 2018-07-04 20:00 | NUR ---
RN NOTE RECEIVED PATIENT IN BED AWAKE AND VERY CONFUSED, A&Ox2. PATIENT HAS A RIGHT HIP WOUND AND SACRUM AND BILATERAL BUTTOCKS DTI. HAS A RIGHT UPPER ARM PICC LINE WITH NS RUNNING AT 50ML/HR. WILL KEEP REORIENTING PATIENT, PATIENT IS ON SOFT BLE RESTRAINTS,ALL SAFETY MEASURES ARE IN PLACE, BED LOCKED AND ON LOW POSITION. CALL LIGHT WITHIN REACH. WILL CONT TO MONITOR
[2018-07-04] MEDS: ENOXAPARIN SODIUM 40 MG/0.4 ML DISP.SYRIN SQ SCH (22:31)
[2018-07-04] MEDS: IV NS 0.9% 1,000 ML IV PRN (22:32)
[2018-07-04] MEDS: INSULIN GLARGINE, 100 UNIT/ML CARTRIDGE SQ SCH (22:45)
--- NOTE | 2018-07-04 22:45 | NUR ---
RN NOTES PATIENT'S BLOOD SUGAR IS 465, LANTUS 34UNIT AND REGULAR INSULIN 10UNITS ARE GIVE TO THE PATIENT. CALLED MD ZEPEDA AND NO NEW ORDERS AT THIS TIME. WILL RECHECK PATIENT'S BS IN 20MINUTES. WILL CONTINUE TO MONITOR PATIENT PATIENT CLOSELY.
[2018-07-05] MEDS: LORAZEPAM INJ 2 MG/ML VIAL IV PRN ×2 (02:01→16:47)
[2018-07-05 04:00] VITALS: BP 137/71
[2018-07-05] MEDS: METRONIDAZOLE 250 MG TABLET PO SCH ×3 (05:32→21:35)
[2018-07-05 06:06] VITALS: BP 137/71
[2018-07-05 06:56] LABS: CALCIUM, SERUM 9.2 mg/dL (8.5-10.1); CREATININE 0.6 mg/dL (0.6-1.3); POTASSIUM 2.9 mmol/L (3.5-5.1)
--- NOTE | 2018-07-05 07:10 | NUR ---
RN NOTES GOT A CALL FRON LAB PATIENT'S BLOOD GLUCOSE IS 34. RECHECKED AND IV PUSH DEXTROSE 50% 50ML HAS BEEN ADMINISTERED. RECHECKED AFTER 25 MINUTES AND BS WAS 135. NO ACTION NEEDED. WILL ENDORSE TO AM RN FOR CONTINUITY OF PATIENT CARE.
[2018-07-05] MEDS: BLOOD SUGAR DIAGNOSTIC 1 EACH STRIP VI SCH ×4 (07:30→22:08)
--- NOTE | 2018-07-05 07:30 | NUR ---
RN OPENING NOTE PT WAS RECEIVED IN BED AT LOWEST AND LOCKED POSITION, A/O X2, BREATHING EVEN AND UNLABORED, NO S/S OF PAIN OR DISTRESS NOTED, SAFETY PRECAUTIONS IN PLACE, CALL LIGHT WITHIN REACH, WILL MONITOR ACCORDINGLY
[2018-07-05 08:00] VITALS: BP 148/79
[2018-07-05] MEDS: INSULIN REGULAR, HUMAN 100 UNIT/ML 3 ML VIAL SQ PRN (08:34)
--- NOTE | 2018-07-05 08:35 | NUR ---
RN NOTE PT TEMP WAS NOTED TO BE 94.9, CROWD CONTROLLER ALYSSA MADE AWARE, ORDERED BEAR HUGGER AND WILL APPLY WHEN IT ARRIVES, WILL MONITOR ACCORDINGLY
[2018-07-05] MEDS: PANTOPRAZOLE 40 MG VIAL IV SCH (08:44)
[2018-07-05] MEDS: LINEZOLID 600 MG TABLET PO SCH (08:44)
[2018-07-05] MEDS: DAKINS QUARTER STRENGTH (0.125%) 480 ML BOTTLE TOP SCH (08:46)
[2018-07-05] MEDS: MEROPENEM 1 G in IV NS 0.9% 100 ML IV SCH (09:00)
[2018-07-05] MEDS: POTASSIUM CHLORIDE 20 MEQ TAB.PRT.SR PO SCH ×3 (09:30→11:30)
--- NOTE | 2018-07-05 12:00 | NUR ---
RN NOTE TEMP WAS RETAKEN AND NOTED TO BE 97.9 AT THIS TIME, WILL MONITOR ACCORDINGLY
[2018-07-05] MEDS: LEVOFLOXACIN (500MG) 500 MG TABLET PO SCH (12:31)
[2018-07-05 12:50] VITALS: BP 148/79
[2018-07-05] MEDS: ACETAMINOPHEN 325 MG TABLET PO PRN (13:33)
[2018-07-05] MEDS ORDERED: AMOXICILLIN TRIHYDRATE 500 MG CAPSULE PO SCH (14:00)
[2018-07-05] MEDS: FLUCONAZOLE (100 MG) 100 MG TABLET PO SCH (14:22)
[2018-07-05] MEDS: AMOXICILLIN TRIHYDRATE 250 MG CAPSULE PO SCH ×2 (14:22→22:00)
[2018-07-05 16:00] VITALS: BP 145/76
--- NOTE | 2018-07-05 16:47 | NUR ---
RN NOTE PT AGITATED AT THIS TIME, PRN ATIVAN GIVEN, WILL MONITOR ACCORDINGLY
--- NOTE | 2018-07-05 17:23 | NUR ---
RN NOTE NO COVERAGE GIVEN AT THIS TIME FOR BLOOD SUGAR OF 163 DUE TO LOW APPETITE AT THIS TIME. CHARGE NURSE ALYSSA WAS CONSULTED AND SHE SAID TO HOLD COVERAGE AND JUST CONTINUE TO MONITOR.
--- NOTE | 2018-07-05 18:29 | NUR ---
RN CLOSING NOTE PT IN BED AT LOWEST AND LOCKED POSITION WITH SIDE RAILS UP X2, PT RESTING COMFORTABLY, BREATHING EVEN AND UNLABORED, NO S/S OF PAIN OR DISTRESS, IV PATENT AND INTACT, SAFETY PRECAUTIONS IN PLACE, CALL LIGHT WITHIN REACH, ALL NEEDS ATTENDED TO, WILL ENDORSE TO INSIDE SALES ASSISTANT RN FOR MIRANDA.
--- NOTE | 2018-07-05 19:05 | NUR ---
MS/RN INITIAL NOTES RECEIVED PT IN BED, ALERT AND VERBALLY RESPONSIVE, CONFUSED. ON ROOM AIR, NO SOB NOTED. NO C/O PAIN AT THIS TIME. WITH ONGOING IVF NS AT 50 ML/HR INFUSING WELL ON HUSSEIN PICC LINE. WITH BILATERAL SOFT WRIST RESTRAINT. NO SKIN TEAR AND COMPROMISE CIRCULATION NOTED. SAFETY MEASURES IN PLACED. CALL LIGHT WITHIN EASY REACH. WILL CONT TO MONITOR
[2018-07-05 20:00] VITALS: BP 145/76
[2018-07-05] MEDS: ENOXAPARIN SODIUM 40 MG/0.4 ML DISP.SYRIN SQ SCH (21:36)
[2018-07-05] MEDS ORDERED: INSULIN GLARGINE, 100 UNIT/ML CARTRIDGE SQ SCH (22:00)
--- NOTE | 2018-07-05 22:00 | NUR ---
RN NOTES 2199 DUE AMOX PO NOT GIVEN. CALLED PHARMACY RE: 2199 DUE AMOXICILLIN, MEDS NOT AVAILABLE IN THE OMNICELL, PER PHARMACIST MED NOT AVAILABLE TO OVERRIDE VIA CHARGE NURSE AND DRIVING SCHOOL INSTRUCTOR'S NIGHT LOCKER. BLOOD FJIBR=749. ROUTINE INSULIN GLARGINE AND REGULAR INSULIN COVERAGE HELD. PT'S BLOOD SUGAR TRENDS DOWN PER LAST ACCUCHECK = 163, COVERAGE NOT GIVEN AND PT REFUSED SNACKS AT THIS TIME. WILL CONT TO MONITOR
[2018-07-06] MEDS: IV NS 0.9% 1,000 ML IV PRN (03:07)
[2018-07-06 04:00] VITALS: BP 143/75
[2018-07-06] MEDS: METRONIDAZOLE 250 MG TABLET PO SCH ×2 (04:53→15:27)
[2018-07-06] MEDS: AMOXICILLIN TRIHYDRATE 250 MG CAPSULE PO SCH ×2 (06:00→15:27)
--- NOTE | 2018-07-06 07:03 | NUR ---
RN NOTES PT IN STABLE CONDITION. NO ACUTE CHANGES THROUGHOUT SHIFT. ALL NEEDS ANTICIPATED. ON JEANA SOFT WRIST RESTRAINT FOR SAFETY. IVF NS AT 50 ML/HR RUNNING ON HUSSEIN MIDLINE. SAFETY MEASURES OBSERVED AT ALL TIMES. ALL NEEDS ANTICIPATED. ENDORSED TO AM SHIFT RN FOR MIRANDA
[2018-07-06] MEDS: INSULIN REGULAR, HUMAN 100 UNIT/ML 3 ML VIAL SQ PRN (07:53)
[2018-07-06] MEDS: BLOOD SUGAR DIAGNOSTIC 1 EACH STRIP VI SCH ×2 (07:54→12:11)
[2018-07-06 08:00] VITALS: BP 141/64
[2018-07-06] MEDS: PANTOPRAZOLE 40 MG VIAL IV SCH (09:53)
[2018-07-06] MEDS: DAKINS QUARTER STRENGTH (0.125%) 480 ML BOTTLE TOP SCH (10:05)
[2018-07-06] MEDS: LORAZEPAM INJ 2 MG/ML VIAL IV PRN (11:15)
--- NOTE | 2018-07-06 12:48 | NUR ---
MS RN NOTES PT"S CALLED RE: TRANSFER; NO ANSWER MAILBOX IS FULL. WILL ATTEMPT AGAIN.
[2018-07-06] MEDS: LEVOFLOXACIN (500MG) 500 MG TABLET PO SCH (12:55)
--- NOTE | 2018-07-06 14:30 | NUR ---
MS RN NOTES REPORT CALLED IN TO KIANNA HUBBARD CLERK/NURSE AT [facility]. PER NURSE, OK TO REMOVE PICC LINE PRIOR TO DISCHARGE.
[2018-07-06] MEDS: FLUCONAZOLE (100 MG) 100 MG TABLET PO SCH (15:26)
--- NOTE | 2018-07-06 16:10 | NUR ---
MS RN NOTES PT LEFT WITH AMBULANCE CREW. PICC LINE REMOVED. WOUND PICS TAKEN. WOUND TX DONE. ALL NEEDS ATTENDED TO. UNABLE TO REACH .
[2018-07-06] MEDS ORDERED: LACTOBACILLUS RHAMNOSUS GG 1 EACH CAP.SPRINK PO SCH (17:00)
[2018-07-22] MEDS ORDERED: CEFE1PIG3 IV (08:33)
== END 2018-07-06 18:23 | DRG 853 ==
LOC: ER 18:05 → TELE1 20:44 → MEDSG1 07-01 09:45
PROVIDERS: ADMIT Nurse Practitioner Acute Care; ATTEND Internal Medicine
PROC: 0KBN0ZZ Excision of Right Hip Muscle, Open Approach (ICD-10-PCS; principal; 2018-06-29)
DX: A41.9 Sepsis, unspecified organism (principal); L89.214 Pressure ulcer of right hip, stage 4; E43 Unspecified severe protein-calorie malnutrition; J69.0 Pneumonitis due to inhalation of food and vomit; G93.41 Metabolic encephalopathy; E11.10 Type 2 diabetes mellitus with ketoacidosis without coma; D68.59 Other primary thrombophilia; E87.0 Hyperosmolality and hypernatremia; E87.2 Acidosis; N39.0 Urinary tract infection, site not specified; Z68.1 Body mass index [BMI] 19.9 or less, adult; E86.0 Dehydration; R65.20 Severe sepsis without septic shock; M19.90 Unspecified osteoarthritis, unspecified site; D63.8 Anemia in other chronic diseases classified elsewhere; E03.9 Hypothyroidism, unspecified; E78.5 Hyperlipidemia, unspecified; E86.1 Hypovolemia; E87.6 Hypokalemia; I25.10 Atherosclerotic heart disease of native coronary artery without angina pectoris; K21.9 Gastro-esophageal reflux disease without esophagitis; Z74.01 Bed confinement status; Z87.440 Personal history of urinary (tract) infections; E11.65 Type 2 diabetes mellitus with hyperglycemia; F03.90 Unspecified dementia, unspecified severity, without behavioral disturbance, psychotic disturbance, mood disturbance, and anxiety; Z66 Do not resuscitate; L89.150 Pressure ulcer of sacral region, unstageable; L89.320 Pressure ulcer of left buttock, unstageable; L89.310 Pressure ulcer of right buttock, unstageable; B96.20 Unspecified Escherichia coli [E. coli] as the cause of diseases classified elsewhere; Z16.12 Extended spectrum beta lactamase (ESBL) resistance; D47.3 Essential (hemorrhagic) thrombocythemia; E88.09 Other disorders of plasma-protein metabolism, not elsewhere classified; I25.2 Old myocardial infarction; Z79.4 Long term (current) use of insulin; Z91.81 History of falling; Z86.19 Personal history of other infectious and parasitic diseases; I10 Essential (primary) hypertension
CPT/HCPCS: 36415; 36600; 71045-TC; 80048-TC; 80076-TC; 80202-TC; 81000-TC; 82803-TC; 82962-TC; 83605-TC; 83735-TC; 84100-TC; 84484-TC; 85025-TC; 85730-TC; 87040-TC; 87070-TC; 87081-TC; 87086-TC; 87186-TC; 92526; 92611-TC; A4216; A6253; A6402; A6403; C9113; G0378; J1450; J1650; J1815; J2060; J2185; J2997; J3370; J3475; J3480; J7030; J7040; J7042; J7050; J7060

== ENCOUNTER 2018-07-14 13:30 | Inpatient (IN) | payer MEDICARE, BC ==
[~2018-07-14] VITALS: Ht 162.6 cm; Wt 51.3 kg
[~2018-07-14 13:30] MED LIST changes: +CARV3.12 PO; +CRAN3875 PO; +CRAN450C PO; +INSU100I26 SQ; -INSU100V7 SQ; -LORA-259 PO; -ZOLP5TAB2 PO
--- NOTE | 2018-07-14 13:30 | NUR ---
[id number] BOARD AND CARE FOR AMS AND FEVER, ORAL TEMP 101 CROWN IRONER, BG 432 CROWN IRONER. TO ER BED 3 , HOOKED TO MONITOR, CHANGED TO GOWN, CORE TEMP BOVXD=381.6, COOLING MEASURES DONE, AWAITING MD BEJARANO
--- NOTE | 2018-07-14 13:50 | NUR ---
DR VELA AT BEDSIDE
[2018-07-14 13:54] LABS: BASOPHILS # (AUTO) 0.1 /CMM (0.0-0.2); BASOPHILS % (AUTO) 0.9 % (0.0-2.0); HEMATOCRIT 32 % (33-45); HEMOGLOBIN 9.9 g/dL (11.5-14.8); LYMPHOCYTES % (AUTO) 7.8 % (20.0-44.0); MEAN CORPUSCULAR HGB CONC 31 g/dl (31.0-36.0); MEAN CORPUSCULAR VOLUME 85 fL (82-100); MONOCYTES # (AUTO) 0.6 /CMM (0.1-1.30); MONOCYTES % (AUTO) 4.6 % (2.0-12.0); NEUTROPHILS # (AUTO) 10.7 /CMM (1.8-8.9); NEUTROPHILS % (AUTO) 86.7 % (43.0-81.0); PLATELET COUNT (AUTO) 593 /CMM (150-450); RED BLOOD CELL COUNT(AUTO) 3.84 MIL/uL (4.0-5.2); WHITE BLOOD COUNT (AUTO) 12.4 K/uL (4.3-11.0)
[2018-07-14 14:06] LABS: APPEARANCE,URINE Clear (CLEAR); BILIRUBIN,URINE Negative (NEGATIVE); BLOOD, URINE Large Ery/uL (NEGATIVE); COLOR,URINE Yellow (YELLOW); KETONES,URINE 40 (NEGATIVE); LEUKOCYTE ESTERASE ,URINE Negative (NEGATIVE); NITRITE, URINE Negative (NEGATIVE); PROTEIN,URINE Trace mg/dl (NEGATIVE); UGLUCOSE >=1000 mg/dL (NEGATIVE); UROBILINOGEN,URINE 0.2 EU/dL (0.2)
[2018-07-14 14:08] LABS: BACTERIA,URINE Few /HPF (None Seen); SQUAMOUS EPITHELIAL CELL,UR Few /HPF (None Seen)
[2018-07-14 14:14] LABS: POTASSIUM 4.2 mmol/L (3.5-5.1)
[2018-07-14 14:15] LABS: ALBUMIN 2.4 g/dL (3.4-5.0); BILIRUBIN,DIRECT 0.1 mg/dL (0.0-0.2); BILIRUBIN,TOTAL 0.2 mg/dL (0.2-1.0); CREATININE 0.9 mg/dL (0.6-1.3); TOTAL PROTEIN, SERUM 6.6 g/dL (6.4-8.2)
[2018-07-14 14:16] LABS: CALCIUM, SERUM 9.8 mg/dL (8.5-10.1)
[2018-07-14] MEDS ORDERED: ACETAMINOPHEN 650 MG/SUPP.RECT RC ONE ×2 (14:30→14:31)
[2018-07-14] MEDS ORDERED: IV NS 0.9% 1,000 ML BAG IV ONE (14:30)
[2018-07-14] MEDS ORDERED: ENOX40DI SQ (14:42)
[2018-07-14] MEDS ORDERED: INSU100V7 SQ (14:42)
[2018-07-14] MEDS ORDERED: DOCU-141 PO (14:43)
[2018-07-14] MEDS ORDERED: PANT40TA2 PO (14:43)
[2018-07-14] MEDS ORDERED: INSULIN REGULAR, HUMAN 100 UNIT/ML 10 ML VIAL ONE (14:43)
[2018-07-14] MEDS ORDERED: PIPERACILLIN /TAZOBACTAM 3.375 G in IV D5W 50 ML IV ONE (15:00)
[2018-07-14] MEDS ORDERED: VANCOMYCIN HCL 0.75 GM in IV D5W 250 ML IV ONE (15:00)
[2018-07-14] MEDS ORDERED: INSULIN REGULAR, HUMAN 100 UNIT/ML 10 ML VIAL SQ ONE (15:00)
--- NOTE | 2018-07-14 15:10 | NUR ---
HOUSE SUP CALLED FOR BED
--- NOTE | 2018-07-14 15:13 | NUR ---
OUT FOR CT SCAN
--- NOTE | 2018-07-14 15:19 | NUR ---
PANEL ON-CALL PAGED
--- NOTE | 2018-07-14 15:29 | NUR ---
ROBBY DAVIS CALLED FOR BED TO [facility]
--- NOTE | 2018-07-14 15:30 | NUR ---
[facility] CALLED. DR HERNANDEZ PAGED.
--- NOTE | 2018-07-14 15:33 | NUR ---
BED GIVEN 323
--- NOTE | 2018-07-14 15:45 | NUR ---
[facility] CALLED TO CONFIRM THAT THEY REPAGED THE RN CCU
--- NOTE | 2018-07-14 15:52 | NUR ---
PTS [facility] OF [facility]IN CALLED AND ASKED TO BE NOTIFIED OF ANY CHANGES. [phone], STEVIE KLINE
--- NOTE | 2018-07-14 15:59 | NUR ---
[facility] FOLLOWED UP ABOUT INSTRUMENT ROOM TECHNICIAN AWAITING HIS CALL BACK.
--- NOTE | 2018-07-14 16:05 | NUR ---
[facility] CALLED TO REACH ALTERNATIVE
[2018-07-14] MEDS ORDERED: LORAZEPAM INJ 2 MG/ML VIAL ONE (16:19)
[2018-07-14 16:30] VITALS: BP 116/70
[2018-07-14] MEDS ORDERED: LORAZEPAM INJ 2 MG/ML VIAL IV PRN (16:30)
--- NOTE | 2018-07-14 16:30 | NUR ---
REPORT GIVEN TO PURA CHANG FOR MIRANDA
--- NOTE | 2018-07-14 16:35 | NUR ---
LASTEST NO=[id number]
--- NOTE | 2018-07-14 16:45 | NUR ---
MS RN NOTES PATIENT ADMITTED FROM ER WITH STABLE VITAL SIGNS. ALERT ORIENTED X 1,KNOWS HER NAME. NO ACUTE DISTRES NOTED. BREATHING UNLABORED. NO SOB NOTED. IV ACCESS PATENT AND INTACT. NEEDS ATTENDED AND ANTICIPATED. PLACE TELE MONITOR, SINUS RHYTHM . SAFETY MEASURES IN PLACE. CALL LIGHT WITHIN REACH. WILL CONTINUE TO MONITOR ACCORDINGLY.
[2018-07-14] MEDS ORDERED: IV NS 0.9% 1,000 ML IV PRN (17:01)
[2018-07-14] MEDS ORDERED: ONDANSETRON HCL/PF 4 MG/2 ML VIAL IVP PRN (17:30)
[2018-07-14] MEDS ORDERED: Z GUARD REMEDY 2 OZ OINT TP PRN (17:30)
[2018-07-14] MEDS ORDERED: MAGNESIUM HYDROXIDE 30 ML UDC PO PRN (17:30)
[2018-07-14] MEDS ORDERED: DEXTROSE 50%-WATER 50 ML DISP.SYRIN IV PRN (17:30)
[2018-07-14] MEDS ORDERED: MAG HYDROX/AL HYDROX/SIMETH 30 ML UDC PO PRN (17:30)
[2018-07-14] MEDS ORDERED: FEE PK DOSING 1 MIN EA MC ONE (17:41)
[2018-07-14] MEDS: PROSOURCE / PROSTAT (PYXIS) 30 ML UDC PO SCH (18:00)
[2018-07-14] MEDS: BLOOD SUGAR DIAGNOSTIC 1 EACH STRIP IN SCH ×2 (18:09→21:50)
--- NOTE | 2018-07-14 19:00 | NUR ---
MS RN NOTES PATIENT IN BED ALERT ORIENTED X 1. NO ACUTE DISTRESS NOTED. BREATHING UNLABORED. NO SOB NOTED. IV ACCESS PATENT AND INTACT. KEPT CLEAN DRY AND COMFORTABLE. NEEDS ATTENDED AND ANTICIPATED. HOB ELEVATED. SAFETY MEASURES IN PLACE. CALL LIGHT WITHIN REACH. ENDORSED TO NIGHT NURSE FOR CONTINUITY OF CARE.
[2018-07-14 20:00] VITALS: BP 128/60
--- NOTE | 2018-07-14 20:09 | NUR ---
DENTURE PROCESSOR NOTES RECEIVED PATIENT AWAKE IN BED WITH NO DISTRESS NOTED. CALL LIGHT WITHIN REACH. PERIPHERAL LINE INTACT AND PATENT. NO C/O PAIN OR DISCOMFORT. BED IN LOW LOCK SETTING. ROOM FREE OF CLUTTER AND BELONGINGS KEPT NEAR BEDSIDE. WILL CONTINUE TO MONITOR.
[2018-07-14] MEDS: BACLOFEN (10 MG) 10 MG TABLET PO SCH (21:00)
[2018-07-14] MEDS: PIPERACILLIN /TAZOBACTAM 3.375 G in IV D5W 50 ML IV SCH (21:49)
[2018-07-14] MEDS: ENOXAPARIN SODIUM 40 MG/0.4 ML DISP.SYRIN SQ SCH (21:50)
[2018-07-14] MEDS: DOCUSATE SODIUM 100 MG CAPSULE PO SCH (21:51)
[2018-07-14] MEDS: BENZTROPINE MESYLATE (1 MG) 1 MG TABLET PO SCH (21:51)
[2018-07-14] MEDS: ATORVASTATIN 40 MG TABLET PO SCH (21:52)
[2018-07-14] MEDS: INSULIN GLARGINE, 100 UNIT/ML CARTRIDGE SQ SCH (22:00)
[2018-07-15] VITALS: BP 131/62
[2018-07-15] MEDS: PIPERACILLIN /TAZOBACTAM 3.375 G in IV D5W 50 ML IV SCH ×4 (02:56→21:13)
[2018-07-15] MEDS: VANCOMYCIN 0.75 GM in IV D5W 250 ML IV SCH ×2 (03:54→15:25)
[2018-07-15 04:00] VITALS: BP 148/66
[2018-07-15 06:33] LABS: BASOPHILS % (AUTO) 0.4 % (0.0-2.0); HEMATOCRIT 28 % (33-45); HEMOGLOBIN 8.8 g/dL (11.5-14.8); LYMPHOCYTES # (AUTO) 0.9 /CMM (0.8-4.8); LYMPHOCYTES % (AUTO) 8.8 % (20.0-44.0); MEAN CORPUSCULAR HGB CONC 31 g/dl (31.0-36.0); MEAN CORPUSCULAR VOLUME 86 fL (82-100); MONOCYTES # (AUTO) 0.4 /CMM (0.1-1.30); MONOCYTES % (AUTO) 3.8 % (2.0-12.0); PLATELET COUNT (AUTO) 491 /CMM (150-450); RED BLOOD CELL COUNT(AUTO) 3.26 MIL/uL (4.0-5.2); WHITE BLOOD COUNT (AUTO) 10.3 K/uL (4.3-11.0)
[2018-07-15] MEDS: BLOOD SUGAR DIAGNOSTIC 1 EACH STRIP IN SCH ×4 (06:44→21:14)
[2018-07-15 06:50] LABS: CALCIUM, SERUM 9.2 mg/dL (8.5-10.1); CREATININE 0.7 mg/dL (0.6-1.3); MAGNESIUM 2.1 mg/dL (1.8-2.4); PHOSPHORUS 2.4 mg/dL (2.5-4.9); POTASSIUM 3.5 mmol/L (3.5-5.1)
[2018-07-15 07:17] LABS: THYROID STIMULATING HORMONE 12.737 uIU/mL (0.358-3.74)
[2018-07-15] MEDS: INSULIN REGULAR, HUMAN 100 UNIT/ML 3 ML VIAL SQ PRN ×4 (07:30→21:29)
[2018-07-15] MEDS: PANTOPRAZOLE 40 MG TABLET.DR PO SCH (07:30)
--- NOTE | 2018-07-15 07:39 | NUR ---
SYSTEMS PLANNER OPENING NOTES RECEIVED PATIENT AWAKE IN BED. ALERT AND ORIENTED X2. PATIENT IS CALM AND QUIET AT THIS TIME. NO SIGNS OF PAIN OR DISCOMFORT.TELE MONITORING SHOWING SIGNS OF SINUS TACHYCARDIA WITH HR 103. PATIENT BREATHING EVEN AND UNLABORED AT RA. CALL LIGHT WITHIN REACH. IV ON RIGHT WRIST G#20 INTACT AND PATENT. NO C/O PAIN OR DISCOMFORT. PATIENT IS CLEAN AND DRY. BED IN LOW LOCK SETTING. SIDE RAIL UP X2. ROOM FREE OF CLUTTER AND BELONGINGS KEPT NEAR BEDSIDE. WILL CONTINUE TO MONITOR.
[2018-07-15 08:00] VITALS: BP 137/68
[2018-07-15] MEDS: AMLODIPINE BESYLATE 5 MG TABLET PO SCH (09:00)
[2018-07-15] MEDS: BACLOFEN (10 MG) 10 MG TABLET PO SCH ×4 (09:00→21:13)
--- NOTE | 2018-07-15 10:10 | NUR ---
RN NOTES PATIENT SEEN BY LETA STONE. FOOD HANDLER INFORMED OF BLOOD GLUCOSE 377. ORDERS WERE GIVEN TO COLLECT WOUND CULTURE OF RIGHT BUTTOCK, WOUND CULTURE DONE AND READY FOR HORSE AND WAGON DRIVER FROM LAB. FOOD HANDLER NEW ORDER FOR MECHANICAL SOFT CONSISTENT CARB DIET. WILL CONTINUE TO MONITOR.
[2018-07-15] MEDS: IV 1/2NS 1000 ML 1,000 ML IV PRN (11:09)
[2018-07-15] MEDS: POTASSIUM PHOSPHATE MM 7.5 MMOL in IV D5W 100 ML IV SCH ×2 (13:00→16:23)
[2018-07-15] MEDS ORDERED: VANCOMYCIN 0.75 GM in IV D5W 250 ML IV SCH (14:00)
[2018-07-15] MEDS: HYDROMORPHONE INJ 2 MG/ML DISP.SYRIN IV PRN (15:02)
--- NOTE | 2018-07-15 15:05 | NUR ---
RN NOTES/PAIN MANAGEMENT PT NOTED GRIMACING , RESTLESS AND SCREAMING. PRN DILAUDID 2MG IVP ADMINISTERED AT 1502. WILL CONTINUE TO MONITOR AND REASSESS PT.
[2018-07-15 16:00] VITALS: BP 125/72
[2018-07-15] MEDS: PROSOURCE / PROSTAT (PYXIS) 30 ML UDC PO SCH (17:00)
--- NOTE | 2018-07-15 18:54 | NUR ---
MS RN CLOSING NOTES PT IN BED RESTING LYING @MODERATE HIGH BACKREST POSITION. A/O X2. RESPONSIVE TO VERBAL AND TACTILE STIMULI. ON ROOM AIR, BREATHING EVEN AND UNLABORED. ALL PT'S IV ACCESSES PATENT AND INTACT. IVF OF 1/2 NS @ 50ML/HR INFUSING TO RIGHT WRIST. PT KEPT CLEAN, DRY AND COMFORTABLE. PT TURNED AND REPOSITIONED Q 2HRS AND PRN. ALL NEEDS AND CARE PROVIDED WELL. KEPT BED IN LOW/LOCKED POSITION WITH CALL LIGHT IN REACH. BILATERAL UPPER SIDE RAILS IN PLACE. WILL ENDORSE TO DOOR SLINGER NURSE FOR MIRANDA.
[2018-07-15 20:00] VITALS: BP 123/64
[2018-07-15] MEDS: DOCUSATE SODIUM 100 MG CAPSULE PO SCH (21:13)
[2018-07-15] MEDS: BENZTROPINE MESYLATE (1 MG) 1 MG TABLET PO SCH (21:13)
[2018-07-15] MEDS: ATORVASTATIN 40 MG TABLET PO SCH (21:13)
[2018-07-15] MEDS: ENOXAPARIN SODIUM 40 MG/0.4 ML DISP.SYRIN SQ SCH (21:14)
[2018-07-15] MEDS: INSULIN GLARGINE, 100 UNIT/ML CARTRIDGE SQ SCH (21:29)
[2018-07-16] MEDS: PIPERACILLIN /TAZOBACTAM 3.375 G in IV D5W 50 ML IV SCH ×4 (04:41→20:43)
[2018-07-16] MEDS: VANCOMYCIN 0.75 GM in IV D5W 250 ML IV SCH ×2 (04:41→14:34)
[2018-07-16] MEDS: BLOOD SUGAR DIAGNOSTIC 1 EACH STRIP IN SCH ×4 (06:46→21:09)
--- NOTE | 2018-07-16 06:51 | NUR ---
MS RN NOTES AWAKE & RESPONSIVE. NOT IN ANY DISTRESS. NO SOB NOTED. DENIES ANY PAIN OR DISCOMFORT AT THIS TIME. WITH IVF INFUSING WELL. AM CARE DONE. MONITORED ACCORDINGLY. CALL LIGHT WITHIN REACH. BED IN LOWEST POSITION. SR UP X3 WITH BED ALARM ON FOR SAFETY. WILL ENDORSE TO NEXT SHIFT.
[2018-07-16 07:18] LABS: BASOPHILS % (AUTO) 0.3 % (0.0-2.0); EOSINOPHILS % (AUTO) 0.9 % (0.0-6.0); HEMATOCRIT 27 % (33-45); HEMOGLOBIN 8.6 g/dL (11.5-14.8); LYMPHOCYTES # (AUTO) 1.1 /CMM (0.8-4.8); LYMPHOCYTES % (AUTO) 10.8 % (20.0-44.0); MEAN CORPUSCULAR HGB CONC 32 g/dl (31.0-36.0); MEAN CORPUSCULAR VOLUME 84 fL (82-100); MONOCYTES # (AUTO) 0.6 /CMM (0.1-1.30); MONOCYTES % (AUTO) 5.9 % (2.0-12.0); NEUTROPHILS # (AUTO) 8.8 /CMM (1.8-8.9); NEUTROPHILS % (AUTO) 82.1 % (43.0-81.0); PLATELET COUNT (AUTO) 421 /CMM (150-450); RED BLOOD CELL COUNT(AUTO) 3.15 MIL/uL (4.0-5.2); WHITE BLOOD COUNT (AUTO) 10.7 K/uL (4.3-11.0)
[2018-07-16 07:32] LABS: CALCIUM, SERUM 8.9 mg/dL (8.5-10.1); CREATININE 0.6 mg/dL (0.6-1.3); POTASSIUM 3.3 mmol/L (3.5-5.1)
--- NOTE | 2018-07-16 07:35 | NUR ---
MS RN OPENING NOTE RECEIVED PATIENT IN BED. ALERT, DISORIENTED, CONFUSED BUT RESPONDS TO BASIC INSTRUCTIONS AND QUESTIONS. PATIENT IN ON 2L O2 VIA NC, TOLERATING WELL. IN NO APPARENT DISTRESS OR DISCOMFORT AT THIS TIME. RESPIRATIONS EVEN AND UNLABORED. PATIENT WITH LEFT FA 20G IVC WITH FLUIDS RUNNING AT 50ML/HR, PATENT AND INTACT, L HAND 20G IVC, UNABLE TO FLASH AT THIS TIME. ON BEDREST, INCONTINENT WITH USE OF DIAPER. CONTRACTED EXTREMITIES. PATIENT KEPT CLEAN AND COMFORTABLE. ALL NEEDS ATTENDED, SAFETY MEASURES IN PLACE, BED IN LOW LOCKED POSITION, SIDE RAILS UP X2, CALL LIGHT WITHIN EASY REACH. WILL CONTINUE TO MONITOR.
[2018-07-16 08:00] VITALS: BP 117/58
[2018-07-16] MEDS: BACLOFEN (10 MG) 10 MG TABLET PO SCH ×4 (08:33→20:43)
[2018-07-16] MEDS: DAKINS HALF STRENGTH (0.25%) 480 ML BOTTLE TOP SCH (08:34)
[2018-07-16] MEDS: PANTOPRAZOLE 40 MG TABLET.DR PO SCH (08:34)
[2018-07-16] MEDS: AMLODIPINE BESYLATE 5 MG TABLET PO SCH (08:35)
[2018-07-16] MEDS: HYDROMORPHONE INJ 2 MG/ML DISP.SYRIN IV PRN (08:36)
[2018-07-16] MEDS ORDERED: POTASSIUM CHLORIDE 20 MEQ POWDER PACKET PO SCH (09:30)
[2018-07-16] MEDS ORDERED: MORPHINE SULFATE INJ 2 MG/ML DISP.SYRIN IV PRN ×2 (11:30)
[2018-07-16] MEDS ORDERED: NEUTRA PHOS 1 POWD.PACKET PO ONE (13:00)
[2018-07-16] MEDS: INSULIN REGULAR, HUMAN 100 UNIT/ML 3 ML VIAL SQ PRN ×3 (13:11→21:16)
[2018-07-16 16:00] VITALS: BP 150/59
--- NOTE | 2018-07-16 16:00 | NUR ---
PATIENT NOTED TO HAVE INCREASED BODY TEMPERATURE OF 100.5, HR OF 121, O2 SATURATION 84 ON 2L O2 VIA NC. INCREASED O2 FLOW TO 6L, SATURATION IMPROVED TO 88%. ADMINISTERED TYLENOL 650MH PRN, APPLIED COOLING MEASURES. CALLED RT TO HELP IMPROVE O2 SATURATION. MONITORING AT THIS TIME. BELLHOP INFORMED. WILL NOTIFY HOSPITALIST FOR FURTHER ORDERS.
[2018-07-16] MEDS: ACETAMINOPHEN 325 MG TABLET PO PRN (16:09)
--- NOTE | 2018-07-16 17:00 | NUR ---
PATIENT'S FEVER DECREASED TO 99.2 AT THIS TIME. HR 106. PATIENT'S SATURATION IS AT 98% ON 10L VIA FM. NOTIFIED JUVENTINO STONE NP. ORDER RECEIVED TO OBTAIN STAT CXR, ABGs, AND PROCALCITONIN LEVELS AT THIS TIME AND CONTINUE TO MONITOR. NOTED AND CARRIED OUT.
[2018-07-16] MEDS: PROSOURCE / PROSTAT (PYXIS) 30 ML UDC PO SCH (17:12)
[2018-07-16 17:52] LABS: ABG BASE EXCESS -2.8 mmol/L; ABG OXYGEN SATURATION 91.9 % (92.0-98.5); ABG PCO2 31.1 mmHg (35.0-45.0); ABG PH 7.441 (7.350-7.450); AaDO2 153.6 mmHg; COHb 0.3 % (0.5-1.5); MetHb 0.5 % (0.0-1.5); O2Hb 91.2 % (94.0-97.0); SITE, ABG Left Radial; VENT MODE, BG 4L NC
--- NOTE | 2018-07-16 18:00 | NUR ---
RECEIVED REPORT FROM RT PATIENT'S ABG VALUES WNL. PATIENT CURRENTLY SATURATING AT 955 ON 4L O2 VIA NC. CONTINUING TO MONITOR. PATIENT IS AT BASELINE LOC.
--- NOTE | 2018-07-16 18:13 | NUR ---
MS RN CLOSING NOTE PATIENT IN BED. ALERT, DISORIENTED, CONFUSED BUT RESPONDS TO BASIC INSTRUCTIONS AND QUESTIONS. PATIENT ON 4L O2 VIA NC, TOLERATING WELL AND SATURATING AT 95%. IN NO APPARENT DISTRESS OR DISCOMFORT AT THIS TIME. RESPIRATIONS EVEN AND UNLABORED. PATIENT IS AFEBRILE AT THIS TIME. LEFT FA 20G IVC WITH FLUIDS RUNNING AT 50ML/HR, PATENT AND INTACT, L HAND 20G IVC, UNABLE TO FLASH AT THIS TIME. ON BEDREST, INCONTINENT WITH USE OF DIAPER. CONTRACTED EXTREMITIES. PATIENT KEPT CLEAN AND COMFORTABLE. MULTIPLE WOUNDS ON THE BODY, DRESSINGS CHANGED C/D/I AT THIS TIME. ALL NEEDS ATTENDED, ORDERS RENDERED. TURNED AND REPOSITIONED PER PROTOCOL. SAFETY MEASURES IN PLACE, BED IN LOW LOCKED POSITION, SIDE RAILS UP X2, CALL LIGHT WITHIN EASY REACH. WILL ENDORSE TO PM NURSE FOR MIRANDA.
[2018-07-16 19:59] VITALS: BP 116/52
[2018-07-16 20:00] VITALS: BP 116/52
--- NOTE | 2018-07-16 20:00 | NUR ---
MS/RN OPENING NOTES RECEIVED PATIENT IN BED. RESPIRATIONS EVEN AND UNLABORED, ON 4L NC OXYGENATION, SLEEP. REPORT GIVEN BY AM RN FOR MIRANDA, MONITOR FOR ANY CHANGES, PATIENT. IS INCONTINENT, USES DIAPER, WITH MULTIPLE WOUNDS, ON ISOLATION , MECHANICAL SOFT DIET, WILL CONTINUE TO MONITOR FOR ANY CHANGES, LFA GAUGE 20 TO MONITOR.
[2018-07-16] MEDS: ENOXAPARIN SODIUM 40 MG/0.4 ML DISP.SYRIN SQ SCH (20:44)
[2018-07-16] MEDS: DOCUSATE SODIUM 100 MG CAPSULE PO SCH (21:14)
[2018-07-16] MEDS: ATORVASTATIN 40 MG TABLET PO SCH (21:14)
[2018-07-16] MEDS: BENZTROPINE MESYLATE (1 MG) 1 MG TABLET PO SCH (21:14)
[2018-07-16] MEDS: INSULIN GLARGINE, 100 UNIT/ML CARTRIDGE SQ SCH (21:17)
--- NOTE | 2018-07-16 22:00 | NUR ---
MS/RN NOTES PATIENT ABLE TO SLEEP DURING THE NIGHT, REPOSITIONED FOR COMFORT, COOPERTAIVE TO CARE, ABLE TO DO WOUND CARE AND PHOTOS TAKEN, PROVIDED FLUIDS.
[2018-07-17] MEDS: PIPERACILLIN /TAZOBACTAM 3.375 G in IV D5W 50 ML IV SCH ×4 (03:14→21:03)
[2018-07-17] MEDS: VANCOMYCIN 0.75 GM in IV D5W 250 ML IV SCH ×2 (03:15→15:30)
[2018-07-17] MEDS: BLOOD SUGAR DIAGNOSTIC 1 EACH STRIP IN SCH ×4 (05:44→22:17)
[2018-07-17] MEDS: INSULIN REGULAR, HUMAN 100 UNIT/ML 3 ML VIAL SQ PRN ×4 (06:06→22:08)
--- NOTE | 2018-07-17 06:44 | NUR ---
MS/RN NOTES PATIENT ABLE TO SLEEP DURING THE NIGHT, ABLE TO COOPERATE AND KEPT COMFORTABLE, MONITORED FOR SAFETY. REPOSITIONED FOR SAFETY, BED LOCKED, CALL LIGHTS WITHIN REACH. KEPT SKIN INTACT AND DRY. IV ON LFA GAUGE 20PATENCY CHECK. WILL ENDORSE TO AM RN FOR MIRANDA.
[2018-07-17 07:19] LABS: CALCIUM, SERUM 8.6 mg/dL (8.5-10.1); CREATININE 0.6 mg/dL (0.6-1.3); PHOSPHORUS 1.9 mg/dL (2.5-4.9); POTASSIUM 2.9 mmol/L (3.5-5.1)
--- NOTE | 2018-07-17 07:38 | NUR ---
MS RN OPENING NOTE RECEIVED PATIENT IN BED. ALERT, DISORIENTED, CONFUSED BUT RESPONDS TO BASIC INSTRUCTIONS AND QUESTIONS. PATIENT IN ON 4L O2 VIA NC, TOLERATING WELL. IN NO APPARENT DISTRESS OR DISCOMFORT AT THIS TIME. RESPIRATIONS EVEN AND UNLABORED. PATIENT WITH LEFT FA 20G IVC WITH FLUIDS RUNNING AT 50ML/HR, PATENT AND INTACT, L HAND 20G IVC, UNABLE TO FLASH AT THIS TIME. ON BEDREST, INCONTINENT WITH USE OF DIAPER. CONTRACTED EXTREMITIES. PATIENT KEPT CLEAN AND COMFORTABLE. ALL NEEDS ATTENDED, SAFETY MEASURES IN PLACE, BED IN LOW LOCKED POSITION, SIDE RAILS UP X2, CALL LIGHT WITHIN EASY REACH. WILL CONTINUE TO MONITOR.
[2018-07-17 08:00] VITALS: BP 111/46
--- NOTE | 2018-07-17 08:36 | NUR ---
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 WOUND CARE WILL DEFER CONSULT AND ALL TREATMENT PLANS TO PLASTIC SURGICAL TEAM WELL DPM DR JACOME WHO ARE ALL CURRENTLY FOLLOWING THIS PATIENT. PATIENT WITH MARY AT 13, ALL PRESSURE [facility] PREVENTION MEASURES ARE NOTED TO BE IN PLACE. WILL SEE PRN.
[2018-07-17] MEDS: BACLOFEN (10 MG) 10 MG TABLET PO SCH ×4 (08:50→20:24)
[2018-07-17] MEDS: ACETAMINOPHEN 325 MG TABLET PO PRN ×2 (08:50→16:40)
[2018-07-17] MEDS: AMLODIPINE BESYLATE 5 MG TABLET PO SCH (08:50)
[2018-07-17] MEDS: PANTOPRAZOLE 40 MG TABLET.DR PO SCH (08:50)
[2018-07-17] MEDS: DAKINS HALF STRENGTH (0.25%) 480 ML BOTTLE TOP SCH (08:51)
[2018-07-17] MEDS ORDERED: K PHOS NEUTRAL 250 MG TABLET PO ONE (11:30)
[2018-07-17] MEDS: POTASSIUM CHLORIDE 20 MEQ TAB.PRT.SR PO SCH ×3 (11:58→13:00)
[2018-07-17] MEDS ORDERED: POTASSIUM CHLORIDE 20 MEQ TAB.PRT.SR PO SCH (15:00)
[2018-07-17] MEDS ORDERED: MORPHINE SULFATE INJ 2 MG/ML DISP.SYRIN IV PRN (15:30)
[2018-07-17 16:00] VITALS: BP 116/58
[2018-07-17] MEDS: PROSOURCE / PROSTAT (PYXIS) 30 ML UDC PO SCH (16:40)
--- NOTE | 2018-07-17 19:00 | NUR ---
RECIEVING NOTES: ALERT TO SELF. NOTED WHEN ATTEMPT TO CHECK WOUNDS SHE WILL PUSH THE NURSE AWAY. OFFERED JUICE 15 ML AT A TIME SWALLOWED W/O PROBLEM ASP PRECAUTIONS. NOTED SHE HAS HER LEGS UP TO HER CHEST WITH HER ARMS WRAPPED AROUND HER SHINS
[2018-07-17 20:00] VITALS: BP 138/59
[2018-07-17] MEDS: ENOXAPARIN SODIUM 40 MG/0.4 ML DISP.SYRIN SQ SCH (20:25)
[2018-07-17] MEDS: BENZTROPINE MESYLATE (1 MG) 1 MG TABLET PO SCH (22:03)
[2018-07-17] MEDS: ATORVASTATIN 40 MG TABLET PO SCH (22:03)
[2018-07-17] MEDS: DOCUSATE SODIUM 100 MG CAPSULE PO SCH (22:04)
[2018-07-17] MEDS: INSULIN GLARGINE, 100 UNIT/ML CARTRIDGE SQ SCH (22:06)
[2018-07-18] MEDS: IV 1/2NS 1000 ML 1,000 ML IV PRN (00:37)
[2018-07-18] MEDS: VANCOMYCIN 0.75 GM in IV D5W 250 ML IV SCH ×2 (02:57→16:26)
[2018-07-18] MEDS: PIPERACILLIN /TAZOBACTAM 3.375 G in IV D5W 50 ML IV SCH ×4 (02:57→21:57)
--- NOTE | 2018-07-18 05:50 | NUR ---
ISOLATION CONTACT REMAINS IN EFFECT D/T ESBL OF THE URINE AND CDISS HISTORY. NO BM THIS 12 HOURS. SHE HAS HER LEGS FLEXED IN AN ABDNORMAL FLEX, HER KNEES ARE UP AGAINST HER CHEST AND SHE WRAPS HER ARMS AROUND THEM. SHE IS DIORIENTATED. AFEBRILE. ASPIRATION PRCAUTIONS, CRUSHED HER PILLS AND USED A SMALL MEDICINE CUP TO GIVE HER 15 ML OF WATER JUICE AT A TIME, NO COUGHING AFTERWARDS. SWALLOW EVAL ORDERED.
[2018-07-18] MEDS: BLOOD SUGAR DIAGNOSTIC 1 EACH STRIP IN SCH ×4 (06:21→21:49)
[2018-07-18 06:25] LABS: BASOPHILS % (AUTO) 0.2 % (0.0-2.0); EOSINOPHILS % (AUTO) 0.4 % (0.0-6.0); HEMATOCRIT 26 % (33-45); HEMOGLOBIN 8.2 g/dL (11.5-14.8); LYMPHOCYTES # (AUTO) 0.6 /CMM (0.8-4.8); LYMPHOCYTES % (AUTO) 5.2 % (20.0-44.0); MEAN CORPUSCULAR HGB CONC 32 g/dl (31.0-36.0); MEAN CORPUSCULAR VOLUME 84 fL (82-100); MONOCYTES # (AUTO) 0.6 /CMM (0.1-1.30); MONOCYTES % (AUTO) 4.6 % (2.0-12.0); NEUTROPHILS # (AUTO) 11.1 /CMM (1.8-8.9); NEUTROPHILS % (AUTO) 89.6 % (43.0-81.0); PLATELET COUNT (AUTO) 368 /CMM (150-450); RED BLOOD CELL COUNT(AUTO) 3.09 MIL/uL (4.0-5.2); WHITE BLOOD COUNT (AUTO) 12.5 K/uL (4.3-11.0)
[2018-07-18] MEDS: INSULIN REGULAR, HUMAN 100 UNIT/ML 3 ML VIAL SQ PRN ×4 (06:25→21:51)
[2018-07-18 06:53] LABS: CALCIUM, SERUM 8.9 mg/dL (8.5-10.1); CREATININE 0.6 mg/dL (0.6-1.3); POTASSIUM 3.6 mmol/L (3.5-5.1)
[2018-07-18 08:00] VITALS: BP 94/54
[2018-07-18] MEDS: AMLODIPINE BESYLATE 5 MG TABLET PO SCH (08:36)
[2018-07-18] MEDS: PANTOPRAZOLE 40 MG TABLET.DR PO SCH (10:04)
[2018-07-18] MEDS: BACLOFEN (10 MG) 10 MG TABLET PO SCH ×4 (10:04→21:49)
[2018-07-18] MEDS: ACETAMINOPHEN 325 MG TABLET PO PRN (10:35)
[2018-07-18] MEDS: DAKINS HALF STRENGTH (0.25%) 480 ML BOTTLE TOP SCH (10:46)
[2018-07-18 16:00] VITALS: BP 98/56
--- NOTE | 2018-07-18 17:02 | NUR ---
MEDICATED X1 FOR LEG PAIN WITH TYLENOL.FAMILY MEMBER IN TO VISIT.WD. CARE DONE.YELLS OUT FROM TIME TO TIME WITH NEEDS.VERY CONFUSED.
--- NOTE | 2018-07-18 17:30 | NUR ---
IV JUST INFILTRATED,REMOVED, LT ARM ELEVATED ON PILLOW AND ICE APPLIED.ATTEMPTING TO RESTART.
--- NOTE | 2018-07-18 18:00 | NUR ---
IV RESTARTED IN LT. AC #22.TOLERATED FAIRLY WELL.
[2018-07-18] MEDS: PROSOURCE / PROSTAT (PYXIS) 30 ML UDC PO SCH (18:49)
[2018-07-18] MEDS: GLUCERNA SHAKE 237 ML CAN PO SCH (18:51)
--- NOTE | 2018-07-18 19:15 | NUR ---
MS RN NOTE RECEIVED PT IN BED SLEEPING BUT EASILY AWOKEN VERBALLY OR BY TOUCH. PT ALERT, DISORIENTED, CONFUSED BUT RESPONDS TO BASIC INSTRUCTIONS AND QUESTIONS. NO S/S OF DISTRESS OR SOB NOTED. PT DENIES PAIN AT THIS TIME. PT WITH CONTRACTED EXTREMITIES. CALL LIGHT WITHIN REACH. WILL CONTINUE TO MONITOR.
[2018-07-18 20:00] VITALS: BP 155/67
[2018-07-18] MEDS: DOCUSATE SODIUM 100 MG CAPSULE PO SCH (21:49)
[2018-07-18] MEDS: ATORVASTATIN 40 MG TABLET PO SCH (21:49)
[2018-07-18] MEDS: BENZTROPINE MESYLATE (1 MG) 1 MG TABLET PO SCH (21:49)
[2018-07-18] MEDS: INSULIN GLARGINE, 100 UNIT/ML CARTRIDGE SQ SCH (21:51)
[2018-07-18] MEDS: ENOXAPARIN SODIUM 40 MG/0.4 ML DISP.SYRIN SQ SCH (21:52)
[2018-07-19] MEDS: PIPERACILLIN /TAZOBACTAM 3.375 G in IV D5W 50 ML IV SCH ×4 (02:15→21:51)
[2018-07-19] MEDS: VANCOMYCIN 0.75 GM in IV D5W 250 ML IV SCH (03:14)
[2018-07-19] MEDS: HYDROCODONE/APAP 5/325MG 1 EACH TABLET PO PRN ×2 (04:45→12:05)
--- NOTE | 2018-07-19 05:15 | NUR ---
MS RN NOTES IV INFILTRATED ON LEFT ARM. D/C AND ELEVATED ARM.
[2018-07-19 06:40] LABS: BASOPHILS % (AUTO) 0.3 % (0.0-2.0); EOSINOPHILS % (AUTO) 1.3 % (0.0-6.0); HEMATOCRIT 25 % (33-45); HEMOGLOBIN 8.1 g/dL (11.5-14.8); LYMPHOCYTES # (AUTO) 0.8 /CMM (0.8-4.8); LYMPHOCYTES % (AUTO) 6.4 % (20.0-44.0); MEAN CORPUSCULAR HGB CONC 32 g/dl (31.0-36.0); MEAN CORPUSCULAR VOLUME 82 fL (82-100); MONOCYTES # (AUTO) 0.7 /CMM (0.1-1.30); MONOCYTES % (AUTO) 5.9 % (2.0-12.0); NEUTROPHILS # (AUTO) 10.1 /CMM (1.8-8.9); NEUTROPHILS % (AUTO) 86.1 % (43.0-81.0); PLATELET COUNT (AUTO) 367 /CMM (150-450); RED BLOOD CELL COUNT(AUTO) 3.07 MIL/uL (4.0-5.2); WHITE BLOOD COUNT (AUTO) 11.7 K/uL (4.3-11.0)
[2018-07-19 06:49] LABS: CALCIUM, SERUM 9.2 mg/dL (8.5-10.1); CREATININE 0.5 mg/dL (0.6-1.3); POTASSIUM 3.2 mmol/L (3.5-5.1)
[2018-07-19] MEDS: BLOOD SUGAR DIAGNOSTIC 1 EACH STRIP IN SCH ×4 (07:13→22:37)
--- NOTE | 2018-07-19 07:41 | NUR ---
MS RN NOTE PT IN BED RESTING BUT EASILY AWOKEN VERBALLY OR BY TOUCH. PT ALERT X1, DISORIENTED, CONFUSED BUT RESPONDS TO BASIC INSTRUCTIONS AND QUESTIONS. NO S/S OF DISTRESS OR SOB NOTED THROUGHOUT SHIFT. PT DENIES PAIN AT THIS TIME. PT WITH CONTRACTED EXTREMITIES. CALL LIGHT WITHIN REACH. WILL ENDORSE TO ONCOMING NURSE FOR CONTINUATION OF CARE.
--- NOTE | 2018-07-19 07:48 | NUR ---
ms rn received on bed,sleeping , oriented to self,not in any form of distress, respirations even unlabored,no sob noted,will monitor patient's condition.
[2018-07-19 08:00] VITALS: BP 150/70
--- NOTE | 2018-07-19 08:55 | NUR ---
ms rn was seen by dr. yamilte zamora/ orders made and carried out.
--- NOTE | 2018-07-19 09:00 | NUR ---
MS CHANG BREAKFAST SERVED,DUE MEDS GIVEN, TOLERATED WELL.
[2018-07-19] MEDS: BACLOFEN (10 MG) 10 MG TABLET PO SCH ×4 (09:45→21:53)
[2018-07-19] MEDS: PANTOPRAZOLE 40 MG TABLET.DR PO SCH (09:45)
[2018-07-19] MEDS: AMLODIPINE BESYLATE 5 MG TABLET PO SCH (09:45)
[2018-07-19] MEDS: POTASSIUM CL. PREMIX PERIPHER. 50 ML IV SCH ×4 (09:46→15:29)
[2018-07-19] MEDS: GLUCERNA SHAKE 237 ML CAN PO SCH ×2 (10:17→17:00)
[2018-07-19] MEDS: DAKINS HALF STRENGTH (0.25%) 480 ML BOTTLE TOP SCH (10:17)
[2018-07-19] MEDS: INSULIN REGULAR, HUMAN 100 UNIT/ML 3 ML VIAL SQ PRN ×3 (12:56→22:41)
[2018-07-19] MEDS: IV 1/2NS 1000 ML 1,000 ML IV PRN (16:02)
[2018-07-19 16:10] VITALS: BP 146/68
[2018-07-19] MEDS: VANCOMYCIN 1 GM in IV D5W 250 ML IV SCH (16:42)
[2018-07-19] MEDS: PROSOURCE / PROSTAT (PYXIS) 30 ML UDC PO SCH (17:25)
--- NOTE | 2018-07-19 18:20 | NUR ---
MS RN ON BED, NO DISTRESS NOTED,ALL NEEDS ATTENDED.
--- NOTE | 2018-07-19 19:10 | NUR ---
MS RN NOTE RECEIVED PT IN BED AWAKE AND RESTING. PT A/O X1, DISORIENTED, CONFUSED BUT RESPONDS TO BASIC INSTRUCTIONS AND QUESTIONS. NO S/S OF DISTRESS OR SOB NOTED. PT DENIES PAIN AT THIS TIME. PT WITH CONTRACTED EXTREMITIES. CALL LIGHT WITHIN REACH. WILL CONTINUE TO MONITOR.
[2018-07-19 20:00] VITALS: BP 147/69
[2018-07-19] MEDS: ENOXAPARIN SODIUM 40 MG/0.4 ML DISP.SYRIN SQ SCH (21:52)
[2018-07-19] MEDS: DOCUSATE SODIUM 100 MG CAPSULE PO SCH (21:53)
[2018-07-19] MEDS: ATORVASTATIN 40 MG TABLET PO SCH (21:53)
[2018-07-19] MEDS: BENZTROPINE MESYLATE (1 MG) 1 MG TABLET PO SCH (21:53)
[2018-07-19] MEDS: INSULIN GLARGINE, 100 UNIT/ML CARTRIDGE SQ SCH (22:41)
[2018-07-20] MEDS: PIPERACILLIN /TAZOBACTAM 3.375 G in IV D5W 50 ML IV SCH ×2 (03:41→08:40)
[2018-07-20] MEDS: HYDROCODONE/APAP 5/325MG 1 EACH TABLET PO PRN ×2 (03:43→08:39)
[2018-07-20] MEDS: VANCOMYCIN 1 GM in IV D5W 250 ML IV SCH ×2 (04:39→16:18)
[2018-07-20 06:27] LABS: BASOPHILS % (AUTO) 0.6 % (0.0-2.0); EOSINOPHILS % (AUTO) 2.1 % (0.0-6.0); HEMATOCRIT 24 % (33-45); LYMPHOCYTES # (AUTO) 0.6 /CMM (0.8-4.8); MEAN CORPUSCULAR HGB CONC 33 g/dl (31.0-36.0); MEAN CORPUSCULAR VOLUME 82 fL (82-100); MONOCYTES # (AUTO) 0.9 /CMM (0.1-1.30); NEUTROPHILS # (AUTO) 6.2 /CMM (1.8-8.9); NEUTROPHILS % (AUTO) 78.3 % (43.0-81.0); PLATELET COUNT (AUTO) 387 /CMM (150-450); RED BLOOD CELL COUNT(AUTO) 2.98 MIL/uL (4.0-5.2); WHITE BLOOD COUNT (AUTO) 7.9 K/uL (4.3-11.0)
[2018-07-20 06:30] LABS: CALCIUM, SERUM 9.1 mg/dL (8.5-10.1); CREATININE 0.5 mg/dL (0.6-1.3); POTASSIUM 3.1 mmol/L (3.5-5.1)
[2018-07-20] MEDS: BLOOD SUGAR DIAGNOSTIC 1 EACH STRIP IN SCH ×4 (06:49→22:08)
--- NOTE | 2018-07-20 07:41 | NUR ---
MS RN NOTES PATIENT RECEIVED RESTING INSIDE ROOM. AWAKE, ALERT AND ORIENTED, VERBALLY RESPONSIVE AND RESPONDS TO VERBAL AND TACTILE STIMULI. BREATHING EVEN AND UNLABORED. DENIES ANY PAIN OR DISCOMFORT AT THIS TIME. NO CHANGES IN LOC NOTED. MAINTAINED ISOLATION PRECAUTIONS. WILL CONTINUE TO MONITOR. BED LOCKED AND IN LOW POSITION. BILATERAL UPPER SIDE RAILS UP AND LOCKED. CALL LIGHT WITHIN EASY REACH
--- NOTE | 2018-07-20 07:41 | NUR ---
MS RN NOTE PT IN BED SLEEPING BUT EASILY AWOKEN VERBALLY OR BY TOUCH. PT ALERT X1, DISORIENTED, CONFUSED BUT RESPONDS TO BASIC INSTRUCTIONS AND QUESTIONS. NO S/S OF DISTRESS OR SOB NOTED THROUGHOUT SHIFT. PT DENIES PAIN AT THIS TIME. PT WITH CONTRACTED EXTREMITIES. CALL LIGHT WITHIN REACH. WILL ENDORSE TO ONCOMING NURSE FOR CONTINUATION OF CARE.
[2018-07-20 08:00] VITALS: BP 152/67
[2018-07-20] MEDS: AMLODIPINE BESYLATE 5 MG TABLET PO SCH (08:39)
[2018-07-20] MEDS: BACLOFEN (10 MG) 10 MG TABLET PO SCH ×4 (08:39→21:14)
[2018-07-20] MEDS: PANTOPRAZOLE 40 MG TABLET.DR PO SCH (08:39)
[2018-07-20] MEDS: GLUCERNA SHAKE 237 ML CAN PO SCH ×2 (08:39→16:18)
[2018-07-20] MEDS: DAKINS HALF STRENGTH (0.25%) 480 ML BOTTLE TOP SCH (08:40)
[2018-07-20] MEDS ORDERED: CEFEPIME 1 GM in IV NS 0.9% 50 ML IV SCH (11:00)
[2018-07-20] MEDS: POTASSIUM CHLORIDE 20 MEQ TAB.PRT.SR PO SCH ×2 (11:39→12:13)
[2018-07-20] MEDS: INSULIN REGULAR, HUMAN 100 UNIT/ML 3 ML VIAL SQ PRN ×3 (12:14→22:08)
[2018-07-20] MEDS: CEFEPIME 2 GM in IV D5W 100 ML IV SCH (12:57)
[2018-07-20 16:00] VITALS: BP 146/71
[2018-07-20] MEDS: PROSOURCE / PROSTAT (PYXIS) 30 ML UDC PO SCH (16:18)
--- NOTE | 2018-07-20 18:57 | NUR ---
MS RN NOTES PATIENT RESTING INSIDE ROOM. AWAKE, ALERT AND ORIENTED, VERBALLY RESPONSIVE AND RESPONDS TO VERBAL AND TACTILE STIMULI. BREATHING EVEN AND UNLABORED. DENIES ANY PAIN OR DISCOMFORT AT THIS TIME. NO CHANGES IN LOC NOTED. MAINTAINED ISOLATION PRECAUTIONS. IV INTACT AND PATENT. PATIENT KEPT CLEAN, DRY AND COMFORTABLE. WILL ENDORSE TO INCOMING SHIFT FOR MIRANDA. BED LOCKED AND IN LOW POSITION. BILATERAL UPPER SIDE RAILS UP AND LOCKED .CALL LIGHT WITHIN EASY REACH
--- NOTE | 2018-07-20 19:45 | NUR ---
FLOOR SPACE ALLOCATOR OPENING NOTES RECEIVED PT IN BED, AWAKE ALERT ORIENTEDX2 BREATHING EVEN AND UNLABORED ON ROOM AIR. IV ACCESS ON THE HUSSEIN MIDLINE. IN NO APPARENT PAIN OR DISCOMFORT AT THE MOMENT. BED IN LOWEST LOCKED POSITION, CALL LIGHT WITHIN REACH AT ALL TIMES, WILL CONTINUE TO MONITOR
[2018-07-20 20:00] VITALS: BP 151/79
[2018-07-20] MEDS: BENZTROPINE MESYLATE (1 MG) 1 MG TABLET PO SCH (21:14)
[2018-07-20] MEDS: ATORVASTATIN 40 MG TABLET PO SCH (21:14)
[2018-07-20] MEDS: DOCUSATE SODIUM 100 MG CAPSULE PO SCH (21:14)
[2018-07-20] MEDS: ENOXAPARIN SODIUM 40 MG/0.4 ML DISP.SYRIN SQ SCH (21:15)
[2018-07-20] MEDS: INSULIN GLARGINE, 100 UNIT/ML CARTRIDGE SQ SCH (22:07)
[2018-07-21] MEDS: CEFEPIME 2 GM in IV D5W 100 ML IV SCH ×2 (00:14→12:19)
[2018-07-21] MEDS: IV 1/2NS 1000 ML 1,000 ML IV PRN (02:45)
[2018-07-21] MEDS: VANCOMYCIN 1 GM in IV D5W 250 ML IV SCH ×2 (03:52→16:29)
[2018-07-21] MEDS: BLOOD SUGAR DIAGNOSTIC 1 EACH STRIP IN SCH ×4 (06:07→22:25)
[2018-07-21] MEDS: HYDROCODONE/APAP 5/325MG 1 EACH TABLET PO PRN (06:08)
--- NOTE | 2018-07-21 06:39 | NUR ---
RN MS CLOSING NOTES PT REMAINS IN BED, AWAKE ALERT ORIENTEDX2, BREATHING EVEN AND UNLABORED ON ROOM AIR. NO COMPLAINT OF PAIN OR DISCOMFORT AT THE MOMENT. R UPPER ARM PICC LINE AND R WRIST IV ACCESS. HIP WOUND PACKED AND DRESSED, BED IN LOWEST LOCKED POSITION, CALL LIGHT WITHIN REACH AT ALL TIMES,. WILL ENDORSE TO DAY NURSE FOR MIRANDA
--- NOTE | 2018-07-21 07:20 | NUR ---
MS RN NOTES PATIENT RECEIVED RESTING INSIDE ROOM. AWAKE, ALERT AND ORIENTED TO SELF. VERBALLY RESPONSIVE AND RESPONDS TO VERBAL AND TACTILE STIMULI. BREATHING EVEN AND UNLABORED. NO CHANGES IN LOC NOTED AT THIS TIME. PATIENT CALM AND RELAXED. MAINTAINED ISOLATION PRECAUTIONS. WILL CONTINUE TO MONITOR. BED LOCKED AND IN LOW POSITION. BILATERAL UPPER SIDE RAILS UP AND LOCKED. CALL LIGHT WITHIN EASY REACH
[2018-07-21 08:00] VITALS: BP 151/80
[2018-07-21 08:22] LABS: CALCIUM, SERUM 9.2 mg/dL (8.5-10.1); CREATININE 0.5 mg/dL (0.6-1.3); POTASSIUM 3.1 mmol/L (3.5-5.1)
[2018-07-21] MEDS: PANTOPRAZOLE 40 MG TABLET.DR PO SCH (08:52)
[2018-07-21] MEDS: BACLOFEN (10 MG) 10 MG TABLET PO SCH ×4 (08:52→21:58)
[2018-07-21] MEDS: AMLODIPINE BESYLATE 5 MG TABLET PO SCH (08:52)
[2018-07-21] MEDS: DAKINS HALF STRENGTH (0.25%) 480 ML BOTTLE TOP SCH (08:53)
[2018-07-21] MEDS: GLUCERNA SHAKE 237 ML CAN PO SCH ×2 (08:53→16:28)
[2018-07-21] MEDS: POTASSIUM CHLORIDE 20 MEQ TAB.PRT.SR PO SCH ×2 (11:31→12:20)
[2018-07-21] MEDS: INSULIN REGULAR, HUMAN 100 UNIT/ML 3 ML VIAL SQ PRN ×3 (12:20→22:30)
[2018-07-21 16:00] VITALS: BP 130/57
[2018-07-21] MEDS: PROSOURCE / PROSTAT (PYXIS) 30 ML UDC PO SCH (16:28)
[2018-07-21] MEDS: LACTOBACILLUS RHAMNOSUS GG 1 EACH CAP.SPRINK PO SCH (16:28)
--- NOTE | 2018-07-21 18:33 | NUR ---
MS RN NOTES PATIENT RESTING INSIDE ROOM. AWAKE, ALERT AND ORIENTED TO SELF. VERBALLY RESPONSIVE AND RESPONDS TO VERBAL AND TACTILE STIMULI. BREATHING EVEN AND UNLABORED. NO CHANGES IN LOC NOTED AT THIS TIME. PATIENT CALM AND RELAXED. MAINTAINED ISOLATION PRECAUTIONS. IV INTACT AND PATENT. PATIENT KEPT CLEAN, DRY AND COMFORTABLE. WILL ENDORSE TO INCOMING SHIFT FOR MIRANDA. BED LOCKED AND IN LOW POSITION. BILATERAL UPPER SIDE RAILS UP AND LOCKED. CALL LIGHT WITHIN EASY REACH
--- NOTE | 2018-07-21 19:40 | NUR ---
MS RN NOTES RECEIVED PATIENT RESTING IN BED. AWAKE, ALERT AND ORIENTED TO SELF. VERBALLY RESPONSIVE AND RESPONDS TO VERBAL AND TACTILE STIMULI. BREATHING EVEN AND UNLABORED. NO CHANGES IN LOC NOTED AT THIS TIME. PATIENT CALM AND RELAXED. MAINTAINED ISOLATION PRECAUTIONS. IV INTACT AND PATENT. PATIENT KEPT CLEAN, DRY AND COMFORTABLE. ASPIRATION PRECAUTION OBSERVED, SAFETY MEASURES IN PLACED, WILL MONITOR ACCORDINGLY.
[2018-07-21 20:00] VITALS: BP 152/56
[2018-07-21 20:20] VITALS: BP 152/56
[2018-07-21] MEDS: DOCUSATE SODIUM 100 MG CAPSULE PO SCH (21:58)
[2018-07-21] MEDS: ATORVASTATIN 40 MG TABLET PO SCH (21:58)
[2018-07-21] MEDS: BENZTROPINE MESYLATE (1 MG) 1 MG TABLET PO SCH (21:58)
[2018-07-21] MEDS: ENOXAPARIN SODIUM 40 MG/0.4 ML DISP.SYRIN SQ SCH (21:59)
[2018-07-21] MEDS: INSULIN GLARGINE, 100 UNIT/ML CARTRIDGE SQ SCH (22:31)
[2018-07-22] MEDS: CEFEPIME 2 GM in IV D5W 100 ML IV SCH ×3 (00:11→23:57)
[2018-07-22] MEDS: VANCOMYCIN 1 GM in IV D5W 250 ML IV SCH ×2 (04:13→16:51)
[2018-07-22] MEDS: BLOOD SUGAR DIAGNOSTIC 1 EACH STRIP IN SCH ×4 (06:54→22:06)
[2018-07-22] MEDS: IV 1/2NS 1000 ML 1,000 ML IV PRN (06:59)
--- NOTE | 2018-07-22 07:11 | NUR ---
MS RN NOTES PATIENT RESTING IN BED. AWAKE, ALERT AND ORIENTED TO SELF. VERBALLY RESPONSIVE AND RESPONDS TO VERBAL AND TACTILE STIMULI. BREATHING EVEN AND UNLABORED. NO CHANGES IN LOC NOTED AT THIS TIME. PATIENT CALM AND RELAXED. MAINTAINED ISOLATION PRECAUTIONS. IV INTACT AND PATENT. PATIENT KEPT CLEAN, DRY AND COMFORTABLE. ASPIRATION PRECAUTION OBSERVED, SAFETY MEASURES IN PLACED, WILL ENDORSE TO AM NURSE FOR CONTINUITY OF CARE.
[2018-07-22 08:00] VITALS: BP 160/69
[2018-07-22] MEDS ORDERED: CEFE1PIG3 IV (08:33)
[2018-07-22 09:11] LABS: BASOPHILS % (AUTO) 0.6 % (0.0-2.0); EOSINOPHILS % (AUTO) 1.4 % (0.0-6.0); HEMATOCRIT 26 % (33-45); HEMOGLOBIN 8.5 g/dL (11.5-14.8); LYMPHOCYTES # (AUTO) 1.3 /CMM (0.8-4.8); LYMPHOCYTES % (AUTO) 16.9 % (20.0-44.0); MEAN CORPUSCULAR HGB CONC 33 g/dl (31.0-36.0); MEAN CORPUSCULAR VOLUME 81 fL (82-100); MONOCYTES # (AUTO) 0.7 /CMM (0.1-1.30); MONOCYTES % (AUTO) 9.1 % (2.0-12.0); NEUTROPHILS # (AUTO) 5.4 /CMM (1.8-8.9); PLATELET COUNT (AUTO) 519 /CMM (150-450); RED BLOOD CELL COUNT(AUTO) 3.21 MIL/uL (4.0-5.2); WHITE BLOOD COUNT (AUTO) 7.5 K/uL (4.3-11.0)
[2018-07-22 09:25] LABS: CALCIUM, SERUM 9.3 mg/dL (8.5-10.1); CREATININE 0.5 mg/dL (0.6-1.3); POTASSIUM 3.5 mmol/L (3.5-5.1)
--- NOTE | 2018-07-22 09:30 | NUR ---
NO LABS EARLY AM THEN LABS DONE AT 0845.FIND BLOOD SUGAR ONLY 68-GIVEN OJ WITH 1 PKT. OF SUGAR.
[2018-07-22] MEDS: PANTOPRAZOLE 40 MG TABLET.DR PO SCH (09:49)
[2018-07-22] MEDS: LACTOBACILLUS RHAMNOSUS GG 1 EACH CAP.SPRINK PO SCH ×2 (09:49→17:36)
[2018-07-22] MEDS: AMLODIPINE BESYLATE 5 MG TABLET PO SCH (09:50)
[2018-07-22] MEDS: BACLOFEN (10 MG) 10 MG TABLET PO SCH ×4 (09:50→20:41)
[2018-07-22] MEDS: GLUCERNA SHAKE 237 ML CAN PO SCH ×2 (09:52→17:36)
[2018-07-22] MEDS: DAKINS HALF STRENGTH (0.25%) 480 ML BOTTLE TOP SCH (09:54)
[2018-07-22] MEDS: HYDROCODONE/APAP 5/325MG 1 EACH TABLET PO PRN ×2 (10:15→17:09)
[2018-07-22] MEDS: INSULIN REGULAR, HUMAN 100 UNIT/ML 3 ML VIAL SQ PRN ×4 (12:36→22:24)
--- NOTE | 2018-07-22 12:56 | NUR ---
BGL AT THIS TIME-143,ATE FAIR AMT. LUNCH.NO INSULIN GIVEN DUE TO EARLIER GLUCOSE LEVELS.REFUSED DISCHARGE PHOTOS.WD. CARE DONE.
[2018-07-22 16:36] VITALS: BP 155/70
--- NOTE | 2018-07-22 17:15 | NUR ---
[facility]. [facility]
[2018-07-22] MEDS: PROSOURCE / PROSTAT (PYXIS) 30 ML UDC PO SCH (17:35)
--- NOTE | 2018-07-22 19:37 | NUR ---
MS RN NOTES RECEIVED ON BED SLEEPING,AROUSABLE TO VERBAL STIMULI.BREATHING NORMAL.IVF 1/2 AT 50ML/HR RATE IN PROGRESS VIA IV PUMP INFUSING ON RIGHT UPPER AR MIDLINE.ON GEL BED FOR SKIN MANAGEMENT.ISOLATION PRECAUTION FOR HX OF C-DIFF AND ESBL URINE,AWAITING SNF PLACEMENT.CALL LIGHT IN REACH,NEEDS ANTICIPATED.
[2018-07-22 19:59] VITALS: BP 120/70
[2018-07-22 20:00] VITALS: BP 120/70
[2018-07-22] MEDS: ENOXAPARIN SODIUM 40 MG/0.4 ML DISP.SYRIN SQ SCH (20:45)
[2018-07-22] MEDS: DOCUSATE SODIUM 100 MG CAPSULE PO SCH (22:06)
[2018-07-22] MEDS: ATORVASTATIN 40 MG TABLET PO SCH (22:06)
[2018-07-22] MEDS: BENZTROPINE MESYLATE (1 MG) 1 MG TABLET PO SCH (22:07)
--- NOTE | 2018-07-22 22:15 | NUR ---
MS RN NOTES ACCU-CHECK BLOOD SUGAR CHECK 304,COVERED WITH HUMULIN R 8 UNITS SLIDING SCALE,ALONG WITH LANTUS 20 UNITS ORDERED.SNACKS AT BEDSIDE
[2018-07-22] MEDS: INSULIN GLARGINE, 100 UNIT/ML CARTRIDGE SQ SCH (22:22)
[2018-07-23] MEDS: HYDROCODONE/APAP 5/325MG 1 EACH TABLET PO PRN ×2 (00:06→10:23)
--- NOTE | 2018-07-23 00:06 | NUR ---
MS RN NOTES PAIN MANAGEMENT C/O PAIN 5/10 BOTH HEELS,MEDICATED WITH NORCO 5/325MG,1 TAB GIVEN WITH APPLE SAUCE,TAKEN WELL.
[2018-07-23 03:28] LABS: CALCIUM, SERUM 9.1 mg/dL (8.5-10.1); CREATININE 0.5 mg/dL (0.6-1.3); POTASSIUM 3.5 mmol/L (3.5-5.1)
--- NOTE | 2018-07-23 03:50 | NUR ---
MS RN NOTES VANCO TROUGH AT 0300 WAS 20,NIGHT PHARMACIST NAME ,MADE AWARE,WITH ORDER TO ADMINISTER DOSE DUE AT 0400.
[2018-07-23] MEDS: VANCOMYCIN 1 GM in IV D5W 250 ML IV SCH (04:04)
[2018-07-23] MEDS: IV 1/2NS 1000 ML 1,000 ML IV PRN (04:16)
[2018-07-23] MEDS: BLOOD SUGAR DIAGNOSTIC 1 EACH STRIP IN SCH ×3 (05:25→17:15)
--- NOTE | 2018-07-23 05:30 | NUR ---
MS RN NOTES ACCU-CHECK BLOOD SUGAR CHECK 158,COVERED WITH HUMULIN R 2 UNITS PER SLIDING SCALE
[2018-07-23] MEDS: INSULIN REGULAR, HUMAN 100 UNIT/ML 3 ML VIAL SQ PRN ×3 (05:33→17:30)
--- NOTE | 2018-07-23 05:49 | NUR ---
MS RN NOTES DRESSING CHANGE DONE ON RIGHT DISTAL UPPER THIGH.
--- NOTE | 2018-07-23 06:17 | NUR ---
MS RN NOTES SLEPT WITH INTERVALS,PAIN MANAGEMENT EFFECTIVE,REPOSITION PER PROTOCOL.IVF IN PROGRESS.,AWAITING SNF PLACEMENT,IN NO ACUTE DISTRESS.WILL ENDORSE TO DAY NURSE FOR MIRANDA.
[2018-07-23 08:00] VITALS: BP 129/71
--- NOTE | 2018-07-23 08:00 | NUR ---
RN NOTES RECEIVED PATIENT IN THE BED A/O X2/3 WITH CONFUSION, LOUD, YELLING. PATIENT ON O2-2L NC, NO RESPIRATORY DISTRESS. PATIENT TOTAL CARE, ASSIST EATING BY BOX SEALING MACHINE FEEDER , V/S TAKEN STABLE. SCHEDULED MEDICATION ADMINISTERED. ASSIST PATIENT TURN AND REPOSTION Q 2 HR. PATIENT HAS A MULTIPLE WOUNDS, NEEDS RENDERED. CALL LIGHT WITHIN TO REACH, SAFETY PRECAUTION MAINTAINED ALL THE TIME.
--- NOTE | 2018-07-23 10:00 | NUR ---
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 PER CONSERVATOR HE WANTED TO PUT PATIENT IN HOSPICE, NOTIFIED CHARGE NURSE , AND CASE MANAGEMENT, ALSO TRANSFERRED CALLS CASE MANAGEMENT.
[2018-07-23] MEDS: BACLOFEN (10 MG) 10 MG TABLET PO SCH ×3 (10:16→17:13)
[2018-07-23] MEDS: PANTOPRAZOLE 40 MG TABLET.DR PO SCH (10:16)
[2018-07-23] MEDS: LACTOBACILLUS RHAMNOSUS GG 1 EACH CAP.SPRINK PO SCH ×2 (10:17→17:13)
[2018-07-23] MEDS: AMLODIPINE BESYLATE 5 MG TABLET PO SCH (10:17)
[2018-07-23] MEDS: DAKINS HALF STRENGTH (0.25%) 480 ML BOTTLE TOP SCH (10:18)
[2018-07-23] MEDS: GLUCERNA SHAKE 237 ML CAN PO SCH ×2 (10:19→17:15)
--- NOTE | 2018-07-23 10:23 | NUR ---
RN NOTES ADMINISTERED NARCO 5/325 MG PO PRN FOR GENERALIZED PAIN, V/S TAKEN BP-129/ 71, P-82, CONTINUED MONITORING.
[2018-07-23] MEDS: CEFEPIME 2 GM in IV D5W 100 ML IV SCH (12:36)
--- NOTE | 2018-07-23 12:57 | NUR ---
RN NOTES ADMINISTERED MAALOX 30 MG/ML PO PRN FOR STOMACHACHE.
[2018-07-23 16:00] VITALS: BP 114/71
[2018-07-23] MEDS: PROSOURCE / PROSTAT (PYXIS) 30 ML UDC PO SCH (17:14)
--- NOTE | 2018-07-23 18:18 | NUR ---
DISCHARGE NOTES PATIENT DISCHARGE AT THIS TIME GOING B&C WITH HOSPICE. PATIENT A/O X2/3 WITH CONFUSION, V/S STABLE. PATIENT MED COMPLIANT, NO COMPLAINING OF PAIN. MED RECONCILIATION AND DISCHARGE ORDER REVIEWED AND EXPLAINED TO PATIENT. REPORT GIVEN BY CASE MANAGEMENT TO HOSPICE NURSE. BELONGING WITH THE PATIENT. PATIENT REFUSED SIGN PAPERWORK, AND REFUSED PICTURE TO BE TAKEN. X- AWARE OF DISCHARGE PLANING. 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
[2018-07-23] MEDS ORDERED: VANCOMYCIN 1 GM in IV D5W 250 ML IV SCH (22:00)
== END 2018-07-23 18:10 | disposition hospice, home (50) | DRG 853 ==
LOC: ER 13:34 → TELE 16:14 → MED 07-15 09:42
PROVIDERS: ADMIT Nurse Practitioner Acute Care; ATTEND Family Medicine
PROC: 0KBN0ZZ Excision of Right Hip Muscle, Open Approach (ICD-10-PCS; principal; 2018-07-17)
PROC: 05H633Z Insertion of Infusion Device into Left Subclavian Vein, Percutaneous Approach (ICD-10-PCS; 2018-07-19)
PROC: B547ZZA Ultrasonography of Left Subclavian Vein, Guidance (ICD-10-PCS; 2018-07-19)
DX: A41.9 Sepsis, unspecified organism (principal); L89.214 Pressure ulcer of right hip, stage 4; G93.41 Metabolic encephalopathy; E43 Unspecified severe protein-calorie malnutrition; N17.0 Acute kidney failure with tubular necrosis; J69.0 Pneumonitis due to inhalation of food and vomit; J96.01 Acute respiratory failure with hypoxia; R53.2 Functional quadriplegia; D68.59 Other primary thrombophilia; Z68.1 Body mass index [BMI] 19.9 or less, adult; B96.5 Pseudomonas (aeruginosa) (mallei) (pseudomallei) as the cause of diseases classified elsewhere; E11.51 Type 2 diabetes mellitus with diabetic peripheral angiopathy without gangrene; E11.65 Type 2 diabetes mellitus with hyperglycemia; D63.8 Anemia in other chronic diseases classified elsewhere; E03.9 Hypothyroidism, unspecified; E86.0 Dehydration; E78.5 Hyperlipidemia, unspecified; F03.90 Unspecified dementia, unspecified severity, without behavioral disturbance, psychotic disturbance, mood disturbance, and anxiety; I25.10 Atherosclerotic heart disease of native coronary artery without angina pectoris; K21.9 Gastro-esophageal reflux disease without esophagitis; Z74.01 Bed confinement status; Z87.891 Personal history of nicotine dependence; Z79.4 Long term (current) use of insulin; I25.2 Old myocardial infarction; Z87.440 Personal history of urinary (tract) infections; M19.90 Unspecified osteoarthritis, unspecified site; E88.09 Other disorders of plasma-protein metabolism, not elsewhere classified; D47.3 Essential (hemorrhagic) thrombocythemia; L98.8 Other specified disorders of the skin and subcutaneous tissue; R33.9 Retention of urine, unspecified; L89.620 Pressure ulcer of left heel, unstageable; L89.610 Pressure ulcer of right heel, unstageable; L89.510 Pressure ulcer of right ankle, unstageable; E87.6 Hypokalemia
CPT/HCPCS: 36415; 36569; 36600; 70450-TC; 71045-TC; 80048-TC; 80061-TC; 80076-TC; 80202-TC; 81000-TC; 82962-TC; 83605-TC; 83735-TC; 84100-TC; 84443-TC; 84484-TC; 85025-TC; 85730-TC; 87040-TC; 87070-TC; 87081-TC; 87086-TC; 87186-TC; 92526; 92611-TC; A4216; A6253; A6402; A6403; G0378; J0692; J1170; J1650; J1815; J2060; J2543; J3370; J3480; J3490; J7030; J7060